=== PATIENT | male | born 1965 | race African-American/Black ===

== ENCOUNTER 2024-12-16 11:15 | Observation (INO) | payer MEDICAID, SELFPAY ==
--- NOTE | 2024-11-10 08:45 | EKG12_ITS ---
Test Reason : PRE OP Blood Pressure : */* mmHG Vent. Rate : 83 BPM Atrial Rate : 83 BPM P-R Int : 144 ms QRS Dur : 88 ms QT Int : 364 ms P-R-T Axes : 78 -70 61 degrees QTcB Int : 427 ms Normal sinus rhythm Left anterior fascicular block Abnormal ECG Confirmed by ALYSSA ORDONEZ, MARILYN ([id number]), tape editor CHRIS SHABAZZ ([id number]) on 11/11/2024 11:01:05 AM Referred By: Jose Quinones Confirmed By: MARILYN SHAH MD
[2024-11-10 09:13] LABS: Hematocrit 46.8 % (40-54); Hemoglobin 14.8 g/dL (13.0-16.5); Immature Granulocytes Count 0.050 X10^3/uL (0.0-0.0); Mean Corp Hgb Conc 31.6 g/dL (32-36); Mean Corpuscular Volume 85.6 fL (80-94); Mean Platelet Vol. 10.9 fl (6.2-12.0); NRBC Flagged by Analyzer 0 % (0-5); Platelet Count 225 K/mm3 (150-450); RBC Distribution Width CV 14.0 % (11.6-14.6); RBC Distribution Width SD 44.2 fl (35.1-43.9); Red Blood Count 5.47 M/mm3 (4.6-6.2); White Blood Count 9.9 K/mm3 (4.4-11.0)
[2024-11-10 10:03] LABS: Anion Gap 11 (5-15); BUN 14 mg/dL (4-19); BUN/Creat Ratio 13.0 RATIO (10-20); Calcium,Total 9.3 mg/dL (7.6-11.0); Carbon Dioxide 25.9 mmol/L (21.0-32.0); Chloride 100 mmol/L (98-108); Glucose 118 mg/dL (70-99); HIV Nonreactive (Nonreactive); Hepatitis C Antibody Nonreactive (Nonreactive); Potassium 3.8 mmol/L (3.3-5.1)
[2024-11-10 10:35] LABS: Magnesium 2.2 mg/dL (1.5-2.2)
--- NOTE | 2024-11-11 08:29 | PAT.ANESEVAL ---
Pre-Assessment Diagnosis/Proposed Procedure Planned Operative Procedure(s): (N/A) Anterior Cervical Fusion C4-5, C5-6 and C6-7 Anesthesia History Anesthesia History - tubular riveter: Anesthesia History - tubular riveter Hx Hospitalization No 11/05/24 09:39 Any Problems With Anesthesia No 11/05/24 09:39 Cholinesterase deficiency No 11/05/24 09:39 You/Your Family Experience No 11/05/24 09:39 fever (hyperthermia) with Relationship Recent Exposure to Contagious Disease Does patient have nerve No 11/05/24 09:39 stimulator Patient instructed to have device shut off --Does patient have Pacemaker or ICD? When Was Last Pacemaker Check QUESTION #4 FULL TEXT: You/Your Family Experience fever (hyperthermia) with Anesthesia Last Oral Intake Last Oral intake: Last Oral Intake NPO since Meds taken in AM with sips of water? Meds patient instructed to take am of surgery PONV PONV - tubular riveter: PONV - tubular riveter Female No 11/05/24 09:39 HX of Motion Sickness No 11/05/24 09:39 HX of N/V After Surgery No 11/05/24 09:39 Non-Smoker No 11/05/24 09:39 Duration of Surgery greater Yes 11/05/24 09:39 than 60 minutes Number of Risk Factors 1 11/05/24 09:39 PONV Score Low Risk 11/05/24 09:39 Height & Weight Height & Weight: Anesthesia: Height & Weight Height 6 ft 4 in 10/30/24 14:47 Respiratory Assessment Respiratory Assessment - tubular riveter: Respiratory Tract Infection Hx - tubular riveter Hx Respiratory Tract Infection No 11/05/24 09:39 STOP Sleep Apnea STOP Sleep Apnea - tubular riveter: STOP Sleep Apnea - tubular riveter Hx Hypertension No 11/05/24 09:39 Hx Sleep Apnea No 11/05/24 09:39 CPAP BIPAP Do you snore loudly (louder No 11/05/24 09:39 than talking or can be heard Do you often feel tired/ No 11/05/24 09:39 fatigued/ sleepy during daytime? Has anyone observed you stop No 11/05/24 09:39 breathing during sleep? STOP Results Negative 11/05/24 09:39 QUESTION #5 FULL TEXT : Do you snore loudly (louder than talking or can be heard through closed doors)? Tobacco Use History Tobacco Use History - tubular riveter: Tobacco Use History - tubular riveter Tobacco Use Smoking Status Current every day smoker 11/05/24 09:39 Hx Tobacco Use Yes 11/05/24 09:39 Years Smoking Packs Smoked per Day Smoking Cessation Date was within the last 15 years Hx Smoking Cessation Date Hx Smoking Cessation Counseling Hematologic Medial History Hematologic Hx - tubular riveter: Hematologic Medical Hx - ip counsel Hx of Blood Transfusion No 11/05/24 09:39 Hx of Transfusion in last 3 No 11/05/24 09:39 Months Date of Last Transfusion (if within last 3 months) Ever experience any problems No 11/05/24 09:39 with transfusion(s)? Specify any problems Hx of Preganancy in last 3 N/A 11/05/24 09:39 Months Nurse Filling Out Transfusion [facility] 11/05/24 09:39 & Questions: Date: 11/05/24 11/05/24 09:39 Time: 09:41 11/05/24 09:39 Patient unable to answer at this time (ie. confused, unrespo /Reproduction History /Reproductive History - tubular riveter: /Reproductive Hx- tubular riveter Hx Now No 11/05/24 09:39 Gestational Age (in weeks): EDC: Hx Hx Para Hx Section SAB No 11/05/24 09:39 PFSH Medical History (Updated 11/05/24 @ 09:45 by Nichole Borges) Wears glasses Leg cramps Smoker History of edema Hyperlipemia Pulmonary nodule Gastric reflux Pulmonary emphysema Home Medications ?Medication ?Instructions ?Recorded ?Last Taken ?Type NK 10/30/24 Unknown History Allergy/AdvReac Type Severity Reaction Status Date / Time pollen extracts (pollens) AdvReac Other Verified 11/05/24 09:39 Family History (Updated 10/30/24 @ 15:07 by Francine Perez) Mother Hypertension Ovarian cancer Father Diabetes Myocardial infarction Hypertension Surgical History (Updated 11/05/24 @ 09:45 by Nichole Borges) History of appendectomy (~2004) Social History (Updated 10/30/24 @ 15:07 by Francine Perez) household members: spouse Smoking Status: Current every day smoker tobacco type: cigarettes Audit: Pertinent Findings Pertinent Findings EKG Perinent findings: 11/10/24: NSR with LAFB Recommendation Anesthesia Recommendation Anesthesia recommendation: OPTIMIZED for anesthesia
--- NOTE | 2024-12-08 16:57 | PAT.ANESEVAL ---
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 When Was Last Pacemaker Check QUESTION #4 FULL TEXT: You/Your Family Experience fever (hyperthermia) with Anesthesia Last Oral Intake Last Oral intake: Last Oral Intake NPO since Meds taken in AM with sips of water? Meds patient instructed to take am of surgery PONV PONV - beaming machine operator: PONV - beaming machine operator Female No 12/07/24 12:59 HX of Motion Sickness No 12/07/24 12:59 HX of N/V After Surgery No 12/07/24 12:59 Non-Smoker No 12/07/24 12:59 Duration of Surgery greater Yes 12/07/24 12:59 than 60 minutes Number of Risk Factors 1 12/07/24 12:59 PONV Score Low Risk 12/07/24 12:59 Height & Weight Height & Weight: Anesthesia: Height & Weight Height 6 ft 4 in 10/30/24 14:47 Respiratory Assessment Respiratory Assessment - beaming machine operator: Respiratory Tract Infection Hx - beaming machine operator Hx Respiratory Tract Infection No 12/07/24 12:59 STOP Sleep Apnea STOP Sleep Apnea - beaming machine operator: STOP Sleep Apnea - beaming machine operator Hx Hypertension No 12/07/24 12:59 Hx Sleep Apnea No 12/07/24 12:59 CPAP BIPAP Do you snore loudly (louder No 12/07/24 12:59 than talking or can be heard Do you often feel tired/ No 12/07/24 12:59 fatigued/ sleepy during daytime? Has anyone observed you stop No 12/07/24 12:59 breathing during sleep? STOP Results Negative 12/07/24 12:59 QUESTION #5 FULL TEXT : Do you snore loudly (louder than talking or can be heard through closed doors)? 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 Specify any problems Hx of Preganancy in last 3 N/A 12/07/24 12:59 Months Nurse Filling Out Transfusion [facility] 12/07/24 12:59 & Questions: Date: 12/07/24 12/07/24 12:59 Time: 13:00 12/07/24 12:59 Patient unable to answer at this time (ie. confused, unrespo /Reproduction History /Reproductive History - beaming machine operator: /Reproductive Hx- beaming machine operator Hx Now No 12/07/24 12:59 Gestational Age (in weeks): EDC: Hx Hx Para Hx Section SAB No 12/07/24 12:59 [facility] History (Updated 11/05/24 @ 09:45 by Nichole Borges) Wears glasses Leg cramps Smoker History of edema Hyperlipemia Pulmonary nodule Gastric reflux Pulmonary emphysema Home Medications ?Medication ?Instructions ?Recorded ?Last Taken ?Type NK 10/30/24 Unknown History Allergy/AdvReac Type Severity Reaction Status Date / Time pollen extracts (pollens) AdvReac Other Verified 12/07/24 12:59 Family History (Updated 10/30/24 @ 15:07 by Francine Perez) Mother Hypertension Ovarian cancer Father Diabetes Myocardial infarction Hypertension Surgical History (Updated 11/05/24 @ 09:45 by Nichole Borges) History of appendectomy (~2004) Social History (Updated 10/30/24 @ 15:07 by Francine Perez) household members: spouse Smoking Status: Current every day smoker tobacco type: cigarettes Audit: Pertinent Findings HISTORY of Pertinent Findings History of Pertinent Findings: EKG Pertinent Findings EKG Perinent findings 11/10/24: NSR with LAFB 11/11/24 08:30 Pertinent Findings EKG Perinent findings: 12/17/2023 Normal Sinus rhythm, LAFB unchanged from 11/10/2024 Recommendation Anesthesia Recommendation Anesthesia recommendation: OPTIMIZED for anesthesia
--- NOTE | 2024-12-15 12:56 | PAT.ANE_ITS ---
Pre-Assessment Diagnosis/Proposed Procedure Planned Operative Procedure(s): (N/A) Anterior Cervical Fusion C4-5, C5-6 and C6-7 Anesthesia History Anesthesia History - home care giver: Anesthesia History - home care giver Hx Hospitalization No 12/07/24 12:59 Any Problems With Anesthesia No 12/07/24 12:59 Cholinesterase deficiency No 12/07/24 12:59 You/Your Family Experience No 12/07/24 12:59 fever (hyperthermia) with Relationship Recent Exposure to Contagious Disease Does patient have nerve No 12/07/24 12:59 stimulator Patient instructed to have device shut off --Does patient have Pacemaker or ICD? When Was Last Pacemaker Check QUESTION #4 FULL TEXT: You/Your Family Experience fever (hyperthermia) with Anesthesia Last Oral Intake Last Oral intake: Last Oral Intake NPO since Meds taken in AM with sips of water? Meds patient instructed to take am of surgery PONV PONV - home care giver: PONV - home care giver Female No 12/07/24 12:59 HX of Motion Sickness No 12/07/24 12:59 HX of N/V After Surgery No 12/07/24 12:59 Non-Smoker No 12/07/24 12:59 Duration of Surgery greater Yes 12/07/24 12:59 than 60 minutes Number of Risk Factors 1 12/07/24 12:59 PONV Score Low Risk 12/07/24 12:59 Height & Weight Height & Weight: Anesthesia: Height & Weight Height 6 ft 4 in 10/30/24 14:47 Respiratory Assessment Respiratory Assessment - home care giver: Respiratory Tract Infection Hx - home care giver Hx Respiratory Tract Infection No 12/07/24 12:59 STOP Sleep Apnea STOP Sleep Apnea - home care giver: STOP Sleep Apnea - home care giver Hx Hypertension No 12/07/24 12:59 Hx Sleep Apnea No 12/07/24 12:59 CPAP BIPAP Do you snore loudly (louder No 12/07/24 12:59 than talking or can be heard Do you often feel tired/ No 12/07/24 12:59 fatigued/ sleepy during daytime? Has anyone observed you stop No 12/07/24 12:59 breathing during sleep? STOP Results Negative 12/07/24 12:59 QUESTION #5 FULL TEXT : Do you snore loudly (louder than talking or can be heard through closed doors)? 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 Specify any problems Hx of Preganancy in last 3 N/A 12/07/24 12:59 Months Nurse Filling Out Transfusion [facility] 12/07/24 12:59 & Questions: Date: 12/07/24 12/07/24 12:59 Time: 13:00 12/07/24 12:59 Patient unable to answer at this time (ie. confused, unrespo /Reproduction History /Reproductive History - home care giver: /Reproductive Hx- home care giver Hx Now No 12/07/24 12:59 Gestational Age (in weeks): EDC: Hx Hx Para Hx Section SAB No 12/07/24 12:59 Active Medications Active Medications: Current Medications Generic Name Dose Route Start Last Admin Trade Name Freq PRN Reason Stop Dose Admin Acetaminophen 1,000 mg 12/16/24 07:30 Acetaminophen 500 Mg Tablet PO 12/16/24 07:31 PREOP ONE Dexamethasone Sodium Phosphate 8 mg 12/16/24 07:30 Dexamethasone 10 Mg/Ml Vial IV 12/16/24 07:31 INTRAOP ONE Dexamethasone Sodium Phosphate 4 mg 12/16/24 07:30 Dexamethasone 4 Mg/Ml Vial IV 12/16/24 07:31 POSTOP ONE Cefazolin Sodium 2 gm/ Sodium 110 mls @ 150 mls/hr 12/16/24 07:30 Chloride IV 12/16/24 08:13 INTRAOP ONE Tranexamic Acid 1,000 mg/ 110 mls @ 440 mls/hr 12/16/24 07:30 Sodium Chloride IV 12/16/24 07:44 INTRAOP ONE Tranexamic Acid 1,000 mg/ 110 mls @ 440 mls/hr 12/16/24 07:30 Sodium Chloride IV 12/16/24 07:44 INTRAOP ONE Insulin Human Lispro 1 - 6 unit 12/16/24 07:30 Insulin Lispro 100 Unit/Ml Insuln.Pen SC 12/17/24 07:29 Q4H PRN PRN BG>/= 180, SEE PROTOCOL Protocol PFSH Medical History (Updated 11/05/24 @ 09:45 by Nichole Borges) Wears glasses Leg cramps Smoker History of edema Hyperlipemia Pulmonary nodule Gastric reflux Pulmonary emphysema Home Medications ?Medication ?Instructions ?Recorded ?Last Taken ?Type NK 10/30/24 Unknown History Allergy/AdvReac Type Severity Reaction Status Date / Time pollen extracts (pollens) AdvReac Other Verified 12/07/24 12:59 Family History (Updated 10/30/24 @ 15:07 by Francine Perez) Mother Hypertension Ovarian cancer Father Diabetes Myocardial infarction Hypertension Surgical History (Updated 11/05/24 @ 09:45 by Nichole Borges) History of appendectomy (~2004) Social History (Updated 10/30/24 @ 15:07 by Francine Perez) household members: spouse Smoking Status: Current every day smoker tobacco type: cigarettes Audit: Pertinent Findings HISTORY of Pertinent Findings History of Pertinent Findings: EKG Pertinent Findings EKG Perinent findings 12/17/2023 Normal Sinus 12/08/24 17:07 rhythm, LAFB unchanged from 11/10/2024 EKG Perinent findings 11/10/24: NSR with LAFB 11/11/24 08:30 Pertinent Findings Stress test pertinent findings: December 09, 2024. Normal SPECT perfusion study. No evidence for inducible ischemia. No evidence of scarred myocardium. Left ventricular ejection fraction 74%. Additional pertinent findings: Note there was no repeat EKG on 12/16/2024. Or 12/17/2023. Recommendation Anesthesia Recommendation Anesthesia recommendation: OPTIMIZED for anesthesia
[2024-12-16] VITALS (20 sets, daily range): BP systolic 112–146; BP diastolic 70–102; PULSE 73–99; RESP 14–20; TEMP 36.1–37.2; O2SAT 91–100; BMI 19.5
--- OUTSIDE RECORDS SUMMARY | 2024-12-16 05:11 | XMS RPT_ITS | CCD ---
Author Organization [facility] Care Team Providers Care Psychiatric Security Nurse Name Role Phone Igor Michelle Primary Care Provider Gabyfeliciano mi Warren MD, Jaclyn Garvin Primary Care Provider Jaclyn Warren MD Primary Care Provider Jaclyn Warren MD Primary Care Provider Jaclyn Warren MD Primary Care Provider Joni ORDONEZ, Dr. Garcia Attending Provider Regine ORDONEZ, Dr. Holman Attending Provider [phone] KELVIN, JACLYN W Referring Unavailable KELVIN, JACLYN W Primary Care Unavailable KELVIN, JACLYN W Referring Unavailable KELVIN, JACLYN W Primary Care Unavailable KELVIN, JACLYN W Referring Unavailable KELVIN, JACLYN W Primary Care Unavailable KELVIN, JACLYN W Attending Unavailable KELVIN, JACLYN W Referring Unavailable KELVIN, JACLYN W Primary Care Unavailable ALBERT, CAROLYN Attending Unavailable TUCKERBLE, CAROLYN Referring Unavailable KELVIN, JACLYN W Primary Care Unavailable KELVIN, JACLYN W Referring Unavailable KELVIN, JACLYN W Primary Care Unavailable KELVIN, JACLYN W Referring Unavailable KELVIN, JACLYN W Primary Care Unavailable KELVIN, JACLYN W Referring Unavailable KELVIN, JACLYN W Primary Care Unavailable GOSKE, YASEMIN D Attending Unavailable GOSKE, YASEMIN D Referring Unavailable KELVIN, JACLYN W Primary Care Unavailable KELVIN, JACLYN W Referring Unavailable KELVIN, JACLYN W Primary Care Unavailable KELVIN, JACLYN W Referring Unavailable KELVIN, JACLYN W Primary Care Unavailable GOSKE, YASEMIN D Referring Unavailable KELVIN, JACLYN W Primary Care Unavailable GOSKE, YASEMIN D Attending Unavailable KELVIN, JACLYN W Referring Unavailable KELVIN, JACLYN W Primary Care Unavailable KELVIN, JACLYN W Primary Care Unavailable YASEMIN JAIME Referring Unavailable KELVIN, JACLYN W Primary Care Unavailable KELVIN, JACLYN W Primary Care Unavailable TEJAS ALBA JR Attending Unavailable TEJAS ALBA JR Referring Unavailable KELVIN, JACLYN W Attending Unavailable EKLVIN, JACLYN W Primary Care Unavailable KELVIN, JACLYN W Attending Unavailable KELVIN, JACLYN W Primary Care Unavailable KELVIN, JACLYN W Attending Unavailable KELVIN, JACLYN W Referring Unavailable KELVIN, JACLYN W Primary Care Unavailable JOEL EWING Attending Unavailabl e KELVIN, JACLYN W Primary Care Unavailable Jose Quinones Attending Unavailable River Weiner Attending Unavailable Jose Quinones Attending Unavailable Jose Quinones Referring Unavailable JASMYN BERNARD Primary Care Unavailable [employer] Unavailable Allergies Allergy Classification Reported Allergen(s) Allergy Type Date of Onset Reaction(s) Facility (2 sources) Pollen Propensity to adverse reactions 5 Other [facility] Comment on above: runny nose, watery e yes (1 source) Pollen Drug allergy (disorder) 5 [facility] Repository Medications Current Medications Medication Drug Class(es) Dates Sig (Normalized) Sig (Original) acetaminophen 500 mg / HYDROcodone bitartrate 5 mg oral tablet (8 sources) Opioid Agonist Start: 09-13-2008 End: 02-09-2022 hydrocodone bit/acetaminophen( VICODIN 5 MG-500 MG TAB) Take 1-2 tablet's) every six(6) hours as needed for pain. 0 09/13/2008 02/09/2022 Discontinued (Other) Comment on above: Take 1-2 tablet's) e very six(6) hours as needed for pain. [id number] actuat albuterol 0.09 mg/actuat metered dose inhaler (20 sources) beta2-Adrenergic Agonist Start: 10-30-2023 End: 11-10-2024 take 2 puff(s) by mouth every four hours for cough albuterol HFA (PROVENTIL HFA, VENTOLIN HFA) 90 mcg/actuation inhaler Indications: Pulmonary emphysema, unspecified emphysema type (HCC) inhale 2 puffs by mouth and INTO THE LUNGS every 4 hours if needed for cough shortness of breath or wheezing 18 g 4 11/10/2024 Active Start: 02-21-2022 End: 10-30-2023 take 2 puff(s) by inhalation every four hours as needed for wheezing albuterol HFA (PROVENTIL HFA, VENTOLIN HFA) 90 mcg/actuation inhaler Indications: Pulmonary emphysema, unspecified emphysema type (HCC) Inhale 2 Puffs as instructed every 4 hours as needed for wheezing/shortness of breath. 1 Each 2 02/21/2022 10/30/2023 Discontinued Start: 06-22-2020 End: 02-21-2022 albuterol HFA (PROVENTIL HFA , VENTOLIN HFA) 90 mcg/actuation inhaler Apply to affected area. 0 06/22/2020 02/21/2022 Discontinued Comment on above: Apply to affected ar ea. Inhale 2 Puffs as in structed every 4 hours as needed for wheezing/shortness of breath. atorvastatin 20 mg oral tablet (20 sources) HMG-CoA Reductase Inhibitor Start: 3 End: 4 take 1 tablet by mouth once daily atorvastatin (LIPITOR) 20 mg tablet take 1 tablet by mouth once daily 90 tablet 3 06/24/2023 Active Comment on above: Take 1 tablet by matt th once daily. take 1 tablet by matt th once daily furosemide 20 mg oral tablet (20 sources) Loop Diuretic Start: take 1 tablet by mouth once daily furosemide (LASIX) 20 mg tablet Take 1 tablet by mouth once daily. 3 tablet 11/12/2024 Active Start: 09-10-2024 End: 11-10-2024 take 1 tablet by mouth once daily as needed furosemide (LASIX) 20 mg tablet Take 1 tablet by mouth once daily as needed. 10 tablet 09/10/2024 11/10/2024 Discontinued meloxicam 15 mg oral tablet (20 sources) Nonsteroidal Anti-inflammatory Drug Start: 09-08-2024 End: 11-06-2024 take 1 tablet by mouth once daily meloxicam (MOBIC) 15 mg tablet TAKE ONE TABLET BY MOUTH EVERY DAY 30 tablet 11/06/2024 Active Start: 01-30-2023 End: 09-08-2024 take 1 tablet by mouth once daily meloxicam (MOBIC) 7.5 mg tablet Take 1 tablet by mouth once daily. 10 tablet 01/30/2023 09/08/2024 Discontinued (Course of therapy completed) Comment on above: Take 1 tablet by [facility] once daily. methylPREDNISolone (6 sources) Corticosteroid Start: 09-23-2024 End: 09-29-2024 methylPREDNISolone (MEDROL, GRIS,) 4 mg Dose-Pack As instructed per package 21 tablet 09/23/2024 09/29/2024 Active Start: 07-16-2024 End: 07-22-2024 methylPREDNISolone (MEDROL, GRIS,) 4 mg Dose-Pack As instructed per package 21 tablet 07/16/2024 07/22/2024 Active Start: 03-27-2023 End: 04-01-2023 methylPREDNISolone (MEDROL, GRIS,) 4 mg Dose-Pack As instructed per package 21 tablet 0 03/27/2023 04/01/2023 Start: 03-27-2023 End: 04-01-2023 methylPREDNISolone (MEDROL, GRIS,) 4 mg Dose-Pack As instructed per package 21 tablet 0 03/27/2023 04/01/2023 Active Comment on above: As instructed per jemma serrano predniSONE 5 mg oral tablet (1 source) Start: 10-15-19 End: 10-29-19 take 1 tablet by mouth twice daily, then take 1 tablet by mouth once daily, then take 0.5 tablet by mouth once daily, then take 0.5 tablet by mouth every other day predniSONE (DELTASONE) 5 mg tablet Take 1 tablet by mouth two times a day for 3 days, THEN 1 tablet once daily for 3 days, THEN 0.5 tablets once daily for 3 days, THEN 0.5 tablets every other day for 5 days. 13 tablet 0 10/15/2023 10/29/2023 Active tadalafil 5 mg oral tablet (20 sources) Phosphodiesterase 5 Inhibitor Start: 07-22-19 Tadalafil (CIALIS) 5 mg tablet Take 1 tablet by mouth once daily. On days when you plan to be sexually active, skip your daily dose and take up to 4 tabs 1-2 hours prior to sex. 50 tablet 5 07/21/2024 Active Completed/Discontinued Medications Medication Drug Class(es) Dates Sig (Normalized) Sig (Original) amoxicillin 875 mg / clavulanate 125 mg oral tablet (14 sources) Penicillin-class Antibacterial Start: 09-10-2024 End: 11-10-2024 take 1 tablet by mouth twice daily amoxicillin-clavul anate potassium (AUGMENTIN) 875-125 mg per tablet Take 1 tablet by mouth two times a day. 14 tablet 09/10/2024 11/10/2024 Discontinued Budesonide / formoterol (20 sources) Corticosteroid, beta2-Adrenergic Agonist Start: 07-16-2024 End: 11-10-2024 take 2 puff(s) by inhalation twice daily budesonide-formote rol (SYMBICORT) 160-4.5 mcg/actuation inhaler Inhale 2 Puffs as instructed two times a day. 1 Each 3 07/16/2024 11/10/2024 Discontinued Start: 07-16-2024 take 2 puff(s) by in halation twice daily budesonide-formoterol (SYMBICORT) 160-4.5 mcg/actuation inhaler Inhale 2 Puffs as instructed two times a day. 1 Each 3 07/16/2024 Active celecoxib 200 mg oral capsule (2 sources) Nonsteroidal Anti-inflammatory Drug Start: 09-08-2024 End: 09-08-2024 take 1 capsule by mouth twice daily celecoxib (CELEBREX) 200 mg capsule Indications: Cervical radiculopathy Take 1 capsule by mouth two times a day. 60 capsule 09/08/2024 09/08/2024 Discontinued (Side Effects) diclofenac sodium 0.01 mg/mg topical gel (2 sources) Nonsteroidal Anti-inflammatory Drug Start: 09-13-2021 End: 02-21-2022 diclofenac (VOLTAREN) 1 % topical gel Apply to affected area. 0 09/13/2021 02/21/2022 Discontinued (Course of therapy completed) Comment on above: Apply to affected ar ea. fluticasone propionate 0.05 mg/actuat metered dose nasal spray (20 sources) Corticosteroid Start: 04-03-2023 End: 11-10-2024 take 2 spray(s) nasal route once daily fluticasone (FLONASE) 50 mcg/actuation nasal spray instill 2 sprays into each nostril once daily 16 g 1 04/03/2023 11/10/2024 Discontinued Start: 01-30-2023 End: 04-03-2023 take 2 spray(s) nasal route once daily fluticasone (FLONASE) 50 mcg/actuation nasal spray Use 2 Sprays in each nostril once daily. 1 Each 1 01/30/2023 04/03/2023 Discontinued Comment on above: Use 2 Sprays in each nostril once daily. instill 2 sprays int o each nostril once daily 14 actuat fluticasone furoate 0.1 mg/actuat / vilanterol 0.025 mg/actuat dry powder inhaler (2 sources) Corticosteroid, beta2-Adrenergic Agonist Start: 3 End: 3 take 1 dose by inhalation once daily fluticasone-vilantero l (BREO ELLIPTA) 100-25 mcg/dose inhaler Inhale 1 Inhalation as instructed once daily. 1 Each 3 07/25/2022 08/13/2022 Discontinued (Cost of medication) Start: 06-27-2022 take 1 dose by inhal ation once daily fluticasone-vilanterol (BREO ELLIPTA) 100-25 mcg/dose inhaler Inhale 1 Inhalation as instructed once daily. 1 Each 3 06/27/2022 Active Comment on above: Inhale 1 Inhalation as instructed once daily. fluticasone-umeclid in-vilanter (TRELEGY ELLIPTA) 200-62.5-25 mcg inhalation powder (20 sources) Start: 4 End: 5 take 1 puff(s) by inhalation once daily fluticasone-umeclidi n-vilanter (TRELEGY ELLIPTA) 200-62.5-25 mcg inhalation powder Inhale 1 Puff as instructed once daily. 1 Each 5 10/31/2023 07/16/2024 Discontinued (Cost of medication) Start: 10-31-2023 take 1 puff(s) by inhalation once daily kuhfevvuypi-wxzwgvlox-grclxfka (TRELEGY ELLIPTA) 200-62.5-25 mcg inhalation powder Inhale 1 Puff as instructed once daily. 1 Each 5 10/31/2023 Active Start: 01-28-2023 End: 10-31-2023 take 1 puff(s) by inhalation once daily onuxukthtib-zkdaxvnvn-szuqbjvv (TRELEGY ELLIPTA) 200-62.5-25 mcg inhalation powder Inhale 1 Puff as instructed once daily. 1 Each 5 01/28/2023 10/31/2023 Discontinued Start: 01-28-2023 take 1 puff(s) by inhalation once daily jmyxyailaxx-cclxiotls-appjloon (TRELEGY ELLIPTA) 200-62.5-25 mcg inhalation powder Inhale 1 Puff as instructed once daily. 1 Each 5 01/28/2023 Active Comment on above: Inhale 1 Puff as ins tructed once daily. 120 actuat formoterol fumarate 0.005 mg/actuat / mometasone furoate 0.05 mg/actuat metered dose inhaler (12 sources) Corticosteroid, beta2-Adrenergic Agonist Start: End: 3 take 2 puff(s) by inhalation twice daily mometasone-formotero l (DULERA) 50-5 mcg/actuation HFA aerosol inhaler Inhale 2 Puffs as instructed twice daily. 13 g 3 12/12/2022 01/28/2023 Discontinued Start: 08-13-2022 End: 12-12-2022 take 2 puff(s) by inhalation twice daily mometasone-formoterol (DULERA) 50-5 mcg/actuation HFA aerosol inhaler Inhale 2 Puffs as instructed twice daily. 1 Each 3 08/13/2022 12/12/2022 Discontinued Comment on above: Inhale 2 Puffs as in structed twice daily. lidocaine 0.05 mg/mg medicated patch (13 sources) Antiarrhythmic, Amide Local Anesthetic Start: End: 024 apply 1 dose transdermal route once daily, then apply 1 dose transdermal route every twelve hours lidocaine (LIDODERM) 5 % Apply 1 Patch as directed once daily. to affected area. Remove patch after 12 hours. 10 Patch 04/01/2023 10/31/2023 Discontinued (Course of therapy completed) Comment on above: Apply 1 Patch as dir ected once daily. to affected area. Remove patch after 12 hours. omeprazole 40 mg delayed release oral capsule (20 sources) Proton Pump Inhibitor Start: 023 End: 025 take 1 capsule by mouth once daily omeprazole (PRILOSEC) 40 mg capsule Take 1 capsule by mouth once daily. 90 capsule 1 07/25/2022 11/10/2024 Discontinued Comment on above: Take 1 capsule by mo [facility] once daily. sildenafil 50 mg oral tablet (7 sources) Phosphodiesterase 5 Inhibitor Start: End: take 1 tablet by mouth once daily sildenafil (VIAGRA) 50 mg tablet take 1 tablet by mouth once daily if needed 30-60 MINUTES BEFORE SEXUAL ACTIVITY. TAKE ON EMPTY STOMACH. 30 tablet 3 01/17/2024 07/21/2024 Discontinued Start: 01-15-2024 take 1 tablet by matt once daily sildenafil (VIAGRA) 50 mg tablet take 1 tablet by mouth once daily if needed 30-60 MINUTES BEFORE SEXUAL ACTIVITY. TAKE ON EMPTY STOMACH. 30 tablet 3 01/15/2024 Active Start: 11-15-2023 End: 11-15-2023 take 1 tablet by mouth once daily sildenafil (VIAGRA) 50 mg tablet take 1 tablet by mouth once daily if needed 30-60 MINUTES BEFORE SEXUAL ACTIVITY. TAKE ON EMPTY STOMACH. 30 tablet 3 11/15/2023 11/15/2023 Discontinued Start: 06-04-2023 End: 07-04-2023 take 1 tablet by mouth once daily as needed sildenafil (VIAGRA) 50 mg tablet Take 1 tablet by mouth once daily as needed. Take 30-60 minutes before sexual activity. Take on an empty stomach. 30 tablet 3 06/04/2023 07/04/2023 Active Comment on above: Take 1 tablet by matt once daily as needed. Take 30-60 minutes before sexual activity. Take on an empty stomach. tiZANidine 4 mg oral tablet (20 sources) Central alpha-2 Adrenergic Agonist Start: End: take 1 tablet by mouth once daily tiZANidine (ZANAFLEX) 4 mg tablet take 1 tablet by mouth once daily 15 tablet 1 07/15/2023 11/10/2024 Discontinued (Course of therapy completed) Start: 06-17-2023 take 1 tablet by matt th once daily tiZANidine (ZANAFLEX) 4 mg tablet take 1 tablet by mouth once daily 15 tablet 1 06/17/2023 Active Start: 05-06-2023 take 1 tablet by matt th once daily tiZANidine (ZANAFLEX) 4 mg tablet take 1 tablet by mouth once daily 15 tablet 1 05/06/2023 Active Start: 01-30-2023 End: 03-26-2023 take 1 tablet by mouth once daily tiZANidine (ZANAFLEX) 4 mg tablet take 1 tablet by mouth once daily 15 tablet 1 03/26/2023 Active Comment on above: Take 1 tablet by matt th once daily. take 1 tablet by matt th once daily Problems Active Problems Problem Classification Problem Date Documented Da te Episodic/Chronic Abdominal pain (1 source) Pain in pelvis; Translations: [Pelvic and perineal pain] 01-30-2023 Episodic Chronic obstructive pulmonary disease and bronchiectasis (20 sources) Pulmonary emphysema; Translations: [Emphysema, unspecified] Onset: 2 Chronic Diseases of white blood cells (20 sources) Lymphocytosis; Translations: [Lymphocytosis (symptomatic)] Onset: 9 09-10-2022 Chronic Disorders of lipid metabolism (20 sources) Mixed hyperlipidemia; Translations: [Mixed hyperlipidemia] Onset: 7 Chronic Esophageal disorders (20 sources) Gastroesophageal reflux disease without esophagitis; Translations: [Gastro-esophageal reflux disease without esophagitis] Onset: 8 Chronic Genitourinary symptoms and ill-defined conditions (1 source) Increased frequency of urination; Translations: [Frequency of micturition] Episodic Immunizations and screening for infectious disease (2 sources) Anti-nuclear factor positive; Translations: [Other specified abnormal immunological findings in serum] Onset: 5 10-15-2024 Episodic Nonspecific chest pain (7 sources) Chest pain on exertion; Translations: [Chest pain, unspecified] Onset: 5 07-16-2024 Episodic Other bone disease and musculoskeletal deformities (1 source) Scapulalgia; Translations: [Other specified disorders of bone, shoulder] 05-07-2023 Episodic Other gastrointestinal disorders (1 source) Constipation; Translations: [Other constipation] Episodic Other lower respiratory disease (4 sources) Wheezing; Translations: [Wheezing] Episodic Other lower respiratory disease (1 source) Wheezing; Translations: [Wheezing] Onset: 5 Episodic Other male genital disorders (2 sources) Secondary erectile dysfunction; Translations: [Male erectile dysfunction, unspecified] 07-22-2023 Chronic Other male genital disorders (1 source) Male erectile dysfunction, unspecified; Translations: [ED (erectile dysfunction) of organic origin] Onset: Chronic Other nervous system disorders (2 sources) Bilateral carpal tunnel syndrome; Translations: [Carpal tunnel syndrome, bilateral upper limbs] 07-24-2023 Chronic Other nervous system disorders (1 source) Cervical myelopathy; Translations: [Disease of spinal cord, unspecified] 09-29-2024 Chronic Other non-traumatic joint disorders (2 sources) Ankle edema; Translations: [Effusion, right ankle] 08-31-2024 Episodic Other non-traumatic joint disorders (4 sources) Acute ankle pain; Translations: [Pain in right ankle and joints of right foot] 09-21-2024 Episodic Other non-traumatic joint disorders (1 source) Pain in right ankle and joints of right foot; Translations: [Acute right ankle pain] Onset: Episodic Other screening for suspected conditions (not mental disorders or infectious disease) (3 sources) Patient encounter status; Translations: [Encounter for screening for malignant neoplasm of colon] Episodic Other upper respiratory disease (20 sources) Allergic rhinitis; Translations: [Allergic rhinitis, unspecified] Onset: 09-10-2022 Chronic Pneumonia (except that caused by tuberculosis or sexually transmitted disease) (1 source) Lung consolidation; Translations: [Lobar pneumonia, unspecified organism] 01-28-2023 Episodic Residual codes; unclassified (2 sources) Obstructive sleep apnea syndrome; Translations: [Obstructive sleep apnea (adult) (pediatric)] 09-06-2023 Chronic Residual codes; unclassified (1 source) Obstructive sleep apnea (adult) (pediatric); Translations: [CAMRYN (obstructive sleep apnea)] Onset: Chronic Residual codes; unclassified (6 sources) Tobacco user; Translations: [Tobacco use] Episodic Residual codes; unclassified (5 sources) Bilateral lower limb edema; Translations: [Localized edema] 09-10-2024 Episodic Residual codes; unclassified (1 source) Tobacco use; Translations: [Tobacco use current] Onset: 5 Episodic Residual codes; unclassified (1 source) Localized edema; Translations: [Edema of both lower extremities] Onset: 5 Episodic Spondylosis; intervertebral disc disorders; other back problems (20 sources) 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; Translations: [Other cervical disc displacement, unspecified cervical region] Onset: 9 09-13-2008 Chronic Spondylosis; intervertebral disc disorders; other back problems (20 sources) Low back pain; Translations: [Lumbar pain] Onset: 5 01-30-2023 Episodic Substance-related disorders (20 sources) Tobacco user; Translations: [Nicotine dependence, unspecified, uncomplicated] Onset: 7 Chronic Unclassified (1 source) Established Patient Onset: Past or Other Problems Problem Classification Problem Date Documented Da te Episodic/Chronic Diabetes mellitus without complication (10 sources) Hyperglycemia; Translations: [Hyperglycemia, unspecified] Onset: 07-16-2024 Episodic Nonmalignant breast conditions (20 sources) Gynecomastia; Translations: [Hypertrophy of breast] Onset: 08-20-2018 09-10-2022 Episodic Other lower respiratory disease (20 sources) Dyspnea; Translations: [Shortness of breath] Onset: 05-17-2021 09-10-2022 Episodic Other lower respiratory disease (20 sources) Nodule of lung; Translations: [Solitary pulmonary nodule] Onset: 04-09-2017 09-10-2022 Episodic Other lower respiratory disease (20 sources) Cough; Translations: [Cough] Onset: 12-26-2016 09-10-2022 Episodic Other lower respiratory disease (1 source) Shortness of breath; Translations: [Shortness of breath] Onset: 09-10-2022 Episodic Other nervous system disorders (20 sources) Paresthesia; Translations: [Paresthesia of skin] Onset: 06-11-2018 09-10-2022 Episodic Other non-traumatic joint disorders (1 source) Effusion, right ankle; Translations: [Edema of both ankles] Onset: 08-31-2024 Episodic Other non-traumatic joint disorders (1 source) Effusion, left ankle; Translations: [Edema of both ankles] Onset: 08-31-2024 Episodic Other upper respiratory disease (20 sources) Bleeding from nose; Translations: [Epistaxis] Onset: 07-11-2016 09-10-2022 Episodic Skin and subcutaneous tissue infections (2 sources) Cellulitis of right lower limb; Translations: [Cellulitis of right lower limb] Onset: 09-10-2024 09-10-2024 Episodic Unclassified (1 source) Patient encounter status 11-19-2024 Results Test Name Value Interpretation Reference Range Facility [facility] 12-09-2024 CNOV Office Visit ([facility] ) MARY ANNE RAMOS ([id number]) 1965 M Date Time Provider Department 12/09/24 9:00 AM STRESS LAB [facility] During your visit today, we recorded the following information about you: Referring Provider: JACLYN WARREN [[id number]] Allergies As of Date: 12/09/2024 (No Known Allergies) Date Reviewed: 11/12/2024 Reviewed by: Jesse Bolanos MA - Fully Assessed Visit Diagnosis:Chest pain on exertion [R07.9] Order(s):NM CARDIAC PERF STRESS/PHARM [[id number]] Order #: [id number]. #:[id number] [] regadenoson 0.4 mg injection (LEXISCAN)Disp: Rfl: Prescriptions as of 12/09/2024 - furosemide (LASIX) 20 mg tablet Take 1 tablet by mouth once daily. - albuterol HFA (PROVENTIL HFA, VENTOLIN HFA) 90 mcg/actuation inhaler inhale 2 puffs by mouth and INTO THE LUNGS every 4 hours if needed for cough shortness of breath or wheezing - meloxicam (MOBIC) 15 mg tablet TAKE ONE TABLET BY MOUTH EVERY DAY - Tadalafil (CIALIS) 5 mg tablet Take 1 tablet by mouth once daily. On days when you plan to be sexually active, skip your daily dose and take up to 4 tabs 1-2 hours prior to sex. - atorvastatin (LIPITOR) 20 mg tablet take 1 tablet by mouth once daily Problem List As Of Date 12/09/2024 Noted Resolved CERVICAL DISC DISPLACMNT [M50.20] 09/13/2008 Tobacco dependence syndrome [F17.200] 03/07/2017 Shortness of breath [R06.02] 05/17/2021 Pulmonary nodule [R91.1] 04/09/2017 Pulmonary emphysema (HCC) [J43.9] 09/13/2021 Hyperlipidemia [E78.5] 07/11/2016 Gastroesophageal reflux disease [K21.9] 10/21/2017 Gynecomastia, male [N62] 09/24/2018 Epistaxis [R04.0] 07/11/2016 Cough [R05.9] 12/26/2016 Allergic rhinitis [J30.9] 06/11/2018 Lymphocytosis [D72.820] 08/20/2018 Paresthesia [R20.2] 06/11/2018 Unspecified lump in left breast, subareolar [N6*08/20/2018 Prescriptions ordered this encounter Disp Refills Start End REGADENOSON 0.4 MG/5 ML INTRAVENOUS * 12/09/2024 12/09/2024 Route: IV Encounter Status:Closed by JOSE HARRIS on 12/09/24 [facility] MR/PATNatasha 12-08-2024 MR/PAT.[facility] Medical Records Department [address] [place] [address] PAT - Anesthesia 12/08/24 1657 MR#: [id number] Acct: [id number] Name: MARY ANNE RAMOS Rep #: [id number] : 1965 59 From: Aurelio Maurice MD PCP: Status:PRE [facility] Y Race: AA Location: PAT Pre-Assessment Diagnosis/Proposed Procedure Planned Operative Procedure(s): (N/A) Anterior Cervical Fusion C4-5, C5-6 and C6-7 Anesthesia History Anesthesia History - line tester: Anesthesia History - line tester Hx Hospitalization No 12/07/24 12:59 Any Problems With Anesthesia No 12/07/24 12:59 Cholinesterase deficiency No 12/07/24 12:59 You/Your Family Experience No 12/07/24 12:59 fever (hyperthermia) with Relationship Recent Exposure to Contagious Disease Does patient have nerve No 12/07/24 12:59 stimulator Patient instructed to have device shut off --Does patient have Pacemaker or ICD? When Was Last Pacemaker Check QUESTION #4 FULL TEXT: You/Your Family Experience fever (hyperthermia) with Anesthesia Last Oral Intake Last Oral intake: Last Oral Intake NPO since Meds taken in AM with sips of water? Meds patient instructed to take am of surgery PONV PONV - line tester: PONV - line tester Female No 12/07/24 12:59 HX of Motion Sickness No 12/07/24 12:59 HX of N/V After Surgery No 12/07/24 12:59 Non-Smoker No 12/07/24 12:59 Duration of Surgery greater Yes 12/07/24 12:59 than 60 minutes Number of Risk Factors 1 12/07/24 12:59 PONV Score Low Risk 12/07/24 12:59 Height Weight Height Weight: Anesthesia: Height Weight Height 6 ft 4 in 10/30/24 14:47 Respiratory Assessment Respiratory Assessment - line tester: Respiratory Tract Infection Hx - line tester Hx Respiratory Tract Infection No 12/07/24 12:59 STOP Sleep Apnea STOP Sleep Apnea - line tester: STOP Sleep Apnea - line tester Hx Hypertension No 12/07/24 12:59 Hx Sleep Apnea No 12/07/24 12:59 CPAP BIPAP Do you snore loudly (louder No 12/07/24 12:59 than talking or can be heard Do you often feel tired/ No 12/07/24 12:59 fatigued/ sleepy during daytime? Has anyone observed you stop No 12/07/24 12:59 breathing during sleep? STOP Results Negative 12/07/24 12:59 QUESTION #5 FULL TEXT : Do you snore loudly (louder than talking or can be heard through closed doors)? 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 Specify any problems Hx of Preganancy in last 3 N/A 12/07/24 12:59 Months Nurse Filling Out Transfusion NBUCHER 12/07/24 12:59 Questions: Date: 12/07/24 12/07/24 12:59 Time: 13:00 12/07/24 12:59 Patient unable to answer at this time (ie. confused, unrespo /Reproductio n History /Reproductiv e History - line tester: /Reproductiv e Hx- line tester Hx Now No 12/07/24 12:59 Gestational Age (in weeks): EDC: Hx Hx Para Hx Section SAB No 12/07/24 12:59 [facility] Medical History (Updated 11/05/24 @ 09:45 by Jesse Borges) Wears glasses Leg cramps Smoker History of edema Hyperlipemia Pulmonary nodule Gastric reflux Pulmonary emphysema Home Medications ???Medication ???Instructions ???Recorded ???Last Taken ???Type NK 10/30/24 Unknown History Allergy/AdvReac Type Severity Reaction Status Date / Time pollen extracts (pollens) AdvReac Other Verified 12/07/24 12:59 Family History (Updated 10/30/24 @ 15:07 by Francine Perez) Mother Hypertension Ovarian cancer Father Diabetes Myocardial infarction Hypertension Surgical History (Updated 11/05/24 @ 09:45 by Jesse Borges) History of appendectomy ( 2004) Social History (Updated 10/30/24 @ 15:07 by Francine Perez) household members: spouse Smoking Status: Current every day smoker tobacco type: cigarettes Audit: Pertinent Findings HISTORY of Pertinent Findings History of Pertinent Findings: EKG Pertine (more content not included)... [facility] 12-07-2024 [facility] Telephone ([facility]) MARY ANNE RAMOS ([id number]) 1965 M Date Time Provider Department 12/07/24 JERICHO RIVERA During your visit today, we recorded the following information about you: Leelee Iverson RN 12/07/2024 10:45 AM Signed spoke with pt's on phone regarding stress test instructions including medications and not consuming any caffeine/decaf products or Beta hunter meds 12 hrs prior to exercise stress test with date, time, location, department call back number provided. Leelee Iverson RN Allergies As of Date: 12/07/2024 (No Known Allergies) Date Reviewed: 11/12/2024 Reviewed by: Jesse Bolanos MA - Fully Assessed Prescriptions as of 12/07/2024 - furosemide (LASIX) 20 mg tablet Take 1 tablet by mouth once daily. - albuterol HFA (PROVENTIL HFA, VENTOLIN HFA) 90 mcg/actuation inhaler inhale 2 puffs by mouth and INTO THE LUNGS every 4 hours if needed for cough shortness of breath or wheezing - meloxicam (MOBIC) 15 mg tablet TAKE ONE TABLET BY MOUTH EVERY DAY - Tadalafil (CIALIS) 5 mg tablet Take 1 tablet by mouth once daily. On days when you plan to be sexually active, skip your daily dose and take up to 4 tabs 1-2 hours prior to sex. - atorvastatin (LIPITOR) 20 mg tablet take 1 tablet by mouth once daily Problem List As Of Date 12/07/2024 Noted Resolved CERVICAL DISC DISPLACMNT [M50.20] 09/13/2008 Tobacco dependence syndrome [F17.200] 03/07/2017 Shortness of breath [R06.02] 05/17/2021 Pulmonary nodule [R91.1] 04/09/2017 Pulmonary emphysema (HCC) [J43.9] 09/13/2021 Hyperlipidemia [E78.5] 07/11/2016 Gastroesophageal reflux disease [K21.9] 10/21/2017 Gynecomastia, male [N62] 09/24/2018 Epistaxis [R04.0] 07/11/2016 Cough [R05.9] 12/26/2016 Allergic rhinitis [J30.9] 06/11/2018 Lymphocytosis [D72.820] 08/20/2018 Paresthesia [R20.2] 06/11/2018 Unspecified lump in left breast, subareolar [N6*08/20/2018 Encounter Status:Closed by LEELEE IVERSON on 12/07/24 [facility] MARY ANNE RAMOS ([id number]) 1965 M Date Time Provider Department 11/18/24 CAROLYN PRICE [facility] During your visit today, we recorded the following information about you: Nubia Page I, RN 11/18/2024 3:16 PM Signed Patient's doctors office sent pulmonary clearance form needs completed. Asked if we received it. Sent message to [facility]. LYNN Loving Ashley A, MA 11/19/2024 11:20 AM Signed No sx clc form here- called [facility] to request the form to be sent to our office. Felisha Cisse MA November 19, 2024 11:20 AM Allergies As of Date: 11/18/2024 (No Known Allergies) Date Reviewed: 11/12/2024 Reviewed by: Jesse Bolanos MA - Fully Assessed Reason for Visit: Patient Update [1234] Prescriptions as of 11/19/2024 - furosemide (LASIX) 20 mg tablet Take 1 tablet by mouth once daily. - albuterol HFA (PROVENTIL HFA, VENTOLIN HFA) 90 mcg/actuation inhaler inhale 2 puffs by mouth and INTO THE LUNGS every 4 hours if needed for cough shortness of breath or wheezing - meloxicam (MOBIC) 15 mg tablet TAKE ONE TABLET BY MOUTH EVERY DAY - Tadalafil (CIALIS) 5 mg tablet Take 1 tablet by mouth once daily. On days when you plan to be sexually active, skip your daily dose and take up to 4 tabs 1-2 hours prior to sex. - atorvastatin (LIPITOR) 20 mg tablet take 1 tablet by mouth once daily Problem List As Of Date 11/18/2024 Noted Resolved CERVICAL DISC DISPLACMNT [M50.20] 09/13/2008 Tobacco dependence syndrome [F17.200] 03/07/2017 Shortness of breath [R06.02] 05/17/2021 Pulmonary nodule [R91.1] 04/09/2017 Pulmonary emphysema (HCC) [J43.9] 09/13/2021 Hyperlipidemia [E78.5] 07/11/2016 Gastroesophageal reflux disease [K21.9] 10/21/2017 Gynecomastia, male [N62] 09/24/2018 Epistaxis [R04.0] 07/11/2016 Cough [R05.9] 12/26/2016 Allergic rhinitis [J30.9] 06/11/2018 Lymphocytosis [D72.820] 08/20/2018 Paresthesia [R20.2] 06/11/2018 Unspecified lump in left breast, subareolar [N6*08/20/2018 Encounter Status:Closed by NUBIA PAGE on 11/19/24 [facility] 11-16-2024 [facility] Telephone ([facility]) MARY ANNE RAMOS ([id number]) 1965 M Date Time Provider Department 11/16/24 JACLYN WARREN [facility] During your visit today, we recorded the following information about you: Donis Randhawa LPN 11/17/2024 9:49 AM Addendum Rossy from dr. Quinones's office @ [facility] called stating dr. Quinones is concerned about this pt and asking that the stress test be moved up because pt is losing function. I did get him rescheduled for 12/09 this morning with central scheduling at a [facility], otherwise there was nothing sooner. Rossy was stating maybe the pt needs moved to a bigger facility like [facility] or [facility]. Rossy just said to let the pt know and they would call their office if something changes. THERESA Beck Meena W, MD 11/16/2024 3:20 PM Signed This is patient's EKG from 11/06/2024. It does show left anterior fascicular block. This was present in his EKG done in August as well. With patient's history of chest pain I am very reluctant to clear him for surgery. Will have to wait for stress test to make sure. Patient has an extensive smoking history. Also has extensive ischemic heart disease history in his dad. Will need to make sure his stress test does not show any ischemia prior to clearing him. Donis Randhawa LPN 11/17/2024 9:49 AM Signed No sooner appts than 12/09 for stress test. Donis Randhawa LPN Allergies As of Date: 11/16/2024 (No Known Allergies) Date Reviewed: 11/12/2024 Reviewed by: Jesse Bolanos MA - Fully Assessed Reason for Visit: preop clearance/stress test [Other] Prescriptions as of 11/17/2024 - furosemide (LASIX) 20 mg tablet Take 1 tablet by mouth once daily. - albuterol HFA (PROVENTIL HFA, VENTOLIN HFA) 90 mcg/actuation inhaler inhale 2 puffs by mouth and INTO THE LUNGS every 4 hours if needed for cough shortness of breath or wheezing - meloxicam (MOBIC) 15 mg tablet TAKE ONE TABLET BY MOUTH EVERY DAY - Tadalafil (CIALIS) 5 mg tablet Take 1 tablet by mouth once daily. On days when you plan to be sexually active, skip your daily dose and take up to 4 tabs 1-2 hours prior to sex. - atorvastatin (LIPITOR) 20 mg tablet take 1 tablet by mouth once daily Problem List As Of Date 11/16/2024 Noted Resolved CERVICAL DISC DISPLACMNT [M50.20] 09/13/2008 Tobacco dependence syndrome [F17.200] 03/07/2017 Shortness of breath [R06.02] 05/17/2021 Pulmonary nodule [R91.1] 04/09/2017 Pulmonary emphysema (HCC) [J43.9] 09/13/2021 Hyperlipidemia [E78.5] 07/11/2016 Gastroesophageal reflux disease [K21.9] 10/21/2017 Gynecomastia, male [N62] 09/24/2018 Epistaxis [R04.0] 07/11/2016 Cough [R05.9] 12/26/2016 Allergic rhinitis [J30.9] 06/11/2018 Lymphocytosis [D72.820] 08/20/2018 Paresthesia [R20.2] 06/11/2018 Unspecified lump in left breast, subareolar [N6*08/20/2018 Encounter Status:Closed by DONIS RANDHAWA on 11/17/24 [facility] CNOVon 11-12-2024 CNOV Office Visit (IN[facility] ) MARY ANNE RAMOS ([id number]) 1965 M Date Time Provider Department 11/12/24 9:30 AM [facility] During your visit today, we recorded the following information about you: Temperature Pulse Respiration Blood pressure 97.7 degrees 78/minute 16/minute 110/78 Weight Height 74.8 kg 1.854 m Jesse Bolanos MA 11/12/2024 4:33 PM Signed Pt is here for surgery clearance. Pt has no concerns for today. Pt does need refills on medication Jaclyn Warren MD 11/12/2024 4:33 PM Signed Internal Medicine [facility] ACC Visit Date: November 12, 2024 Follow Up Visit Chief Complaint: Patient here for preop exam. Continues to have swelling of his ankles. Review of History: Mary Annepurnima Ramos is a 59 year old who is here for an acute visit to be cleared for his upcoming surgery. Patient has significant cervical disc protrusion and radiculopathy for which he is undergoing surgery. Patient had mentioned exertional chest pain in the past because of which I had ordered a stress test. Stress test is supposed to be done December 15 and patient surgery scheduled for November 18. Advised the patient that I will not be clearing him at this time. Continues to have swelling of his ankles. It has gone down a little after he cut down eating salty snacks. It is still present however. Patient has had an extensive workup for this and the only thing that came back positive was a positive centromere and an BERTHA. Past Medical History: PAST MEDICAL HISTORY Diagnosis Date DDD (degenerative disc disease), cervical Health Maintenance: Colonoscopy: Vaccination: Allergies: ALLERGIES No Known Allergies Medications: Current Outpatient Medications Medication Sig Dispense Refill albuterol HFA (PROVENTIL HFA, VENTOLIN HFA) 90 mcg/actuation inhaler inhale 2 puffs by mouth and INTO THE LUNGS every 4 hours if needed for cough shortness of breath or wheezing 18 g 4 meloxicam (MOBIC) 15 mg tablet TAKE ONE TABLET BY MOUTH EVERY DAY (Patient not taking: Reported on 11/10/2024) 30 tablet 0 Tadalafil (CIALIS) 5 mg tablet Take 1 tablet by mouth once daily. On days when you plan to be sexually active, skip your daily dose and take up to 4 tabs 1-2 hours prior to sex. (Patient not taking: Reported on 11/10/2024) 50 tablet 5 atorvastatin (LIPITOR) 20 mg tablet take 1 tablet by mouth once daily (Patient not taking: Reported on 11/10/2024) 90 tablet 3 No current facility-administered medications for this visit. Social History: Social History Tobacco Use Smoking status: Every Day Current packs/day: 0.50 Average packs/day: 0.5 packs/day for 45.0 years (22.5 ttl pk-yrs) Types: Cigarettes Smokeless tobacco: Never Vaping Use Vaping status: Never Used Substance Use Topics Alcohol use: No Drug use: No Family History: Family History Problem Relation Age of Onset Cancer Mother ovarian Diabetes Father Ischemic Heart Disease Father Coronary Artery Disease Father Heart Attack Father Breast Cancer Sister Breast Cancer Paternal Aunt Past Surgical History: PAST SURGICAL HISTORY Procedure Laterality Date APPENDECTOMY Review of Systems: Review of Systems Physical Exam: BP 110/78 (BP Site: Left Arm, BP Position: Sitting, BP Cuff Size: Regular Adult) Pulse 78 Temp 36.5 ?C (97.7 ?F) (Temporal) Resp 16 Ht 185.4 cm (6' 1) Wt 74.8 kg (165 lb) SpO2 98% BMI 21.77 kg/m? Physical Exam Constitutional: Appearance: Normal appearance. Cardiovascular: Rate and Rhythm: Normal rate and regular rhythm. Pulmonary: Breath sounds: Normal breath sounds. Musculoskeletal: Right lower leg: Edema present. Left lower leg: Edema present. Neurological: General: No focal deficit present. Mental Status: He is alert and oriented to person, place, and time. Assessment and Plan:: ASSESSMENT/PLAN: 1. Pre-op exam - ICD9: V72.84, ICD10: Z01.818 (primary diagnosis) Patient will not be cleared for his upcoming surgery because of pending stress test. Explained to patient why I could not clear him at this time and he voices understanding. 2. Cervical radiculopathy - ICD9: 723.4, ICD10: M54.12 Will have to wait for patient's stress test to be done and for her to be negative prior to clearing patient for surgery. He is agreeable with the plan. 3. Chest pain on exertion - ICD9: 786.50, ICD10: R07.9 Patient complained about chest pain in June and the stress test was ordered. It is scheduled for December 15 and I will await those results prior to clearing him for surgery. Patient was given a few tablets of Lasix for the edema. He will try taking it again. Edema is pitting at this time. No other new signs or symptoms. Workup has been pretty much negative. Discussed with patient and his about the positive BERTHA and anticentromere a (more content not included)... [facility] 11-12-2024 [facility] Telephone ([facility]) RICHARDMARY ANNE ([id number]) 1965 M Date Time Provider Department 11/12/24 JACLYN WARRENR During your visit today, we recorded the following information about you: Donis Randhawa LPN 11/12/2024 10:49 AM Signed Faxed the pt's surgical clearance form to [facility] - clearance is pending the pt's stress test which is scheduled for 12/15. I called [facility] and was told the order is closed, and rescheduling the stress test can't be done because the order is closed. Told it would be best to keep the pt's stress test scheduled where it is. THERESA Beck Tammy, LPN 11/16/2024 10:53 AM Signed called in asking to be rescheduled sooner.I called [facility] and got the pt in at [facility] on 12/09 @7:45A and notified and accepted. Donis Randhawa LPN Allergies As of Date: 11/12/2024 (No Known Allergies) Date Reviewed: 11/12/2024 Reviewed by: Jesse Bolanos MA - Fully Assessed Reason for Visit: surg clearance/stress test [Other] Prescriptions as of 11/16/2024 - furosemide (LASIX) 20 mg tablet Take 1 tablet by mouth once daily. - albuterol HFA (PROVENTIL HFA, VENTOLIN HFA) 90 mcg/actuation inhaler inhale 2 puffs by mouth and INTO THE LUNGS every 4 hours if needed for cough shortness of breath or wheezing - meloxicam (MOBIC) 15 mg tablet TAKE ONE TABLET BY MOUTH EVERY DAY - Tadalafil (CIALIS) 5 mg tablet Take 1 tablet by mouth once daily. On days when you plan to be sexually active, skip your daily dose and take up to 4 tabs 1-2 hours prior to sex. - atorvastatin (LIPITOR) 20 mg tablet take 1 tablet by mouth once daily Problem List As Of Date 11/12/2024 Noted Resolved CERVICAL DISC DISPLACMNT [M50.20] 09/13/2008 Tobacco dependence syndrome [F17.200] 03/07/2017 Shortness of breath [R06.02] 05/17/2021 Pulmonary nodule [R91.1] 04/09/2017 Pulmonary emphysema (HCC) [J43.9] 09/13/2021 Hyperlipidemia [E78.5] 07/11/2016 Gastroesophageal reflux disease [K21.9] 10/21/2017 Gynecomastia, male [N62] 09/24/2018 Epistaxis [R04.0] 07/11/2016 Cough [R05.9] 12/26/2016 Allergic rhinitis [J30.9] 06/11/2018 Lymphocytosis [D72.820] 08/20/2018 Paresthesia [R20.2] 06/11/2018 Unspecified lump in left breast, subareolar [N6*08/20/2018 Encounter Status:Closed by DONIS RANDHAWA on 11/12/24 [facility] Hepatitis A AB, Totalon 10-19 HEPATITIS A,TOT Positive Abnormal Negative [facility] Comment on above: Result Comment: Comm ent: The HAV total antibody assay detects both IgG and IgM but does not differentiate between them. A negative result suggests susceptibility to infection. A positive result could be due to vaccination, previously resolved infection or active infection. Testing for HAV IgM should be performed if active HAV infection is suspected. [facility] offers profiles that will automatically reflex positive HAV total antibody results to IgM (e.g., panel #[id number] HAV Antibody w/ Rfx). Performed at: [address] [id number] Technical Support Technician: Timmy Charles PhD, Phone: [phone] Performed By: #### M 100.651, L3100.0300, L501.9985, L100.0100, L3890.6202, L500.2500, L3890.6301, BTSPAT, L3890.9141 ####[facility] [id number] [facility], [address] MR/PATNatasha 11-11-2024 MR/PAT.CHANEL [facility] Medical Records Department [address] [place] [address] PAT - Anesthesia 11/11/24 0829 MR#: [id number] Acct: [id number] Name: MARY ANNE RAMOS Jr. Rep #: [id number] : 1965 59 From: Enrico Miner MD PCP: JACLYN WARREN Status:PRE [facility] Y Race: AA Location: [facility] Pre-Assessment Diagnosis/Proposed Procedure Planned Operative Procedure(s): (N/A) Anterior Cervical Fusion C4-5, C5-6 and C6-7 Anesthesia History Anesthesia History - line tester: Anesthesia History - line tester Hx Hospitalization No 11/05/24 09:39 Any Problems With Anesthesia No 11/05/24 09:39 Cholinesterase deficiency No 11/05/24 09:39 You/Your Family Experience No 11/05/24 09:39 fever (hyperthermia) with Relationship Recent Exposure to Contagious Disease Does patient have nerve No 11/05/24 09:39 stimulator Patient instructed to have device shut off --Does patient have Pacemaker or ICD? When Was Last Pacemaker Check QUESTION #4 FULL TEXT: You/Your Family Experience fever (hyperthermia) with Anesthesia Last Oral Intake Last Oral intake: Last Oral Intake NPO since Meds taken in AM with sips of water? Meds patient instructed to take am of surgery PONV PONV - line tester: PONV - line tester Female No 11/05/24 09:39 HX of Motion Sickness No 11/05/24 09:39 HX of N/V After Surgery No 11/05/24 09:39 Non-Smoker No 11/05/24 09:39 Duration of Surgery greater Yes 11/05/24 09:39 than 60 minutes Number of Risk Factors 1 11/05/24 09:39 PONV Score Low Risk 11/05/24 09:39 Height Weight Height Weight: Anesthesia: Height Weight Height 6 ft 4 in 10/30/24 14:47 Respiratory Assessment Respiratory Assessment - line tester: Respiratory Tract Infection Hx - line tester Hx Respiratory Tract Infection No 11/05/24 09:39 STOP Sleep Apnea STOP Sleep Apnea - line tester: STOP Sleep Apnea - line tester Hx Hypertension No 11/05/24 09:39 Hx Sleep Apnea No 11/05/24 09:39 CPAP BIPAP Do you snore loudly (louder No 11/05/24 09:39 than talking or can be heard Do you often feel tired/ No 11/05/24 09:39 fatigued/ sleepy during daytime? Has anyone observed you stop No 11/05/24 09:39 breathing during sleep? STOP Results Negative 11/05/24 09:39 QUESTION #5 FULL TEXT : Do you snore loudly (louder than talking or can be heard through closed doors)? 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 Specify any problems Hx of Preganancy in last 3 N/A 11/05/24 09:39 Months Nurse Filling Out Transfusion NBUCHER 11/05/24 09:39 Questions: Date: 11/05/24 11/05/24 09:39 Time: 09:41 11/05/24 09:39 Patient unable to answer at this time (ie. confused, unrespo /Reproductio n History /Reproductiv e History - line tester: /Reproductiv e Hx- line tester Hx Now No 11/05/24 09:39 Gestational Age (in weeks): EDC: Hx Hx Para Hx Section SAB No 11/05/24 09:39 PFSH Medical History (Updated 11/05/24 @ 09:45 by Jesse Borges) Wears glasses Leg cramps Smoker History of edema Hyperlipemia Pulmonary nodule Gastric reflux Pulmonary emphysema Home Medications ???Medication ???Instructions ???Recorded ???Last Taken ???Type NK 10/30/24 Unknown History Allergy/AdvReac Type Severity Reaction Status Date / Time pollen extracts (pollens) AdvReac Other Verified 11/05/24 09:39 Family History (Updated 10/30/24 @ 15:07 by Francine Perez) Mother Hypertension Ovarian cancer Father Diabetes Myocardial infarction Hypertension Surgical History (Updated 11/05/24 @ 09:45 by Jesse Borges) History of appendectomy ( 2004) Social History (Updated 10/30/24 @ 15:07 by Francine Perez) household members: spouse Smoking Status: Current every day smoker tobacco type: cigarettes Audit: Pertinent Findings Pertinent Findings EKG Perinent findings: 11/10/24: NSR with LA (more content not included)... Normal [facility] 12 Lead EKGon 11-10-2024 12 Lead EKG [facility] Cardiovascular Services [address] [place] [address] 12 Lead EKG 11/10/24 0832 MR#: [id number] Acct: [id number] Name: MARY ANNE RAMOS Jr. Rep #: [id number] : 1965 59 From: River Weiner MD Attending Dr: Dr. Jose Quinones MD Status: PRE SDC Ordering Dr: Jose Quinones MD Date: 11/10/24 Location: [facility] Sex: M AA Admitted: Test Reason : PRE OP Blood Pressure : */* mmHG Vent. Rate : 83 BPM Atrial Rate : 83 BPM P-R Int : 144 ms QRS Dur : 88 ms QT Int : 364 ms P-R-T Axes : 78 -70 61 degrees QTcB Int : 427 ms Normal sinus rhythm Left anterior fascicular block Abnormal ECG Confirmed by RIVER WEINER MD ([id number]), order editor NUBIA SHABAZZ ([id number]) on 11/11/2024 11:01:05 AM Referred By: Jose Quinones Confirmed By: RIVER WEINER MD 11/11/24 1101 Date River Weiner MD CC: Dr. Jose Quinones MD; JACLYN WARREN Signed [facility] Basic Metabolic Profile (BMP )on 11-10-2024 BUN/CRE 13.0 RATIO Normal 10- [facility] Comment on above: Performed By: #### M 100.651, L3100.0300, L501.9985, L100.0100, L3890.6202, L500.2500, L3890.6301, BTSPAT, L3890.6006 #### [facility] Laboratory [address] [place], [address] Calcium [Mass/Vol] 9.3 mg/dL Normal 7.6-11.0 [facility] Comment on above: Performed By: #### M 100.651, L3100.0300, L501.9985, L100.0100, L3890.6202, L500.2500, L3890.6301, BTSPAT, L3890.6006 #### [facility] [address] [place], [address] Chloride [Moles/Vol] 100 mmol/L Normal 98-108 [facility] Comment on above: Performed By: #### M 100.651, L3100.0300, L501.9985, L100.0100, L3890.6202, L500.2500, L3890.6301, BTSPAT, L3890.6006 #### [facility] [address] [place], [address] CO2 [Moles/Vol] 25.9 mmol/L Normal 21.0-32.0 [facility] Comment on above: Performed By: #### M 100.651, L3100.0300, L501.9985, L100.0100, L3890.6202, L500.2500, L3890.6301, BTSPAT, L3890.6006 #### [facility] [address] [place], [address] Creatinine [Mass/Vol] 1.06 mg/dL Normal 0.70-1.20 [facility] Comment on above: Performed By: #### M 100.651, L3100.0300, L501.9985, L100.0100, L3890.6202, L500.2500, L3890.6301, BTSPAT, L3890.6006 #### [facility] [address] [place], [address] GAP 11 Normal 5-15 [facility] Comment on above: Performed By: #### M 100.651, L3100.0300, L501.9985, L100.0100, L3890.6202, L500.2500, L3890.6301, BTSPAT, L3890.6006 #### [facility] [address] [place], [address] GFR/1.73 sq M.predicted among non-blacks MDRD (S/P/Bld) [Vol rate/Area] 80 mL/min/{1.73_m2} Normal >60 [facility] Comment on above: Result Comment: mL/m in/1.73m2 CKD-EPI Creatinine Equation (2020) Performed By: #### M 100.651, L3100.0300, L501.9985, L100.0100, L3890.6202, L500.2500, L3890.6301, BTSPAT, L3890.6006 #### [facility] [address] [place], [address] Glucose [Mass/Vol] 118 mg/dL High 70-99 [facility] Comment on above: Performed By: #### M 100.651, L3100.0300, L501.9985, L100.0100, L3890.6202, L500.2500, L3890.6301, BTSPAT, L3890.6006 #### [facility] [address] [place], [address] Potassium [Moles/Vol] 3.8 mmol/L Normal 3.3-5.1 [facility] Comment on above: Performed By: #### M 100.651, L3100.0300, L501.9985, L100.0100, L3890.6202, L500.2500, L3890.6301, BTSPAT, L3890.6006 #### [facility] [address] [place], [address] Sodium [Moles/Vol] 137 mmol/L Normal 133-145 [facility] Comment on above: Performed By: #### M 100.651, L3100.0300, L501.9985, L100.0100, L3890.6202, L500.2500, L3890.6301, BTSPAT, L3890.6006 #### [facility] [address] [place], [address] Urea nitrogen [Mass/Vol] 14 mg/dL Normal 4-19 [facility] Comment on above: Performed By: #### M 100.651, L3100.0300, L501.9985, L100.0100, L3890.6202, L500.2500, L3890.6301, BTSPAT, L3890.6006 #### [facility] [address] [place], [address] CBC W/Diff, Automatedon 06-2 -2024 Absolute Lymph 2.52 X10 3/uL Normal 0.83-4.51 [facility] Comment on above: Performed By: #### M 100.651, L3100.0300, L501.9985, L100.0100, L3890.6202, L500.2500, L3890.6301, BTSPAT, L3890.6006 #### [facility] [address] [place], [address] Absolute Neut 6.5 X10 3/uL Normal 2.0-7.7 [facility] Comment on above: Performed By: #### M 100.651, L3100.0300, L501.9985, L100.0100, L3890.6202, L500.2500, L3890.6301, BTSPAT, L3890.6006 #### [facility] [address] [place], [address] Basophils/100 WBC (Bld) 0.4 % Normal 0-1 [facility] Comment on above: Performed By: #### M 100.651, L3100.0300, L501.9985, L100.0100, L3890.6202, L500.2500, L3890.6301, BTSPAT, L3890.6006 #### [facility] [address] [place], [address] Eosinophils/100 WBC (Bld) 0.4 % Normal 0-5 [facility] Comment on above: Performed By: #### M 100.651, L3100.0300, L501.9985, L100.0100, L3890.6202, L500.2500, L3890.6301, BTSPAT, L3890.6006 #### [facility] [address] [place], [address] Erythrocyte distribution width (RBC) [Ratio] 14.0 % Normal 11.6-14.6 [facility] Comment on above: Performed By: #### M 100.651, L3100.0300, L501.9985, L100.0100, L3890.6202, L500.2500, L3890.6301, BTSPAT, L3890.6006 #### [facility] [address] [place], [address] Hematocrit (Bld) [Volume fraction] 46.8 % Normal 40-54 [facility] Comment on above: Performed By: #### M 100.651, L3100.0300, L501.9985, L100.0100, L3890.6202, L500.2500, L3890.6301, BTSPAT, L3890.6006 #### [facility] [address] [place], [address] Hemoglobin (Bld) [Mass/Vol] 14.8 g/dL Normal 13.0-16.5 [facility] Comment on above: Performed By: #### M 100.651, L3100.0300, L501.9985, L100.0100, L3890.6202, L500.2500, L3890.6301, BTSPAT, L3890.6006 #### [facility] [address] [place], [address] IG% 0.500 Normal 0.0-0.9 [facility] Comment on above: Result Comment: IG% - Immature Granulocytes (promyelocytes, myelocytes and metamyelocytes) > 1% indicates that a LEFT SHIFT is Present. Performed By: #### M 100.651, L3100.0300, L501.9985, L100.0100, L3890.6202, L500.2500, L3890.6301, BTSPAT, L3890.6006 #### [facility] [address] [place], [address] Lymphocytes/100 WBC (Bld) 25.4 % Normal 19-41 [facility] Comment on above: Performed By: #### M 100.651, L3100.0300, L501.9985, L100.0100, L3890.6202, L500.2500, L3890.6301, BTSPAT, L3890.6006 #### [facility] [address] [place], [address] MCH (RBC) [Entitic mass] 27.1 pg Normal 27.0-32.0 [facility] Comment on above: Performed By: #### M 100.651, L3100.0300, L501.9985, L100.0100, L3890.6202, L500.2500, L3890.6301, BTSPAT, L3890.6006 #### [facility] [address] [place], [address] MCHC (RBC) [Mass/Vol] 31.6 g/dL Low 32-36 [facility] Comment on above: Performed By: #### M 100.651, L3100.0300, L501.9985, L100.0100, L3890.6202, L500.2500, L3890.6301, BTSPAT, L3890.6006 #### [facility] [address] [place], [address] MCV (RBC) [Entitic vol] 85.6 fL Normal 80-94 [facility] Comment on above: Performed By: #### M 100.651, L3100.0300, L501.9985, L100.0100, L3890.6202, L500.2500, L3890.6301, BTSPAT, L3890.6006 #### [facility] [address] [facility] [place], [address] Monocytes/100 WBC (Bld) 8.2 % Normal 0-10 [facility] Comment on above: Performed By: #### M 100.651, L3100.0300, L501.9985, L100.0100, L3890.6202, L500.2500, L3890.6301, BTSPAT, L3890.6006 #### [facility] [address] [place], [address] Neutrophils/100 WBC (Bld) 65.1 % Normal 47-70 [facility] Comment on above: Performed By: #### M 100.651, L3100.0300, L501.9985, L100.0100, L3890.6202, L500.2500, L3890.6301, BTSPAT, L3890.6006 #### [facility] [address] [place], [address] Nucleated RBC (Bld) [#/Vol] 0 10*3/uL Normal 0-5 [facility] Comment on above: Performed By: #### M 100.651, L3100.0300, L501.9985, L100.0100, L3890.6202, L500.2500, L3890.6301, BTSPAT, L3890.6006 #### [facility] [address] [place], [address] Platelet mean volume (Bld) [Entitic vol] 10.9 fL Normal 6.2-12.0 [facility] Comment on above: Performed By: #### M 100.651, L3100.0300, L501.9985, L100.0100, L3890.6202, L500.2500, L3890.6301, BTSPAT, L3890.6006 #### [facility] [address] [place], [address] Platelets (Bld) [#/Vol] 225 10*3/uL Normal 150-450 [facility] Comment on above: Performed By: #### M 100.651, L3100.0300, L501.9985, L100.0100, L3890.6202, L500.2500, L3890.6301, BTSPAT, L3890.6006 #### [facility] [address] [place], [place], [phone] ([address]) RBC (Bld) [#/Vol] 5.47 10*6/uL Normal 4.6-6.2 [facility] Comment on above: Performed By: #### M 100.651, L3100.0300, L501.9985, L100.0100, L3890.6202, L500.2500, L3890.6301, BTSPAT, L3890.6006 #### [facility] [address] [place], [address] RDW SD 44.2 fl High 35.1-43.9 [facility] Comment on above: Performed By: #### M 100.651, L3100.0300, L501.9985, L100.0100, L3890.6202, L500.2500, L3890.6301, BTSPAT, L3890.6006 #### [facility] [address] [place], [address] WBC (Bld) [#/Vol] 9.9 10*3/uL Normal 4.4-11.0 [facility] Comment on above: Performed By: #### M 100.651, L3100.0300, L501.9985, L100.0100, L3890.6202, L500.2500, L3890.6301, BTSPAT, L3890.6006 #### [facility] [address] [place], [address] CNOVon 11-10-2024 CNOV Office Visit ([facility] ) MARY ANNE RAMOS ([id number]) 1965 M Date Time Provider Department 11/10/24 10:30 AM CAROLYN PRICE [facility] During your visit today, we recorded the following information about you: Pulse Blood pressure Weight Height 99/minute 121/84 76.1 kg 1.905 m Carolyn Price APRN.[facility] 11/18/2024 11:54 AM Signed Patient: Mary Anne Ramos PCP: Jaclyn Warren MD CC: COPD HPI: Mary Anne Ramos is a pleasant 59 year old male who has a past medical history of DDD (degenerative disc disease), cervical. The patient is accompanied by his Jamee. Tobacco Use: High Risk (11/10/2024) Patient History Smoking Tobacco Use: Every Day Smokeless Tobacco Use: Never Passive Exposure: Not on file he is being followed by Dr. Corona for COPD and was last seen on 09/06/2023. At that visit: - Smoking cessation recommended - Sleep study ordered (not done) Today he presents for preoperative clearance for an upcoming anterior cervical fusion at C4-C7. Mary Anne reports no current dyspnea, cough, or wheezing, and denies any recent upper respiratory infections. He is not using his Trelegy or Symbicort inhalers, and has an albuterol inhaler prescribed by Dr. Warren, but has not been using it regularly. He reports a reduction in smoking to 4-5 cigarettes per day, down from a full pack. He denies any chest pain, palpitations, or fluttering sensations in the chest. He has not completed a sleep study due to work commitments and has not rescheduled it. He reports good sleep quality, being able to sleep easily. Mary Anne has been experiencing significant neck pain, described as stabbing, burning, and throbbing, which worsens at night after the effects of meloxicam, prescribed by his orthopedic doctor, wear off. He also reports numbness and a pulling sensation in the neck. He has been experiencing balance issues, leading to falls, and has been dropping objects frequently. He is under the care of an orthopedic doctor at [facility] and is scheduled for an anterior cervical fusion at C4-C7 on November 23. Mary Anne also reports swelling in his legs and feet, for which he has been using compression stockings. He was previously prescribed furosemide 20 mg once daily by Dr. Warren, but reports it was ineffective. Pulmonary Regimen: Trelegy - not using, was too strong Albuterol - hasn't needed mMRC: Walking should be assessed on level ground Symptom severity: [0] Dyspnea only with strenuous exercise [+1] Dyspnea when hurrying or walking up a slight hill [+2] Walks slower than people of the same age because of dyspnea or has to stop for breath when walking at own pace [+3] Stops for breath after walking 100 yards (91 m) or after a few minutes [+4] Too dyspneic to leave house or breathless when dressing Last 5 Encounter Wt Readings: Date: Wt: 11/10/2024 76.1 kg (167 lb 12.8 oz) 09/29/2024 74.8 kg (165 lb) 09/23/2024 75.3 kg (166 lb) 09/10/2024 73.9 kg (163 lb) 09/08/2024 74.8 kg (165 lb) Allergies: No Known Allergies meloxicam (MOBIC) 15 mg tablet TAKE ONE TABLET BY MOUTH EVERY DAY amoxicillin-clavulana te potassium (AUGMENTIN) 875-125 mg per tablet Take 1 tablet by mouth two times a day. furosemide (LASIX) 20 mg tablet Take 1 tablet by mouth once daily as needed. Tadalafil (CIALIS) 5 mg tablet Take 1 tablet by mouth once daily. On days when you plan to be sexually active, skip your daily dose and take up to 4 tabs 1-2 hours prior to sex. budesonide-formoterol (SYMBICORT) 160-4.5 mcg/actuation inhaler Inhale 2 Puffs as instructed two times a day. albuterol HFA (PROVENTIL HFA, VENTOLIN HFA) 90 mcg/actuation inhaler inhale 2 puffs by mouth and INTO THE LUNGS every 4 hours if needed for cough shortness of breath or wheezing tiZANidine (ZANAFLEX) 4 mg tablet take 1 tablet by mouth once daily atorvastatin (LIPITOR) 20 mg tablet take 1 tablet by mouth once daily fluticasone (FLONASE) 50 mcg/actuation nasal spray instill 2 sprays into each nostril once daily omeprazole (PRILOSEC) 40 mg capsule Take 1 capsule by mouth once daily. BP 121/84 (BP Site: Left Arm, BP Position: Sitting, BP Cuff Size: Regular Adult) Pulse 99 Ht 190.5 cm (6' 3) Wt 76.1 kg (167 lb 12.8 oz) SpO2 96% BMI 20.97 kg/m? I reviewed the past medical history, family history, social history, immunization history and surgical history with changes noted and updated in EMR. Review of Systems Constitutional: Negative. HENT: Negative. Eyes: Negative. Respiratory: Negative. Cardiovascular: Positive for leg swelling. Gastrointestinal: Negative. Genitourinary: Negative. Musculoskeletal: Positive for back pain and neck pain. Skin: Negative. Neurological: Positive for tingling, sensory change, focal weakness and weakness. 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 [facility] Arina 11-10-2024 [facility] Telephone ([facility]) RICHARDMARY ANNE BENITEZ ([id number]) 1965 M Date Time Provider Department 11/10/24 MAICOL GREER [facility] During your visit today, we recorded the following information about you: Kendy Rhodes MA 11/10/2024 11:08 AM Signed This patient is an established patient and will need to get scheduled for a lung screen and a follow up appointment. Can you please put in a order for CT? He was last seen in 2022, he like morning appointments.Kendy Rhodes MA November 10, 2024 11:08 AM Maicol Greer APRN.[facility] 11/10/2024 9:54 PM Signed New order placed - ok to schedule. Thank you, Maicol Greer APRN.FLOOR TECH Malgorzata Duckworth MA 11/25/2024 4:55 PM Signed Referral status is closed stating OON, but auth was submitted for [facility], not [facility]. Email sent to [facility] to correct so pt can be scheduled Malgorzata Duckworth MA 12/03/2024 11:25 AM Signed Referral status was changed to Authorized. I removed the OON and Financial Clearance from Referral Reasons, however, hard block remains. Msg back to [facility] 12/03/2024 Allergies As of Date: 11/10/2024 (No Known Allergies) Date Reviewed: 11/10/2024 Reviewed by: Carolyn Price APRN.FLOOR TECH - Fully Assessed Primary Visit Diagnosis:Lung nodule [R91.1] Other Visit Diagnoses:Encounter for screening for lung cancer [Z12.2] Cigarette smoker [F17.210] Order(s):CT LUNG SCREEN WO IVCON [[id number]] Order #: [id number] FUTURE Prescriptions as of 12/03/2024 - furosemide (LASIX) 20 mg tablet Take 1 tablet by mouth once daily. - albuterol HFA (PROVENTIL HFA, VENTOLIN HFA) 90 mcg/actuation inhaler inhale 2 puffs by mouth and INTO THE LUNGS every 4 hours if needed for cough shortness of breath or wheezing - meloxicam (MOBIC) 15 mg tablet TAKE ONE TABLET BY MOUTH EVERY DAY - Tadalafil (CIALIS) 5 mg tablet Take 1 tablet by mouth once daily. On days when you plan to be sexually active, skip your daily dose and take up to 4 tabs 1-2 hours prior to sex. - atorvastatin (LIPITOR) 20 mg tablet take 1 tablet by mouth once daily Problem List As Of Date 11/10/2024 Noted Resolved CERVICAL DISC DISPLACMNT [M50.20] 09/13/2008 Tobacco dependence syndrome [F17.200] 03/07/2017 Shortness of breath [R06.02] 05/17/2021 Pulmonary nodule [R91.1] 04/09/2017 Pulmonary emphysema (HCC) [J43.9] 09/13/2021 Hyperlipidemia [E78.5] 07/11/2016 Gastroesophageal reflux disease [K21.9] 10/21/2017 Gynecomastia, male [N62] 09/24/2018 Epistaxis [R04.0] 07/11/2016 Cough [R05.9] 12/26/2016 Allergic rhinitis [J30.9] 06/11/2018 Lymphocytosis [D72.820] 08/20/2018 Paresthesia [R20.2] 06/11/2018 Unspecified lump in left breast, subareolar [N6*08/20/2018 Encounter Status:Closed by MALGORZATA DUCKWORTH on 11/25/24 [facility] HIVon 11-10-2024 HIV Non-Reactive Normal Nonreactive [facility] Comment on above: Result Comment: Non- Reactive Reactive Repeatedly reactive samples must be confirmed according to CDC recommended confirmatory algorithms. The subresults for either HIVAG or AHIV can be used as an aid in the selection of the confirmation algorithm for reactive samples. Send out specimens with Reactive results to [facility] for confirmation. Order the HIV antibody detection and differentiation: [id number] Performed By: #### M 100.651, L3100.0300, L501.9985, L100.0100, L3890.6202, L500.2500, L3890.6301, BTSPAT, L3890.6006 #### [facility] [address] [place], [place], [id number] Hemoglobin A1con 11-10-2024 HbA1c (Bld) [Mass fraction] 6.1 % High <=5.6 [facility] Comment on above: Result Comment: Norm al < 5.7 % Prediabetic 5.7 - 6.4 % Diabetic >or= 6.5 % Please note range changes. Performed By: #### M 100.651, L3100.0300, L501.9985, L100.0100, L3890.6202, L500.2500, L3890.6301, BTSPAT, L3890.6006 #### [facility] [address] [place], [place], [id number] Hepatitis B Surface Antibody on 11-10-2024 HEP B Surf Ab Non-Reactive Normal [facility] Comment on above: Result Comment: <8.5 mIU/mL: Non-Reactive 8.5<= x <11.5 mIU/mL: Indeterminate >=11.5 mIU/mL: Reactive Non Reactive: Inconsistent with immunity less than <10 mIU/mL Reactive: Consistent with immunity greater than or equal to 10 mIU/mL Performed By: #### M 100.651, L3100.0300, L501.9985, L100.0100, L3890.6202, L500.2500, L3890.6301, BTSPAT, L3890.6006 ####[facility] [id number] [place], [place], [id number] Hepatitis C Antibodyon 11-10 Hepatitis C Ab Non-Reactive Normal Nonreactive [facility] Comment on above: Result Comment: Reac tive: Presumptive evidence of antibodies to HCV. Follow CDC recommendations for supplemental testing. Non-Reactive: Antibodies to HCV were not detected; does not exclude the possibility of exposure to HCV Reactive Results are presumptive evidence of antibodies to HCV. Follow CDC recommendations for supplemental testing. Order confirmation testing: HCV Quant by PCR testing - HCVPCR #[id number] Non Reactive: < 0.8 Equivocal: >/= 0.8 to < 1.0 Reactive: >/= 1.0 The CDC requires that a reactive/equivocal HCV antibody result be sent out for confirmation. HCV Quant by PCR testing. Performed By: #### M 100.651, L3100.0300, L501.9985, L100.0100, L3890.6202, L500.2500, L3890.6301, BTSPAT, L3890.6006 #### [facility] [address] [place], [place], [id number] MRSA/SAID NASAL SCREENon MRSA+SAID SCRN Reason for Exam: Surgery MRSA MRSA Negative S. AUREUS S. aureus Negative Normal [facility] Comment on above: Performed By: #### M 100.651, L3100.0300, L501.9985, L100.0100, L3890.6202, L500.2500, L3890.6301, BTSPAT, L3890.6006 ####[facility] [id number] [place], [place], [address] Magnesiumon 11-10-2024 Magnesium [Mass/Vol] 2.2 mg/dL Normal 1.5-2.2 [facility] Comment on above: Performed By: #### L 501.5200 ####[facility] [id number] [place], [place], [id number] Type AND Screen - PAT ONLYon 11-10-2024 Ab SCREEN GEL Negative Normal [facility] Comment on above: Order Comment: Reaso n for Laboratory Test PREOP [id number] N/A N N S CERVICAL DISC FUSION Performed By: #### M 100.651, L3100.0300, L501.9985, L100.0100, L3890.6202, L500.2500, L3890.6301, BTSPAT, L3890.6006 #### [facility] [address] [place], [place], [id number] CNPNon 11-05-2024 CNPN Telephone ([facility]) MARY ANNE RAMOS ([id number]) 1965 M Date Time Provider Department 11/05/24 YASEMIN JAIME During your visit today, we recorded the following information about you: Allergies As of Date: 11/05/2024 (No Known Allergies) Date Reviewed: 09/29/2024 Reviewed by: Coty Kearns MA - Fully Assessed Reason for Visit: Patient Question [1637] Prescriptions as of 11/11/2024 - albuterol HFA (PROVENTIL HFA, VENTOLIN HFA) 90 mcg/actuation inhaler inhale 2 puffs by mouth and INTO THE LUNGS every 4 hours if needed for cough shortness of breath or wheezing - meloxicam (MOBIC) 15 mg tablet TAKE ONE TABLET BY MOUTH EVERY DAY - Tadalafil (CIALIS) 5 mg tablet Take 1 tablet by mouth once daily. On days when you plan to be sexually active, skip your daily dose and take up to 4 tabs 1-2 hours prior to sex. - atorvastatin (LIPITOR) 20 mg tablet take 1 tablet by mouth once daily Problem List As Of Date 11/05/2024 Noted Resolved CERVICAL DISC DISPLACMNT [M50.20] 09/13/2008 Tobacco dependence syndrome [F17.200] 03/07/2017 Shortness of breath [R06.02] 05/17/2021 Pulmonary nodule [R91.1] 04/09/2017 Pulmonary emphysema (HCC) [J43.9] 09/13/2021 Hyperlipidemia [E78.5] 07/11/2016 Gastroesophageal reflux disease [K21.9] 10/21/2017 Gynecomastia, male [N62] 09/24/2018 Epistaxis [R04.0] 07/11/2016 Cough [R05.9] 12/26/2016 Allergic rhinitis [J30.9] 06/11/2018 Lymphocytosis [D72.820] 08/20/2018 Paresthesia [R20.2] 06/11/2018 Unspecified lump in left breast, subareolar [N6*08/20/2018 Encounter Status:Closed by COTY KEARNS on 11/11/24 [facility] Arina 11-04-2024 CNPN Telephone ([facility]) MARY ANNE RAMOS ([id number]) 1965 M Date Time Provider Department 11/04/24 JACLYN WARREN [facility] During your visit today, we recorded the following information about you: Donis Randhawa LPN 11/04/2024 10:18 AM Signed , jamee, called stating pt needs to have spinal surgery done, but doesn't have a date yet. Pt will need surgical clearance. Told we will need a surgical clearance form faxed to us when they know the date. She was given our fax # go give the orthopaedic office. Pt currently scheduled for f/u appt on 11/25. also asking for a refill on the mobic which was filled by orthopaedics and she was notified to call them for a refill. Donis Randhawa LPN Allergies As of Date: 11/04/2024 (No Known Allergies) Date Reviewed: 09/29/2024 Reviewed by: Coty Kearns MA - Fully Assessed Reason for Visit: Patient Question [1587] Prescriptions as of 11/04/2024 - amoxicillin-clavulana te potassium (AUGMENTIN) 875-125 mg per tablet Take 1 tablet by mouth two times a day. - furosemide (LASIX) 20 mg tablet Take 1 tablet by mouth once daily as needed. - meloxicam (MOBIC) 15 mg tablet Take 1 tablet by mouth once daily. - Tadalafil (CIALIS) 5 mg tablet Take 1 tablet by mouth once daily. On days when you plan to be sexually active, skip your daily dose and take up to 4 tabs 1-2 hours prior to sex. - budesonide-formoterol (SYMBICORT) 160-4.5 mcg/actuation inhaler Inhale 2 Puffs as instructed two times a day. - albuterol HFA (PROVENTIL HFA, VENTOLIN HFA) 90 mcg/actuation inhaler inhale 2 puffs by mouth and INTO THE LUNGS every 4 hours if needed for cough shortness of breath or wheezing - tiZANidine (ZANAFLEX) 4 mg tablet take 1 tablet by mouth once daily - atorvastatin (LIPITOR) 20 mg tablet take 1 tablet by mouth once daily - fluticasone (FLONASE) 50 mcg/actuation nasal spray instill 2 sprays into each nostril once daily - omeprazole (PRILOSEC) 40 mg capsule Take 1 capsule by mouth once daily. Problem List As Of Date 11/04/2024 Noted Resolved CERVICAL DISC DISPLACMNT [M50.20] 09/13/2008 Tobacco dependence syndrome [F17.200] 03/07/2017 Shortness of breath [R06.02] 05/17/2021 Pulmonary nodule [R91.1] 04/09/2017 Pulmonary emphysema (HCC) [J43.9] 09/13/2021 Hyperlipidemia [E78.5] 07/11/2016 Gastroesophageal reflux disease [K21.9] 10/21/2017 Gynecomastia, male [N62] 09/24/2018 Epistaxis [R04.0] 07/11/2016 Cough [R05.9] 12/26/2016 Allergic rhinitis [J30.9] 06/11/2018 Lymphocytosis [D72.820] 08/20/2018 Paresthesia [R20.2] 06/11/2018 Unspecified lump in left breast, subareolar [N6*08/20/2018 Encounter Status:Closed by DONIS RANDHAWA [facility]04[facility] MARY ANNE RAMOS ([id number]) 1965 M Date Time Provider Department 11/04/24 YASEMIN JAIME KSJOSE C During your visit today, we recorded the following information about you: Coty Kearns MA 11/04/2024 2:00 PM Signed FYI: Received VM from the Patient's , Jamee, informing the Patient is having his Neck Sx on 11/18/24. (Dr. Quionnes). Coty Kearns MA November 04, 2024 1:59 PM Allergies As of Date: 11/04/2024 (No Known Allergies) Date Reviewed: 09/29/2024 Reviewed by: Coty Kearns MA - Fully Assessed Reason for Visit: Patient Update [1234] Prescriptions as of 11/05/2024 - amoxicillin-clavulana te potassium (AUGMENTIN) 875-125 mg per tablet Take 1 tablet by mouth two times a day. - furosemide (LASIX) 20 mg tablet Take 1 tablet by mouth once daily as needed. - meloxicam (MOBIC) 15 mg tablet Take 1 tablet by mouth once daily. - Tadalafil (CIALIS) 5 mg tablet Take 1 tablet by mouth once daily. On days when you plan to be sexually active, skip your daily dose and take up to 4 tabs 1-2 hours prior to sex. - budesonide-formoterol (SYMBICORT) 160-4.5 mcg/actuation inhaler Inhale 2 Puffs as instructed two times a day. - albuterol HFA (PROVENTIL HFA, VENTOLIN HFA) 90 mcg/actuation inhaler inhale 2 puffs by mouth and INTO THE LUNGS every 4 hours if needed for cough shortness of breath or wheezing - tiZANidine (ZANAFLEX) 4 mg tablet take 1 tablet by mouth once daily - atorvastatin (LIPITOR) 20 mg tablet take 1 tablet by mouth once daily - fluticasone (FLONASE) 50 mcg/actuation nasal spray instill 2 sprays into each nostril once daily - omeprazole (PRILOSEC) 40 mg capsule Take 1 capsule by mouth once daily. Problem List As Of Date 11/04/2024 Noted Resolved CERVICAL DISC DISPLACMNT [M50.20] 09/13/2008 Tobacco dependence syndrome [F17.200] 03/07/2017 Shortness of breath [R06.02] 05/17/2021 Pulmonary nodule [R91.1] 04/09/2017 Pulmonary emphysema (HCC) [J43.9] 09/13/2021 Hyperlipidemia [E78.5] 07/11/2016 Gastroesophageal reflux disease [K21.9] 10/21/2017 Gynecomastia, male [N62] 09/24/2018 Epistaxis [R04.0] 07/11/2016 Cough [R05.9] 12/26/2016 Allergic rhinitis [J30.9] 06/11/2018 Lymphocytosis [D72.820] 08/20/2018 Paresthesia [R20.2] 06/11/2018 Unspecified lump in left breast, subareolar [N6*08/20/2018 Encounter Status:Closed by COTY KEARNS on 11/05/24 [facility] Cerv Spine 2 or 3 Viewson Cerv Spine 2 or 3 Views [facility] Imaging Services [address] [place] [id number] Cerv Spine 2 or 3 Views MR#: [id number] Acct: [id number] Name: MARY ANNE RAMOS Rep #: [id number] : 1965 M 59 From: Yvon Gregg MD PCP: Status: DEP AMB Study: Cerv Spine 2 or 3 Views Date of Exam: 10/30/24 Exam# [id number] Ordering Dr: Tara Arrieta EXAM: XR Cervical Spine Flexion/Extension Only, 2 or 3 Views CLINICAL INDICATION: PAIN TECHNIQUE: Lateral flexion/extension views of the cervical spine. COMPARISON: No relevant prior studies available. FINDINGS: VERTEBRAE: Mild reversal cervical spine lordosis. Moderate endplate degenerative changes, disc disease, anterior spurring C3-C7. Normal alignment. No acute fracture or significant dynamic instability. DISC SPACES: No acute findings. No significant narrowing. SOFT TISSUES: Unremarkable. RAD/Cerv Spine 2 or 3 Views IMPRESSION: 1. No acute fracture or significant dynamic instability. 2. Degenerative changes as above. Reading [facility] CC: JEMMA [employer] Agent: Signed [facility] Orthopedic Visit Reporton Orthopedic Visit Report [facility] [address] [place] [address] OFFICE VISIT Date of Service: 10/30/24 MR#: [id number] Acct: [id number] Name: MARY ANNE RAMOS Rep #: [id number] : 1965 Provider: Dr. Jose Quinones MD Age/Sex: 59/M Location[facility] Status: Signed Intake Vital Signs 10/30/24 14:47 Height 6 ft 4 in Weight: 165 lb 2 oz BMI 20.0 Intake Visit Reasons: CERVICAL SPINE Accompanied by: Is patient in pain?: Yes Pain scale (1-10): 10 Allergies pollen extracts (pollens) Adverse Reaction (Verified 10/30/24 15:08) Other Medications ???Medication ???Instructions ???Recorded ???Confirmed ???Type NK 10/30/24 10/30/24 History PFSH Surgical History (Updated 10/30/24 @ 14:48 by Francine Perez) History of appendectomy Family History (Updated 10/30/24 @ 15:07 by Francine Perez) Mother Hypertension Ovarian cancer Father Diabetes Myocardial infarction Hypertension Social History (Updated 10/30/24 @ 15:07 by Francine Preez) household members: spouse Smoking Status: Current every day smoker tobacco type: cigarettes HPI CERVICAL SPINE Details: This documentation accurately reflects the service provided and the decisions made by me, Dr. Jose Quinones MD 10/30/24 7209. Part of today???s visit was documented by Radha TAMAYO, acting as scribe. MARY ANNE RAMOS is a 59 year old M here today for neck pain that he has been having for 3-4 years. He states that his pain in the neck is equal on both sides and radiates into his bilateral shoulders and down the arms into his finger tip. He feels that within the last 2 months his pain has gotten worse. He does have numbness/tingling in his arms and hands bilaterally. He denies having dexterity issues but has been dropping things which has become more frequent. He does have balance issues that he is unsure is getting worse that he has had for the past month now. He did have an MRI of his cervical spine at [facility] on 09/21/24. He denies PT for the neck but has done some exercises at home that his showed him how to do from her previous neck surgery. He has tried ice and heat as well. He did recently finish a prednisone dose gris which did take the edge off of his pain. He does also have prescription for Meloxicam to take for pain as need that is prescribed to him by his PCP. He denies seeing pain management for any injections. Patient is LHD. He does have dexterity issues for the last couple of weeks. He has tried applying ice and heat to the neck. He feels like he stumbles a lot and has been bothering him the last couple of weeks. He has not had any falls from stumbling. Non-diabetic, no history of strokes, heart or lung problems. Never been diagnosed with scoliosis. He does have breathing issues and he does see a lung doctor at [facility]. They did find a spot on the lungs about a couple years ago but they didn't seem too worried about it. He does smoke about 1/2 or less pack of cigarettes a day. History of appendectomy about 10-15 years ago. Ortho Exam General General: Yes no acute distress and Yes well groomed Neurologic: Yes alert and Yes oriented x3 Psychologic: Yes reasonable and appropriate Exam Narrative Examination neck shows bilateral paraspinal tenderness. Neurologic evaluation of upper extremity shows 4 x 5 strength in all muscles in both upper extremities. Adam's is positive bilaterally. Romberg's is positive. Tandem gait shows imbalance. There is no hyperreflexia lower extremities. Coding Level of Care Code Off vis,new,level 5 Diagnoses Cervical myelopathy with cervical radiculopathy G95.9; M54.12 Other kyphosis, cervical region M40.292 Time Spent (min) 55 Assessment and Plan Assessment and Plan (1) Cervical myelopathy with cervical radiculopathy: Status: Acute (2) Other kyphosis, cervical region: Status: Acute Orders: Orders Cerv Spine 2 or 3 Views 10/30/24 M54.2 - Cervicalgia Plan Obtained and reviewed cervical spine x-rays today in the clinic. Reviewed imaging findings in detail with the patient as well as prior x-rays and MRI that was done at an outside facility. These show reversal of cervical lordosis causing kyphosis without dynamic instability. Disc height loss at C5- 6 and C6-7 noticed. MRI shows severe cord compression with cord signal changes especially C4-5 and multilevel cervical stenosis most severe between C4-7. Mild central stenosis C3-4 and C7-T1 also noticed. Explained that he does have severe spinal cord compression with cord edema or cord signal changes. He has developed weakness and progressive difficulty with dexterity and balance and mentions of multiple falls. His dexterity and balance have worsened rapidly over the last 2 weeks. Explained to him natural history of cer (more content not included)... Normal [facility] BERTHA BY IFA WITH REFLEXon Nuclear Ab pattern (S) [Interp] Nuclear homogeneous Normal [facility] Comment on above: Order Comment: Gal dudley Type: BLOOD SPECIMEN Ordering Facility: [facility] Address: [address] [place] [address] Performed By: #### 5 5454-3 #### [facility] CLIA [id number] [address] [place] [address] [place] Nuclear Ab Ql (S) Positive Abnormal Negative [facility] Comment on above: Order Comment: Gal dudley Type: BLOOD SPECIMEN Ordering Facility: [facility] Address: [address] [place] [address] Result Comment: Anti -nuclear antibody test is used as an aid in diagnosis of systemic autoimmune diseases. Where positive and clinically warranted, follow-up using disease-specific testing is recommended. Low positive titers are not uncommon with advanced age, certain chronic infections, and malignancies among others. Test methodology: Indirect fluorescence immunoassay (IFA) using HEp-2 cells. 1:160 Performed By: #### 5 5454-3 #### [facility] CLIA [id number] [address] [place] [address] [place] Centromere Ab IF Ql (S)on Centromere Ab Qn (S) 1.8 AI High <1.0 [facility] Comment on above: Order Comment: Gal dudley Type: BLOOD SPECIMENOrdering Facility: [facility] Address: [address] [place] [address] Result Comment: Anti -centromere antibody is used as in aid in diagnosis of systemic sclerosis. Clinical correlation is required. Test Methodology: Multiplex flow immunoassay. Performed By: #### A NAIFR, 92310-4, 78596-3, 70315-8, 57462-7, 71346-0, 38835-7, 84155-3, 56842-5, 51455-1 ####[facility] [id number] [place] [address] [place] CENTROMERE AB QUAL Positive Abnormal Negative [facility] Comment on above: Order Comment: Speci men Type: BLOOD SPECIMENOrdering Facility: [facility] Address: [address] [place] [address] Performed By: #### A NAIFR, 67744-2, 07876-3, 55308-6, 58372-7, 66108-0, 34528-4, 03626-0, 59276-7, 58415-2 ####[facility] [id number] [place] [address] [place] Chromatin Ab Qnon 10-19-2024 CHROMATIN AB QUAL Negative Normal Negative [facility] Comment on above: Order Comment: Speci men Type: BLOOD SPECIMEN Ordering Facility: [facility] Address: [address] [place] [address] Performed By: #### 5 5454-3 #### [facility] CLIA [id number] [address] [place] [address] [place] Chromatin Ab SerPl-aCncon Chromatin Ab Qn <0.2 Normal <1.0 [facility] Comment on above: Order Comment: Speci men Type: BLOOD SPECIMEN Ordering Facility: [facility] Address: [address] [place] [address] Result Comment: Test Methodology: Multiplex flow immunoassay. Performed By: #### 5 5454-3 #### [facility] CLIA [id number] [address] [place] [address] [place] DNA double strand Ab IA Qn ( S)on 10-19-2024 DNA ANTIBODY 10 IU/mL Normal <=200 [facility] Comment on above: Order Comment: Speci men Type: BLOOD SPECIMENOrdering Facility: [facility] Address: [address] [place] [address] Result Comment: Nega tive: <200 IU/mL Equivocal: 201-300 IU/mL Moderate Positive: 301-800 IU/mL Strong Positive: >801 IU/mL Performed By: #### A NAIFR, 12947-1, 78948-4, 90296-6, 98580-9, 13787-3, 71391-6, 66727-2, 04649-1, 86865-0 ####[facility] [id number] [address] [place] DNA ANTIBODY QUALITATIVE INTERPRETATION Negative Normal Negative [facility] Comment on above: Order Comment: Speci men Type: BLOOD SPECIMENOrdering Facility: [facility] Address: [address] [place] [address] Performed By: #### A NAIFR, 68177-4, 22308-8, 75421-0, 31123-0, 78540-2, 86538-1, 95071-0, 23097-5, 40149-3 ####[facility] [id number] [address] [place] RAFFAELE Jo1 Ab Ser-aCncon 2024 Latonya-1 extractable nuclear Ab Qn (S) <0.2 Normal <1.0 [facility] Comment on above: Order Comment: Speci men Type: BLOOD SPECIMENOrdering Facility: [facility] Address: [address] [place] [address] Performed By: #### A NAIFR, 10496-8, 25573-0, 83972-5, 76899-1, 45843-9, 27916-1, 53846-9, 19968-8, 43642-0 ####[facility] [id number] [address] [place] PLUG CUTTER Ab Ser-aCncon 2024 Ribonucleoprotein extractable nuclear Ab Qn (S) <0.2 Normal <1.0 [facility] Comment on above: Order Comment: Speci men Type: BLOOD SPECIMEN Ordering Facility: [facility] Address: [address] [place] [address] Performed By: #### 5 5454-3 #### [facility] CLIA [id number] [address] [place] [address] [place] Order Comment: Speci men Type: BLOOD SPECIMENOrdering Facility: [facility] Address: [address] [place] [address] Performed By: #### A PAYAL, 41191-4, 97486-2, 75664-0, 88998-6, 48971-5, 98275-0, 20860-1, 46611-6, 79940-4 ####[facility]IA [id number] [place] [address] [place] SM IgG Ser-aCncon 2024 Mehta extractable nuclear IgG Qn (S) <0.2 Normal <1.0 [facility] Comment on above: Order Comment: Speci men Type: BLOOD SPECIMENOrdering Facility: [facility] Address: [address] [place] [address] Performed By: #### A NAIFR, 00674-8, 90096-5, 84814-7, 09319-2, 10122-1, 51232-5, 77682-1, 07221-8, 59857-7 ####[facility] [id number] [place] [address] [place] SS-A Ab Ser-aCncon 10-19 Sjogrens syndrome-A extractable nuclear Ab Qn (S) <0.2 Normal <1.0 [facility] Comment on above: Order Comment: Speci men Type: BLOOD SPECIMENOrdering Facility: [facility] Address: [address] [place] [address] Result Comment: Test Methodology: Multiplex flow immunoassay. Performed By: #### A NAIFR, 78632-6, 74195-0, 94299-1, 45890-2, 71687-8, 00246-6, 42992-2, 04714-2, 78496-2 ####[facility] [id number] [place] [address] [place] SS-B Ab Ser-aCncon 10-19 Sjogrens syndrome-B extractable nuclear Ab Qn (S) <0.2 Normal <1.0 [facility] Comment on above: Order Comment: [facility] Type: BLOOD SPECIMENOrdering Facility: [facility] Address: [address] [place] [address] Result Comment: Anti -SSB (anti-La) antibody is used as an aid in diagnosis of a variety of systemic autoimmune diseases, especially for Sjogren's syndrome and systemic lupus erythematosus. Clinical correlation is required. Test Methodology: Multiplex flow immunoassay. Performed By: #### A NAIFR, 63529-9, 42765-8, 66312-9, 96685-8, 40640-3, 60027-6, 46624-8, 78113-4, 64597-6 ####[facility]IA [id number] [place] [address] [place] HCV Ab Ser Qlon 10-19-2024 HCV Ab Ql (S) Non-Reactive Normal Nonreactive [facility] Comment on above: Order Comment: [facility] Type: BLOOD SPECIMEN Ordering Facility: [facility] Address: [address] [place] [address] Result Comment: Scre ening test negative Nonreactive HCV Antibody Screen is consistent with no HCV infection, unless recent infection is suspected or other evidence exists to indicate HCV infection. Results were obtained with the [employer] IM IgG assay. Values obtained with different manufactures' assay methods may not be used interchangeably. Performed By: #### 5 5454-3 #### [facility] CLIA [id number] [address] [place] [address] [place] HIV 1+2 Ab IA Qlon HIV 1+2 Ab+HIV1 p24 Ag IA Ql Non-Reactive Normal Nonreactive [facility] Comment on above: Order Comment: Speci men Type: BLOOD SPECIMEN Ordering Facility: [facility] Address: [address] [place] [address] Result Comment: Nonr eactive: Less than 1.0 index value Specimens with an index value <1.0 are considered nonreactive for antibodies to HIV-1, HIV-2, and p24 antigen by the [employer] IM CHIV assay. Performed By: #### 5 5454-3 #### [facility] CLIA [id number] [address] [place] [address] [place] Latonya-1 extractable nuclear Ab Qn (S)on 10-19-2024 LATONYA 1 ANTIBODY QUAL Negative Normal Negative [facility] Comment on above: Order Comment: Speci men Type: BLOOD SPECIMENOrdering Facility: [facility] Address: [address] [place] [address] Result Comment: Anti -LATONYA-1 antibody is used as an aid in diagnosis of polymyositis and dermatomyositis especially with pulmonary involvement. A negative result cannot rule out polymyositis or dermatomyositis. Clinical correlation is required. Test Methodology: Multiplex flow immunoassay. Performed By: #### A NAIFR, 02740-4, 08212-6, 44604-2, 41566-1, 97896-0, 14164-6, 31056-7, 58848-8, 35391-0 ####[facility] [id number] [place] [address] [place] Ribonucleoprotein extractabl e nuclear Ab Qn (S)on 10-19-2024 ANTI-PLUG CUTTER QUAL Negative Normal Negative [facility] Comment on above: Order Comment: Speci men Type: BLOOD SPECIMENOrdering Facility: [facility] Address: [address] [place] [address] Performed By: #### A NAIFR, 08095-3, 37368-7, 11319-6, 87191-4, 13237-3, 26287-4, 23233-4, 12703-0, 72292-3 ####[facility] [id number] [place] [address] [place] RIBOSOMAL PLUG CUTTER QUAL Negative Normal Negative [facility] Comment on above: Order Comment: Gal dudley Type: BLOOD SPECIMEN Order[facility] Facility: [facility] Address: [address] [place] [address] Result Comment: Anti -Ribosomal RNA (Ribosomal P) antibody is used as an aid in diagnosis of systemic autoimmune diseases especially systemic lupus erythematosus and mixed connective tissue disease. Cross-reactivity with Anti-mehta antibody is not uncommon. Clinical correlation is required. Test Methodology: Multiplex flow immunoassay. Performed By: #### 5 5454-3 #### [facility] CLIA [id number] [address] [place] [address] [place] SCL-70 extractable nuclear I gG IA Qn (S)on 10-19-2024 SCLERODERMA AB QUAL Negative Normal Negative [facility] Comment on above: Order Comment: Gal dudley Type: BLOOD SPECIMENOrdering Facility: [facility] Address: [address] [place] [address] Performed By: #### A NAIFR, 52770-9, 54003-7, 18897-5, 85155-7, 60111-4, 56066-5, 55204-1, 88763-0, 17706-0 ####[facility] [id number] [address] [place] SCLERODERMA IGG AB <0.2 Normal <1.0 [facility] Comment on above: Order Comment: Gal dudley Type: BLOOD SPECIMENOrdering Facility: [facility] Address: [address] [place] [address] Result Comment: Scl- 70/Scleroderma antibody test is used as an aid in diagnosis of systemic sclerosis especially the diffuse cutaneous form. A negative result cannot rule out systemic sclerosis. The final interpretation should consider clinical picture and other test results such as anti-centromere antibody. Test Methodology: Multiplex flow immunoassay. Performed By: #### A NAIFR, 28501-5, 25194-6, 68877-2, 98930-6, 34349-0, 07762-5, 71220-4, 90108-4, 01846-0 ####[facility]IA [id number] [address] [address] [place] Sjogrens syndrome-A extracta ble nuclear Ab Qn (S)on 10-19-2024 SSA ANTIBODY QUAL Negative Normal Negative [facility] Comment on above: Order Comment: Speci men Type: BLOOD SPECIMENOrdering Facility: [facility] Address: [address] [place] [address] Performed By: #### A NAIFR, 42145-6, 51640-7, 37596-1, 04224-3, 61065-3, 37081-1, 15339-3, 59477-7, 10760-5 ####[facility] [id number] [address] [address] [place] Sjogrens syndrome-B extracta ble nuclear Ab Qn (S)on 10-19-2024 SSB ANTIBODY QUAL Negative Normal Negative [facility] Comment on above: Order Comment: Speci men Type: BLOOD SPECIMENOrdering Facility: [facility] Address: [address] [place] [address] Performed By: #### A NAIFR, 39217-0, 31030-8, 87145-7, 08226-9, 81657-0, 06239-8, 55646-1, 43768-4, 49411-0 ####[facility] [id number] [address] [place] [address] [place] Mehta extractable nuclear Ig G Qn (S)on 10-19-2024 SM ANTIBODY QUAL Negative Normal Negative [facility] Comment on above: Order Comment: Speci men Type: BLOOD SPECIMENOrdering Facility: [facility] Address: [address] [place] [address] Result Comment: Anti -Sm (Mehta) antibody is used as an aid in diagnosis of systemic lupus erythematosus and its presence is associated with renal disease. A negative result cannot rule out systemic lupus erythematosus. Clinical correlation is required. Test Methodology: Multiplex flow immunoassay. Performed By: #### A NAIFR, 18249-7, 18773-5, 42874-9, 04465-6, 34864-4, 26017-3, 48154-5, 81178-8, 73390-9 ####[facility] [id number] [address] [facility] CNPHeide 10-15-2024 CNPN Telephone (INRSMR) MARY ANNE RAMOS ([id number]) 1965 M Date Time Provider Department 10/15/24 JACLYN WARREN INRR During your visit today, we recorded the following information about you: Jaclyn Warren MD 10/15/2024 3:06 PM Signed Talked with patients today and informed her that all the testing we did for patient came back negative except for a positive BERTHA which will need some further testing. Patient's will inform him to get the blood work done and I will put the orders in. While discussing with her she did mention that patient does not add any salt to his food but does snack on high sodium foods and I told her to advise him to stop doing that that should help improve his edema. Patient did get compression stockings according to his and is starting to use them. Ordered labs which includes BERTHA confirmation along with hep C HIV etc. call patient and explained to him about test being ordered so that he is not surprised by why hepatitis C and HIV is being ordered. Patient voices understanding and was also counseled about sodium intake and he will make an effort. Allergies As of Date: 10/15/2024 (No Known Allergies) Date Reviewed: 09/29/2024 Reviewed by: Coty Kearns MA - Fully Assessed Primary Visit Diagnosis:Positive BERTHA (antinuclear antibody) [R76.8] Order(s):BERTHA BY IFA WITH REFLEX [SQANAIFR] Order #: [id number] FUTURE HIV 1/2 COMBO WITH REFLEX TO DIFFERENTIATION [SQHIV12] Order #: [id number] FUTURE HEPATITIS C ANTIBODY IA WITH CONFIRMATION [VLTOYN6J] Order #: [id number] FUTURE DNA AB DS + CONF BLD [SQDNA] Order #: [id number] FUTURE Prescriptions as of 10/15/2024 - amoxicillin-clavulana te potassium (AUGMENTIN) 875-125 mg per tablet Take 1 tablet by mouth two times a day. - furosemide (LASIX) 20 mg tablet Take 1 tablet by mouth once daily as needed. - meloxicam (MOBIC) 15 mg tablet Take 1 tablet by mouth once daily. - Tadalafil (CIALIS) 5 mg tablet Take 1 tablet by mouth once daily. On days when you plan to be sexually active, skip your daily dose and take up to 4 tabs 1-2 hours prior to sex. - budesonide-formoterol (SYMBICORT) 160-4.5 mcg/actuation inhaler Inhale 2 Puffs as instructed two times a day. - albuterol HFA (PROVENTIL HFA, VENTOLIN HFA) 90 mcg/actuation inhaler inhale 2 puffs by mouth and INTO THE LUNGS every 4 hours if needed for cough shortness of breath or wheezing - tiZANidine (ZANAFLEX) 4 mg tablet take 1 tablet by mouth once daily - atorvastatin (LIPITOR) 20 mg tablet take 1 tablet by mouth once daily - fluticasone (FLONASE) 50 mcg/actuation nasal spray instill 2 sprays into each nostril once daily - omeprazole (PRILOSEC) 40 mg capsule Take 1 capsule by mouth once daily. Problem List As Of Date 10/15/2024 Noted Resolved CERVICAL DISC DISPLACMNT [M50.20] 09/13/2008 Tobacco dependence syndrome [F17.200] 03/07/2017 Shortness of breath [R06.02] 05/17/2021 Pulmonary nodule [R91.1] 04/09/2017 Pulmonary emphysema (HCC) [J43.9] 09/13/2021 Hyperlipidemia [E78.5] 07/11/2016 Gastroesophageal reflux disease [K21.9] 10/21/2017 Gynecomastia, male [N62] 09/24/2018 Epistaxis [R04.0] 07/11/2016 Cough [R05.9] 12/26/2016 Allergic rhinitis [J30.9] 06/11/2018 Lymphocytosis [D72.820] 08/20/2018 Paresthesia [R20.2] 06/11/2018 Unspecified lump in left breast, subareolar [N6*08/20/2018 Encounter Status:Closed by JACLYN WARREN on 10/15/24 Normal [facility] ALBUMIN/CREATININE RATIO, UR Rashaun 10-02-2024 Albumin DL <= 20 mg/L (U) [Mass/Vol] 13.0 mg/L Normal 0.0-19.0 [facility] Comment on above: Order Comment: Speci men Type: BLOOD SPECIMEN Ordering Facility: [facility] Address: [address] [place] [address] Performed By: #### 5 5454-3 #### [facility] CLIA [id number] [address] [place] [address] [place] Albumin/Creatinine (U) [Mass ratio] 7 mg/g Normal <30 [facility] Comment on above: Order Comment: Speci men Type: BLOOD SPECIMEN Ordering Facility: [facility] Address: [address] [place] [address] Result Comment: Adul t Male and Female Nephrotic Criteria: <30 mg/g is considered normal to mildly increased 30-300 mg/g is considered moderately increased >300 mg/g is considered severely increased KDIGO. (2013). KDIGO 2012 Clinical Practice Guideline for the Evaluation and Management of Chronic Kidney Disease. Official Journal of the International Society of Nephrology, 3(1), 1-150. Performed By: #### 5 5454-3 #### [facility] CLIA [id number] [address] [place] [address] [place] Creatinine (U) [Mass/Vol] 195.0 mg/dL Normal 40.0-278.0 [facility] Comment on above: Order Comment: Speci men Type: BLOOD SPECIMEN Ordering Facility: [facility] Address: [address] [place] [address] Performed By: #### 5 5454-3 #### [facility] CLIA [id number] [address] [place] [address] [place] [address] [place] US VENOUS INCOMPETENCY GRABIEL V LABon 10-02-2024 VENOUS INCOMPETENCY GRABIEL VAS LAB Non-Invasive Vascular Laboratory [facility] Venous Valvular Incompetency Bilateral/Complete Date of service/time: 10/02/2024 11:00:53 AM Name: MARY ANNE RAMOS Date of : 1965 Age: 58 years Gender: M Medical History Tobacco: Current Clinical Indication Edema. TECHNIQUE -------- A venous duplex ultrasound examination was performed, including grayscale imaging with compression maneuvers and color Doppler and spectral Doppler examination with augmentation maneuvers and response to respiration of the below mentioned veins. FINDINGS -------- RIGHT SIDE Distal external iliac vein Doppler: pulsatile flow. Compression: normal. Common femoral vein Doppler: pulsatile flow. Compression: normal. Profunda vein Doppler: pulsatile flow. Compression: normal. Femoral vein Doppler: pulsatile flow. Compression: normal. Popliteal vein Doppler: pulsatile flow. Compression: normal. Posterior tibial veins Compression: normal. Peroneal veins Compression: normal. Great saphenous vein Compression: normal. Small saphenous vein Compression: normal. Soleal vein Compression: normal. Gastrocnemius vein Compression: normal. RIGHT GREAT SAPHENOUS VEIN Saphenofemoral junction Size 0.28 cm. Proximal thigh Size 0.34 cm. At Knee Size 0.46 cm. Proximal calf Size 0.23 cm. RIGHT SMALL SAPHENOUS VEIN Saphenopopliteal junction Size 0.37 cm. Proximal calf Size 0.38 cm. Mid calf Size 0.36 cm. Distal calf Size 0.32 cm. LEFT SIDE Distal external iliac vein Doppler: pulsatile flow. Compression: normal. Common femoral vein Doppler: pulsatile flow. Compression: normal. Profunda vein Doppler: pulsatile flow. Compression: normal. Femoral vein Doppler: pulsatile flow. Compression: normal. Popliteal vein Doppler: pulsatile flow. Compression: normal. Posterior tibial veins Compression: normal. Peroneal veins Compression: normal. Great saphenous vein Compression: normal. Small saphenous vein Compression: normal. Soleal vein Compression: normal. Gastrocnemius vein Compression: normal. LEFT GREAT SAPHENOUS VEIN Saphenofemoral junction Depth 0.48 cm. Proximal thigh Depth 0.37 cm. At Knee Depth 0.36 cm. Proximal calf Depth 0.29 cm. LEFT SMALL SAPHENOUS VEIN Saphenopopliteal junction Depth 0.37 cm. Proximal calf Depth 0.43 cm. Mid calf Depth 0.37 cm. Distal calf Depth 0.27 cm. IMPRESSION RIGHT SIDE - DEEP VEINS Negative for acute deep vein thrombosis. RIGHT SIDE - SUPERFICIAL VEINS Negative for valvular incompetency in the great saphenous vein. Negative for valvular incompetency in the small saphenous vein. Negative for superficial thrombophlebitis in the great saphenous vein and small saphenous vein. LEFT SIDE - DEEP VEINS Negative for acute deep vein thrombosis. LEFT SIDE - SUPERFICIAL VEINS Negative for valvular incompetency in the great saphenous vein. Negative for valvular incompetency in the small saphenous vein. Negative for superficial thrombophlebitis in the great saphenous vein and small saphenous vein. Technologist: Chelle Odom Harasty Ordering physician: JACLYN WARREN Interpreting physician: Teodoro De La Fuente MD Final CC FMS [facility] Medical Image : [id number] [id number] See Link below for Image Normal [facility] US Vein - bilateralon 2024 Non-Invasive Vascular Laboratory [facility] Venous Valvular Incompetency Bilateral/Complete Date of service/time: 10/02/2024 11:00:53 AM Name: MARY ANNE RAMOS Date of : 1965 Age: 58 years Gender: M Medical History Tobacco: Current Clinical Indication Edema. TECHNIQUE -------- A venous duplex ultrasound examination was performed, including grayscale imaging with compression maneuvers and color Doppler and spectral Doppler examination with augmentation maneuvers and response to respiration of the below mentioned veins. FINDINGS -------- RIGHT SIDE Distal external iliac vein Doppler: pulsatile flow. Compression: normal. Common femoral vein Doppler: pulsatile flow. Compression: normal. Profunda vein Doppler: pulsatile flow. Compression: normal. Femoral vein Doppler: pulsatile flow. Compression: normal. Popliteal vein Doppler: pulsatile flow. Compression: normal. Posterior tibial veins Compression: normal. Peroneal veins Compression: normal. Great saphenous vein Compression: normal. Small saphenous vein Compression: normal. Soleal vein Compression: normal. Gastrocnemius vein Compression: normal. RIGHT GREAT SAPHENOUS VEIN Saphenofemoral junction Size 0.28 cm. Proximal thigh Size 0.34 cm. At Knee Size 0.46 cm. Proximal calf Size 0.23 cm. RIGHT SMALL SAPHENOUS VEIN Saphenopopliteal junction Size 0.37 cm. Proximal calf Size 0.38 cm. Mid calf Size 0.36 cm. Distal calf Size 0.32 cm. LEFT SIDE Distal external iliac vein Doppler: pulsatile flow. Compression: normal. Common femoral vein Doppler: pulsatile flow. Compression: normal. Profunda vein Doppler: pulsatile flow. Compression: normal. Femoral vein Doppler: pulsatile flow. Compression: normal. Popliteal vein Doppler: pulsatile flow. Compression: normal. Posterior tibial veins Compression: normal. Peroneal veins Compression: normal. Great saphenous vein Compression: normal. Small saphenous vein Compression: normal. Soleal vein Compression: normal. Gastrocnemius vein Compression: normal. LEFT GREAT SAPHENOUS VEIN Saphenofemoral junction Depth 0.48 cm. Proximal thigh Depth 0.37 cm. At Knee Depth 0.36 cm. Proximal calf Depth 0.29 cm. LEFT SMALL SAPHENOUS VEIN Saphenopopliteal junction Depth 0.37 cm. Proximal calf Depth 0.43 cm. Mid calf Depth 0.37 cm. Distal calf Depth 0.27 cm. IMPRESSION RIGHT SIDE - DEEP VEINS Negative for acute deep vein thrombosis. RIGHT SIDE - SUPERFICIAL VEINS Negative for valvular incompetency in the great saphenous vein. Negative for valvular incompetency in the small saphenous vein. Negative for superficial thrombophlebitis in the great saphenous vein and small saphenous vein. LEFT SIDE - DEEP VEINS Negative for acute deep vein thrombosis. LEFT SIDE - SUPERFICIAL VEINS Negative for valvular incompetency in the great saphenous vein. Negative for valvular incompetency in the small saphenous vein. Negative for superficial thrombophlebitis in the great saphenous vein and small saphenous vein. Technologist: Chelle Mckeon Ordering physician: JACLYN WARREN Interpreting physician: Teodoro De La Fuente MD Final See Link below for Image [facility] CARDIOLOGY [facility] 10-01-2024 CNPN Telephone (INRSMR) MARY ANNE RAMOS ([id number]) 1965 M Date Time Provider Department 10/01/24 JACLYN WARREN INRR During your visit today, we recorded the following information about you: Donis Randhawa LPN 10/01/2024 1:22 PM Signed Received a message from olu with [facility] stating they needed an urgent return call regarding a prior authorization for a duplex scan regarding specific info on supervising physician. I called olu back, but had to leave a voicemail. THERESA Beck Meena W, MD 10/01/2024 3:04 PM Signed Spoke with Olu who said that the issue was resolved and patient can have his test tomorrow as scheduled Allergies As of Date: 10/01/2024 (No Known Allergies) Date Reviewed: 09/29/2024 Reviewed by: Coty Kearns MA - Fully Assessed Reason for Visit: prior auth duplex scan [Other] Prescriptions as of 10/02/2024 - amoxicillin-clavulana te potassium (AUGMENTIN) 875-125 mg per tablet Take 1 tablet by mouth two times a day. - furosemide (LASIX) 20 mg tablet Take 1 tablet by mouth once daily as needed. - meloxicam (MOBIC) 15 mg tablet Take 1 tablet by mouth once daily. - Tadalafil (CIALIS) 5 mg tablet Take 1 tablet by mouth once daily. On days when you plan to be sexually active, skip your daily dose and take up to 4 tabs 1-2 hours prior to sex. - budesonide-formoterol (SYMBICORT) 160-4.5 mcg/actuation inhaler Inhale 2 Puffs as instructed two times a day. - albuterol HFA (PROVENTIL HFA, VENTOLIN HFA) 90 mcg/actuation inhaler inhale 2 puffs by mouth and INTO THE LUNGS every 4 hours if needed for cough shortness of breath or wheezing - tiZANidine (ZANAFLEX) 4 mg tablet take 1 tablet by mouth once daily - atorvastatin (LIPITOR) 20 mg tablet take 1 tablet by mouth once daily - fluticasone (FLONASE) 50 mcg/actuation nasal spray instill 2 sprays into each nostril once daily - omeprazole (PRILOSEC) 40 mg capsule Take 1 capsule by mouth once daily. Problem List As Of Date 10/01/2024 Noted Resolved CERVICAL DISC DISPLACMNT [M50.20] 09/13/2008 Tobacco dependence syndrome [F17.200] 03/07/2017 Shortness of breath [R06.02] 05/17/2021 Pulmonary nodule [R91.1] 04/09/2017 Pulmonary emphysema (HCC) [J43.9] 09/13/2021 Hyperlipidemia [E78.5] 07/11/2016 Gastroesophageal reflux disease [K21.9] 10/21/2017 Gynecomastia, male [N62] 09/24/2018 Epistaxis [R04.0] 07/11/2016 Cough [R05.9] 12/26/2016 Allergic rhinitis [J30.9] 06/11/2018 Lymphocytosis [D72.820] 08/20/2018 Paresthesia [R20.2] 06/11/2018 Unspecified lump in left breast, subareolar [N6*08/20/2018 Encounter Status:Closed by DONIS RANDHAWA on 10/02/24 [facility] CNOVon 09-29-2024 [facility] MARY ANNE RAMOS ([id number]) 1965 M Date Time Provider Department 09/29/24 10:15 AM YASEMIN JAIME [facility] During your visit today, we recorded the following information about you: Pulse Weight Height 91/minute 74.8 kg 1.905 m Yasemin Jaime APRN.FLOOR TECH 09/29/2024 11:39 AM Signed Yasemin Jaime [employer] [facility], [address], [place] [address] Orthopedics Service Date: 09/08/2024 Referring Provider: Jaclyn Warren [address] [place] [address] Dr [place] [place] [address] Chief Complaint: neck and left arm pain History of Present Illness Mary Anne Ramos is a 58 year old male with medical history significant for tobacco use and emphysema presenting with spouse for f/u today and MRI results. Today reports that he continues to experience radicular pain, now bilateral. Summary of Symptoms Pain Location: left and right side of neck/upper back Radiation of Pain: b/l arms Weakness: denies Dexterity Issues: left hand. Powerhouse Mechanic issues Imbalance: denies Falls: denies Bowel/Bladder Dysfunction: denies Prior Conservative Treatment Physical Therapy: denies Medications: medrol dose pack Pain Management: Injections: Surgery: Other: The following portions of the patient's history were reviewed and updated as appropriate: allergies, current medications, past family history, past medical history, past social history, past surgical history and problem list. ACTIVE PROBLEM LIST Displacement of Cervical Intervertebral Disc Without Myelopathy Tobacco Dependence Syndrome Shortness of Breath Pulmonary Nodule Pulmonary Emphysema (Hcc) Hyperlipidemia Gastroesophageal Reflux Disease Gynecomastia, Male Epistaxis Cough Allergic Rhinitis Lymphocytosis Paresthesia Unspecified Lump in Left Breast, Subareolar PAST MEDICAL HISTORY Diagnosis Date DDD (degenerative disc disease), cervical PAST SURGICAL HISTORY Procedure Laterality Date APPENDECTOMY FAMILY HISTORY Problem Relation Age of Onset Cancer Mother ovarian Diabetes Father Ischemic Heart Disease Father Coronary Artery Disease Father Heart Attack Father Breast Cancer Sister Breast Cancer Paternal Aunt Social History Tobacco Use Smoking status: Every Day Current packs/day: 0.50 Average packs/day: 0.5 packs/day for 45.0 years (22.5 ttl pk-yrs) Types: Cigarettes Smokeless tobacco: Never Vaping Use Vaping status: Never Used Substance Use Topics Alcohol use: No Drug use: No ALLERGIES No Known Allergies Medications: methylPREDNISolone (MEDROL, GRIS,) 4 mg Dose-Pack As instructed per package amoxicillin-clavulana te potassium (AUGMENTIN) 875-125 mg per tablet Take 1 tablet by mouth two times a day. furosemide (LASIX) 20 mg tablet Take 1 tablet by mouth once daily as needed. meloxicam (MOBIC) 15 mg tablet Take 1 tablet by mouth once daily. Tadalafil (CIALIS) 5 mg tablet Take 1 tablet by mouth once daily. On days when you plan to be sexually active, skip your daily dose and take up to 4 tabs 1-2 hours prior to sex. budesonide-formoterol (SYMBICORT) 160-4.5 mcg/actuation inhaler Inhale 2 Puffs as instructed two times a day. albuterol HFA (PROVENTIL HFA, VENTOLIN HFA) 90 mcg/actuation inhaler inhale 2 puffs by mouth and INTO THE LUNGS every 4 hours if needed for cough shortness of breath or wheezing tiZANidine (ZANAFLEX) 4 mg tablet take 1 tablet by mouth once daily atorvastatin (LIPITOR) 20 mg tablet take 1 tablet by mouth once daily fluticasone (FLONASE) 50 mcg/actuation nasal spray instill 2 sprays into each nostril once daily omeprazole (PRILOSEC) 40 mg capsule Take 1 capsule by mouth once daily. Physical Examination: Vital Signs: There were no vitals taken for this visit. General Appearance: Well nourished, well developed, and no apparent distress. Neuro/Psych: Patient oriented to person, place, and time. Mood pleasant. Benign affect. Cardiovascular: Palpable pulses. No edema noted. No varicosities. Skin: Head, neck, trunk, and extremities dry, intact and without lesions. Lymphatics: No palpable nodes in cervical or axillae areas. Groin exam deferred. Musculoskeletal: No tenderness to palpation in the midline over the spinous processes or in the paraspinal musculature. Muscle Tone and Bulk: Symmetrical in the upper AND lower extremities. Sensory: Sensation intact to light touch in C5-T1 and L1-S1 dermatomes. Mild ly diminished along C5-6 left arm. Motor: Upper Extremities Right Left Deltoid (C5) 4 4 Biceps (C6) 5 5 Triceps (C7) 5 5 Powerhouse Mechanic (C8) 5 5 Interossei (T1) 5 5 Lower Extremities Right Left Psoas (L2) 5 5 Quadriceps (L3) 5 5 Dorsiflexion (L4) 5 5 EHL (L5) 5 5 Plantarflexion (S1) 5 5 Gait: Able to perform tandem gait. Long Tract Signs: No clonus. No Hoffmanns. Reflexes: Symmetric, non-brisk. Hips: No pain with internal or external rotation. No pain with flexio (more content not included)... [facility] CNOVon 09-23-2024 CNOV Office Visit (INRSMR ) MARY ANNE RAMOS ([id number]) 1965 M Date Time Provider Department 09/23/24 10:15 AM JACLYN WARREN INRSMR During your visit today, we recorded the following information about you: Temperature Pulse Respiration Blood pressure 97.2 degrees 85/minute 18/minute 118/82 Weight Height 75.3 kg 1.93 m Aditya Natarajan LPN 09/28/2024 3:12 PM Signed Pt here today for acute follow up care. Issues or concerns to address today: Pt and state the swelling in his legs is not going down any with the lasix. Jaclyn Warren MD 09/28/2024 3:12 PM Signed [facility] Visit Date: September 23, 2024 Follow Up Visit Chief Complaint: Continued swelling of both lower extremities Review of History: Mary Anne Ramos is a 58 year old who is here for a follow-up visit. Patient was given this appointment to follow-up on his lower extremity edema. This occurred gradually and has not improved in spite of giving him some Lasix. Patient also had some pain in the right ankle for which x-ray was done. It did not show any abnormalities. He was treated with Augmentin because of right ankle warmth and erythema and that seems to have resolved but the swelling remains. Patient also reports that his left arm pain and paresthesias have gotten worse. He does have a history of cervical radiculopathy and had a recent MRI which we went over in this visit. Patient does follow-up with orthopedics. 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 Patient has follow-up with Dr. Jaime on September 29. past Medical History: PAST MEDICAL HISTORY Diagnosis Date DDD (degenerative disc disease), cervical Health Maintenance: Colonoscopy: Vaccination: Allergies: ALLERGIES No Known Allergies Medications: Current Outpatient Medications Medication Sig Dispense Refill amoxicillin-clavulana te potassium (AUGMENTIN) 875-125 mg per tablet Take 1 tablet by mouth two times a day. 14 tablet 0 furosemide (LASIX) 20 mg tablet Take 1 tablet by mouth once daily as needed. 10 tablet 0 meloxicam (MOBIC) 15 mg tablet Take 1 tablet by mouth once daily. 30 tablet 0 Tadalafil (CIALIS) 5 mg tablet Take 1 tablet by mouth once daily. On days when you plan to be sexually active, skip your daily dose and take up to 4 tabs 1-2 hours prior to sex. 50 tablet 5 budesonide-formoterol (SYMBICORT) 160-4.5 mcg/actuation inhaler Inhale 2 Puffs as instructed two times a day. 1 Each 3 albuterol HFA (PROVENTIL HFA, VENTOLIN HFA) 90 mcg/actuation inhaler inhale 2 puffs by mouth and INTO THE LUNGS every 4 hours if needed for cough shortness of breath or wheezing 18 g 4 tiZANidine (ZANAFLEX) 4 mg tablet take 1 tablet by mouth once daily 15 tablet 1 atorvastatin (LIPITOR) 20 mg tablet take 1 tablet by mouth once daily 90 tablet 3 fluticasone (FLONASE) 50 mcg/actuation nasal spray instill 2 sprays into each nostril once daily 16 g 1 omeprazole (PRILOSEC) 40 mg capsule Take 1 capsule by mouth once daily. 90 capsule 1 No current facility-administered medications for this visit. Social History: Social History Tobacco Use Smoking status: Every Day Current packs/day: 0.50 Average packs/day: 0.5 packs/day for 45.0 years (22.5 ttl pk-yrs) Types: Cigarettes Smokeless tobacco: Never Vaping Use Vaping status: Never Used Substance Use Topics Alcohol use: No Drug use: No Family History: Family History Problem Relation Age of Onset Cancer Mother ovarian Diabetes Father Ischemic Heart Disease Father Coronary Artery Disease Father Heart Attack Father Breast Cancer Sister Breast Cancer Paternal Aunt Past Surgical History: PAST SURGICAL HISTORY Procedure Laterality Date APPENDECTOMY Review of Systems: Review of Systems Physical Exam: BP 118/82 Pulse 85 Temp 36.2 ?C (97.2 ?F) Resp 18 Ht 193 cm (6' 4) Wt 75.3 kg (166 lb) SpO2 95% BMI 20.21 kg/m? Physical Exam Constitutional: Appearance: Normal appearance. Cardiovascular: Rate and Rhythm: Normal rate and regular rhythm. Pulmonary: Breath sounds: Normal breath sounds. Abdominal: Palpations: Abdomen is soft. There is no mass. Tenderness: There is no abdominal tenderness. Musculoskeletal: Right lower leg: Edema present. Left lower leg: Edema present. Neurological: General: No focal deficit present. Mental Status: He is alert and oriented to person, place, and time. Assessment and Plan:: ASSESSMENT/PLAN: 1. Edema of both lower extremities - ICD9: 782.3, ICD10: R60.0 (primary diagnosis) Minimal pitting on exam. Unsure of what exactly is causing this. Patient not on any medication that would cause edema. No signs o (more content not included)... Normal [facility] C-REACTIVE PROTEINon 025 CRP [Mass/Vol] 0.7 mg/dL [facility] - 1.0 mg/dL [facility] CBC W Auto Differential pane l (Bld)Ordered By: Terri Aviles on 09-21-2024 Basophils (Bld) [#/Vol] 0.03 10*3/uL [facility] Basophils/100 WBC (Bld) 0.4 % [facility] Differential cell count method Nom (Bld) Auto [facility] Eosinophils (Bld) [#/Vol] 0.03 10*3/uL [facility] Eosinophils/100 WBC (Bld) 0.4 % [facility] Erythrocyte distribution width (RBC) [Ratio] 13.8 % 11.5 - 15.0 % [facility] Hematocrit (Bld) [Volume fraction] 47.7 % 39.0 - 51.0 % [facility] Hemoglobin (Bld) [Mass/Vol] 14.7 g/dL 13.0 - 17.0 g/dL [facility] Immature granulocytes (Bld) [#/Vol] 0.04 10*3/uL [facility] Immature granulocytes/100 WBC (Bld) 0.5 % [facility] Lymphocytes (Bld) [#/Vol] 2.47 10*3/uL [facility] Lymphocytes/100 WBC (Bld) 29.6 % [facility] MCH (RBC) [Entitic mass] 26.8 pg 26.0 - 34.0 pg [facility] MCHC (RBC) [Mass/Vol] 30.8 g/dL 30.5 - 36.0 g/dL [facility] MCV (RBC) [Entitic vol] 87 fL 80.0 - 100.0 fL [facility] Monocytes (Bld) [#/Vol] 0.6 10*3/uL [facility] Monocytes/100 WBC (Bld) 7.2 % [facility] Neutrophils (Bld) [#/Vol] 5.17 10*3/uL [facility] Neutrophils/100 WBC (Bld) 61.9 % [facility] Platelet mean volume (Bld) [Entitic vol] 10.4 fL 9.0 - 12.7 fL [facility] Platelets (Bld) [#/Vol] 228 10*3/uL [facility] RBC (Bld) [#/Vol] 5.48 10*6/uL 4.20 - 6.0 0 m/uL [facility] WBC (Bld) [#/Vol] 8.34 10*3/uL [facility] CBC W Auto Differential pane l (Bld)on 09-21-2024 Basophils (Bld) [#/Vol] 0.03 10*3/uL Normal <0.11 [facility] Comment on above: Order Comment: Speci men Type: BLOOD SPECIMENOrdering Facility: [facility] Address: [address] [place] [address] Performed By: #### 5 7021-8 ####MARQUEZ MASSILLON LABCLIA [id number] [address] [place] Basophils/100 WBC (Bld) 0.4 % Normal [facility] Comment on above: Order Comment: Speci men Type: BLOOD SPECIMENOrdering Facility: [facility] Address: [address] [place] [address] Performed By: #### 5 7021-8 ####MARQUEZ MASSILLON LABCLIA [id number] [place] [address] [place] Differential cell count method Nom (Bld) Auto Normal [facility] Comment on above: Order Comment: Speci men Type: BLOOD SPECIMENOrdering Facility: [facility] Address: [address] [place] [address] Performed By: #### 5 7021-8 ####MERCRosalba MASSILLON LABCLIA [id number] [place] [address] [place] Eosinophils (Bld) [#/Vol] 0.03 10*3/uL Normal <0.46 [facility] Comment on above: Order Comment: Speci men Type: BLOOD SPECIMENOrdering Facility: [facility] Address: [address] [place] [address] Performed By: #### 5 7021-8 ####MERCY MASSILLON LABCLIA [id number] [place] [address] [place] Eosinophils/100 WBC (Bld) 0.4 % Normal [facility] Comment on above: Order Comment: Speci men Type: BLOOD SPECIMENOrdering Facility: [facility] Address: [address] [place] [address] Performed By: #### 5 7021-8 ####MARQUEZ MUELLERVishal LABCLIA [id number] [place] [id number] [facility] Erythrocyte distribution width (RBC) [Ratio] 13.8 % Normal 11.5-15.0 [facility] Comment on above: Order Comment: Speci men Type: BLOOD SPECIMENOrdering Facility: [facility] Address: [address] [place] [address] Performed By: #### 5 7021-8 ####OLIVIARosalba AMIVishal LABCLIA [id number] [place] [address] [facility] Hematocrit (Bld) [Volume fraction] 47.7 % Normal 39.0-51.0 [facility] Comment on above: Order Comment: Speci men Type: BLOOD SPECIMENOrdering Facility: [facility] Address: [address] [place] [address] Performed By: #### 5 7021-8 ####MARQUEZ MUELLERVishal LABCLIA [id number] [place] [address] [facility] [place] Hemoglobin (Bld) [Mass/Vol] 14.7 g/dL Normal 13.0-17.0 [facility] Comment on above: Order Comment: Speci men Type: BLOOD SPECIMENOrdering Facility: [facility] Address: [address] [place] [address] Performed By: #### 5 7021-8 ####MARQUEZ MUELLERN LABCLIA [id number] [place] [address] [facility] [place] Immature granulocytes (Bld) [#/Vol] 0.04 10*3/uL Normal <0.10 [facility] Comment on above: Order Comment: Speci men Type: BLOOD SPECIMENOrdering Facility: [facility] Address: [address] [place] [address] Performed By: #### 5 7021-8 ####MARQUEZ MASSILLON LABCLIA [id number] [place] [address] [facility] Immature granulocytes/100 WBC (Bld) 0.5 % Normal [facility] Comment on above: Order Comment: Speci men Type: BLOOD SPECIMENOrdering Facility: [facility] Address: [address] [place] [address] Performed By: #### 5 7021-8 ####OLIVIARosalba MASSILLON LABCLIA [id number] [place] [address] [facility] Lymphocytes (Bld) [#/Vol] 2.47 10*3/uL Normal 1.00-4.00 [facility] Comment on above: Order Comment: Speci men Type: BLOOD SPECIMENOrdering Facility: [facility] Address: [address] [place] [address] Performed By: #### 5 7021-8 ####OLIVIARosalba MASSILLON LABCLIA [id number] [place] [address] [facility] Lymphocytes/100 WBC (Bld) 29.6 % Normal [facility] Comment on above: Order Comment: Speci men Type: BLOOD SPECIMENOrdering Facility: [facility] Address: [address] [place] [address] Performed By: #### 5 7021-8 ####MARQUEZ MASSILLON LABCLIA [id number] [place] [address] [place] [facility] MCH (RBC) [Entitic mass] 26.8 pg Normal 26.0-34.0 [facility] Comment on above: Order Comment: Speci men Type: BLOOD SPECIMENOrdering Facility: [facility] Address: [address] [place] [address] Performed By: #### 5 7021-8 ####MARQUEZ MASSILLON LABCLIA [id number] [place] [address] [place] [facility] MCHC (RBC) [Mass/Vol] 30.8 g/dL Normal 30.5-36.0 [facility] Comment on above: Order Comment: Speci men Type: BLOOD SPECIMENOrdering Facility: [facility] Address: [address] [place] [address] Performed By: #### 5 7021-8 ####MARQUEZ MUELLERVishal LABCLIA [id number] [place] [address] [facility] MCV (RBC) [Entitic vol] 87.0 fL Normal 80.0-100.0 [facility] Comment on above: Order Comment: Speci men Type: BLOOD SPECIMENOrdering Facility: [facility] Address: [address] [place] [address] Performed By: #### 5 7021-8 ####MARQUEZ MUELLERVishal LABCLIA [id number] [place] [address] [facility] Monocytes (Bld) [#/Vol] 0.60 10*3/uL Normal <0.87 [facility] Comment on above: Order Comment: Speci men Type: BLOOD SPECIMENOrdering Facility: [facility] Address: [address] [place] [address] Performed By: #### 5 7021-8 ####MARQUEZ MUELLERVishal LABCLIA [id number] [place] [address] [facility] Monocytes/100 WBC (Bld) 7.2 % Normal [facility] Comment on above: Order Comment: Speci men Type: BLOOD SPECIMENOrdering Facility: [facility] Address: [address] [place] [address] Performed By: #### 5 7021-8 ####MARQUEZ MUELLERN LABCLIA [id number] [place] [address] [facility] [place] Neutrophils (Bld) [#/Vol] 5.17 10*3/uL Normal 1.45-7.50 [facility] Comment on above: Order Comment: Speci men Type: BLOOD SPECIMENOrdering Facility: [facility] Address: [facility] [place] [address] Performed By: #### 5 7021-8 ####MARQUEZ CORRAL LABCLIA [id number] [place] [address] [facility] Neutrophils/100 WBC (Bld) 61.9 % Normal [facility] Comment on above: Order Comment: Speci men Type: BLOOD SPECIMENOrdering Facility: [facility] Address: [address] [place] [address] Performed By: #### 5 7021-8 ####MARQUEZ MUELLERVishal LABCLIA [id number] [place] [address] [place] Platelet mean volume (Bld) [Entitic vol] 10.4 fL Normal 9.0-12.7 [facility] Comment on above: Order Comment: Speci men Type: BLOOD SPECIMENOrdering Facility: [facility] Address: [address] [place] [address] Performed By: #### 5 7021-8 ####MARQUEZ MUELLERVishal LABCLIA [id number] [place] [address] [place] Platelets (Bld) [#/Vol] 228 10*3/uL Normal 150-400 [facility] Comment on above: Order Comment: Speci men Type: BLOOD SPECIMENOrdering Facility: [facility] Address: [address] [place] [address] Performed By: #### 5 7021-8 ####MARQUEZ MUELLERN LABCLIA [id number] [place] [address] [place] RBC (Bld) [#/Vol] 5.48 10*6/uL Normal 4.20-6.00 [facility] Comment on above: Order Comment: Speci men Type: BLOOD SPECIMENOrdering Facility: [facility] Address: [address] [place] [address] Performed By: #### 5 7021-8 ####MARQUEZ ALTOONA LABCLIA [id number] [place] [address] [place] WBC (Bld) [#/Vol] 8.34 10*3/uL Normal 3.70-11.00 [facility] Comment on above: Order Comment: Speci men Type: BLOOD SPECIMENOrdering Facility: [facility] Address: [address] [place] [address] Performed By: #### 5 7021-8 ####[facility] LABCLIA [id number] [place] [address] [facility] CRP SerPl-mCncon 09-21-2024 CRP [Mass/Vol] 0.7 mg/dL Normal <1.0 [facility] Comment on above: Order Comment: Speci men Type: BLOOD SPECIMENOrdering Facility: [facility] Address: [address] [place] [address] Performed By: #### 2 4323-8, 1987-5, 3024-7, 3016-3 ####[facility] LABORATORYCLIA [id number] [address] [place] Comprehensive metabolic 2000 panelon 09-21-2024 Albumin [Mass/Vol] 3.7 g/dL 3.2 - 5.0 g/dL [facility] ALP [Catalytic activity/Vol] 117 U/L 45 - 117 U/L [facility] ALT [Catalytic activity/Vol] 21 U/L 13 - 61 U/L [facility] Comment on above: Results may be false ly depressed after the administration of Sulfasalazine and/or Sulfapyridine. Anion gap [Moles/Vol] 6 mmol/L 5 - 16 mmol/L [facility] AST [Catalytic activity/Vol] 25 U/L 8 - 34 U/L [facility] Comment on above: Results may be false ly depressed after the administration of Sulfasalazine and/or Sulfapyridine. Bilirubin [Mass/Vol] 0.3 mg/dL 0.2 - 1 .0 mg/dL [facility] Calcium [Mass/Vol] 9.6 mg/dL 8.5 - 10. 5 mg/dL [facility] Chloride [Moles/Vol] 100 mmol/L 98 - 10 7 mmol/L [facility] CO2 [Moles/Vol] 29 mmol/L 21 - 32 mmol/L [facility] Creatinine [Mass/Vol] 1.2 mg/dL 0.50 - 1.40 mg/dL [facility] Comment on above: Patients receiving e ither N-Acetylcysteine (NAC) or Metamizole prior to venipuncture, may have falsely depressed results. GFR/1.73 sq M.predicted among non-blacks MDRD (S/P/Bld) [Vol rate/Area] 70 mL/min/{1.73_m2} - PINF [facility] Comment on above: Estimated Glomerular Filtration Rate (eGFR) is calculated using the 2020 CKD-EPI creatinine equation. This equation utilizes serum creatinine, sex, and age as parameters. The creatinine assay has traceable calibration to isotope dilution-mass spectrometry. Refer to KDIGO guidelines for clinical interpretation. In patients with unstable renal function, e.g. those with acute kidney injury, the eGFR may not accurately reflect actual GFR. Glucose [Mass/Vol] 65 mg/dL Low 70 - 100 mg/dL [facility] Comment on above: The [employer] Di[employer] s Association (ADA) provides guidance for cutoff values for fasting glucose and random glucose. The ADA defines fasting as no caloric intake for at least 8 hours. Fasting plasma glucose results between 100 to 125 mg/dL indicate increased risk for diabetes (prediabetes). Fasting plasma glucose results greater than or equal to 126 mg/dL meet the criteria for diagnosis of diabetes. In the absence of unequivocal hyperglycemia, results should be confirmed by repeat testing. In a patient with classic symptoms of hyperglycemia or hyperglycemic crisis, random plasma glucose results greater than or equal to 200 mg/dL meet the criteria for diagnosis of diabetes. Reference: Standards of Medical Care in Diabetes 2016, [employer] Diabetes Association. Diabetes Care. 2016.39(Suppl 1). Results may be falsely elevated after the administration of Sulfapyridine. Results may be falsely depressed after the administration of Sulfasalazine. Interpretation and review of laboratory results Abnormal [facility] Potassium [Moles/Vol] 4.4 mmol/L 3.5 - 5.1 mmol/L [facility] Protein [Mass/Vol] 8.3 g/dL 6.0 - 8.5 g/dL [facility] Sodium [Moles/Vol] 135 mmol/L Low 136 - 145 mmol/L [facility] Urea nitrogen [Mass/Vol] 20 mg/dL 7 - 26 mg/dL [facility] Albumin [Mass/Vol] 3.7 g/dL Normal 3.2-5.0 [facility] Comment on above: Order Comment: Speci men Type: BLOOD SPECIMENOrdering Facility: [facility] Address: [address] [place] [address] Performed By: #### 2 4323-8, 1987-09, 3023-11, 3015-07 ####[facility] LABORATORYCLIA [id number] [place] [id number] [place] ALP [Catalytic activity/Vol] 117 U/L Normal 45-117 [facility] Comment on above: Order Comment: Speci men Type: BLOOD SPECIMENOrdering Facility: [facility] Address: [address] [place] [address] Performed By: #### 2 43238, 1987-09, 3023-11, 3015-07 ####[facility] LABORATORYCLIA [id number] [place] [id number] [place] ALT [Catalytic activity/Vol] 21 U/L Normal 13-61 [facility] Comment on above: Order Comment: Speci men Type: BLOOD SPECIMENOrdering Facility: [facility] Address: [address] [place] [address] Result Comment: Resu lts may be falsely depressed after the administration of Sulfasalazine and/or Sulfapyridine. Performed By: #### 2 4323-8, 1987-09, 3023-11, 3015-07 ####[facility] LABORATORYCLIA [id number] [place] [id number] [place] Anion gap [Moles/Vol] 6 mmol/L Normal 5-16 [facility] Comment on above: Order Comment: Speci men Type: BLOOD SPECIMENOrdering Facility: [facility] Address: [address] [place] [address] Performed By: #### 2 4323-8, 1987-09, 3023-11, 3015-07 ####[facility] LABORATORYCLIA [id number] [place] [address] [place] AST [Catalytic activity/Vol] 25 U/L Normal 8-34 [facility] Comment on above: Order Comment: Speci men Type: BLOOD SPECIMENOrdering Facility: [facility] Address: [address] [place] [address] Result Comment: Resu lts may be falsely depressed after the administration of Sulfasalazine and/or Sulfapyridine. Performed By: #### 2 4328, 1987-09, 3023-11, 3015-07 ####[facility] LABORATORYCLIA [id number] [place] [id number] [place] Bilirubin [Mass/Vol] 0.3 mg/dL Normal 0.2-1.0 [facility] Comment on above: Order Comment: Speci men Type: BLOOD SPECIMENOrdering Facility: [facility] Address: [address] [place] [address] Performed By: #### 2 4328, 1987-09, 3023-11, 3015-07 ####[facility] LABORATORYCLIA [id number] [place] [id number] [place] Calcium [Mass/Vol] 9.6 mg/dL Normal 8.5-10.5 [facility] Comment on above: Order Comment: Speci men Type: BLOOD SPECIMENOrdering Facility: [facility] Address: [address] [place], [place] [address] Performed By: #### 2 4328, 1987-09, 3023-11, 3015-07 ####[facility] LABORATORYCLIA [id number] [place] [id number] [place] Chloride [Moles/Vol] 100 mmol/L Normal 98-107 [facility] Comment on above: Order Comment: Speci men Type: BLOOD SPECIMENOrdering Facility: [facility] Address: [address] [place], [place] [address] Performed By: #### 2 4328, 1987-09, 3023-11, 3015-07 ####[facility] LABORATORYCLIA [id number] [place] [id number] [place] CO2 [Moles/Vol] 29 mmol/L Normal 21-32 [facility] Comment on above: Order Comment: Speci men Type: BLOOD SPECIMENOrdering Facility: [facility] Address: [address] [place] [address] Performed By: #### 2 43238, 1987-09, 3023-11, 3015-07 ####[facility] LABORATORYCLIA [id number] [place] [id number] [place] Creatinine [Mass/Vol] 1.20 mg/dL Normal 0.50-1.40 [facility] Comment on above: Order Comment: Speci men Type: BLOOD SPECIMENOrdering Facility: [facility] Address: [address] [place] [address] Result Comment: Amairani ents receiving either N-Acetylcysteine (NAC) or Metamizole prior to venipuncture, may have falsely depressed results. Performed By: #### 2 4328, 1987-09, 3023-11, 3015-07 ####[facility] LABORATORYCLIA [id number] [address] Creatinine and Glomerular filtration rate.predicted panel (S/P/Bld) 70 mL/min/1.73m??? Normal >=60 [facility] Comment on above: Order Comment: Kimberlyi men Type: BLOOD SPECIMENOrdering Facility: [facility] Address: [address] [place] [address] Result Comment: Elizabeth mated Glomerular Filtration Rate (eGFR) is calculated using the 2020 CKD-EPI creatinine equation. This equation utilizes serum creatinine, sex, and age as parameters. The creatinine assay has traceable calibration to isotope dilution-mass spectrometry. Refer to KDIGO guidelines for clinical interpretation. In patients with unstable renal function, e.g. those with acute kidney injury, the eGFR may not accurately reflect actual GFR. Performed By: #### 2 4323-8, 1987-09, 3023-11, 3015-07 ####[facility] LABORATORYCLIA [id number] [place] [address] [place] Glucose [Mass/Vol] 65 mg/dL Low 70-100 [facility] Comment on above: Order Comment: Gal dudley Type: BLOOD SPECIMENOrdering Facility: [facility] Address: [address] [place] [id number] Result Comment: The [employer] Diabetes Association (ADA) provides guidance for cutoff values for fasting glucose and random glucose. The ADA defines fasting as no caloric intake for at least 8 hours. Fasting plasma glucose results between 100 to 125 mg/dL indicate increased risk for diabetes (prediabetes). Fasting plasma glucose results greater than or equal to 126 mg/dL meet the criteria for diagnosis of diabetes. In the absence of unequivocal hyperglycemia, results should be confirmed by repeat testing. In a patient with classic symptoms of hyperglycemia or hyperglycemic crisis, random plasma glucose results greater than or equal to 200 mg/dL meet the criteria for diagnosis of diabetes. Reference: Standards of Medical Care in Diabetes 2016, [employer] Diabetes Association. Diabetes Care. 2016.39(Suppl 1). Results may be falsely elevated after the administration of Sulfapyridine. Results may be falsely depressed after the administration of Sulfasalazine. Performed By: #### 2 4323-8, 1987-09, 3023-11, 3015-07 ####[facility] LABORATORYCLIA [id number] [place] [id number] [place] Potassium [Moles/Vol] 4.4 mmol/L Normal 3.5-5.1 [facility] Comment on above: Order Comment: Gal dudley Type: BLOOD SPECIMENOrdering Facility: [facility] Address: [address] [place] [address] Performed By: #### 2 4323-8, 1987-09, 3023-11, 3015-07 ####[facility] LABORATORYCLIA [id number] [place] [id number] [place] Protein [Mass/Vol] 8.3 g/dL Normal 6.0-8.5 [facility] Comment on above: Order Comment: Gal dudley Type: BLOOD SPECIMENOrdering Facility: [facility] Address: [address] [place] [id number] Performed By: #### 2 4323-8, 1987-09, 3023-11, 3015-07 ####[facility] LABORATORYCLIA [id number] [place] [id number] [place] Sodium [Moles/Vol] 135 mmol/L Low 136-145 [facility] Comment on above: Order Comment: Speci men Type: BLOOD SPECIMENOrdering Facility: [facility] Address: [address] [place], [place] [address] Performed By: #### 2 4323-8, 1987-09, 3023-11, 3015-07 ####[facility] LABORATORYCLIA [id number] [place] [id number] [place] Urea nitrogen [Mass/Vol] 20 mg/dL Normal 12-12 [facility] Comment on above: Order Comment: Speci men Type: BLOOD SPECIMENOrdering Facility: [facility] Address: [address] [place], [place] [address] Performed By: #### 2 43238, 1987-09, 3023-11, 3015-07 ####[facility] LABORATORYCLIA [id number] [address] [place] MR Cervical spine WO anuel quintana 09-21-2024 * * *Final Report* * * DATE OF EXAM: Sep 21 2024 11:39AM [facility] 0297 - MRI CERVICAL SPINE WO IVCON / PROCEDURE REASON: Cervical radiculopathy * * * * Physician Interpretation * * * * EXAMINATION: MRI CERVICAL SPINE WO [place] CLINICAL HISTORY: Cervical radiculopathy TECHNIQUE: Routine cervical spine MR protocol without gadolinium. MQ: [id number] COMPARISON: MRI cervical spine 12/20/2011 RESULT: Counting reference: Craniocervical junction. Anatomic Variants: None. Localizer images: No additional findings Alignment: Straightening and mild reversal of the normal cervical lordosis with minimal stepwise retrolisthesis of C5 upon C6 and C6 upon C7. Minimal anterolisthesis of C4 upon C5. There is also slight dextro sclerotic curvature of the cervical spine, apex at C5. Craniocervical junction: The cerebellar tonsils terminate 3 to 4 mm below the foramen magnum, unchanged Cord: There is new T2/STIR hyperintense cord signal abnormality at C4-5 eccentric to the left (series 4, image 10), with associated cord compression/deformity . Additional areas of cord abutment and flattening, as discussed below Bone marrow signal/fracture: No evidence of pathologic marrow infiltration. No evidence of prior fracture. Multilevel disc height loss and degenerative endplate changes with multilevel disc osteophyte complexes. There is marrow edema along the left C4 and C5 articular pillars/facet joints, likely degenerative/reactive . Mild endplate edema at C4-5 eccentric to the left. Minimal endplate edema at C5-6 eccentric to the right. Cervical soft tissues: No significant prevertebral edema. C2-C3: Slightly increased mild canal stenosis with contributions from congenital canal narrowing, dorsal ligamentum flavum infolding, and a paracentral disc bulge, causing partial effacement of the ventral and dorsal CSF spaces. The right neural foramen is patent. Mild left neural foraminal stenosis due to uncovertebral and facet hypertrophy C3-C4: Similar or slightly improved mild to moderate canal stenosis with contributions from a disc bulge with overlying osteophytes eccentric to the right, congenital canal narrowing, and dorsal ligamentum flavum infolding, causing near complete effacement of the ventral and dorsal CSF spaces. Mild right and moderate left neural foraminal stenosis due to uncovertebral and facet hypertrophy. C4-C5: Worsening severe canal stenosis with contributions from a central/paracentral disc extrusion (slightly eccentric to the left), superimposed upon a disc bulge, endplate osteophytes, congenital canal narrowing, and dorsal ligamentum flavum infolding. There is complete effacement of CSF ventrally and dorsally, with significant ventral cord deformity. Moderate right and severe left neural foraminal stenosis due to uncovertebral and facet hypertrophy superimposed upon a disc bulge. C5-C6: Similar moderate canal stenosis with contributions from a disc osteophyte complex, congenital canal narrowing, and dorsal ligamentum flavum infolding, causing complete effacement of ventral and dorsal CSF spaces. There is ventral cord flattening. Severe bilateral neural foraminal stenosis due to uncovertebral and facet hypertrophy C6-C7: Slight interval increase in moderate canal stenosis with contributions from a disc osteophyte complex, congenital canal narrowing, and dorsal ligamentum flavum infolding, causing complete effacement of ventral and dorsal CSF spaces. There is ventral cord abutment/flattening. Severe bilateral neural foraminal stenosis due to uncovertebral and facet hypertrophy. C7-T1: Increased moderate canal stenosis with contributions from a disc bulge and dorsal ligamentum flavum infolding with congenital canal narrowing, causing near complete effacement of ventral and dorsal CSF spaces. Mild bilateral neural foraminal stenosis due to uncovertebral and facet hypertrophy. [facility] RADIOLOGY Provider, Sascha Balderas - 09/21/2024 * * *Final Report* * * DATE OF EXAM: Sep 21 2024 11:39AM [facility] 0297 - MRI CERVICAL SPINE WO IVCON / PROCEDURE REASON: Cervical radiculopathy * * * * Physician Interpretation * * * * EXAMINATION: MRI CERVICAL SPINE WO IVCON CLINICAL HISTORY: Cervical radiculopathy TECHNIQUE: Routine cervical spine MR protocol without gadolinium. MQ: [id number] COMPARISON: MRI cervical spine 12/20/2011 RESULT: Counting reference: Craniocervical junction. Anatomic Variants: None. Localizer images: No additional findings Alignment: Straightening and mild reversal of the normal cervical lordosis with minimal stepwise retrolisthesis of C5 upon C6 and C6 upon C7. Minimal anterolisthesis of C4 upon C5. There is also slight dextro sclerotic curvature of the cervical spine, apex at C5. Craniocervical junction: The cerebellar tonsils terminate 3 to 4 mm below the foramen magnum, unchanged Cord: There is new T2/STIR hyperintense cord signal abnormality at C4-5 eccentric to the left (series 4, image 10), with associated cord compression/deformity . Additional areas of cord abutment and flattening, as discussed below Bone marrow signal/fracture: No evidence of pathologic marrow infiltration. No evidence of prior fracture. Multilevel disc height loss and degenerative endplate changes with multilevel disc osteophyte complexes. There is marrow edema along the left C4 and C5 articular pillars/facet joints, likely degenerative/reactive . Mild endplate edema at C4-5 eccentric to the left. Minimal endplate edema at C5-6 eccentric to the right. Cervical soft tissues: No significant prevertebral edema. C2-C3: Slightly increased mild canal stenosis with contributions from congenital canal narrowing, dorsal ligamentum flavum infolding, and a paracentral disc bulge, causing partial effacement of the ventral and dorsal CSF spaces. The right neural foramen is patent. Mild left neural foraminal stenosis due to uncovertebral and facet hypertrophy C3-C4: Similar or slightly improved mild to moderate canal stenosis with contributions from a disc bulge with overlying osteophytes eccentric to the right, congenital canal narrowing, and dorsal ligamentum flavum infolding, causing near complete effacement of the ventral and dorsal CSF spaces. Mild right and moderate left neural foraminal stenosis due to uncovertebral and facet hypertrophy. C4-C5: Worsening severe canal stenosis with contributions from a central/paracentral disc extrusion (slightly eccentric to the left), superimposed upon a disc bulge, endplate osteophytes, congenital canal narrowing, and dorsal ligamentum flavum infolding. There is complete effacement of CSF ventrally and dorsally, with significant ventral cord deformity. Moderate right and severe left neural foraminal stenosis due to uncovertebral and facet hypertrophy superimposed upon a disc bulge. C5-C6: Similar moderate canal stenosis with contributions from a disc osteophyte complex, congenital canal narrowing, and dorsal ligamentum flavum infolding, causing complete effacement of ventral and dorsal CSF spaces. There is ventral cord flattening. Severe bilateral neural foraminal stenosis due to uncovertebral and facet hypertrophy C6-C7: Slight interval increase in moderate canal stenosis with contributions from a disc osteophyte complex, congenital canal narrowing, and dorsal ligamentum flavum infolding, causing complete effacement of ventral and dorsal CSF spaces. There is ventral cord abutment/flattening. Severe bilateral neural foraminal stenosis due to uncovertebral and facet hypertrophy. C7-T1: Increased moderate canal stenosis with contributions from a disc bulge and dorsal ligamentum flavum infolding with congenital canal narrowing, causing near complete effacement of ventral and dorsal CSF spaces. Mild bilateral neural foraminal stenosis due to uncovertebral and facet hypertrophy. IMPRESSION IMPRESSION: Progression of cervical spondylosis, most pronounced at C4-5 where there is severe canal stenosis with cord compression/deformity and cord signal abnormality, likely representing myelopathic edema. Additional areas of moderate canal narrowing with cord abutment/flattening, as described. Scattered high-grade neural foraminal stenoses, most pronounced at C4-5 on the left, C5-6 bilaterally, and C6-7 bilaterally. Mild cerebellar tonsillar ectopia. Anatomic Variant: None. Assume 7 cervical vertebrae with counting from the craniocervical junction. Freight Broker Agent: SONNY Transcribe Date/Time: Sep 21 2024 12:32P Dictated by : CHERISE LOPEZ MD This examination was interpreted and the report reviewed and electronically signed by: CHERISE LOPEZ MD on Sep 21 2024 12:54PM EST [facility] Radiology Study observation (narrative) [facility] MR Cervical spine WO contras tOrdered By: [facility] Provider on 09-21-2024 [facility] MRI CERVICAL SPINE WO IVCONo n 09-21-2024 MRI CERVICAL SPINE WO IVCON * * *Final Report* * * DATE OF EXAM: Sep 21 2024 11:39AM [facility] 0297 - MRI CERVICAL SPINE WO IVCON / PROCEDURE REASON: Cervical radiculopathy * * * * Physician Interpretation * * * * EXAMINATION: MRI CERVICAL SPINE WO IVCON CLINICAL HISTORY: Cervical radiculopathy TECHNIQUE: Routine cervical spine MR protocol without gadolinium. MQ: [id number] COMPARISON: MRI cervical spine 12/20/2011 RESULT: Counting reference: Craniocervical junction. Anatomic Variants: None. Localizer images: No additional findings Alignment: Straightening and mild reversal of the normal cervical lordosis with minimal stepwise retrolisthesis of C5 upon C6 and C6 upon C7. Minimal anterolisthesis of C4 upon C5. There is also slight dextro sclerotic curvature of the cervical spine, apex at C5. Craniocervical junction: The cerebellar tonsils terminate 3 to 4 mm below the foramen magnum, unchanged Cord: There is new T2/STIR hyperintense cord signal abnormality at C4-5 eccentric to the left (series 4, image 10), with associated cord compression/deformity . Additional areas of cord abutment and flattening, as discussed below Bone marrow signal/fracture: No evidence of pathologic marrow infiltration. No evidence of prior fracture. Multilevel disc height loss and degenerative endplate changes with multilevel disc osteophyte complexes. There is marrow edema along the left C4 and C5 articular pillars/facet joints, likely degenerative/reactive . Mild endplate edema at C4-5 eccentric to the left. Minimal endplate edema at C5-6 eccentric to the right. Cervical soft tissues: No significant prevertebral edema. C2-C3: Slightly increased mild canal stenosis with contributions from congenital canal narrowing, dorsal ligamentum flavum infolding, and a paracentral disc bulge, causing partial effacement of the ventral and dorsal CSF spaces. The right neural foramen is patent. Mild left neural foraminal stenosis due to uncovertebral and facet hypertrophy C3-C4: Similar or slightly improved mild to moderate canal stenosis with contributions from a disc bulge with overlying osteophytes eccentric to the right, congenital canal narrowing, and dorsal ligamentum flavum infolding, causing near complete effacement of the ventral and dorsal CSF spaces. Mild right and moderate left neural foraminal stenosis due to uncovertebral and facet hypertrophy. C4-C5: Worsening severe canal stenosis with contributions from a central/paracentral disc extrusion (slightly eccentric to the left), superimposed upon a disc bulge, endplate osteophytes, congenital canal narrowing, and dorsal ligamentum flavum infolding. There is complete effacement of CSF ventrally and dorsally, with significant ventral cord deformity. Moderate right and severe left neural foraminal stenosis due to uncovertebral and facet hypertrophy superimposed upon a disc bulge. C5-C6: Similar moderate canal stenosis with contributions from a disc osteophyte complex, congenital canal narrowing, and dorsal ligamentum flavum infolding, causing complete effacement of ventral and dorsal CSF spaces. There is ventral cord flattening. Severe bilateral neural foraminal stenosis due to uncovertebral and facet hypertrophy C6-C7: Slight interval increase in moderate canal stenosis with contributions from a disc osteophyte complex, congenital canal narrowing, and dorsal ligamentum flavum infolding, causing complete effacement of ventral and dorsal CSF spaces. There is ventral cord abutment/flattening. Severe bilateral neural foraminal stenosis due to uncovertebral and facet hypertrophy. C7-T1: Increased moderate canal stenosis with contributions from a disc bulge and dorsal ligamentum flavum infolding with congenital canal narrowing, causing near complete effacement of ventral and dorsal CSF spaces. Mild bilateral neural foraminal stenosis due to uncovertebral and facet hypertrophy. IMPRESSION: Progression of cervical spondylosis, most pronounced at C4-5 where there is severe canal stenosis with cord compression/deformity and cord signal abnormality, likely representing myelopathic edema. Additional areas of moderate canal narrowing with cord abutment/flattening, as described. Scattered high-grade neural foraminal stenoses, most pronounced at C4-5 on the left, C5-6 bilaterally, and C6-7 bilaterally. Mild cerebellar tonsillar ectopia. Anatomic Variant: None. Assume 7 cervical vertebrae with counting from the craniocervical junction. Freight Broker Agent: SONNY Transcribe Date/Time: Sep 21 2024 12:32P Dictated by : CHERISE LOPEZ MD This examination was interpreted and the report reviewed and electronically signed by: CHERISE LOPEZ MD on Sep 21 2024 12:54PM EST [id number] Normal [facility] No Panel Informationon 09-21 Interpretation and review of laboratory results Normal [facility] Nuclear Ab IA Ql (S)on 09-21 BERTHA SCR QUAL Positive Abnormal Negative [facility] Comment on above: Order Comment: Speci men Type: BLOOD SPECIMENOrdering Facility: [facility] Address: [address] [place] [address] Result Comment: The qualitative antinuclear antibody screen test performed using the following antigens: dsDNA, Chromatin, Ribosomal P, SS-A 60, SS-A 52, SS-B, Sm, SmRNP, PLUG CUTTER A, PLUG CUTTER 68, Scl-70, Latonya-1, and Centromere B. Methodology: Multiplex flow immunoassay. Performed By: #### 4 7383-5 ####[facility] LABCLIA [id number] [place] [address] [place] T4 FREE/FREE THYROXINEon Free T4 [Mass/Vol] 1.3 ng/dL 0.8 - 1.5 ng/dL [facility] T4 Free SerP-ncon 025 Free T4 [Mass/Vol] 1.3 ng/dL Normal 0.8-1.5 [facility] Comment on above: Order Comment: Speci men Type: BLOOD SPECIMENOrdering Facility: [facility] Address: [address] [place] [address] Performed By: #### 2 4323-8, 1988-5, 3024-7, 3016-3 ####[facility] LABORATORYCLIA [id number] [place] [address] [place] THYROID STIMULATING HORMONEo n 09-21-2024 TSH Qn 1.22 m[IU]/L [facility] Comment on above: 3rd generation ultra sensitive TSH. [facility] 09-21-2024 TSH Qn 1.220 m[IU]/L Normal 0.358-3.740 [facility] Comment on above: Order Comment: Speci men Type: BLOOD SPECIMENOrdering Facility: [facility] Address: [address] [place] [address] Result Comment: 3rd generation ultra sensitive TSH. Performed By: #### 2 4323-8, 1988-5, 3024-7, 3016-3 ####[facility] LABORATORYCLIA [id number] [employer] [place] [address] [place] XR ANKLE 3V AP/LAT/OBL RTon 09-21-2024 XR ANKLE 3V AP/LAT/OBL RT * * *Final Report* * * DATE OF EXAM: Sep 21 2024 11:48AM [facility] 5297 - XR ANKLE 3V AP/LAT/OBL RT / PROCEDURE REASON: Acute right ankle pain * * * * Physician Interpretation * * * * XR ANKLE 3V AP/LAT/OBL RT Ordering Physician: JACLYN WARREN 09/21/2024 11:48 AM RIGHT ANKLE Clinical Statement: Pain and swelling FINDINGS: 3 images of the right ankle were obtained. There were no prior studies available for comparison. The ankle mortise is maintained. There are no acute fractures. The talar dome is unremarkable. There is diffuse soft tissue swelling. IMPRESSION: Diffuse soft tissue swelling. No acute osseous abnormalities. Freight Broker Agent: [facility] Transcribe Date/Time: Sep 21 2024 11:49A Dictated by : KHURRAM EAST MD This examination was interpreted and the report reviewed and electronically signed by: KHURRAM EAST MD on Sep 21 2024 11:50AM EST [id number] Normal [facility] XR Ankle - right AP and Late ral and obliqueon 09-21-2024 IMPRESSION: Diffuse soft tissue swelling. No acute osseous abnormalities. Freight Broker Agent: [facility] Transcribe Date/Time: Sep 21 2024 11:49A Dictated by : KHURRAM EAST MD This examination was interpreted and the report reviewed and electronically signed by: KHURRAM EAST MD on Sep 21 2024 11:50AM EST [facility] * * *Final Report* * * DATE OF EXAM: Sep 21 2024 11:48AM [facility] 5297 - XR ANKLE 3V AP/LAT/OBL RT / PROCEDURE REASON: Acute right ankle pain * * * * Physician Interpretation * * * * XR ANKLE 3V AP/LAT/OBL RT Ordering Physician: JACLYN WARREN 09/21/2024 11:48 AM RIGHT ANKLE Clinical Statement: Pain and swelling FINDINGS: 3 images of the right ankle were obtained. There were no prior studies available for comparison. The ankle mortise is maintained. There are no acute fractures. The talar dome is unremarkable. There is diffuse soft tissue swelling. [facility] Provider, Sascha Balderas - 09/21/2024 * * *Final Report* * * DATE OF EXAM: Sep 21 2024 11:48AM [facility] 5297 - XR ANKLE 3V AP/LAT/OBL RT / PROCEDURE REASON: Acute right ankle pain * * * * Physician Interpretation * * * * XR ANKLE 3V AP/LAT/OBL RT Ordering Physician: JACLYN WARREN 09/21/2024 11:48 AM RIGHT ANKLE Clinical Statement: Pain and swelling FINDINGS: 3 images of the right ankle were obtained. There were no prior studies available for comparison. The ankle mortise is maintained. There are no acute fractures. The talar dome is unremarkable. There is diffuse soft tissue swelling. IMPRESSION IMPRESSION: Diffuse soft tissue swelling. No acute osseous abnormalities. 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 Transcribe Date/Time: Sep 21 2024 11:49A Dictated by : KHURRAM EAST MD This examination was interpreted and the report reviewed and electronically signed by: KHURRAM EAST MD on Sep 21 2024 11:50AM [facility] Radiology Study observation (narrative) [facility] XR Ankle - right AP and Late ral and obliqueOrdered By: [facility] Provider on 09-21-2024 [facility] CNOVon 09-10-2024 CNOV Office Visit (INRSMR ) MARY ANNE RAMOS ([id number]) 1965 M Date Time Provider Department 09/10/24 10:15 AM JACLYN WARREN INRR During your visit today, we recorded the following information about you: Temperature Pulse Respiration Blood pressure 97.5 degrees 101/minute 14/minute 102/72 Weight Height 73.9 kg 1.93 m Fausto Paul MA 09/22/2024 1:56 PM Signed Pt here routine follow up. Pt complains of swelling in both feet for about two weeks. Pt needs refill on inhaler. Jaclyn Warren MD 09/22/2024 1:56 PM Signed [facility] Visit Date: September 10, 2024 Follow Up Visit Chief Complaint: Swelling of both legs Review of History: Mary Anne Ramos is a 58 year old who is here for an acute visit. Patient was given this appointment because of concerns of bilateral leg swelling. Patient is accompanied by his . Patient says that gradually his legs have started swelling. He went to the emergency room and did not wait because it was taking a very long time so he left. Blood work did not show any signs of heart failure. BNP was within normal limits. CMP was also normal. Does not have any recent episodes of immobilization. He has some pain in the right ankle but denies pain in the calf. He has been on his feet quite a bit at work. Past Medical History: PAST MEDICAL HISTORY Diagnosis Date DDD (degenerative disc disease), cervical Health Maintenance: Colonoscopy: Vaccination: Allergies: ALLERGIES No Known Allergies Medications: Current Outpatient Medications Medication Sig Dispense Refill meloxicam (MOBIC) 15 mg tablet Take 1 tablet by mouth once daily. 30 tablet 0 Tadalafil (CIALIS) 5 mg tablet Take 1 tablet by mouth once daily. On days when you plan to be sexually active, skip your daily dose and take up to 4 tabs 1-2 hours prior to sex. 50 tablet 5 budesonide-formoterol (SYMBICORT) 160-4.5 mcg/actuation inhaler Inhale 2 Puffs as instructed two times a day. 1 Each 3 albuterol HFA (PROVENTIL HFA, VENTOLIN HFA) 90 mcg/actuation inhaler inhale 2 puffs by mouth and INTO THE LUNGS every 4 hours if needed for cough shortness of breath or wheezing 18 g 4 tiZANidine (ZANAFLEX) 4 mg tablet take 1 tablet by mouth once daily 15 tablet 1 atorvastatin (LIPITOR) 20 mg tablet take 1 tablet by mouth once daily 90 tablet 3 fluticasone (FLONASE) 50 mcg/actuation nasal spray instill 2 sprays into each nostril once daily 16 g 1 omeprazole (PRILOSEC) 40 mg capsule Take 1 capsule by mouth once daily. 90 capsule 1 No current facility-administered medications for this visit. Social History: Social History Tobacco Use Smoking status: Every Day Current packs/day: 0.50 Average packs/day: 0.5 packs/day for 45.0 years (22.5 ttl pk-yrs) Types: Cigarettes Smokeless tobacco: Never Vaping Use Vaping status: Never Used Substance Use Topics Alcohol use: No Drug use: No Family History: Family History Problem Relation Age of Onset Cancer Mother ovarian Diabetes Father Ischemic Heart Disease Father Coronary Artery Disease Father Heart Attack Father Breast Cancer Sister Breast Cancer Paternal Aunt Past Surgical History: PAST SURGICAL HISTORY Procedure Laterality Date APPENDECTOMY Review of Systems: Review of Systems Physical Exam: BP 102/72 (BP Site: Left Arm, BP Position: Sitting, BP Cuff Size: Large Adult) Pulse 101 Temp 36.4 ?C (97.5 ?F) Resp 14 Ht 193 cm (6' 4) Wt 73.9 kg (163 lb) SpO2 96% BMI 19.84 kg/m? Physical Exam Constitutional: Appearance: Normal appearance. Cardiovascular: Rate and Rhythm: Normal rate and regular rhythm. Pulmonary: Breath sounds: Normal breath sounds. Musculoskeletal: General: Swelling and tenderness present. Right lower leg: Edema present. Left lower leg: Edema present. Comments: Swelling of both ankles with tenderness of right ankles and decreased range of motion. There is warmth and mild erythema. Neurological: General: No focal deficit present. Mental Status: He is alert and oriented to person, place, and time. Assessment and Plan:: ASSESSMENT/PLAN: 1. Edema of both lower extremities - ICD9: 782.3, ICD10: R60.0 (primary diagnosis) Patient has been gradually developing edema of both lower extremities. There is no precipitating factor. Patient admits to standing a lot at work. He denies any recent immobilization to suggest DVT. Will order some blood work. Will repeat some labs that were done in the ER to see if there is any change and will also add some inflammatory markers etc. to that. - COMPLETE BLOOD COUNT AND DIFFERENTIAL - COMPREHENSIVE METABOLIC PANEL - THYROID STIMULATING HORMONE - T4 FREE/FREE THYROXINE - URINALYSIS, REFLEX MICROSCOPIC - C-REACTIVE PROTEIN - BERTHA BLOOD 2. Cellulitis of right (more content not included)... Normal [facility] CNOVon 09-08-2024 CNOV Office Visit (ORMMMB ) MARY ANNE RAMOS ([id number]) 1965 M Date Time Provider Department 09/08/24 9:45 AM [facility]ASEMIN JAIME [facility] During your visit today, we recorded the following information about you: Pulse Weight Height 87/minute 74.8 kg 1.93 m Shruthi Cantu LPN 09/08/2024 10:18 AM Signed 58 yr old male here for Cervical Radiculopathy, xrays 08/31/24 Yasemin Jaime, [employer].FLOOR TECH 09/08/2024 10:18 AM Signed Yasemin Jaime [employer] [address], [address], [place] [address] Orthopedics Service Date: 09/08/2024 Referring Provider: Jaclyn Warren [address] [place] [address] Dr Tatum Harjinder [address] [place] [address] Chief Complaint: neck and left arm pain History of Present Illness Mary Anne Ramos is a 58 year old male with medical history significant for tobacco use and emphysema presenting with spouse as a new patient today. Mary Anne Ramos presents with primary complaint of left sided neck and arm pain with associated numbness. No known injury. Symptoms are chronic and have been present for >1 year. Progressively worsening. Summary of Symptoms Pain Location: left side of neck/upper back Radiation of Pain: down back and left arm Weakness: denies Dexterity Issues: left hand. Powerhouse Mechanic issues Imbalance: denies Falls: denies Bowel/Bladder Dysfunction: denies Prior Conservative Treatment Physical Therapy: denies Medications: medrol dose pack Pain Management: Injections: Surgery: Other: The following portions of the patient's history were reviewed and updated as appropriate: allergies, current medications, past family history, past medical history, past social history, past surgical history and problem list. ACTIVE PROBLEM LIST Displacement of Cervical Intervertebral Disc Without Myelopathy Tobacco Dependence Syndrome Shortness of Breath Pulmonary Nodule Pulmonary Emphysema (Hcc) Hyperlipidemia Gastroesophageal Reflux Disease Gynecomastia, Male Epistaxis Cough Allergic Rhinitis Lymphocytosis Paresthesia Unspecified Lump in Left Breast, Subareolar PAST MEDICAL HISTORY Diagnosis Date DDD (degenerative disc disease), cervical PAST SURGICAL HISTORY Procedure Laterality Date APPENDECTOMY FAMILY HISTORY Problem Relation Age of Onset Cancer Mother ovarian Diabetes Father Ischemic Heart Disease Father Coronary Artery Disease Father Heart Attack Father Breast Cancer Sister Breast Cancer Paternal Aunt Social History Tobacco Use Smoking status: Every Day Current packs/day: 0.50 Average packs/day: 0.5 packs/day for 45.0 years (22.5 ttl pk-yrs) Types: Cigarettes Smokeless tobacco: Never Vaping Use Vaping status: Never Used Substance Use Topics Alcohol use: No Drug use: No ALLERGIES No Known Allergies Medications: Tadalafil (CIALIS) 5 mg tablet Take 1 tablet by mouth once daily. On days when you plan to be sexually active, skip your daily dose and take up to 4 tabs 1-2 hours prior to sex. budesonide-formoterol (SYMBICORT) 160-4.5 mcg/actuation inhaler Inhale 2 Puffs as instructed two times a day. albuterol HFA (PROVENTIL HFA, VENTOLIN HFA) 90 mcg/actuation inhaler inhale 2 puffs by mouth and INTO THE LUNGS every 4 hours if needed for cough shortness of breath or wheezing tiZANidine (ZANAFLEX) 4 mg tablet take 1 tablet by mouth once daily atorvastatin (LIPITOR) 20 mg tablet take 1 tablet by mouth once daily fluticasone (FLONASE) 50 mcg/actuation nasal spray instill 2 sprays into each nostril once daily meloxicam (MOBIC) 7.5 mg tablet Take 1 tablet by mouth once daily. omeprazole (PRILOSEC) 40 mg capsule Take 1 capsule by mouth once daily. Physical Examination: Vital Signs: Pulse 87 Ht 193 cm (6' 3.98) Wt 74.8 kg (165 lb) SpO2 92% BMI 20.09 kg/m? General Appearance: Well nourished, well developed, and no apparent distress. Neuro/Psych: Patient oriented to person, place, and time. Mood pleasant. Benign affect. Cardiovascular: Palpable pulses. No edema noted. No varicosities. Skin: Head, neck, trunk, and extremities dry, intact and without lesions. Lymphatics: No palpable nodes in cervical or axillae areas. Groin exam deferred. Musculoskeletal: No tenderness to palpation in the midline over the spinous processes or in the paraspinal musculature. Muscle Tone and Bulk: Symmetrical in the upper AND lower extremities. Sensory: Sensation intact to light touch in C5-T1 and L1-S1 dermatomes. Mild ly diminished along C5-6 left arm. Motor: Upper Extremities Right Left Deltoid (C5) 4 4 Biceps (C6) 5 5 Triceps (C7) 5 5 Powerhouse Mechanic (C8) 5 5 Interossei (T1) 5 5 Lower Extremities Right Left Psoas (L2) 5 5 Quadriceps (L3) 5 5 Dorsiflexion (L4) 5 5 EHL (L5) 5 5 Plantarflexion (S1) 5 5 Gait: Able to perform tandem gait. Long Tract Signs: No clonus. No Hoffmanns. Reflexes: Symmetric, non-brisk. Hips: No pain with internal or external rotation. No laurent (more content not included)... [facility] 09[facility]08[facility] MARY ANNE RAMOS ([id number]) 1965 M Date Time Provider Department 09/08/24 YASEMIN JAIME [facility] During your visit today, we recorded the following information about you: Itz Bedolla MA 09/08/2024 1:10 PM Signed Patient called stating he's having trouble taking the medication due to the size, he can not swallow it and would like to know if he could be prescribed a smaller dosage or something else that will be easier to swallow Please advise. Yasemin Jaime, BODY AND FRAME MAN.FLOOR TECH 09/08/2024 2:50 PM Signed Changed to mobic. Thanks Itz Bedolla MA 09/08/2024 2:53 PM Signed Patient has been notified Allergies As of Date: 09/08/2024 (No Known Allergies) Date Reviewed: 09/08/2024 Reviewed by: Shruthi Cantu LPN - Fully Assessed Reason for Visit: Patient Question [1477] Medication Problem [65] Order(s):meloxicam (MOBIC) 15 mg tabletTake 1 tablet by mouth once daily.Disp: 30 tabletRfl: 0 Prescriptions as of 09/09/2024 - meloxicam (MOBIC) 15 mg tablet Take 1 tablet by mouth once daily. - Tadalafil (CIALIS) 5 mg tablet Take 1 tablet by mouth once daily. On days when you plan to be sexually active, skip your daily dose and take up to 4 tabs 1-2 hours prior to sex. - budesonide-formoterol (SYMBICORT) 160-4.5 mcg/actuation inhaler Inhale 2 Puffs as instructed two times a day. - albuterol HFA (PROVENTIL HFA, VENTOLIN HFA) 90 mcg/actuation inhaler inhale 2 puffs by mouth and INTO THE LUNGS every 4 hours if needed for cough shortness of breath or wheezing - tiZANidine (ZANAFLEX) 4 mg tablet take 1 tablet by mouth once daily - atorvastatin (LIPITOR) 20 mg tablet take 1 tablet by mouth once daily - fluticasone (FLONASE) 50 mcg/actuation nasal spray instill 2 sprays into each nostril once daily - omeprazole (PRILOSEC) 40 mg capsule Take 1 capsule by mouth once daily. Problem List As Of Date 09/08/2024 Noted Resolved CERVICAL DISC DISPLACMNT [M50.20] 09/13/2008 Tobacco dependence syndrome [F17.200] 03/07/2017 Shortness of breath [R06.02] 05/17/2021 Pulmonary nodule [R91.1] 04/09/2017 Pulmonary emphysema (HCC) [J43.9] 09/13/2021 Hyperlipidemia [E78.5] 07/11/2016 Gastroesophageal reflux disease [K21.9] 10/21/2017 Gynecomastia, male [N62] 09/24/2018 Epistaxis [R04.0] 07/11/2016 Cough [R05.9] 12/26/2016 Allergic rhinitis [J30.9] 06/11/2018 Lymphocytosis [D72.820] 08/20/2018 Paresthesia [R20.2] 06/11/2018 Unspecified lump in left breast, subareolar [N6*08/20/2018 Prescriptions ordered this encounter Disp Refills Start End MELOXICAM 15 MG TABLET 30 t* 0 09/08/2024 Route: ORAL Sig: Take 1 tablet by mouth once daily. Medications Discontinued During This Encounter Prescriptions - celecoxib (CELEBREX) 200 mg capsule (Discontinued) Take 1 capsule by mouth two times a day. Encounter Status:Closed by ITZ BEDOLLA on 09/09/24 [facility] Arina 09-01-2024 [facility] MARY ANNE RAMOS ([id number]) 1965 M Date Time Provider Department 09/01/24 JACLYN WARREN [facility] During your visit today, we recorded the following information about you: Donis Randhawa LPN 09/01/2024 8:40 AM Signed Pt went to [facility] and sent to ED yesterday, but left due to long wait times. Pt c/o edema from feet up to knees bilaterally x4 days. No pain. Hasn't weighed himself. Does get chest pain which comes and goes. Pt said he also has neck and back pain and attributes the chest pain to that. Not short of breath. On no diuretics. Does follow with pulmonary. THERESA Beck Meena W, MD 09/01/2024 3:15 PM Signed Called patient . With patient and his extensively. He had blood work EKG and x-ray in the emergency room. There is no signs of heart failure. BNP was normal. Chest x-ray did not show congestion. Other blood work was within normal limits. EKG did not show any acute findings troponin was negative. Advised the patient that this may be due to prolonged sitting at work with dependent edema. He has not increased salt intake as far as he can remember. Denies any pain or redness in the legs. No new chest pain. Patient has a stress test scheduled for October that was ordered because of intermittent chest pain. Please reschedule patient's appointment from the to September 10 at 10:15 AM. Justa Carranza 09/02/2024 8:11 AM Signed Spoke with patient's , Jamee, rescheduled and confirmed appt on 09/10/2024 at 10:15 am. Allergies As of Date: 09/01/2024 (No Known Allergies) Date Reviewed: 08/31/2024 Reviewed by: Ysabel Aguilar RN - Fully Assessed Reason for Visit: Edema [39] Prescriptions as of 09/02/2024 - Tadalafil (CIALIS) 5 mg tablet Take 1 tablet by mouth once daily. On days when you plan to be sexually active, skip your daily dose and take up to 4 tabs 1-2 hours prior to sex. - budesonide-formoterol (SYMBICORT) 160-4.5 mcg/actuation inhaler Inhale 2 Puffs as instructed two times a day. - albuterol HFA (PROVENTIL HFA, VENTOLIN HFA) 90 mcg/actuation inhaler inhale 2 puffs by mouth and INTO THE LUNGS every 4 hours if needed for cough shortness of breath or wheezing - tiZANidine (ZANAFLEX) 4 mg tablet take 1 tablet by mouth once daily - atorvastatin (LIPITOR) 20 mg tablet take 1 tablet by mouth once daily - fluticasone (FLONASE) 50 mcg/actuation nasal spray instill 2 sprays into each nostril once daily - meloxicam (MOBIC) 7.5 mg tablet Take 1 tablet by mouth once daily. - omeprazole (PRILOSEC) 40 mg capsule Take 1 capsule by mouth once daily. Problem List As Of Date 09/01/2024 Noted Resolved CERVICAL DISC DISPLACMNT [M50.20] 09/13/2008 Tobacco dependence syndrome [F17.200] 03/07/2017 Shortness of breath [R06.02] 05/17/2021 Pulmonary nodule [R91.1] 04/09/2017 Pulmonary emphysema (HCC) [J43.9] 09/13/2021 Hyperlipidemia [E78.5] 07/11/2016 Gastroesophageal reflux disease [K21.9] 10/21/2017 Gynecomastia, male [N62] 09/24/2018 Epistaxis [R04.0] 07/11/2016 Cough [R05.9] 12/26/2016 Allergic rhinitis [J30.9] 06/11/2018 Lymphocytosis [D72.820] 08/20/2018 Paresthesia [R20.2] 06/11/2018 Unspecified lump in left breast, subareolar [N6*08/20/2018 Encounter Status:Closed by JUSTA CARRANZA on 09/02/24 [facility] 08-31-2024 [facility] HNO ID: [id number] Author: JAYDA DAWKINS RT(R) Service: Radiology Author Type: Technologist Type: Allied Health Filed: 08/31/2024 13:43 Note Text: Summary: chest Radiology Service Progress Note PATIENT NAME: Mary Anne Ramos DATE OF SERVICE: August 31, 2024 TIME: 1:43 PM PATIENT IDENTITY VERIFICATION COMPLETED USING TWO (2) IDENTIFIERS: Name and Date of confirmed by patient verbally and Name and Date of confirmed by identification band. FALL SCREENING: Has the patient had 2 falls in the last year or 1 fall with injury or currently using an Ambulatory Assistive Device (Walker, Cane, Wheelchair, Crutches, etc.)? Emergency Room Patient: Screened in ED PATIENT GENDER DATA: Assigned male at PATIENT RELEVANT IMPLANT DATA REVIEWED: Not Applicable PATIENT PRESENTS WITH AN IMPLANTABLE OR ATTACHED SHOER: No RADIOLOGY DEPARTMENT: General X-ray: Exam(s) Completed: Chest X-Ray PERIPHERAL IV DATA: Not applicable SIGNED BY: Jayda Dawkins, RT(R) August 31, 2024 1:43 PM Normal [facility] CBC W Auto Differential pane l (Bld)on 08-31-2024 Basophils (Bld) [#/Vol] 0.03 10*3/uL Normal <0.11 [facility] Comment on above: Order Comment: Gal dudley Type: BLOOD SPECIMEN Ordering Facility: [facility] Address: [address] [place] [address] Performed By: #### L IPNF #### [facility] CLIA [id number] [address] [place] [address] [place] Basophils/100 WBC (Bld) 0.4 % Normal [facility] Comment on above: Order Comment: Gal dudley Type: BLOOD SPECIMEN Ordering Facility: [facility] Address: [address] [place] [address] Performed By: #### L IPNF #### [facility] CLIA [id number] [address] [place] [address] [place] Differential cell count method Nom (Bld) Auto Normal [facility] Comment on above: Order Comment: Gal dudley Type: BLOOD SPECIMEN Ordering Facility: [facility] Address: [address] [place] [address] Performed By: #### L IPNF #### [facility] CLIA [id number] [address] [place] [address] [place] Eosinophils (Bld) [#/Vol] 0.04 10*3/uL Normal <0.46 [facility] Comment on above: Order Comment: Speci men Type: BLOOD SPECIMEN Ordering Facility: [facility] Address: [address] [place] [address] Performed By: #### L IPNF #### [facility] CLIA [id number] [address] [place] [address] [place] Eosinophils/100 WBC (Bld) 0.5 % Normal [facility] Comment on above: Order Comment: Speci men Type: BLOOD SPECIMEN Ordering Facility: [facility] Address: [address] [place] [address] Performed By: #### L IPNF #### [facility] CLIA [id number] [address] [place] [address] [place] Erythrocyte distribution width (RBC) [Ratio] 13.8 % Normal 11.5-15.0 [facility] Comment on above: Order Comment: Speci men Type: BLOOD SPECIMEN Ordering Facility: [facility] Address: [address] [place] [address] Performed By: #### L IPNF #### [facility] CLIA [id number] [address] [place] [address] [place] Hematocrit (Bld) [Volume fraction] 46.7 % Normal 39.0-51.0 [facility] Comment on above: Order Comment: Speci men Type: BLOOD SPECIMEN Ordering Facility: [facility] Address: [address] [place] [address] Performed By: #### L IPNF #### [facility] CLIA [id number] [address] [place] [address] [place] Hemoglobin (Bld) [Mass/Vol] 14.4 g/dL Normal 13.0-17.0 [facility] Comment on above: Order Comment: Speci men Type: BLOOD SPECIMEN Ordering Facility: [facility] Address: [address] [place] [address] Performed By: #### L IPNF #### [facility] CLIA [id number] [address] [place] [address] [place] Immature granulocytes (Bld) [#/Vol] 0.04 10*3/uL Normal <0.10 [facility] Comment on above: Order Comment: Speci men Type: BLOOD SPECIMEN Ordering Facility: [facility] Address: [address] [place] [address] Performed By: #### L IPNF #### [facility] CLIA [id number] [address] [place] [address] [place] Immature granulocytes/100 WBC (Bld) 0.5 % Normal [facility] Comment on above: Order Comment: Speci men Type: BLOOD SPECIMEN Ordering Facility: [facility] Address: [address] [place] [address] Performed By: #### L IPNF #### [facility] CLIA [id number] [address] [place] [address] [place] Lymphocytes (Bld) [#/Vol] 2.85 10*3/uL Normal 1.00-4.00 [facility] Comment on above: Order Comment: Speci men Type: BLOOD SPECIMEN Ordering Facility: [facility] Address: [address] [place] [address] Performed By: #### L IPNF #### [facility] CLIA [id number] [address] [place] [address] [place] Lymphocytes/100 WBC (Bld) 37.7 % Normal [facility] Comment on above: Order Comment: Speci men Type: BLOOD SPECIMEN Ordering Facility: [facility] Address: [address] [place] [address] Performed By: #### L IPNF #### [facility] CLIA [id number] [address] [place] [address] [place] MCH (RBC) [Entitic mass] 26.9 pg Normal 26.0-34.0 [facility] Comment on above: Order Comment: Speci men Type: BLOOD SPECIMEN Ordering Facility: [facility] Address: [address] [place] [address] Performed By: #### L IPNF #### [facility] CLIA [id number] [address] [place] [address] [place] MCHC (RBC) [Mass/Vol] 30.8 g/dL Normal 30.5-36.0 [facility] Comment on above: Order Comment: Speci men Type: BLOOD SPECIMEN Ordering Facility: [facility] Address: [address] [place] [address] Performed By: #### L IPNF #### [facility] CLIA [id number] [address] [place] [address] [place] MCV (RBC) [Entitic vol] 87.1 fL Normal 80.0-100.0 [facility] Comment on above: Order Comment: Speci men Type: BLOOD SPECIMEN Ordering Facility: [facility] Address: [address] [place] [address] Performed By: #### L IPNF #### [facility] [place] [id number] [address] [place] [address] [place] Monocytes (Bld) [#/Vol] 0.77 10*3/uL Normal <0.87 [facility] Comment on above: Order Comment: Speci men Type: BLOOD SPECIMEN Ordering Facility: [facility] Address: [address] [place] [address] Performed By: #### L IPNF #### [facility] CLIA [id number] [address] [place] [address] [place] Monocytes/100 WBC (Bld) 10.2 % Normal [facility] Comment on above: Order Comment: Speci men Type: BLOOD SPECIMEN Ordering Facility: [facility] Address: [address] [place] [address] Performed By: #### L IPNF #### [facility] CLIA [id number] [address] [place] [address] [place] Neutrophils (Bld) [#/Vol] 3.83 10*3/uL Normal 1.45-7.50 [facility] Comment on above: Order Comment: Speci men Type: BLOOD SPECIMEN Ordering Facility: [facility] Address: [address] [place] [address] Performed By: #### L IPNF #### [facility] CLIA [id number] [address] [place] [address] [place] Neutrophils/100 WBC (Bld) 50.7 % Normal [facility] Comment on above: Order Comment: Speci men Type: BLOOD SPECIMEN Ordering Facility: [facility] Address: [address] [place] [address] Performed By: #### L IPNF #### [facility] CLIA [id number] [address] [place] [address] [place] Nucleated RBC (Bld) [#/Vol] 10*3/uL Normal <0.01 [facility] Comment on above: Order Comment: Speci men Type: BLOOD SPECIMEN Ordering Facility: [facility] Address: [address] [place] [address] Performed By: #### L IPNF #### [facility] CLIA [id number] [address] [place] [address] [place] Nucleated RBC/100 WBC (Bld) [Ratio] 0.0 /100 WBC Normal [facility] Comment on above: Order Comment: Speci men Type: BLOOD SPECIMEN Ordering Facility: [facility] Address: [address] [place] [address] Performed By: #### L IPNF #### [facility] CLIA [id number] [address] [place] [address] [place] Platelet mean volume (Bld) [Entitic vol] 10.3 fL Normal 9.0-12.7 [facility] Comment on above: Order Comment: Speci men Type: BLOOD SPECIMEN Ordering Facility: [facility] Address: [address] [place] [address] Performed By: #### L IPNF #### [facility] CLIA [id number] [address] [place], [place] [id number] [facility] OF [place] Platelets (Bld) [#/Vol] 235 10*3/uL Normal 150-400 [facility] Comment on above: Order Comment: Speci men Type: BLOOD SPECIMEN Ordering Facility: [facility] Address: [address] [place] [address] Performed By: #### L IPNF #### [facility] CLIA [id number] [address] [place] [address] [place] RBC (Bld) [#/Vol] 5.36 10*6/uL Normal 4.20-6.00 [facility] Comment on above: Order Comment: Speci men Type: BLOOD SPECIMEN Ordering Facility: [facility] Address: [address] [place] [address] Performed By: #### L IPNF #### [facility] CLIA [id number] [address] [place] [address] OF [place] WBC (Bld) [#/Vol] 7.56 10*3/uL Normal 3.70-11.00 [facility] Comment on above: Order Comment: Speci men Type: BLOOD SPECIMEN Ordering Facility: [facility] Address: [address] [place] [address] Performed By: #### L IPNF #### [facility] CLIA [id number] [address] [place] [address] OF [facility] CNOVon 08-31-2024 CNOV Office Visit (MMAS ) MARY ANNE RAMOS ([id number]) 1965 M Date Time Provider Department 08/31/24 9:05 AM TEJAS ALBA JR [facility] During your visit today, we recorded the following information about you: Temperature Pulse Respiration Blood pressure 97.6 degrees 90/minute 20/minute 142/83 Tejas Alba Jr., BODY AND FRAME MAN.FLOOR TECH 08/31/2024 10:18 AM Signed [facility] NATALIE Ramos is a 58 year old male. Patient presents with: Edema: Both ankles swelling/pain x 2 days 58-year-old male accompanied by presents today with a complaint of bilateral ankle edema and left upper chest discomfort with occasional sharp pain. Patient denies shortness of breath, coughing. He states symptoms began approximately 3 days ago of unknown etiology. The history is provided by the patient and the spouse. Edema Pertinent negatives include no abdominal pain, coughing, fatigue, headaches, rash or sore throat. Review of Systems Constitutional: Negative for fatigue. HENT: Negative for sore throat. Respiratory: Negative for cough and shortness of breath. Cardiovascular: Positive for leg swelling. Gastrointestinal: Negative for abdominal pain. Skin: Negative for rash. Neurological: Negative for headaches. Objective BP 142/83 Pulse 90 Temp 36.4 ?C (97.6 ?F) Resp 20 SpO2 97% Physical Exam Vitals and nursing note reviewed. Constitutional: Appearance: Normal appearance. HENT: Head: Normocephalic and atraumatic. Eyes: Conjunctiva/sclera: Conjunctivae normal. Cardiovascular: Rate and Rhythm: Normal rate and regular rhythm. Heart sounds: Normal heart sounds. Pulmonary: Effort: Pulmonary effort is normal. Breath sounds: Normal breath sounds. No stridor. No wheezing or rales. Abdominal: General: Bowel sounds are normal. Palpations: Abdomen is soft. Tenderness: There is no abdominal tenderness. Musculoskeletal: General: Swelling and tenderness present. Right lower leg: Edema present. Left lower leg: Edema present. Comments: Nonpitting edema of the bilateral ankles and feet. Pedal pulse present and strong bilaterally. No tenderness to palpation of the bilateral calves, Homans test is negative. Ankles are tender to palpation in the lateral and medial aspects. There is clubbing of the nails of the bilateral feet. Skin: General: Skin is warm and dry. Neurological: Mental Status: He is alert and oriented to person, place, and time. Psychiatric: Behavior: Behavior normal. EKG performed: EKG notes normal sinus rhythm, left anterior fascicular block and septal infarct age undetermined. Ventricular rate was 80 bpm, VT interval 146 ms, QRS is 84 ms, QT/QTc was 340/392 ms, PRT axis 83 -53 35 Assessment AND Plan Chest discomfort Based on today's examination I feel further evaluation is needed in this case. I am considering congestive heart failure at this time. Patient informed to go immediately to [facility] emergency room. Report was called. Patient considered stable at this time and can be transported by private vehicle. Orders: ECG COMPLETE; Future Edema of both ankles Orders: ECG COMPLETE; Future Differential Diagnoses - Congestive heart failure is more likely for the following reason(s): Consistent with examination - DVT is less likely for the following reason(s): Not consistent with examination Contributing Factors Social Determinants of Health significantly affecting care: smoking Disposition The patient was discharged. Procedures Tejas Alba Jr., LISA.PERRI 08/31/2024 10:10 AM Signed You are to go to [facility] emergency room for further evaluation. Referring Provider: TEJAS ALBA JR [[id number]] Allergies As of Date: 08/31/2024 (No Known Allergies) Date Reviewed: 08/31/2024 Reviewed by: Tejas Alba Jr., LISA.FLOOR TECH - Fully Assessed Reason for Visit: Edema [39] Cmt: Both ankles swelling/pain x 2 days Primary Visit Diagnosis:Chest discomfort [R07.89] Other Visit Diagnosis:Edema of both ankles [M25.471, M25.472] Order(s):ECG COMPLETE [ECG01] Order #: [id number] FUTURE ECG COMPLETE [ECG01] Order #: [id number] Prescriptions as of 08/31/2024 - Tadalafil (CIALIS) 5 mg tablet Take 1 tablet by mouth once daily. On days when you plan to be sexually active, skip your daily dose and take up to 4 tabs 1-2 hours prior to sex. - budesonide-formoterol (SYMBICORT) 160-4.5 mcg/actuation inhaler Inhale 2 Puffs as instructed two times a day. - albuterol HFA (PROVENTIL HFA, VENTOLIN HFA) 90 mcg/actuation inhaler inhale 2 puffs by mouth and INTO THE LUNGS every 4 hours if needed for cough shortness of breath or wheezing - tiZANidine (ZANAFLEX) 4 mg tablet take 1 tablet by mouth once daily - atorvastatin (LIPITOR) 20 mg tablet take 1 tablet by mouth once daily - fluticasone (FLONASE) 50 mcg/actuation (more content not included)... Normal [facility] Comprehensive metabolic 2000 panelon 08-31-2024 Albumin [Mass/Vol] 3.5 g/dL Normal 3.2-5.0 [facility] Comment on above: Order Comment: Speci men Type: BLOOD SPECIMEN Ordering Facility: [facility] Address: [address] [place] [address] Performed By: #### L IPNF #### [facility] CLIA [id number] [address] [place] [address] [place] ALP [Catalytic activity/Vol] 118 U/L High 45-117 [facility] Comment on above: Order Comment: Speci luis enrique Type: BLOOD SPECIMEN Ordering Facility: [facility] Address: [address] [place] [address] Performed By: #### L IPNF #### [facility] CLIA [id number] [address] [place] [address] [place] ALT [Catalytic activity/Vol] 17 U/L Normal 13-61 [facility] Comment on above: Order Comment: Kimberlyi luis enrique Type: BLOOD SPECIMEN Ordering Facility: [facility] Address: [address] [place] [address] Result Comment: Resu lts may be falsely depressed after the administration of Sulfasalazine and/or Sulfapyridine. Performed By: #### L IPNF #### [facility] CLIA [id number] [address] [place] [address] [place] Anion gap [Moles/Vol] 3 mmol/L Low 5-16 [facility] Comment on above: Order Comment: Speci luis enrique Type: BLOOD SPECIMEN Ordering Facility: [facility] Address: [address] [place] [address] Performed By: #### L IPNF #### [facility] CLIA [id number] [address] [place] [address] [place] AST [Catalytic activity/Vol] 23 U/L Normal 8-34 [facility] Comment on above: Order Comment: Speci men Type: BLOOD SPECIMEN Ordering Facility: [facility] Address: [address] [place] [address] Result Comment: Resu lts may be falsely depressed after the administration of Sulfasalazine and/or Sulfapyridine. Performed By: #### L IPNF #### [facility] CLIA [id number] [address] [place] [address] [place] Bilirubin [Mass/Vol] 0.3 mg/dL Normal 0.2-1.0 [facility] Comment on above: Order Comment: Speci men Type: BLOOD SPECIMEN Ordering Facility: [facility] Address: [address] [place] [address] Performed By: #### L IPNF #### [facility] CLIA [id number] [address] [place] [address] [place] Calcium [Mass/Vol] 9.5 mg/dL Normal 8.5-10.5 [facility] Comment on above: Order Comment: Speci men Type: BLOOD SPECIMEN Ordering Facility: [facility] Address: [address] [place] [address] Performed By: #### L IPNF #### [facility] CLIA [id number] [address] [place] [address] [place] Chloride [Moles/Vol] 101 mmol/L Normal 98-107 [facility] Comment on above: Order Comment: Speci men Type: BLOOD SPECIMEN Ordering Facility: [facility] Address: [address] [place] [address] Performed By: #### L IPNF #### [facility] CLIA [id number] [address] [place] [address] [place] CO2 [Moles/Vol] 32 mmol/L Normal 21-32 [facility] Comment on above: Order Comment: Speci men Type: BLOOD SPECIMEN Ordering Facility: [facility] Address: [address] [place] [address] Performed By: #### L IPNF #### [facility] CLIA [id number] [address] [place] [address] [place] Creatinine [Mass/Vol] 1.01 mg/dL Normal 0.50-1.40 [facility] Comment on above: Order Comment: Gal dudley Type: BLOOD SPECIMEN Ordering Facility: [facility] Address: [address] [place] [address] Result Comment: Amairani ents receiving either N-Acetylcysteine (NAC) or Metamizole prior to venipuncture, may have falsely depressed results. Performed By: #### L IPNF #### [facility] CLIA [id number] [address] [place] [address] OF [facility] Creatinine and Glomerular filtration rate.predicted panel (S/P/Bld) 86 mL/min/1.73m??? Normal >=60 [facility] Comment on above: Order Comment: Gal dudley Type: BLOOD SPECIMEN Ordering Facility: [facility] Address: [address] [place] [address] Result Comment: Elizabeth mated Glomerular Filtration Rate (eGFR) is calculated using the 2020 CKD-EPI creatinine equation. This equation utilizes serum creatinine, sex, and age as parameters. The creatinine assay has traceable calibration to isotope dilution-mass spectrometry. Refer to KDIGO guidelines for clinical interpretation. In patients with unstable renal function, e.g. those with acute kidney injury, the eGFR may not accurately reflect actual GFR. Performed By: #### L IPNF #### [facility] CLIA [id number] [address] [place] [address] [place] Glucose [Mass/Vol] 75 mg/dL Normal 70-100 [facility] Comment on above: Order Comment: Gal dudley Type: BLOOD SPECIMEN Ordering Facility: [facility] Address: [address] [place] [address] Result Comment: The [place] Diabetes Association (ADA) provides guidance for cutoff values for fasting glucose and random glucose. The ADA defines fasting as no caloric intake for at least 8 hours. Fasting plasma glucose results between 100 to 125 mg/dL indicate increased risk for diabetes (prediabetes). Fasting plasma glucose results greater than or equal to 126 mg/dL meet the criteria for diagnosis of diabetes. In the absence of unequivocal hyperglycemia, results should be confirmed by repeat testing. In a patient with classic symptoms of hyperglycemia or hyperglycemic crisis, random plasma glucose results greater than or equal to 200 mg/dL meet the criteria for diagnosis of diabetes. Reference: Standards of Medical Care in Diabetes 2016, [employer] Diabetes Association. Diabetes Care. 2016.39(Suppl 1). Results may be falsely elevated after the administration of Sulfapyridine. Results may be falsely depressed after the administration of Sulfasalazine. Performed By: #### L IPNF #### [facility] CLIA [id number] [address] [place] [address] [place] Potassium [Moles/Vol] 4.1 mmol/L Normal 3.5-5.1 [facility] Comment on above: Order Comment: Speci luis enrique Type: BLOOD SPECIMEN Ordering Facility: [facility] Address: [address] [place] [address] Performed By: #### L IPNF #### [facility] CLIA [id number] [address] [place] [address] [place] Protein [Mass/Vol] 8.0 g/dL Normal 6.0-8.5 [facility] Comment on above: Order Comment: Kimberlyi men Type: BLOOD SPECIMEN Ordering Facility: [facility] Address: [address] [place] [address] Performed By: #### L IPNF #### [facility] CLIA [id number] [address] [place] [address] [place] Sodium [Moles/Vol] 136 mmol/L Normal 136-145 [facility] Comment on above: Order Comment: Kimberlyi men Type: BLOOD SPECIMEN Ordering Facility: [facility] Address: [address] [place] [address] Performed By: #### L IPNF #### [facility] CLIA [id number] [address] [place] [address] [place] Urea nitrogen [Mass/Vol] 16 mg/dL Normal 7-26 [facility] Comment on above: Order Comment: Speci men Type: BLOOD SPECIMEN Ordering Facility: [facility] Address: [address] [place] [id number] Performed By: #### L IPNF #### [facility] CLIA [id number] [facility] [place] [address] [place] ECG COMPLETEon 08-31-2024 ECG COMPLETE Ventricular Rate : 7 8 BPM Atrial Rate : 78 BPM P-R Interval : 146 ms QRS Duration : 88 ms Q-T Interval : 344 ms QTC Calculation(Bazett) : 392 ms Calculated P [place] : 75 degrees Calculated R [place] : -34 degrees Calculated T [place] : -18 degrees Normal sinus rhythm Left axis deviation Minimal voltage criteria for LVH, may be normal variant ( R in aVL ) Nonspecific T wave abnormality Abnormal ECG When compared with ECG of 31-Aug-2024 10:02, Nonspecific T wave abnormality is now present Confirmed by FLORY VALLE MD ([id number]) on 08/31/2024 3:55:00 PM NAME : MARY ANNE RAMOS PID : [id number] : 1965 Gender : Male Race : ORD : [id number] Procedure Date : Aug 31 2024 11:35:39 Edit Date : Aug 31 2024 15:55:01 Diagnosis: Normal sinus rhythm Left axis deviation Minimal voltage criteria for LVH, may be normal variant ( R in aVL ) Nonspecific T wave abnormality Abnormal ECG When compared with ECG of 31-Aug-2024 10:02, Nonspecific T wave abnormality is now present Confirmed by FLORY VALLE MD ([id number]) on 08/31/2024 3:55:00 PM Test Reason : STAT Location : 0 : ED Overread By : FLORY VALLE MD Edited By : FLORY VALLE MD Referred By : , Acquired by : [id number], Normal [facility] ED Triage Noteon 08-31-2024 ED Triage Note HNO ID: [id number] Author: ISSA TREVINO APRN.CNP Service: Emergency Medicine Author Type: Nurse Practitioner Type: ED Triage Notes Filed: 08/31/2024 11:35 Note Text: ED TRIAGE PROVIDER NOTE Patient Name: Mary Anne Ramos Service Date: 08/31/24 BRIEF HPI: This is a 58 year old male who presents to the ED with: Chest pain and bilateral leg swelling for the last 3 days. Patient has no medical history. He denies any lightheadedness or dizziness. No shortness of breath or diaphoresis. Patient's never had any heart issues but his dad has had significant heart issues. He went over to [facility] and they sent him here for further evaluation. Patient sees Dr. Warren up at the resident clinic. BRIEF EXAM: NAD Awake and Alert Non labored breathing No focal neurological deficits +2 pitting edema bilateral lower extremities. INITIAL WORKUP AND DECISION MAKING: Orders Placed This Encounter XR CHEST 1V FRONTAL PORT COMPREHENSIVE METABOLIC PANEL (BMP+LFT) MAGNESIUM BLOOD SINGLE HIGH SENSITIVITY TROPONIN I PROBNP N-TERMINAL CBC + AUTO DIFF PT/INR ECG COMPLETE SIGNATURE: Issa Trevino, BODY AND FRAME MAN.FLOOR TECH Normal [facility] EKGon 08-31-2024 Atrial Rate 80 BPM [facility] Calculated P [place] 83 degrees [facility] Calculated R [place] -53 degrees [facility] Calculated T [place] 35 degrees [facility] P-R Interval 146 ms [facility] QRS Duration 84 ms [facility] QT Interval 340 ms [facility] QTC Calculation (Bazett) 392 ms [facility] Ventricular Rate 80 BPM [facility] Normal sinus rhythm Left anterior fascicular block Abnormal ECG When compared with ECG of 03-Mar-2019 10:29, Left anterior fascicular block is now Present Confirmed by FLORY VALLE MD ([id number]) on 08/31/2024 3:49:26 PM [facility] NAME : MARY ANNE RAOMS PID : [id number] : 1965 Gender : Male Race : ORD : Procedure Date : Aug 31 2024 10:02:56 Edit Date : Aug 31 2024 15:49:31 Diagnosis: Normal sinus rhythm Left anterior fascicular block Abnormal ECG When compared with ECG of 03-Mar-2019 10:29, Left anterior fascicular block is now Present Confirmed by FLORY VALLE MD ([id number]) on 08/31/2024 3:49:26 PM Test Reason : chest discomfort Location : 152 : [facility] Overread By : FLORY VALLE MD Edited By : FLORY VALLE MD Referred By : Tejas Alba Acquired by : ps, [facility] Pablo [facility] Electrocardiogram Ventricular Rate : 8 0 BPM Atrial Rate : 80 BPM P-R Interval : 146 ms QRS Duration : 84 ms Q-T Interval : 340 ms QTC Calculation(Bazett) : 392 ms Calculated P [place] : 83 degrees Calculated R [place] : -53 degrees Calculated T [place] : 35 degrees Normal sinus rhythm Left anterior fascicular block Abnormal ECG When compared with ECG of 03-Mar-2019 10:29, Left anterior fascicular block is now Present Confirmed by FLORY VALLE MD ([id number]) on 08/31/2024 3:49:26 PM NAME : MARY ANNE RAMOS PID : [id number] : 1965 Gender : Male Race : ORD : Procedure Date : Aug 31 2024 10:02:56 Edit Date : Aug 31 2024 15:49:31 Diagnosis: Normal sinus rhythm Left anterior fascicular block Abnormal ECG When compared with ECG of 03-Mar-2019 10:29, Left anterior fascicular block is now Present Confirmed by FLORY VALLE MD ([id number]) on 08/31/2024 3:49:26 PM Test Reason : chest discomfort Location : 152 : [facility] Overread By : FLORY VALLE MD Edited By : FLORY VALLE MD Referred By : Tejas Alba Acquired by : Alexander costa [facility] HIGH SENSITIVITY TROPONIN Io n 08-31-2024 Tropinin I.cardiac panel High sensitivity method <2.5 Normal 0.0-54.0 [facility] Comment on above: Order Comment: Gal dudley Type: BLOOD SPECIMEN Ordering Facility: [facility] Address: [address] [place], [place] [address] Performed By: #### L IPNF #### [facility] CLIA [id number] [address] [place] [address] [place] Magnesium SerPl-mCncon 08-31 Magnesium [Mass/Vol] 2.1 mg/dL Normal 1.6-2.6 [facility] Comment on above: Order Comment: Gal dudley Type: BLOOD SPECIMEN Ordering Facility: [facility] Address: [address] [place] [address] Performed By: #### L IPNF #### [facility] CLIA [id number] [address] [place] [address] [place] NT[facility] Natriuretic peptide.B prohormone N-Terminal [Mass/Vol] <35 Normal <125 [facility] Comment on above: Order Comment: Gal dudley Type: BLOOD SPECIMEN Ordering Facility: [facility] Address: [address] [place] [address] Result Comment: NT-p roBNP results of less than 300 pg/mL likely rules out acute congestive heart failure with 99% predictive value. NOTE: These cutoff points are suggested for ACUTE CHF DIAGNOSIS only Less than 50 years\X09\ Greater than 450 pg/mL 50 - 75 years\X09\\X09\ Greater than 900 pg/mL Greater than 75 years\X09\ Greater than 1800 pg/mL Performed By: #### L IPNF #### [facility] CLIA [id number] [facility] [address] PT panel Coag (PPP)on 2024 INR Coag (PPP) [Relative time] 1.0 {INR} Normal 0.9-1.3 [facility] Comment on above: Order Comment: Gal dudley Type: BLOOD SPECIMEN Ordering Facility: [facility] Address: [address] [place] [address] Result Comment: Delilah min K Antagonist (VKA) Therapeutic Range: INR 2 to 3 (Target INR of 2.5) Note: For patients treated with VKA drugs, such as warfarin, the [employer] 2012 Guideline recommends a therapeutic INR range of 2 to 3 (target INR of 2.5). This recommendation includes high-risk patients with antiphospholipid syndrome with previous arterial or venous thromboembolism, current-generation mechanical or bioprosthetic aortic heart valve replacement. Note: Patients with mechanical aortic valve replacement and additional risk factors for thromboembolic events (atrial fibrillation, previous thromboembolism, LV dysfunction, hypercoagulable conditions) or an older generation mechanical AVR (i.e., ball in-Cage) or any mechanical MVR should have a INR therapeutic range of 2.5 to 3.5 (target INR of 3). Charis GH, et al. Chest 2012, 141:7S-47S Meaghan RA, et al. JACC 2017, 70: 252-289 Performed By: #### L IPNF #### [facility] CLIA [id number] [address] [place] [address] [facility] PT Coag (PPP) [Time] 11.3 s Normal 9.7-13.0 [facility] Comment on above: Order Comment: Speci men Type: BLOOD SPECIMEN Ordering Facility: [facility] Address: [address] [place] [address] [place] [address] Performed By: #### L IPNF #### [facility] CLIA [id number] [address] [place] [address] [facility] XR CERVICAL 4V AP/LAT/OBLon 08-31-2024 XR CERVICAL 4V AP/LAT/OBL * * *Final Report* * * DATE OF EXAM: Aug 31 2024 10:00AM [id number] - XR CERVICAL 4V AP/LAT/OBL / PROCEDURE REASON: Radiculopathy of cervicothoracic region * * * * Physician Interpretation * * * * XR CERVICAL 4V AP/LAT/OBL Ordering Physician: YASEMIN JAIME 08/31/2024 10:00 AM FIVE-VIEW CERVICAL SPINE: Clinical Statement: Radiculopathy pain Comparison: 5 view cervical spine 09/17/2023. FINDINGS: Vertebral body C1-T1 are visualized. No compression fractures or malalignment. No prevertebral soft tissue swelling. The distance between the odontoid process and C1 is normal. The posterior elements are intact. There is degenerative disc disease at C3-C4, C4-C5, C5-C6 and C6-C7. There is neural foraminal narrowing secondary to uncovertebral arthropathy on the right at C5-C6 and C6-C7 and on the left at C4-C5 C5-C6 and C6-7. Multilevel facet arthropathy is noted IMPRESSION: Multilevel degenerative disc disease, neural foraminal narrowing and facet arthropathy as described Freight Broker Agent: SONNY Transcribe Date/Time: Sep 01 2024 2:45P Dictated by : JERICHO HART MD This examination was interpreted and the report reviewed and electronically signed by: JERICHO HART MD on Sep 01 2024 2:47PM EST [id number] N [facility] XR CHEST 1V FRONTALon 2024 XR CHEST 1V FRONTAL * * *Final Report* * * DATE OF EXAM: Aug 31 2024 1:43PM [id number] - XR CHEST 1V FRONTAL / PROCEDURE REASON: Chest pain * * * * Physician Interpretation * * * * EXAMINATION: CHEST RADIOGRAPH (SINGLE VIEW AP OR PA) CLINICAL HISTORY: Chest pain MQ: XC1_5 Comparison: PA lateral chest 05/07/2023 RESULT: Lines, tubes, and devices: None. Lungs and pleura: No consolidation. No lung mass. No pleural effusion. Cardiomediastinal silhouette: Normal cardiomediastinal silhouette. Other: . IMPRESSION: No acute radiographic abnormality. 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 Transcribe Date/Time: Aug 31 2024 2:14P Dictated by : JERICHO HART MD This examination was interpreted and the report reviewed and electronically signed by: JERICHO HART MD on Aug 31 2024 2:15PM EST [id number] N [facility] CNPHeide 08-25-2024 [facility] Telephone ([facility]) MARY ANNE RAMOS ([id number]) 1965 M Date Time Provider Department 08/25/24 YASEMIN JAIME [facility] During your visit today, we recorded the following information about you: Kelvin Aggarwal 08/25/2024 8:18 AM Signed Called patient to reschedule appointment from 08/25/24 to 09/08/24 @ 9:45am patient was given time and date of new appointment Allergies As of Date: 08/25/2024 (No Known Allergies) Date Reviewed: 07/21/2024 Reviewed by: Nabila Orellana OCCA - Fully Assessed Reason for Visit: Appointment [186] Prescriptions as of 08/25/2024 - Tadalafil (CIALIS) 5 mg tablet Take 1 tablet by mouth once daily. On days when you plan to be sexually active, skip your daily dose and take up to 4 tabs 1-2 hours prior to sex. - budesonide-formoterol (SYMBICORT) 160-4.5 mcg/actuation inhaler Inhale 2 Puffs as instructed two times a day. - albuterol HFA (PROVENTIL HFA, VENTOLIN HFA) 90 mcg/actuation inhaler inhale 2 puffs by mouth and INTO THE LUNGS every 4 hours if needed for cough shortness of breath or wheezing - tiZANidine (ZANAFLEX) 4 mg tablet take 1 tablet by mouth once daily - atorvastatin (LIPITOR) 20 mg tablet take 1 tablet by mouth once daily - fluticasone (FLONASE) 50 mcg/actuation nasal spray instill 2 sprays into each nostril once daily - meloxicam (MOBIC) 7.5 mg tablet Take 1 tablet by mouth once daily. - omeprazole (PRILOSEC) 40 mg capsule Take 1 capsule by mouth once daily. Problem List As Of Date 08/25/2024 Noted Resolved CERVICAL DISC DISPLACMNT [M50.20] 09/13/2008 Tobacco dependence syndrome [F17.200] 03/07/2017 Shortness of breath [R06.02] 05/17/2021 Pulmonary nodule [R91.1] 04/09/2017 Pulmonary emphysema (HCC) [J43.9] 09/13/2021 Hyperlipidemia [E78.5] 07/11/2016 Gastroesophageal reflux disease [K21.9] 10/21/2017 Gynecomastia, male [N62] 09/24/2018 Epistaxis [R04.0] 07/11/2016 Cough [R05.9] 12/26/2016 Allergic rhinitis [J30.9] 06/11/2018 Lymphocytosis [D72.820] 08/20/2018 Paresthesia [R20.2] 06/11/2018 Unspecified lump in left breast, subareolar [N6*08/20/2018 Encounter Status:Closed by KELVIN AGGARWAL on 08/25/24 [facility] Arina 08-24-2024 [facility] Telephone ([facility]) RICHARDMARY ANNE ([id number]) 1965 M Date Time Provider Department 08/24/24 YASEMIN JAIME During your visit today, we recorded the following information about you: Allergies As of Date: 08/24/2024 (No Known Allergies) Date Reviewed: 07/21/2024 Reviewed by: Nabila Orellana OCCA - Fully Assessed Reason for Visit: Appointment [186] Prescriptions as of 09/23/2024 - amoxicillin-clavulana te potassium (AUGMENTIN) 875-125 mg per tablet Take 1 tablet by mouth two times a day. - furosemide (LASIX) 20 mg tablet Take 1 tablet by mouth once daily as needed. - meloxicam (MOBIC) 15 mg tablet Take 1 tablet by mouth once daily. - Tadalafil (CIALIS) 5 mg tablet Take 1 tablet by mouth once daily. On days when you plan to be sexually active, skip your daily dose and take up to 4 tabs 1-2 hours prior to sex. - budesonide-formoterol (SYMBICORT) 160-4.5 mcg/actuation inhaler Inhale 2 Puffs as instructed two times a day. - albuterol HFA (PROVENTIL HFA, VENTOLIN HFA) 90 mcg/actuation inhaler inhale 2 puffs by mouth and INTO THE LUNGS every 4 hours if needed for cough shortness of breath or wheezing - tiZANidine (ZANAFLEX) 4 mg tablet take 1 tablet by mouth once daily - atorvastatin (LIPITOR) 20 mg tablet take 1 tablet by mouth once daily - fluticasone (FLONASE) 50 mcg/actuation nasal spray instill 2 sprays into each nostril once daily - omeprazole (PRILOSEC) 40 mg capsule Take 1 capsule by mouth once daily. Problem List As Of Date 08/24/2024 Noted Resolved CERVICAL DISC DISPLACMNT [M50.20] 09/13/2008 Tobacco dependence syndrome [F17.200] 03/07/2017 Shortness of breath [R06.02] 05/17/2021 Pulmonary nodule [R91.1] 04/09/2017 Pulmonary emphysema (HCC) [J43.9] 09/13/2021 Hyperlipidemia [E78.5] 07/11/2016 Gastroesophageal reflux disease [K21.9] 10/21/2017 Gynecomastia, male [N62] 09/24/2018 Epistaxis [R04.0] 07/11/2016 Cough [R05.9] 12/26/2016 Allergic rhinitis [J30.9] 06/11/2018 Lymphocytosis [D72.820] 08/20/2018 Paresthesia [R20.2] 06/11/2018 Unspecified lump in left breast, subareolar [N6*08/20/2018 Encounter Status:Closed by COTY KEARNS on 09/23/24 [facility] MARY ANNE RAMOS ([id number]) 1965 M Date Time Provider Department 08/18/24 YASEMIN JAIME [facility] During your visit today, we recorded the following information about you: Jayda Lehman MA 08/18/2024 1:45 PM Signed Pt reminded of appointment on 08/19/24 and to have xrays completed prior to the day of his appointment. Pt was given hours and locations to have this completed. Pt verbalized understanding of instructions. Jayda Lehman MA August 18, 2024 1:44 PM Allergies As of Date: 08/18/2024 (No Known Allergies) Date Reviewed: 07/21/2024 Reviewed by: Nabila Orellana OCCA - Fully Assessed Reason for Visit: Appointment [186] Cmt: Xray remind Prescriptions as of 08/18/2024 - Tadalafil (CIALIS) 5 mg tablet Take 1 tablet by mouth once daily. On days when you plan to be sexually active, skip your daily dose and take up to 4 tabs 1-2 hours prior to sex. - budesonide-formoterol (SYMBICORT) 160-4.5 mcg/actuation inhaler Inhale 2 Puffs as instructed two times a day. - albuterol HFA (PROVENTIL HFA, VENTOLIN HFA) 90 mcg/actuation inhaler inhale 2 puffs by mouth and INTO THE LUNGS every 4 hours if needed for cough shortness of breath or wheezing - tiZANidine (ZANAFLEX) 4 mg tablet take 1 tablet by mouth once daily - atorvastatin (LIPITOR) 20 mg tablet take 1 tablet by mouth once daily - fluticasone (FLONASE) 50 mcg/actuation nasal spray instill 2 sprays into each nostril once daily - meloxicam (MOBIC) 7.5 mg tablet Take 1 tablet by mouth once daily. - omeprazole (PRILOSEC) 40 mg capsule Take 1 capsule by mouth once daily. Problem List As Of Date 08/18/2024 Noted Resolved CERVICAL DISC DISPLACMNT [M50.20] 09/13/2008 Tobacco dependence syndrome [F17.200] 03/07/2017 Shortness of breath [R06.02] 05/17/2021 Pulmonary nodule [R91.1] 04/09/2017 Pulmonary emphysema (HCC) [J43.9] 09/13/2021 Hyperlipidemia [E78.5] 07/11/2016 Gastroesophageal reflux disease [K21.9] 10/21/2017 Gynecomastia, male [N62] 09/24/2018 Epistaxis [R04.0] 07/11/2016 Cough [R05.9] 12/26/2016 Allergic rhinitis [J30.9] 06/11/2018 Lymphocytosis [D72.820] 08/20/2018 Paresthesia [R20.2] 06/11/2018 Unspecified lump in left breast, subareolar [N6*08/20/2018 Encounter Status:Closed by JAYDA LEHMAN on 08/18/24 [facility] Arina 07-27-2024 [facility] MARY ANNE RAMOS ([id number]) 1965 M Date Time Provider Department 07/27[facility] During your visit today, we recorded the following information about you: Donis Randhawa LPN 07/27/2024 1:11 PM Signed Received a call from THERESA olivas, with [employer] doing prior auth for nuclear stress test. They were needing more information faxed to them. Ov note from 07/16 faxed to [phone]. No previous echo or cardiac workup to fax. Auth #[id number] , ext. [phone]. Donis Randhawa LPN Allergies As of Date: 07/27/2024 (No Known Allergies) Date Reviewed: 07/21/2024 Reviewed by: Nabila Orellana OCCA - Fully Assessed Reason for Visit: auth info for stress test [Other] Prescriptions as of 07/27/2024 - Tadalafil (CIALIS) 5 mg tablet Take 1 tablet by mouth once daily. On days when you plan to be sexually active, skip your daily dose and take up to 4 tabs 1-2 hours prior to sex. - budesonide-formoterol (SYMBICORT) 160-4.5 mcg/actuation inhaler Inhale 2 Puffs as instructed two times a day. - albuterol HFA (PROVENTIL HFA, VENTOLIN HFA) 90 mcg/actuation inhaler inhale 2 puffs by mouth and INTO THE LUNGS every 4 hours if needed for cough shortness of breath or wheezing - tiZANidine (ZANAFLEX) 4 mg tablet take 1 tablet by mouth once daily - atorvastatin (LIPITOR) 20 mg tablet take 1 tablet by mouth once daily - fluticasone (FLONASE) 50 mcg/actuation nasal spray instill 2 sprays into each nostril once daily - meloxicam (MOBIC) 7.5 mg tablet Take 1 tablet by mouth once daily. - omeprazole (PRILOSEC) 40 mg capsule Take 1 capsule by mouth once daily. Problem List As Of Date 07/27/2024 Noted Resolved CERVICAL DISC DISPLACMNT [M50.20] 09/13/2008 Tobacco dependence syndrome [F17.200] 03/07/2017 Shortness of breath [R06.02] 05/17/2021 Pulmonary nodule [R91.1] 04/09/2017 Pulmonary emphysema (HCC) [J43.9] 09/13/2021 Hyperlipidemia [E78.5] 07/11/2016 Gastroesophageal reflux disease [K21.9] 10/21/2017 Gynecomastia, male [N62] 09/24/2018 Epistaxis [R04.0] 07/11/2016 Cough [R05.9] 12/26/2016 Allergic rhinitis [J30.9] 06/11/2018 Lymphocytosis [D72.820] 08/20/2018 Paresthesia [R20.2] 06/11/2018 Unspecified lump in left breast, subareolar [N6*08/20/2018 Encounter Status:Closed by DONIS RANDHAWA on 07/27/24 [facility] CNOVon 07-21-2024 CNOV Office Visit (URCANT ) MARY ANNE RAMOS ([id number]) 1965 M Date Time Provider Department 07/21/24 9:15 AM JOEL EWING URCANT During your visit today, we recorded the following information about you: Joel Ewing MD 07/21/2024 9:58 AM Signed [facility] UROLOGY ESTABLISHED PATIENT CLINIC NOTE UROArelis CHAPIN PATIENT INFO: Mary Anne Ramos AGE: [age] year old PCP: Jaclyn Warren MD REASON FOR VISIT: ED management HPI: Mary Anne Ramos returns for continuing evaluation and management. Since being placed on sildenafil 100 mg he now feels it to be ineffective. The IIEF-5 Questionnaire (HOWARD) Over the past 6 months: How do you rate your confidence that you can get and keep an erection? Very low - 1 When you had erections with sexual stimulation, how often where your erections hard enough for penetration? Almost never or never - 1 During sexual intercourse, how often were you able to maintain your erection after you penetrated your partner? Almost never or never - 1 During sexual intercourse, how difficult was it to maintain your erection to completion of intercourse? Extremely difficult - 1 When you attempted sexual intercourse, how often was it satisfactory for you? Extremely difficult - 1 Total Score: 1-7: Severe ED UROLOGICAL DATA: Urinalysis: No results found for this basename: uglucpoc,ubilipoc,uke tonpoc,usgpoc,uhbpoc, uphpoc,upropoc,uuropo c,unitpoc,uwbcpo- c,ucolpoc,uclarpoc Post Void Residual, Ultrasound: N/A cc OTHER DATA: PSA Screening (ng/mL) Date Value 06/30/2022 2.26 No results found for: ISOPSA Creatinine Date Value Ref Range Status 10/31/2023 1.06 0.50 - 1.40 mg/dL Final Comment: Patients receiving either N-Acetylcysteine (NAC) or Metamizole prior to venipuncture, may have falsely depressed results. 06/30/2022 1.11 0.50 - 1.40 mg/dL Final Comment: Patients receiving either N-Acetylcysteine (NAC) or Metamizole prior to venipuncture, may have falsely depressed results. 12/16/2019 1.26 0.5 - 1.4 MG/DL Final Comment: NOTE NEW NORMAL RANGE DUE TO REAGENT CHANGE Patients receiving either N-Acetylcysteine (NAC) or Metamizole prior to venipuncture, may have falsely depressed results. 07/01/2019 1.380 (H) 0.670 - 1.170 MG/DL Final Comment: Patients receiving either N-Acetylcysteine (NAC) or Metamizole prior to venipuncture, may have falsely depressed results. Testosterone (ng/dL) Date Value 06/24/2023 417 PMHx/PSHx: see above, otherwise unchanged Rx: reviewed and unchanged ROS: see above, otherwise unchanged Labs: None Imaging: None MEDICATIONS: Current Outpatient Medications Medication Sig budesonide-formoterol (SYMBICORT) 160-4.5 mcg/actuation inhaler Inhale 2 Puffs as instructed two times a day. methylPREDNISolone (MEDROL, GRIS,) 4 mg Dose-Pack As instructed per package sildenafil (VIAGRA) 50 mg tablet take 1 tablet by mouth once daily if needed 30-60 MINUTES BEFORE SEXUAL ACTIVITY. TAKE ON EMPTY STOMACH. albuterol HFA (PROVENTIL HFA, VENTOLIN HFA) 90 mcg/actuation inhaler inhale 2 puffs by mouth and INTO THE LUNGS every 4 hours if needed for cough shortness of breath or wheezing tiZANidine (ZANAFLEX) 4 mg tablet take 1 tablet by mouth once daily atorvastatin (LIPITOR) 20 mg tablet take 1 tablet by mouth once daily omeprazole (PRILOSEC) 40 mg capsule Take 1 capsule by mouth once daily. fluticasone (FLONASE) 50 mcg/actuation nasal spray instill 2 sprays into each nostril once daily (Patient not taking: Reported on 05/07/2023) meloxicam (MOBIC) 7.5 mg tablet Take 1 tablet by mouth once daily. (Patient not taking: Reported on 05/07/2023) No current facility-administered medications for this visit. PHYSICAL EXAM: There were no vitals taken for this visit. There is no height or weight on file to calculate BMI. General: Well masculinized, well nourished male Psych: euthymic, NAD Neuro: AANDOx3 Inguinal: No lesions, adenopathy, or hernias exam deferred IMPRESSION/PLAN: 1. ED (erectile dysfunction) of organic origin - ICD9: 607.84, ICD10: N52.9 The following ED Treatment options were discussed in detail: ED has many causes which may include Diabetes, Heart Disease, Prostate Cancer treatment, and emotional conditions such as Depression/Anxiety. Oral Medications: Most men with ED start with pills, such as Sildenafil (Viagra), tadalafil (Cialis), Levitra, Stendra. These are in the drug class called PDE-5 inhibitors These may improve blood flow to the penis, and with sexual stimulation, can help you achieve an erection. 2.. Vacuum Erection Devices: Mechanical pumps that help to bring blood flow into the penis, used with a ring placed at the base of the penis, can help to maintain an erection. 3. Intraurethral Suppositories: These medications (alprostadil, etc.) are placed in (more content not included)... [facility] CNOVon 07-16-2024 CNOV Office Visit (INRSMR ) MARY ANNE RAMOS ([id number]) 1965 M Date Time Provider Department 07/16/24 10:30 AM JACLYN WARREN INRR During your visit today, we recorded the following information about you: Temperature Pulse Respiration Blood pressure 97.5 degrees 89/minute 14/minute 112/79 Weight Height 75.2 kg 1.93 m Fausto Paul MA 07/16/2024 10:59 PM Signed Pt here for follow up. Pt complains of on and off sharp pain in left side of neck that radiates down left arm. Pt needs refill on albuterol inhaler. Jaclyn Warren MD 07/16/2024 10:59 PM Signed Internal [facility] ACC Visit Date: July 16, 2024 Follow Up Visit Chief Complaint: Sharp pain in left side of the back of neck, wheezing, chest tightness Review of History: Mary Anne Ramos is a 58 year old who is here for follow-up visit. Patient is accompanied by his Jamee Ramos. Patient has a few complaints today. He is mainly complaining of pain in his left neck. It is towards the back. The pain is sharp and radiates down his arm. He does get numbness and tingling in the left arm. Patient has a known history of cervical radiculopathy which has been going on for many years. Patient is also complaining of chest tightness which is different from this left neck and arm pain. He feels it in the left side of the chest and sometimes it goes up his jaw. He says it can occur mostly at rest. Occasionally with exertion he has noticed it and has noticed some shortness of breath with exertion as well. Patient does continue to smoke. Past Medical History: PAST MEDICAL HISTORY Diagnosis Date DDD (degenerative disc disease), cervical Health Maintenance: Colonoscopy: Vaccination: Allergies: ALLERGIES No Known Allergies Medications: Current Outpatient Medications Medication Sig Dispense Refill sildenafil (VIAGRA) 50 mg tablet take 1 tablet by mouth once daily if needed 30-60 MINUTES BEFORE SEXUAL ACTIVITY. TAKE ON EMPTY STOMACH. 30 tablet 3 albuterol HFA (PROVENTIL HFA, VENTOLIN HFA) 90 mcg/actuation inhaler inhale 2 puffs by mouth and INTO THE LUNGS every 4 hours if needed for cough shortness of breath or wheezing 18 g 4 tiZANidine (ZANAFLEX) 4 mg tablet take 1 tablet by mouth once daily 15 tablet 1 atorvastatin (LIPITOR) 20 mg tablet take 1 tablet by mouth once daily 90 tablet 3 fluticasone (FLONASE) 50 mcg/actuation nasal spray instill 2 sprays into each nostril once daily (Patient not taking: Reported on 05/07/2023) 16 g 1 meloxicam (MOBIC) 7.5 mg tablet Take 1 tablet by mouth once daily. (Patient not taking: Reported on 05/07/2023) 10 tablet 0 omeprazole (PRILOSEC) 40 mg capsule Take 1 capsule by mouth once daily. 90 capsule 1 No current facility-administered medications for this visit. Social History: Social History Tobacco Use Smoking status: Every Day Current packs/day: 0.50 Average packs/day: 0.5 packs/day for 45.0 years (22.5 ttl pk-yrs) Types: Cigarettes Smokeless tobacco: Never Vaping Use Vaping status: Never Used Substance Use Topics Alcohol use: No Drug use: No Family History: Family History Problem Relation Age of Onset Cancer Mother ovarian Diabetes Father Ischemic Heart Disease Father Coronary Artery Disease Father Heart Attack Father Breast Cancer Sister Breast Cancer Paternal Aunt Past Surgical History: PAST SURGICAL HISTORY Procedure Laterality Date APPENDECTOMY Review of Systems: Review of Systems Physical Exam: BP 112/79 (BP Site: Right Arm, BP Position: Sitting, BP Cuff Size: Large Adult) Pulse 89 Temp 36.4 ?C (97.5 ?F) Resp 14 Ht 193 cm (6' 4) Wt 75.2 kg (165 lb 12.8 oz) SpO2 96% BMI 20.18 kg/m? Physical Exam Constitutional: General: He is not in acute distress. Appearance: Normal appearance. Cardiovascular: Heart sounds: Normal heart sounds. No murmur heard. No gallop. Pulmonary: Effort: No respiratory distress. Breath sounds: Normal breath sounds. Neurological: General: No focal deficit present. Mental Status: He is alert and oriented to person, place, and time. Sensory: No sensory deficit. Motor: No weakness. Assessment and Plan:: ASSESSMENT/PLAN: 1. Cervical radiculopathy - ICD9: 723.4, ICD10: M54.12 (primary diagnosis) Patient has pain in his neck which radiates down his left arm. He has some numbness and tingling from time to time. No weakness of the arm. Patient has a known history of cervical radiculopathy that is quite significant. He will most likely need an MRI. I will refer him to orthopedic surgery for investigation and treatment as deemed necessary. - CONSULT TO ORTHOPAEDIC SURGERY 2. Chest pain on exertion - ICD9: 786.50, ICD10: R07.9 Chest pain likely coronary ischemia related symptom due to risk factors such as smoking. (more content not included)... Normal [facility] HbA1c (Bld)on 07-16-2024 Average glucose Estimated from glycated hemoglobin (Bld) [Mass/Vol] 128 mg/dL Normal [facility] Comment on above: Order Comment: Speci men Type: BLOOD SPECIMEN Ordering Facility: [facility] Address: [address] [place] [address] Result Comment: eAG: (Estimated average glucose) is a calculated value from HgbA1c and is patient service representative of the average blood glucose level in the last 2-3 month period. Performed By: #### 5 [id number] #### [facility] CLIA [id number] [address] [place] [address] [place] [address] [place] HbA1c (Bld) [Mass fraction] 6.1 % High 4.3-5.6 [facility] Comment on above: Order Comment: Speci men Type: BLOOD SPECIMEN Ordering Facility: [facility] Address: [address] [place] [address] Result Comment: [place] ican Diabetes Association guidelines indicate that patients with HgbA1c in the range 5.7-6.4% are at increased risk for development of diabetes, and intervention by lifestyle modification may be beneficial. HgbA1c greater or equal to 6.5% is considered diagnostic of diabetes. Performed By: #### 5 5454-3 #### [facility] CLIA [id number] [address] [place] [address] [place] [address] [place] LIPID PANEL, NONFASTINGon Cholesterol [Mass/Vol] 206 mg/dL High 0 - 199 mg/dL [facility] Comment on above: <200 mg/dL, Desirabl e 200-239 mg/dL, Borderline high >239 mg/dL, High HDL Cholesterol, Nonfasting 61 mg/dL 40 - PINF mg/dL [facility] Comment on above: 40-59 mg/dL, Accepta ble >59 mg/dL, High: Negative risk factor for coronary heart disease <40 mg/dL, Low: Positive risk factor for coronary heart disease Interpretation and review of laboratory results Abnormal [facility] LDL Cholesterol, Nonfasting 121 mg/dL High NINF - 100 mg/dL [facility] Comment on above: <100 mg/dL, Optimal 100-129 mg/dL, Near optimal/above optimal 130-159 mg/dL, Borderline high 160-189 mg/dL, High >189 mg/dL, Very high Secondary prevention optimal LDL Cholesterol levels are recommended to be < 70 mg/dL LDL/HDL Ratio, Nonfasting 1.98 mg/dL NINF - 2.54 mg/dL [facility] Comment on above: Reference: 1. National Cholesterol Education Program ATP III Guideline At-A-Glance Quick Desk Reference: National Heart, Lung, and Blood [place]. National Institutes of Health. 2001: NIH Publication No. 01-3305. 2. An International Atherosclerosis Society position paper: global recommendations for the management of dyslipidemia: executive summary, Atherosclerosis. 2014: 232(2):410-413. Non HDL Cholesterol, Nonfasting 145 mg/dL High NINF - 130 mg/dL [facility] Comment on above: <130 mg/dL, Optimal 130-159 mg/dL, Near optimal/above optimal 160-189 mg/dL, Borderline high 190-219 mg/dL, High >219 mg/dL, Very high Secondary prevention optimal non HDL Cholesterol levels are recommended to be <100 mg/dL Total Chol/HDL Ratio, Nonfasting 3.38 mg/dL NINF - 5.10 mg/dL [facility] Triglycerides, Nonfasting 121 mg/dL 30 - 149 mg/dL [facility] Comment on above: <150 mg/dL, Normal 150-199 mg/dL, Borderline high 200-499 mg/dL, High >499 mg/dL, Very high VLDL Cholesterol, Nonfasting 24 mg/dL NINF - 30 mg/dL [facility] Cholesterol [Mass/Vol] 206 mg/dL High 0-199 [facility] Comment on above: Order Comment: Speci men Type: BLOOD SPECIMEN Ordering Facility: [facility] Address: [address] [place] [address] Result Comment: <200 mg/dL, Desirable 200-239 mg/dL, Borderline high >239 mg/dL, High Performed By: #### L IPNF #### [facility] CLIA [id number] [address] [place] [address] [place] HDL CHOLESTEROL, NF 61 mg/dL Normal >40 [facility] Comment on above: Order Comment: Speci men Type: BLOOD SPECIMEN Ordering Facility: [facility] Address: [address] [place] [address] Result Comment: 40-5 9 mg/dL, Acceptable >59 mg/dL, High: Negative risk factor for coronary heart disease <40 mg/dL, Low: Positive risk factor for coronary heart disease Performed By: #### L IPNF #### [facility] CLIA [id number] [address] [place] [address] [place] LDL CHOLESTEROL, NF 121 mg/dL High <100 [facility] Comment on above: Order Comment: Speci men Type: BLOOD SPECIMEN Ordering Facility: [facility] Address: [address] [place] [address] Result Comment: <100 mg/dL, Optimal 100-129 mg/dL, Near optimal/above optimal 130-159 mg/dL, Borderline high 160-189 mg/dL, High >189 mg/dL, Very high Secondary prevention optimal LDL Cholesterol levels are recommended to be < 70 mg/dL Performed By: #### L IPNF #### [facility] CLIA [id number] [address] [place] [address] LDL/HDL RATIO, NF 1.98 mg/dL Normal <2.54 [facility] Comment on above: Order Comment: Gal dudley Type: BLOOD SPECIMEN Ordering Facility: [facility] Address: [address] [place] [address] Result Comment: Refe rence: 1. National Cholesterol Education Program ATP III Guideline At-A-Glance Quick Desk Reference: National Heart, Lung, and Blood [place]. National Institutes of Health. 2001: NIH Publication No. 01-3305. 2. An International Atherosclerosis Society position paper: global recommendations for the management of dyslipidemia: executive summary, Atherosclerosis. 2014: 232(2):410-413. Performed By: #### L IPNF #### [facility] CLIA [id number] [address] [place] [address] NON HDL CHOL, NF 145 mg/dL High <130 [facility] Comment on above: Order Comment: Gal dudley Type: BLOOD SPECIMEN Ordering Facility: [facility] Address: [address] [place] [address] Result Comment: <130 mg/dL, Optimal 130-159 mg/dL, Near optimal/above optimal 160-189 mg/dL, Borderline high 190-219 mg/dL, High >219 mg/dL, Very high Secondary prevention optimal non HDL Cholesterol levels are recommended to be <100 mg/dL Performed By: #### L IPNF #### [facility] CLIA [id number] [address] [place] [address] T CHOL/HDL RATIO NF 3.38 mg/dL Normal <5.10 [facility] Comment on above: Order Comment: Gal [facility] Type: BLOOD SPECIMEN Ordering Facility: [facility] Address: [address] [place], [place] [id number] Performed By: #### L IPNF #### [facility] CLIA [id number] [address] [place] [address] TRIGLYCERIDES, NF 121 mg/dL Normal 30-149 [facility] Comment on above: Order Comment: Speci men Type: BLOOD SPECIMEN Ordering Facility: [facility] Address: [address] [place] [address] Result Comment: <150 mg/dL, Normal 150-199 mg/dL, Borderline high 200-499 mg/dL, High >499 mg/dL, Very high Performed By: #### L IPNF #### [facility] CLIA [id number] [address] [place] [address] [place] VLDL CHOLESTEROL, NF 24 mg/dL Normal <30 [facility] Comment on above: Order Comment: Speci men Type: BLOOD SPECIMEN Ordering Facility: [facility] Address: [address] [place] [address] Performed By: #### L IPNF #### [facility] CLIA [id number] [address] [place] [address] Arina 06-23-2024 JORDAN Telephone (URCANT) MARY ANNE RAMOS ([id number]) 1965 M Date Time Provider Department 06/23/24 JOEL EWING During your visit today, we recorded the following information about you: Danyell Leon 06/23/2024 9:02 AM Signed Patient is scheduled 07/21/24 for his annual follow up. I spoke with the patient's this morning and they are asking if they can have a refill on the sildenafil now, or if it has to be prescribed once he is seen. Please advise, thank you. Allergies As of Date: 06/23/2024 (No Known Allergies) Date Reviewed: 10/31/2023 Reviewed by: Fausto Paul MA - Fully Assessed Reason for Visit: Rx Refills [128] Prescriptions as of 06/23/2024 - sildenafil (VIAGRA) 50 mg tablet take 1 tablet by mouth once daily if needed 30-60 MINUTES BEFORE SEXUAL ACTIVITY. TAKE ON EMPTY STOMACH. - fluticasone-umeclidin -vilanter (TRELEGY ELLIPTA) 200-62.5-25 mcg inhalation powder Inhale 1 Puff as instructed once daily. - albuterol HFA (PROVENTIL HFA, VENTOLIN HFA) 90 mcg/actuation inhaler inhale 2 puffs by mouth and INTO THE LUNGS every 4 hours if needed for cough shortness of breath or wheezing - tiZANidine (ZANAFLEX) 4 mg tablet take 1 tablet by mouth once daily - atorvastatin (LIPITOR) 20 mg tablet take 1 tablet by mouth once daily - fluticasone (FLONASE) 50 mcg/actuation nasal spray instill 2 sprays into each nostril once daily - meloxicam (MOBIC) 7.5 mg tablet Take 1 tablet by mouth once daily. - omeprazole (PRILOSEC) 40 mg capsule Take 1 capsule by mouth once daily. Problem List As Of Date 06/23/2024 Noted Resolved CERVICAL DISC DISPLACMNT [M50.20] 09/13/2008 Tobacco dependence syndrome [F17.200] 03/07/2017 Shortness of breath [R06.02] 05/17/2021 Pulmonary nodule [R91.1] 04/09/2017 Pulmonary emphysema (HCC) [J43.9] 09/13/2021 Hyperlipidemia [E78.5] 07/11/2016 Gastroesophageal reflux disease [K21.9] 10/21/2017 Gynecomastia, male [N62] 09/24/2018 Epistaxis [R04.0] 07/11/2016 Cough [R05.9] 12/26/2016 Allergic rhinitis [J30.9] 06/11/2018 Lymphocytosis [D72.820] 08/20/2018 Paresthesia [R20.2] 06/11/2018 Unspecified lump in left breast, subareolar [N6*08/20/2018 Encounter Status:Closed by DANYELL LEON on 06/23/24 [facility] CBC W Auto Differential pane l (Bld)on 10-31-2023 Basophils (Bld) [#/Vol] 0.04 10*3/uL [facility] Basophils/100 WBC (Bld) 0.5 % [facility] Differential cell count method Nom (Bld) Auto [facility] Eosinophils (Bld) [#/Vol] 0.04 10*3/uL [facility] Eosinophils/100 WBC (Bld) 0.5 % [facility] Erythrocyte distribution width (RBC) [Ratio] 14.9 % 11.5 - 15.0 % [facility] Hematocrit (Bld) [Volume fraction] 49.9 % 39.0 - 51.0 % [facility] Hemoglobin (Bld) [Mass/Vol] 15.7 g/dL 13.0 - 17.0 g/dL [facility] Immature granulocytes (Bld) [#/Vol] 0.04 10*3/uL [facility] Immature granulocytes/100 WBC (Bld) 0.5 % [facility] Lymphocytes (Bld) [#/Vol] 2.64 10*3/uL [facility] Lymphocytes/100 WBC (Bld) 31.1 % [facility] MCH (RBC) [Entitic mass] 27.2 pg 26.0 - 34.0 pg [facility] MCHC (RBC) [Mass/Vol] 31.5 g/dL 30.5 - 36.0 g/dL [facility] MCV (RBC) [Entitic vol] 86.3 fL 80.0 - 100.0 fL [facility] Monocytes (Bld) [#/Vol] 0.64 10*3/uL [facility] Monocytes/100 WBC (Bld) 7.5 % [facility] Neutrophils (Bld) [#/Vol] 5.09 10*3/uL [facility] Neutrophils/100 WBC (Bld) 59.9 % [facility] Nucleated RBC (Bld) [#/Vol] [facility] Nucleated RBC/100 WBC (Bld) [Ratio] 0.0 % /100 WBC [facility] Platelet mean volume (Bld) [Entitic vol] 10.4 fL 9.0 - 12.7 fL [facility] Platelets (Bld) [#/Vol] 224 10*3/uL [facility] RBC (Bld) [#/Vol] 5.78 10*6/uL 4.20 - 6.0 0 m/uL [facility] WBC (Bld) [#/Vol] 8.49 10*3/uL [facility] Comprehensive metabolic 2000 panelon 10-31-2023 Albumin [Mass/Vol] 4.1 g/dL 3.2 - 5.0 g/dL [facility] ALP [Catalytic activity/Vol] 103 U/L 45 - 117 U/L [facility] ALT [Catalytic activity/Vol] 14 U/L 13 - 61 U/L [facility] Comment on above: Results may be false ly depressed after the administration of Sulfasalazine and/or Sulfapyridine. Anion gap [Moles/Vol] 5 mmol/L 5 - 16 mmol/L [facility] AST [Catalytic activity/Vol] 21 U/L 8 - 34 U/L [facility] Comment on above: Results may be false ly depressed after the administration of Sulfasalazine and/or Sulfapyridine. Bilirubin [Mass/Vol] 0.8 mg/dL 0.2 - 1 .0 mg/dL [facility] Calcium [Mass/Vol] 9.5 mg/dL 8.5 - 10. 5 mg/dL [facility] Chloride [Moles/Vol] 101 mmol/L 98 - 10 7 mmol/L [facility] CO2 [Moles/Vol] 31 mmol/L 21 - 32 mmol/L [facility] Creatinine [Mass/Vol] 1.06 mg/dL 0.50 - 1.40 mg/dL [facility] Comment on above: Patients receiving e ither N-Acetylcysteine (NAC) or Metamizole prior to venipuncture, may have falsely depressed results. GFR/1.73 sq M.predicted among non-blacks MDRD (S/P/Bld) [Vol rate/Area] 81 mL/min/{1.73_m2} - PINF [facility] Comment on above: Estimated Glomerular Filtration Rate (eGFR) is calculated using the 2020 CKD-EPI creatinine equation. This equation utilizes serum creatinine, sex, and age as parameters. The creatinine assay has traceable calibration to isotope dilution-mass spectrometry. Refer to KDIGO guidelines for clinical interpretation. In patients with unstable renal function, e.g. those with acute kidney injury, the eGFR may not accurately reflect actual GFR. Glucose [Mass/Vol] 116 mg/dL High 70 - 100 mg/dL [facility] Comment on above: The [place] Diabete s Association (ADA) provides guidance for cutoff values for fasting glucose and random glucose. The ADA defines fasting as no caloric intake for at least 8 hours. Fasting plasma glucose results between 100 to 125 mg/dL indicate increased risk for diabetes (prediabetes). Fasting plasma glucose results greater than or equal to 126 mg/dL meet the criteria for diagnosis of diabetes. In the absence of unequivocal hyperglycemia, results should be confirmed by repeat testing. In a patient with classic symptoms of hyperglycemia or hyperglycemic crisis, random plasma glucose results greater than or equal to 200 mg/dL meet the criteria for diagnosis of diabetes. Reference: Standards of Medical Care in Diabetes 2016, [employer] Diabetes Association. Diabetes Care. 2016.39(Suppl 1). Results may be falsely elevated after the administration of Sulfapyridine. Results may be falsely depressed after the administration of Sulfasalazine. Potassium [Moles/Vol] 4.4 mmol/L 3.5 - 5.1 mmol/L [facility] Protein [Mass/Vol] 8.4 g/dL 6.0 - 8.5 g/dL [facility] Sodium [Moles/Vol] 137 mmol/L 136 - 145 mmol/L [facility] Urea nitrogen [Mass/Vol] 14 mg/dL 7 - 26 mg/dL [facility] HbA1c (Bld)on 10-31-2023 Average glucose Estimated from glycated hemoglobin (Bld) [Mass/Vol] 131 mg/dL [facility] Comment on above: eAG: (Estimated aver age glucose) is a calculated value from HgbA1c and is patient service representative of the average blood glucose level in the last 2-3 month period. HbA1c (Bld) [Mass fraction] 6.2 % High 4.3 - 5.6 % [facility] Comment on above: [employer] Diabetes As sociation guidelines indicate that patients with HgbA1c in the range 5.7-6.4% are at increased risk for development of diabetes, and intervention by lifestyle modification may be beneficial. HgbA1c greater or equal to 6.5% is considered diagnostic of diabetes. Interpretation and review of laboratory results Abnormal [facility] LIPID PANEL, NONFASTINGon Cholesterol [Mass/Vol] 215 mg/dL High NINF - 200 mg/dL [facility] Comment on above: <200 mg/dL, Desirabl e 200-239 mg/dL, Borderline high >239 mg/dL, High HDL Cholesterol, Nonfasting 68 mg/dL 39 - PINF mg/dL [facility] Comment on above: 40-59 mg/dL, Accepta ble >59 mg/dL, High: Negative risk factor for coronary heart disease <40 mg/dL, Low: Positive risk factor for coronary heart disease LDL Cholesterol, Nonfasting 130 mg/dL High NINF - 100 mg/dL [facility] Comment on above: <100 mg/dL, Optimal 100-129 mg/dL, Near optimal/above optimal 130-159 mg/dL, Borderline high 160-189 mg/dL, High >189 mg/dL, Very high Secondary prevention optimal LDL Cholesterol levels are recommended to be < 70 mg/dL LDL/HDL Ratio, Nonfasting 1.91 mg/dL NINF - 2.54 mg/dL [facility] Comment on above: Reference: 1. National Cholesterol Education Program ATP III Guideline At-A-Glance Quick Desk Reference: National Heart, Lung, and Blood [place]. National Institutes of Health. 2001: NIH Publication No. 01-3305. 2. An International Atherosclerosis Society position paper: global recommendations for the management of dyslipidemia: executive summary, Atherosclerosis. 2014: 232(2):410-413. Non HDL Cholesterol, Nonfasting 147 mg/dL High NINF - 130 mg/dL [facility] Comment on above: <130 mg/dL, Optimal 130-159 mg/dL, Near optimal/above optimal 160-189 mg/dL, Borderline high 190-219 mg/dL, High >219 mg/dL, Very high Secondary prevention optimal non HDL Cholesterol levels are recommended to be <100 mg/dL Total Chol/HDL Ratio, Nonfasting 3.16 mg/dL NINF - 5.10 mg/dL [facility] Triglycerides, Nonfasting 87 mg/dL NINF - 150 mg/dL [facility] Comment on above: <150 mg/dL, Normal 150-199 mg/dL, Borderline high 200-499 mg/dL, High >499 mg/dL, Very high VLDL Cholesterol, Nonfasting 17 mg/dL NINF - 30 mg/dL [facility] No Panel Informationon 10-30 Interpretation and review of laboratory results Abnormal [facility] THYROID STIMULATING HORMONEo n 10-31-2023 TSH Qn 0.858 m[IU]/L [facility] Comment on above: 3rd generation ultra sensitive TSH. TSH Qnon 10-31-2023 Interpretation and review of laboratory results Normal [facility] No Panel Informationon 09-22 IMPRESSION: Levoscoliosis in the upper thoracic region. No acute osseous abnormality or significant degenerative change. CERVICAL SPINE SERIES 6 VIEWS: INDICATION: Radiculopathy of cervicothoracic region. FINDINGS: There is mild scoliosis and straightening of the cervical lordosis.. Severe degenerative disc disease most marked at the C5-6 and C6-7 levels. Uncovertebral spurring and facet arthropathy with mild osseous foraminal encroachment most marked on the left at the C4-5 and C5-6 levels. The atlantoaxial relationship is normal. The lung apices are clear. IMPRESSION: Scoliosis with severe degenerative disc disease most marked at C5-6 and C6-7 level. Left worse than right facet arthropathy and uncovertebral spurring with osseous foraminal encroachment most marked on the left at the C4-5 and C5-6 levels. Freight Broker Agent: SONNY Transcribe Date/Time: Sep 23 2023 8:40A Dictated by : EDITH PAT MD This examination was interpreted and the report reviewed and electronically signed by: EDITH PAT MD on Sep 23 2023 8:43AM [facility] No Panel InformationOrdered By: Ccf Provider on 09-23-2023 [facility] XR Cervical spine AP and Lat eral and obliqueon 09-23-2023 * * *Final Report* * * DATE OF EXAM: Sep 17 2023 11:44AM [id number] - XR CERVICAL 4V AP/LAT/OBL / PROCEDURE REASON: Radiculopathy of cervicothoracic region * * * * Physician Interpretation * * * * XR THORACIC 2V AP/LAT, XR CERVICAL 4V AP/LAT/OBL Ordering Physician: JACLYN WARREN THORACIC SPINE SERIES 3 VIEWS Clinical Statement: Radiculopathy of cervicothoracic region. FINDINGS: There is levoscoliosis in the upper thoracic spine. The sagittal alignment is within normal limits. No fractures. Degenerative changes are minimal with early osteophyte formation at multiple levels. No paraspinal soft tissue swelling. [facility] Provider, Sascha Ki leslie [place] - 09/23/2023 * * *Final Report* * * DATE OF EXAM: Sep 17 2023 11:44AM [id number] - XR CERVICAL 4V AP/LAT/OBL / PROCEDURE REASON: Radiculopathy of cervicothoracic region * * * * Physician Interpretation * * * * XR THORACIC 2V AP/LAT, XR CERVICAL 4V AP/LAT/OBL Ordering Physician: JACLYN WARREN THORACIC SPINE SERIES 3 VIEWS Clinical Statement: Radiculopathy of cervicothoracic region. FINDINGS: There is levoscoliosis in the upper thoracic spine. The sagittal alignment is within normal limits. No fractures. Degenerative changes are minimal with early osteophyte formation at multiple levels. No paraspinal soft tissue swelling. IMPRESSION IMPRESSION: Levoscoliosis in the upper thoracic region. No acute osseous abnormality or significant degenerative change. CERVICAL SPINE SERIES 6 VIEWS: INDICATION: Radiculopathy of cervicothoracic region. FINDINGS: There is mild scoliosis and straightening of the cervical lordosis.. Severe degenerative disc disease most marked at the C5-6 and C6-7 levels. Uncovertebral spurring and facet arthropathy with mild osseous foraminal encroachment most marked on the left at the C4-5 and C5-6 levels. The atlantoaxial relationship is normal. The lung apices are clear. IMPRESSION: Scoliosis with severe degenerative disc disease most marked at C5-6 and C6-7 level. Left worse than right facet arthropathy and uncovertebral spurring with osseous foraminal encroachment most marked on the left at the C4-5 and C5-6 levels. Freight Broker Agent: SONNY Transcribe Date/Time: Sep 23 2023 8:40A Dictated by : EDITH PAT MD This examination was interpreted and the report reviewed and electronically signed by: EDITH PAT MD on Sep 23 2023 8:43AM [facility] XR Thoracic spine AP and Lat rileylon 09-23-2023 * * *Final Report* * * DATE OF EXAM: Sep 17 2023 11:44AM [id number] - XR THORACIC 2V AP/LAT / PROCEDURE REASON: Radiculopathy of cervicothoracic region * * * * Physician Interpretation * * * * XR THORACIC 2V AP/LAT, XR CERVICAL 4V AP/LAT/OBL Ordering Physician: JACLYN WARREN THORACIC SPINE SERIES 3 VIEWS Clinical Statement: Radiculopathy of cervicothoracic region. FINDINGS: There is levoscoliosis in the upper thoracic spine. The sagittal alignment is within normal limits. No fractures. Degenerative changes are minimal with early osteophyte formation at multiple levels. No paraspinal soft tissue swelling. [facility] Provider, Sascha Balderas - 09/23/2023 * * *Final Report* * * DATE OF EXAM: Sep 17 2023 11:44AM [id number] - XR THORACIC 2V AP/LAT / PROCEDURE REASON: Radiculopathy of cervicothoracic region * * * * Physician Interpretation * * * * XR THORACIC 2V AP/LAT, XR CERVICAL 4V AP/LAT/OBL Ordering Physician: JACLYN WARREN THORACIC SPINE SERIES 3 VIEWS Clinical Statement: Radiculopathy of cervicothoracic region. FINDINGS: There is levoscoliosis in the upper thoracic spine. The sagittal alignment is within normal limits. No fractures. Degenerative changes are minimal with early osteophyte formation at multiple levels. No paraspinal soft tissue swelling. IMPRESSION IMPRESSION: Levoscoliosis in the upper thoracic region. No acute osseous abnormality or significant degenerative change. CERVICAL SPINE SERIES 6 VIEWS: INDICATION: Radiculopathy of cervicothoracic region. FINDINGS: There is mild scoliosis and straightening of the cervical lordosis.. Severe degenerative disc disease most marked at the C5-6 and C6-7 levels. Uncovertebral spurring and facet arthropathy with mild osseous foraminal encroachment most marked on the left at the C4-5 and C5-6 levels. The atlantoaxial relationship is normal. The lung apices are clear. IMPRESSION: Scoliosis with severe degenerative disc disease most marked at C5-6 and C6-7 level. Left worse than right facet arthropathy and uncovertebral spurring with osseous foraminal encroachment most marked on the left at the C4-5 and C5-6 levels. Freight Broker Agent: SONNY Transcribe Date/Time: Sep 23 2023 8:40A Dictated by : EDITH PAT MD This examination was interpreted and the report reviewed and electronically signed by: EDITH PAT MD on Sep 23 2023 8:43AM EST [facility] No Panel Informationon 09-16 Radiology Study observation (narrative) [facility] No Panel Informationon 11-22 [facility] SPIROMETRY - BASELINE AND PO ST DILATORon 11-22-2022 DLCO (ml/min/mmHg) 16.85 ml/min/mmHg [facility] DLCO/VA (ml/min/mmHg/L) 3.23 ml/min/mmHg/L [facility] BEM42-66% POST (L/S) 1.00 L/S [facility] EFS00-04% PRE (L/S) 0.55 L/S [facility] land [facility] FEV1 PRE (L) 1.85 L [facility] FEV1/FVC POST (%) 59 % [facility] FEV1/FVC PRE (%) 53 % [facility] d [facility] FEV1_POST (L) 2.16 L [facility] FRC Box (L) 3.41 L [facility] FVC POST (L) 3.64 L [facility] FVC PRE (L) 3.48 L [facility] PEF POST (L/S) 4.00 L/S [facility] PEF PRE (L/S) 3.28 L/S [facility] RV Box (L) 2.37 L [facility] RV/TLC Box (%) 41 % [facility] TLC Box (L) 5.80 L [facility] VA (L) 5.22 L [facility] CT LUNG SCREEN WO IVCONon [facility] HbA1c (Bld)on 06-30-2022 Average glucose Estimated from glycated hemoglobin (Bld) [Mass/Vol] 126 mg/dL [facility] HbA1c (Bld) [Mass fraction] 6.0 % 4.3 - 6.0 % [facility] TSH BLDon 02-11-2023 TSH Qn 1.147 m[IU]/L 0.358 - 3.740 mIU/L [facility] KNEE 3 VIEWS LTon 10-25-2021 KNEE 3 VIEWS LT KNEE 3 VIEWS LT Ordering Physician: Jaclyn [place] MD LEFT KNEE 3 VIEWS Clinical Statement: Pain. No comparison FINDINGS: No fracture or dislocation. No chondrocalcinosis or erosive arthropathy. Moderate suprapatellar joint effusion. No significant degenerative change. IMPRESSION: No acute osseous abnormality or significant degenerative change. Joint effusion. This report was electronically signed by Edith Pat MD 10/25/2021 10:09 AM Reported By: EDITH PAT M.D. Signed By: EDITH PAT M.D. [facility] CT LUNG SCREENINGon 07-17-[address] LUNG SCREENING Ordering Physician: Jaclyn [place] MD 07/17/2021 COMPUTED TOMOGRAPHY THORAX/SCREENING EXAMINATION Clinical Statement: Long-term smoking history TECHNIQUE: 2.5 mm thick axial images of the thorax were obtained utilizing the screening protocol. The study was compared to a previous examination dated 06/13/2020. FINDINGS: The images of the upper abdomen show no acute abnormalities. There are no pleural or pericardial effusions. The heart is normal in size. The aorta is unremarkable. The airways are patent. There are no acute infiltrates. There are moderate upper lobe predominant centrilobular emphysematous changes. There are areas of paraseptal emphysematous change. There is an irregular density at the left apex which is unchanged measuring approximately 6 mm in average diameter having the appearance of scarring. There is a punctate calcified granuloma in the left lower lobe on image #72. No new nodules are identified. There are scattered peripheral areas of fibrosis. There is a small area of chronic consolidation in the right middle lobe medially. There is chronic consolidation and pleural thickening in the right lower lobe posterior medially with underlying calcification similar to the previous study compatible with chronic round atelectasis. There is adjacent scarring. The thyroid gland is unremarkable. There are no acute osseous abnormalities. IMPRESSION: 1. Moderate upper lobe predominant emphysematous change. 2. Unchanged chronic consolidation and pleural thickening with underlying calcification in the right lower lobe posterior medially. 3. Unchanged irregular nodular density near the left apex be due to scarring. No new nodules are seen. Lung-RADS Category 2: Continue annual screening with LDCT in 12 months as per ACR Lung-RADS clinical guidelines. Refer to [facility] for management and followup. This report was electronically signed by Khurram East MD 07/17/2021 10:35 AM Reported By: KHURRAM EAST M.D. Signed By: KHURRAM EAST M.D. [facility]2021 Glucose [Mass/Vol] 100 mg/dL Normal [facility] Comment on above: Order Comment: LACTO SE ERIC GLU30 GLUCOSE 0.5 HR from [id number]. Performed By: #### L [id number] #### [facility] [address] [place] [address] GLUCOSE 1.5 HRon 07-06-2021 GLUCOSE 1.5 HR 104 Normal [facility] Comment on above: Order Comment: LACTO SE ERIC GLU90 GLUCOSE 1.5 HR from [id number]. Performed By: #### L [id number] #### [facility] [address] [place] [address] GLUCOSE 1HRon 07-06-2021 Glucose [Mass/Vol] 107 mg/dL Normal [facility] Comment on above: Order Comment: LACTO SE ERIC GLU1 GLUCOSE 1HR from [id number]. Performed By: #### L 500.97473 #### [facility] [address] [place] [address] GLUCOSE 2HRon 07-06-2021 Glucose [Mass/Vol] 104 mg/dL Normal Less Than 140 [facility] Comment on above: Order Comment: LACTO SE ERIC GLU2 GLUCOSE 2HR from [id number]. Performed By: #### L 500.77821 #### [facility] [address] [place] [address] GLUFon 07-06-2021 GLUF 92 MG/DL Normal 70-100 [facility] Comment on above: Order Comment: LACTO SE ERIC GLUF GLUF from [id number]. Performed By: #### L 500.71749 #### [facility] [address] [place] [address] NDX.[facility] 06-26-2021 NDX.[facility] Patient Name: MARY ANNE RAMOS JR [address] Date of : [address] [address] Unit Number: [id number] Neurodiagnostic Note Patient Status: REG CLI Attending Doctor: Jaclyn [place] ACC Service Date: 06/26/21 1240 Neurodiagnostic Note Allergies Coded Allergies: NO KNOWN ALLERGENS (05/30/20) Diagnosis R20.2-Paresthesia of Skin, 656.03-Carpal shayne-b/l upp EMG/NCT 15597-MPV (1 extremity EMG), 07506-TLU 7-8 Studies Disclaimer This dictation was created using voice recognition software. Phonetic and/or minor grammatical errors may exist. eSign Date and Time Christina Justin DO Verified/Reviewed by 06/26/[address] [facility] Neurodiagnostic Note Normal [facility] CBC (POC)on 11-11-2020 Basophil, Absolute (POC) 0.03 10 3/mcL Normal 0.00-0.27 [facility] ([place] Comment on above: Performed By: #### C BCPOC #### [address] [place], [place] [address] Basophils/100 WBC (Bld) 0.3 % Normal 0.0-2.5 [facility] ([place] Comment on above: Performed By: #### C BCPOC #### [address] [place], [place] [address] Eosinophil, Absolute (POC) 0.05 10 3/mcL Normal 0.00-0.65 [facility] ([place]) Comment on above: Performed By: #### C BCPOC #### [address] [place], [place] [address] Eosinophils/100 WBC (Bld) 0.5 % Normal 0.0-6.0 [facility] ([place]) Comment on above: Performed By: #### C BCPOC #### [address] [place], [place] [address] Erythrocyte distribution width (RBC) [Ratio] 14.3 % Normal 11.5-15.5 [facility] ([place]) Comment on above: Performed By: #### C BCPOC #### [address] [place], [place] [address] Hematocrit (Bld) [Volume fraction] 49.5 % Normal 40.0-52.0 [facility] ([place] Comment on above: Performed By: #### C BCPOC #### [address] [place], [place] [address] Hemoglobin (POC) 15.4 G/dL Normal 13.0-17.5 [facility] ([place] Comment on above: Performed By: #### C BCPOC #### [address] [place], [place] [address] Imm Granulocyte, Absolute (POC) 0.04 10 3/mcL Normal [facility] ([place]) Comment on above: Performed By: #### C BCPOC #### [address] [place], [place] [address] Immature granulocytes/100 WBC (Bld) 0.4 % Normal [facility] ([place] Comment on above: Performed By: #### C BCPOC #### [address] [place], [place] [address] Lymphocyte, Absolute (POC) 3.43 10 3/mcL Normal 0.90-4.32 [facility] ([place] Comment on above: Performed By: #### C BCPOC #### [address] [place], [place] [address] Lymphocytes/100 WBC (Bld) 36.7 % Normal 20.0-40.0 [facility] ([place] Comment on above: Performed By: #### C BCPOC #### [address] [place], [place] [address] MCH (RBC) [Entitic mass] 27.0 pg Normal 27.0-33.0 [facility] ([place] Comment on above: Performed By: #### C BCPOC #### [address] [place], [place] [address] MCHC (POC) 31.1 G/dL Low 32.0-36.0 [facility] ([place] Comment on above: Performed By: #### C BCPOC #### [address] [place], [place] [address] MCV (RBC) [Entitic vol] 86.7 fL Normal 81.0-100.0 [facility] ([place] Comment on above: Performed By: #### C BCPOC #### [address] [place], [place] [address] Monocyte, Absolute (POC) 0.67 10 3/mcL Normal 0.09-1.40 [facility] ([place] Comment on above: Performed By: #### C BCPOC #### [address] [place], [place] [address] Monocytes/100 WBC (Bld) 7.2 % Normal 2.0-13.0 [facility] ([place] Comment on above: Performed By: #### C BCPOC #### [address] [place], [place] [address] Neutrophil, Absolute (POC) 5.12 10 3/mcL Normal 2.25-8.10 [facility] ([place] Comment on above: Performed By: #### C BCPOC #### [address] [place], [place] [address] Neutrophils/100 WBC (Bld) 54.9 % Normal 50.0-75.0 [facility] ([place] Comment on above: Performed By: #### C BCPOC #### [address] [place], [place] [address] Performing Instrument - POCT SYSMEX Normal [facility] ([place]) Comment on above: Performed By: #### C BCPOC #### [address] [place], [place] [address] Platelet (POC) 192 10 3/mcL Normal 150-450 [facility] ([place] Comment on above: Performed By: #### C BCPOC #### [address] [place], [place] [address] Platelet mean volume (Bld) [Entitic vol] 9.9 fL Normal 6.4-10.5 [facility] ([place] Comment on above: Performed By: #### C BCPOC #### [address] [place], [place] [address] RBC (POC) 5.71 10 6/mcL Normal 4.50-6.00 [facility] ([place] Comment on above: Performed By: #### C BCPOC #### [address] [place], [place] [address] WBC (POC) 9.34 10 3/mcL Normal 4.50-10.80 [facility] ([place] Comment on above: Performed By: #### C BCPOC #### [address] [place], [place] [address] CT HEAD OR BRAIN W/O CONTRAS Ton 11-11-2020 CT HEAD OR BRAIN W/O CONTRAST ORIGINAL CT HEAD OR BRAIN W/O CONTRAST CLINICAL STATEMENT: Syncope then face injury. TECHNIQUE: Axial CT images from skull base to vertex without IV contrast. This exam was performed according to our departmental dose optimization program, and includes the following measures where applicable: automated exposure control, adjustment of the mAs and/or kVp according to patient size and/or exam, and an iterative reconstruction algorithm. COMPARISON: None. FINDINGS: There is no acute intracranial hemorrhage, mass, mass effect or abnormal extra-axial fluid collection. There is no CT evidence of acute infarct. The ventricles are normal. The skull base and calvarium demonstrate no abnormality. The visualized paranasal sinuses are clear. Included mastoid air cells are clear. IMPRESSION: No acute intracranial abnormality. Interpreted By: Nino Soto MD Preliminary Report By: Nino Soto MD Electronically Signed By: Nino Soto MD Dictated Date: 11/11/2020 2:38:42 AM Prelim Date: 11/11/2020 2:38:42 AM Sign Date: 11/11/2020 2:39:03 AM Ordering Provider:Tenisha Munoz [facility] ([place]) RENAL12 (POC)on 11-11-2020 Albumin Level (POC) 3.1 G/dL Low 3.2-4.8 [facility] ([place]) Comment on above: Performed By: #### R [id number] #### [facility] [address] [place], [place] [address] Calcium [Mass/Vol] 8.9 mg/dL Normal 8.4-10.1 [facility] ([place] Comment on above: Performed By: #### R [id number] #### [facility] [address] [place], [place] [address] Chloride [Moles/Vol] 107 mmol/L Normal 98-110 [facility] ([place] Comment on above: Performed By: #### R [id number] #### [facility] [address] [place], [place] [address] CO2 [Moles/Vol] 27 mmol/L Normal 22-32 [facility] ([place] Comment on above: Performed By: #### R [id number] #### [facility] [address] [place], [place] [address] Creatinine [Mass/Vol] 1.40 mg/dL Normal 0.60-1.40 [facility] ([place]) Comment on above: Performed By: #### R [id number] #### [facility] [address] [place], [place] [address] Est GFR (POC) >60 Normal [facility] ([place]) Comment on above: Result Comment: Chronic Kidney Disease: Less than 60 mL/min/1.73 square meters End Stage Renal Disease: Less than 15 mL/min/1.73 square meters Performed By: #### R [id number] #### [facility] [address] [place], [place] [address] Est GFR Non- (POC) 52 ml/min/1.73sqm Normal [facility] ([place]) Comment on above: Result Comment: Chronic Kidney Disease: Less than 60 mL/min/1.73 square meters End Stage Renal Disease: Less than 15 mL/min/1.73 square meters Performed By: #### R [id number] #### [facility] [address] [place], [place] [address] Glucose [Mass/Vol] 124 mg/dL High 70-110 [facility] ([place] Comment on above: Performed By: #### R [id number] #### [facility] [address] [place], [place] [address] Lactate [Moles/Vol] 2.0 mmol/L Normal 0.2-2.0 [facility] ([place]) Comment on above: Performed By: #### R [id number] #### [facility] [address] [place], [place] [address] Magnesium [Mass/Vol] 2.1 mg/dL Normal 1.6-2.4 [facility] ([place] Comment on above: Performed By: #### R [id number] #### [facility] [address] [place], [place] [address] Performing Instrument - POCT MARCOS Normal [facility] ([place]) Comment on above: Performed By: #### R [id number] #### [facility] [address] [place], [place] [address] Phosphorus Level (POC) 4.3 mg/dL Normal 2.5-4.5 [facility] ([place] Comment on above: Performed By: #### R [id number] #### [facility] [address] [place], [place] [address] Potassium [Moles/Vol] 3.8 mmol/L Normal 3.5-5.0 [facility] ([place] Comment on above: Performed By: #### R [id number] #### [facility] [address] [place], [place] [address] Sodium [Moles/Vol] 136 mmol/L Normal 136-145 [facility] ([place] Comment on above: Performed By: #### R [id number] #### [facility] [address] [place], [place] [address] Urea nitrogen [Mass/Vol] 16.0 mg/dL Normal 8.0-22.0 [facility] ([place] Comment on above: Performed By: #### R [id number] #### [facility] [address] [place], [place] [address] TROP (POC)on 11-11-2020 Performing Instrument - POCT TRIAGE2 [facility] ([place] Comment on above: Performed By: #### T ROPPOC #### [facility] [address] [place], [place] [address] Troponin I.cardiac [Mass/Vol] ng/mL Normal <=0.05 [facility] ([place]) Comment on above: Result Comment: Trop onin I reference ranges: <0.05 ng/mL Negative and non-diagnostic. >=0.05 ng/mL Consistent with cardiac damage, increased clinical risk and possibility of myocardial infarction. Serial measurements, a rise & fall in test results, clinical history, appropriate symptoms and/or ECG changes may help assess possibility of NM. *Other non-acute coronary syndrome conditions such as CHF, myocarditis, pulmonary emboli, sepsis and cardiac surgery could result in myocardial damage and increased troponin levels. Performed By: #### T ROPPOC #### [facility] [address] [place], [place] [address] Performing Instrument - POCT TRIAGE2 [facility] ([place] Comment on above: Performed By: #### T ROPPOC #### [facility] [address] [place], [place] [address] Troponin I.cardiac [Mass/Vol] ng/mL Normal <=0.05 [facility] ([place] Comment on above: Result Comment: Trop onin I reference ranges: <0.05 ng/mL Negative and non-diagnostic. >=0.05 ng/mL Consistent with cardiac damage, increased clinical risk and possibility of myocardial infarction. Serial measurements, a rise & fall in test results, clinical history, appropriate symptoms and/or ECG changes may help assess possibility of NM. *Other non-acute coronary syndrome conditions such as CHF, myocarditis, pulmonary emboli, sepsis and cardiac surgery could result in myocardial damage and increased troponin levels. Performed By: #### T [facility] #### [facility] [address] [place], [place] [address] XR CHEST 1 VIEWon 11-11-2020 XR CHEST 1 VIEW ORIGINAL XR CHEST 1 VIEW CLINICAL STATEMENT: Syncope. COMPARISON: Chest x-ray on 511 FINDINGS: The heart size and mediastinal contours are normal. Lungs are emphysematous. There are coarse interstitial markings. No acute infiltrate is present. There is no pleural fluid or pneumothorax. This fills structures show no sign of acute abnormality. IMPRESSION: Emphysema. No acute findings. Interpreted By: Nino Soto MD Preliminary Report By: Nino Soto MD Electronically Signed By: Nino Soto MD Dictated Date: 11/11/2020 2:39:23 AM Prelim Date: 11/11/2020 2:39:23 AM Sign Date: 11/11/2020 2:40:38 AM Ordering Provider:Tenisha Munoz [facility] ([place]) Vital Signs Date Time Vital Sign Value Performing Clinician Chelsey sutton 11-12-2024 09:34-0400 Body height 185.4 cm Jaclyn [place] MD Work Phone: [facility] 11-12-2024 09:34-0400 Body mass index (BMI) [Ratio] 21.77 kg/m2 Jaclyn [place] MD Work Phone: [facility] 11-12-2024 09:34-0400 Body temperature 97.7 [degF] Jaclyn [place] MD Work Phone: [facility] 11-12-2024 09:34-0400 Body weight 74.84 kg Jaclyn [place] MD Work Phone: [facility] 11-12-2024 09:34-0400 Diastolic blood pressure 78 mm[Hg] Jaclyn [place] MD Work Phone: [facility] 11-12-2024 09:34-0400 Heart rate 78 /min Jaclyn [place] MD Work Phone: [facility] 11-12-2024 09:34-0400 Respiratory rate 16 /min Jaclyn [place] MD Work Phone: [facility] 11-12-2024 09:34-0400 SaO2% (BldA) [Mass fraction] 98 % Jaclyn [place] MD Work Phone: [facility] 11-12-2024 09:34-0400 Systolic blood pressure 110 mm[Hg] Jaclyn [place] MD Work Phone: [facility] 11-10-2024 10:23-0400 Body height 190.5 cm Carolyn Wayble [employer]FLOOR [employer]CH Work Phone: [facility] 11-10-2024 10:23-0400 Body mass index (BMI) [Ratio] 20.97 kg/m2 Carolyn Wayble [employer]CH Work Phone: [facility] 11-10-2024 10:23-0400 Body weight 76.11 kg Carolyn Wayble [employer]CH Work Phone: [facility] 11-10-2024 10:23-0400 Diastolic blood pressure 84 mm[Hg] Carolyn Wayble [employer]FLOOR [employer]CH Work Phone: [facility] 11-10-2024 10:23-0400 Heart rate 99 /min Carolyn Wayble [employer].FLO[employer]CH Work Phone: [facility] 11-10-2024 10:23-0400 SaO2% (BldA) [Mass fraction] 96 % Carolyn Wayble [employer].FLOOR TECH Work Phone: [facility] 11-10-2024 10:23-0400 Systolic blood pressure 121 mm[Hg] Carolyn Wayble [employer]CH Work Phone: [facility] 10-30-2024 14:47-0400 Body height 193.[address] Jose Quinones MD Work Phone: [facility] 10-30-2024 14:47-0400 Body mass index (BMI) [Ratio] 20 kg/m2 Dr. Jose Quinones MD Work Phone: [facility] 10-30-2024 14:47-0400 Body weight 74.[address] Jose Quinones MD Work Phone: [facility] 09-29-2024 10:07-0400 Body height 190.5 cm Yasemin Goske [employer].FLO[employer]CH Work Phone: [facility] 09-29-2024 10:07-0400 Body mass index (BMI) [Ratio] 20.62 kg/m2 Yasemin Goske [employer]CH Work Phone: [facility] 09-29-2024 10:07-0400 Body weight 74.84 kg Yasemin Goske [employer].FLO[employer]CH Work Phone: [facility] 09-29-2024 10:07-0400 Heart rate 91 /min Yasemin Goske [employer]CH Work Phone: [facility] 09-29-2024 10:07-0400 SaO2% (BldA) [Mass fraction] 95 % Yasemin Goske [employer].FLO[employer]CH Work Phone: [facility] 09-23-2024 10:18-0400 Body height 193 cm Jaclyn [place] MD Work Phone: [facility] 09-23-2024 10:18-0400 Body mass index (BMI) [Ratio] 20.21 kg/m2 Jaclyn [place] MD Work Phone: [facility] 09-23-2024 10:18-0400 Body temperature 97.2 [degF] Jaclyn [place] MD Work Phone: [facility] 09-23-2024 10:18-0400 Body weight 75.3 kg Jaclyn [place] MD Work Phone: [facility] 09-23-2024 10:18-0400 Diastolic blood pressure 82 mm[Hg] Jaclyn [place] MD Work Phone: [facility] 09-23-2024 10:18-0400 Heart rate 85 /min Jaclyn [place] MD Work Phone: [facility] 09-23-2024 10:18-0400 Respiratory rate 18 /min Jaclyn [place] MD Work Phone: [facility] 09-23-2024 10:18-0400 SaO2% (BldA) [Mass fraction] 95 % Jaclyn [place] MD Work Phone: [facility] 09-23-2024 10:18-0400 Systolic blood pressure 118 mm[Hg] Jaclyn [place] MD Work Phone: [facility] 09-10-2024 10:27-0400 Body height 193 cm Jaclyn [place] MD Work Phone: [facility] 09-10-2024 10:27-0400 Body mass index (BMI) [Ratio] 19.84 kg/m2 Jaclyn [place] MD Work Phone: [facility] 09-10-2024 10:27-0400 Body temperature 97.5 [degF] Jaclyn [place] MD Work Phone: [facility] 09-10-2024 10:27-0400 Body weight 73.94 kg Jaclyn [place] MD Work Phone: [facility] 09-10-2024 10:27-0400 Diastolic blood pressure 72 mm[Hg] Jaclyn [place] MD Work Phone: [facility] 09-10-2024 10:27-0400 Heart rate 101 /min Jaclyn [place] MD Work Phone: [facility] 09-10-2024 10:27-0400 Respiratory rate 14 /min Jaclyn [place] MD Work Phone: [facility] 09-10-2024 10:27-0400 SaO2% (BldA) [Mass fraction] 96 % Jaclyn [place] MD Work Phone: [facility] 09-10-2024 10:27-0400 Systolic blood pressure 102 mm[Hg] Jaclyn [place] MD Work Phone: [facility] 09-08-2024 09:36-0400 Body height 193 cm Yasemin Jaime APRN.CNP Work Phone: [facility] 09-08-2024 09:36-0400 Body mass index (BMI) [Ratio] 20.09 kg/m2 Yasemin Jaime APRN.FLOOR TECH Work Phone: [facility] 09-08-2024 09:36-0400 Body weight 74.84 kg Yasemin Jaime [employer]CH Work Phone: [facility] 09-08-2024 09:36-0400 Heart rate 87 /min Yasemin Jaime [employer].FLO[employer]CH Work Phone: [facility] 09-08-2024 09:36-0400 SaO2% (BldA) [Mass fraction] 92 % Yasemin Jaime [employer].FLOOR [employer]CH Work Phone: [facility] 08-31-2024 09:39-0400 Body temperature 97.59 [degF] Tejas Alba Jr., [employer].FLO[employer]CH Work Phone: [facility] 08-31-2024 09:39-0400 Diastolic blood pressure 83 mm[Hg] Tejas Alba Jr., [employer].FLOOR [employer]CH Work Phone: [facility] 08-31-2024 09:39-0400 Heart rate 90 /min Tejas Alba Jr., [employer].FLOOR TECH Work Phone: [facility] 08-31-2024 09:39-0400 Respiratory rate 20 /min Tejas Alba Jr., [employer].FLOOR [employer]CH Work Phone: [facility] 08-31-2024 09:39-0400 SaO2% (BldA) [Mass fraction] 97 % Tejas Alba Jr., [employer].FLOOR TECH Work Phone: [facility] 08-31-2024 09:39-0400 Systolic blood pressure 142 mm[Hg] Tejas Alba Jr., [employer].FLOOR TECH Work Phone: [facility] 07-16-2024 10:34-0500 Body height 193 cm Jaclyn [place] MD Work Phone: [facility] 07-16-2024 10:34-0500 Body mass index (BMI) [Ratio] 20.18 kg/m2 Jaclyn [place] MD Work Phone: [facility] 07-16-2024 10:34-0500 Body temperature 97.5 [degF] Jaclyn [place] MD Work Phone: [facility] 07-16-2024 10:34-0500 Body weight 75.21 kg Jaclyn [place] MD Work Phone: [facility] 07-16-2024 10:34-0500 Diastolic blood pressure 79 mm[Hg] Jaclyn [place] MD Work Phone: [facility] 07-16-2024 10:34-0500 Heart rate 89 /min Jaclyn [place] MD Work Phone: [facility] 07-16-2024 10:34-0500 Respiratory rate 14 /min Jaclyn [place] MD Work Phone: [facility] 07-16-2024 10:34-0500 SaO2% (BldA) [Mass fraction] 96 % Jaclyn [place] MD Work Phone: [facility] 07-16-2024 10:34-0500 Systolic blood pressure 112 mm[Hg] Jaclyn [place] MD Work Phone: [facility] 10-31-2023 09:46-0400 Body height 193 cm Jaclyn [place] MD Work Phone: [facility] 10-31-2023 09:46-0400 Body mass index (BMI) [Ratio] 19.82 kg/m2 Jaclyn [place] MD Work Phone: [facility] 10-31-2023 09:46-0400 Body temperature 97.3 [degF] Jaclyn [place] MD Work Phone: [facility] 10-31-2023 09:46-0400 Body weight 73.85 kg Jaclyn [place] MD Work Phone: [facility] 10-31-2023 09:46-0400 Diastolic blood pressure 79 mm[Hg] Jaclyn [place] MD Work Phone: [facility] 10-31-2023 09:46-0400 Heart rate 78 /min Jaclyn [place] MD Work Phone: [facility] 10-31-2023 09:46-0400 Respiratory rate 14 /min Jaclyn [place] MD Work Phone: [facility] 10-31-2023 09:46-0400 SaO2% (BldA) [Mass fraction] 96 % Jaclyn [place] MD Work Phone: [facility] 10-31-2023 09:46-0400 Systolic blood pressure 115 mm[Hg] Jaclyn [place] MD Work Phone: [facility] 10-15-2023 10:29-0400 Heart rate 91 /min Wolfgang Ray MD Work Phone: [facility] 10-15-2023 10:29-0400 SaO2% (BldA) [Mass fraction] 94 % Wolfgang Ray MD Work Phone: [facility] 09-06-2023 10:35-0400 Body height 193 cm Stefanie Corona MD Work Phone: [facility] 09-06-2023 10:35-0400 Body weight 76.2 kg Stefanie Corona MD Work Phone: [facility] 09-06-2023 10:35-0400 Diastolic blood pressure 58 mm[Hg] Stefanie Corona MD Work Phone: [facility] 09-06-2023 10:35-0400 Heart rate 98 /min Stefanie Corona MD Work Phone: [facility] 09-06-2023 10:35-0400 SaO2% (BldA) [Mass fraction] 95 % Stefanie Corona MD Work Phone: [facility] 09-06-2023 10:35-0400 Systolic blood pressure 110 mm[Hg] Stefanie Corona MD Work Phone: [facility] 07-24-2023 10:32-0500 Body height 185.4 cm Jaclyn [place] MD Work Phone: [facility] 07-24-2023 10:32-0500 Body temperature 97 [degF] Jaclyn [place] MD Work Phone: [facility] 07-24-2023 10:32-0500 Body weight 76.66 kg Jaclyn [place] MD Work Phone: [facility] 07-24-2023 10:32-0500 Diastolic blood pressure 72 mm[Hg] Jaclyn [place] MD Work Phone: [facility] 07-24-2023 10:32-0500 Heart rate 89 /min Jaclyn [place] MD Work Phone: [facility] 07-24-2023 10:32-0500 Respiratory rate 16 /min Jaclyn [place] MD Work Phone: [facility] 07-24-2023 10:32-0500 SaO2% (BldA) [Mass fraction] 94 % Jaclyn [place] MD Work Phone: [facility] 07-24-2023 10:32-0500 Systolic blood pressure 111 mm[Hg] Jaclyn [place] MD Work Phone: [facility] 07-22-2023 08:59-0500 Body height 185.4 cm Joel Ewing MD Work Phone: [facility] 07-22-2023 08:59-0500 Body weight 74.39 kg Joel Ewing MD Work Phone: [facility] 07-22-2023 08:59-0500 Diastolic blood pressure 77 mm[Hg] Joel Ewing MD Work Phone: [facility] 07-22-2023 08:59-0500 Systolic blood pressure 113 mm[Hg] Joel Ewing MD Work Phone: [facility] 05-07-2023 10:30-0500 Body height 185.4 cm tSefanie Corona MD Work Phone: [facility] 05-07-2023 10:30-0500 Body weight 74.39 kg Stefanie Corona MD Work Phone: [facility] 05-07-2023 10:30-0500 Diastolic blood pressure 71 mm[Hg] Stefanie Corona MD Work Phone: [facility] 05-07-2023 10:30-0500 Heart rate 100 /min Stefanie Corona MD Work Phone: [facility] 05-07-2023 10:30-0500 Respiratory rate 16 /min Stefanie Corona MD Work Phone: [facility] 05-07-2023 10:30-0500 SaO2% (BldA) [Mass fraction] 93 % Stefanie Corona MD Work Phone: [facility] 05-07-2023 10:30-0500 Systolic blood pressure 108 mm[Hg] Stefanie Corona MD Work Phone: [facility] 03-27-2023 10:24-0500 Body height 193 cm Jaclyn [place] MD Work Phone: [facility] 03-27-2023 10:24-0500 Body temperature 97.59 [degF] Jaclyn [place] MD Work Phone: [facility] 03-27-2023 10:24-0500 Body weight 74.03 kg Jaclyn [place] MD Work Phone: [facility] 03-27-2023 10:24-0500 Diastolic blood pressure 79 mm[Hg] Jaclyn [place] MD Work Phone: [facility] 03-27-2023 10:24-0500 Heart rate 93 /min Jaclyn [place] MD Work Phone: [facility] 03-27-2023 10:24-0500 Respiratory rate 16 /min Jaclyn [place] MD Work Phone: [facility] 03-27-2023 10:24-0500 SaO2% (BldA) [Mass fraction] 94 % Jaclyn [place] MD Work Phone: [facility] 03-27-2023 10:24-0500 Systolic blood pressure 119 mm[Hg] Jaclyn [place] MD Work Phone: [facility] 01-30-2023 09:25-0400 Body height 193 cm Jaclyn [place] MD Work Phone: [facility] 01-30-2023 09:25-0400 Body temperature 97.2 [degF] Jaclyn [place] MD Work Phone: [facility] 01-30-2023 09:25-0400 Body weight 73.21 kg Jaclyn [place] MD Work Phone: [facility] 01-30-2023 09:25-0400 Diastolic blood pressure 63 mm[Hg] Jaclyn [place] MD Work Phone: [facility] 01-30-2023 09:25-0400 Heart rate 78 /min Jaclyn [place] MD Work Phone: [facility] 01-30-2023 09:25-0400 Respiratory rate 16 /min Jaclyn [place] MD Work Phone: [facility] 01-30-2023 09:25-0400 SaO2% (BldA) [Mass fraction] 97 % Jaclyn [place] MD Work Phone: [facility] 01-30-2023 09:25-0400 Systolic blood pressure 98 mm[Hg] Jaclyn [place] MD Work Phone: [facility] 01-28-2023 10:38-0400 Body height 185.4 cm Stefanie Corona MD Work Phone: [facility] 01-28-2023 10:38-0400 Body weight 71.67 kg Stefanie Corona MD Work Phone: [facility] 01-28-2023 10:38-0400 Diastolic blood pressure 78 mm[Hg] Stefanie Corona MD Work Phone: [facility] 01-28-2023 10:38-0400 Heart rate 87 /min Stefanie Corona MD Work Phone: [facility] 01-28-2023 10:38-0400 Respiratory rate 16 /min Stefanie Corona MD Work Phone: [facility] 01-28-2023 10:38-0400 SaO2% (BldA) [Mass fraction] 93 % Stefanie Corona MD Work Phone: [facility] 01-28-2023 10:38-0400 Systolic blood pressure 100 mm[Hg] Stefanie Corona MD Work Phone: [facility] 09-26-2022 09:20-0400 Body height 193 cm Jaclyn [place] MD Work Phone: [facility] 09-26-2022 09:20-0400 Body temperature 96.8 [degF] Jaclyn [place] MD Work Phone: [facility] 09-26-2022 09:20-0400 Body weight 75.3 kg Jaclyn [place] MD Work Phone: [facility] 09-26-2022 09:20-0400 Diastolic blood pressure 80 mm[Hg] Jaclyn [place] MD Work Phone: [facility] 09-26-2022 09:20-0400 Heart rate 77 /min Jaclyn [place] MD Work Phone: [facility] 09-26-2022 09:20-0400 Respiratory rate 16 /min Jaclyn [place] MD Work Phone: [facility] 09-26-2022 09:20-0400 SaO2% (BldA) [Mass fraction] 96 % Jaclyn [place] MD Work Phone: [facility] 09-26-2022 09:20-0400 Systolic blood pressure 130 mm[Hg] Jaclyn [place] MD Work Phone: [facility] 06-27-2022 09:10-0500 Body height 193 cm Jaclyn [place] MD Work Phone: [facility] 06-27-2022 09:10-0500 Body temperature 97 [degF] Jaclyn [place] MD Work Phone: [facility] 06-27-2022 09:10-0500 Body weight 76.48 kg Jaclyn [place] MD Work Phone: [facility] 06-27-2022 09:10-0500 Diastolic blood pressure 74 mm[Hg] Jaclyn [place] MD Work Phone: [facility] 06-27-2022 09:10-0500 Heart rate 91 /min Jaclyn [place] MD Work Phone: [facility] 06-27-2022 09:10-0500 Respiratory rate 16 /min Jaclyn [place] MD Work Phone: [facility] 06-27-2022 09:10-0500 SaO2% (BldA) [Mass fraction] 95 % Jaclyn [place] MD Work Phone: [facility] 06-27-2022 09:10-0500 Systolic blood pressure 120 mm[Hg] Jaclyn [place] MD Work Phone: [facility] 02-21-2022 09:37-0400 Body temperature 96.49 [degF] Jaclyn [place] MD Work Phone: [facility] 02-21-2022 09:37-0400 Body weight 75.3 kg Jaclyn [place] MD Work Phone: [facility] 02-21-2022 09:37-0400 Diastolic blood pressure 70 mm[Hg] Jaclyn [place] MD Work Phone: [facility] 02-21-2022 09:37-0400 Heart rate 77 /min Jaclyn [place] MD Work Phone: [facility] 02-21-2022 09:37-0400 Respiratory rate 20 /min Jaclyn [place] MD Work Phone: [facility] 02-21-2022 09:37-0400 SaO2% (BldA) [Mass fraction] 94 % Jaclyn [place] MD Work Phone: [facility] 02-21-2022 09:37-0400 Systolic blood pressure 112 mm[Hg] Jaclyn [place] MD Work Phone: [facility] Encounters Encounter Date Encounter Type Care Provider Facility Start: 12-16-2024 ambulatory [facility] Facility:[facility] Start: 12-15-2024 End: 12-15-2024 Telephone encounter Jaclyn [place] MD Work Phone: [facility] Comment on above: surgery clearance/ s tress test results Start: 12-14-2024 End: 12-14-2024 Patient encounter procedure [facility] Provider [facility] Department Start: 12-14-2024 Encounter for other preprocedural examination [facility] Start: 12-09-2024 End: 12-09-2024 Patient encounter procedure Marsha Wade RT(R) Nuclear Medicine Start: 12-09-2024 End: 12-09-2024 ambulatory Marsha Wade RT(R) Nuclear Medicine Comment on above: Radiology [place] Start: 12-07-2024 End: 12-07-2024 Telephone encounter Jericho Rivera MD Work Phone: [facility] Start: 11-18-2024 End: 11-19-2024 Telephone encounter Carolyn Price APRN.CNP Work Phone: Pulmonary Medicine Comment on above: Patient Update Start: 11-16-2024 End: 11-17-2024 Telephone encounter Jaclyn Warren MD Work Phone: [facility] Comment on above: preop clearance/stre ss test Start: 11-12-2024 End: 11-12-2024 Telephone encounter Jaclyn Warren MD Work Phone: [facility] Comment on above: surg clearance/stres s test Start: 11-12-2024 End: 11-12-2024 Office outpatient visit 15 minutes Jaclyn Warren MD Work Phone: [facility] Comment on above: Pre-op exam (Primary Dx); Cervical radiculopathy; Chest pain on exertion Start: 11-12-2024 End: 11-12-2024 Preprocedural examination done Jaclyn Warren MD Work Phone: [facility] Work Phone: Start: 11-12-2024 End: 11-12-2024 ambulatory JACLYN WARREN Facility:[id number] Start: 11-12-2024 Encounter for other preprocedural examination JACLYN Garvin [facility] Start: 11-10-2024 End: 11-25-2024 Telephone encounter Maicol Greer APRN.CNP Work Phone: [facility] Start: 11-10-2024 End: 11-10-2024 Office outpatient visit 25 minutes Carolyn Price APRN.CNP Work Phone: [facility] Comment on above: Pulmonary emphysema, unspecified emphysema type (HCC) (Primary Dx); CAMRYN (obstructive sleep apnea); Tobacco use current; Centrilobular emphysema (HCC); Wheezing; Shortness of breath; Gastroesophageal reflux disease without esophagitis Start: 11-10-2024 End: 11-10-2024 ambulatory CAROLYN PRICE Facility:[id number] Start: 11-05-2024 End: 11-11-2024 Refill Yasemin Lenard Jaime [employer] 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 River Weiner MD [facility] Start: 10-30-2024 End: 10-30-2024 ambulatory Jose Quinones [facility] Work Phone: Start: 10-19-2024 End: 10-19-2024 ambulatory JACLYN WARREN Facility:[id number] Start: 10-15-2024 End: 10-15-2024 Telephone encounter Jaclyn Warren MD Work Phone: [facility] Start: 10-02-2024 End: 10-02-2024 ambulatory JACLYN WARREN Facility:[id number] Start: 10-02-2024 End: 10-02-2024 Subsequent hospital visit by physician Huma Reyes [facility] Comment on above: Edema of both lower extremities [R60.0] Start: 10-01-2024 End: 10-02-2024 Telephone encounter Jaclyn Warren MD Work Phone: [facility] Comment on above: prior auth duplex sc an Start: 09-29-2024 End: 10-01-2024 Patient encounter procedure Yasemin Jaime [employer] AND [employer] MAN.FLOOR TECH Work Phone: [facility] Comment on above: Cervical radiculopat hy (Primary Dx); Cervical myelopathy with cervical radiculopathy (HCC); Cervical spinal stenosis Feet Start: 09-29-2024 End: 10-01-2024 ambulatory Jaclyn Warren MD Work Phone: [facility] Start: 09-23-2024 End: 09-23-2024 Office outpatient visit 15 minutes Jaclyn Warren MD Work Phone: [facility] Comment on above: Edema of both lower extremities (Primary Dx); Cervical radiculopathy Start: 09-23-2024 End: 09-23-2024 ambulatory JACLYN WARREN Facility:[id number] Start: 09-21-2024 End: 09-21-2024 ambulatory JACLYN WARREN Facility:[id number] Start: 09-21-2024 End: 09-21-2024 Subsequent hospital visit by physician Shiloh Corral Work Phone: [facility] Comment on above: Acute right ankle pa in [M25.571] Cervical radiculopat hy [M54.12] Start: 09-10-2024 End: 09-10-2024 Office outpatient visit 15 minutes Jaclyn Warren MD Work Phone: [facility] Comment on above: Edema of both lower extremities (Primary Dx); Cellulitis of right lower extremity; Acute right ankle pain; Hyperglycemia Start: 09-10-2024 End: 09-10-2024 ambulatory JACLYN WARREN Facility:[id number] Start: 09-08-2024 End: 09-09-2024 Telephone encounter Yasemin Jaime APRN.FLOOR TECH Work Phone: [facility] Comment on above: Patient Question; Me dication Problem Start: 09-08-2024 End: 09-08-2024 Patient encounter procedure Yasemin Jaime APRN.FLOOR TECH Work Phone: [facility] Comment on above: Cervical radiculopat hy (Primary Dx) Start: 09-08-2024 End: 09-08-2024 ambulatory YASEMIN JAIME Facility:[id number] Start: 09-01-2024 End: 09-02-2024 Telephone encounter Jaclyn Warren MD Work Phone: [facility] Comment on above: Edema Start: 08-31-2024 End: 10-31-2024 Follow-up encounter Tejas Alba APRN.FLOOR TECH Work Phone: [facility] Start: 08-31-2024 End: 08-31-2024 Emergency department patient visit JACLYN WARREN Facility:[id number] Start: 08-31-2024 End: 08-31-2024 Patient encounter procedure Tejas Alba APRN.FLOOR TECH Work Phone: [facility] Comment on above: Chest discomfort (Pr imary Dx); Edema of both ankles Start: 08-31-2024 End: 08-31-2024 Subsequent hospital visit by physician Shiloh Corral Work Phone: [facility] Comment on above: Radiculopathy of cer vicothoracic region [M54.13] Start: 08-31-2024 End: 08-31-2024 ambulatory JACLYN WARREN Facility:[id number] Start: 08-25-2024 End: 08-25-2024 Telephone encounter Yasemin Jaime APRN.FLOOR TECH Work Phone: [facility] Comment on above: Appointment Start: 08-24-2024 End: 09-23-2024 Telephone encounter Yasemin Jaime APRN.FLOOR TECH Work Phone: [facility] Comment on above: Appointment Start: 08-18-2024 End: 08-18-2024 Telephone encounter Yasemin Jaime APRN.FLOOR TECH Work Phone: [facility] Comment on above: Appointment (Xray re mind) Start: 07-27-2024 End: 07-27-2024 Telephone encounter Jaclyn Warren MD Work Phone: [facility] Comment on above: auth info for stress test Start: 07-21-2024 End: 07-21-2024 Patient encounter procedure Joel Ewing MD Work Phone: Urology Comment on above: ED (erectile dysfunc tion) of organic origin (Primary Dx) Start: 07-21-2024 End: 07-21-2024 ambulatory JOEL EWING Facility:[id number] Start: 07-16-2024 End: 07-16-2024 ambulatory JACLYN WARREN Facility:[id number] Start: 07-16-2024 End: 07-16-2024 Office outpatient visit 15 minutes Jaclyn Warren MD Work Phone: [facility] Comment on above: Cervical radiculopat hy (Primary Dx); Chest pain on exertion; Prediabetes Start: 07-16-2024 End: 07-16-2024 ambulatory JACLYN WARREN Facility:[id number] Start: 06-23-2024 End: 06-23-2024 Telephone encounter Joel Ewing MD Work Phone: Urology Comment on above: Rx Refills Start: 11-15-2023 Telephone encounter Joel chamorro MD Work Phone: Urology Comment on above: refill request Start: 11-11-2023 Telephone encounter Jaclyn siegel MD Work Phone: [facility] Start: 11-09-2023 End: 01-15-2024 Refill Joel Ewing MD Work Phone: Urology Comment on above: Refill Request Start: 11-03-2023 ambulatory Patricia Marciot er [employer] AND [employer]AME MAN.FLOOR TECH Work Phone: [facility] Start: 11-03-2023 Patient encounter procedure Patricia Buckleyter B[employer] AND [employer]AME MAN.FLOOR TECH Work Phone: [facility] Comment on above: My appointment. Liv er Lawrence Start: 10-31-2023 End: 10-31-2023 Office outpatient visit 15 minutes Jaclyn Warren MD Work Phone: [facility] Comment on above: Mixed hyperlipidemia (Primary Dx); Hyperglycemia; Pulmonary emphysema, unspecified emphysema type (HCC) Start: 10-30-2023 Refill Jaclyn Warren MD Work Phone: [facility] Comment on above: Refill Request Start: 10-15-2023 End: 10-15-2023 Patient encounter procedure Wolfgang Ray MD Work Phone: [facility] Comment on above: Bilateral carpal shayne austin syndrome; Radiculopathy of cervicothoracic region Start: 09-24-2023 Telephone encounter Jaclyn siegel MD Work Phone: [facility] Start: 09-17-2023 End: 09-17-2023 Subsequent hospital visit by physician Shiloh Corral Work Phone: [facility] Comment on above: Radiculopathy of cer vicothoracic region [M54.13] Start: 09-06-2023 End: 09-06-2023 Patient encounter procedure Stefanie Corona MD Work Phone: [facility] Comment on above: Pulmonary emphysema, unspecified emphysema type (HCC) (Primary Dx); CAMRYN (obstructive sleep apnea); Tobacco use current; Marijuana abuse; Gastroesophageal reflux disease without esophagitis Start: 07-25-2023 Patient encounter procedure [facility] Provider [facility] Department Start: 07-24-2023 End: 07-24-2023 Office outpatient visit 15 minutes Jaclyn Warren MD Work Phone: [facility] Comment on above: Bilateral carpal shayne austin syndrome (Primary Dx); Radiculopathy of cervicothoracic region; Hyperglycemia; Mixed hyperlipidemia Start: 07-22-2023 End: 07-22-2023 Patient encounter procedure Joel Ewing MD Work Phone: Urology Comment on above: ED (erectile dysfunc tion) of organic origin (Primary Dx) Start: 06-22-2023 Refill Jaclyn Warren MD Work Phone: [facility] Comment on above: Refill Request Start: 05-07-2023 End: 05-07-2023 Patient encounter procedure Stefanie Corona MD Work Phone: [facility] Comment on above: Pulmonary emphysema, unspecified emphysema type (HCC) (Primary Dx); Tobacco use current; Shoulder blade pain Start: 04-03-2023 Refill Jaclyn Warren MD Work Phone: [facility] Comment on above: Refill Request Start: 04-01-2023 Telephone encounter Jaclyn siegel MD Work Phone: [facility] Comment on above: Medication Problem Start: 03-27-2023 End: 03-27-2023 Office outpatient visit 15 minutes Jaclyn Warren MD Work Phone: [facility] Comment on above: Neck pain on left si de (Primary Dx); Hyperglycemia; Pulmonary emphysema, unspecified emphysema type (HCC) Start: 03-26-2023 Refill Jaclyn Warren MD Work Phone: [facility] Comment on above: Refill Request Start: 02-26-2023 Refill Jaclyn Warren MD Work Phone: [facility] Comment on above: Refill Request Start: 01-30-2023 End: 01-30-2023 Office outpatient visit 15 minutes Jaclyn Warren MD Work Phone: [facility] Comment on above: Lumbar pain (Primary Dx); Hyperglycemia; Pulmonary emphysema, unspecified emphysema type (HCC); Pelvic pain Start: 01-28-2023 End: 01-28-2023 Patient encounter procedure Stefanie Corona MD Work Phone: [facility] Comment on above: Pulmonary emphysema, unspecified emphysema type (HCC) (Primary Dx); Tobacco use current; Consolidation of right lower lobe of lung (HCC) Start: 01-14-2023 Telephone encounter Patricia evans B[employer] AND [employer]AME MAN.FLOOR TECH Work Phone: Pulmonary Medicine Comment on above: Results Start: 12-12-2022 Refill Jaclyn Warren MD Work Phone: [facility] Comment on above: Refill Request Start: 11-23-2022 Telephone encounter Patricia evans B[employer] AND FRAME MAN.FLOOR TECH Work Phone: [facility] Comment on above: Results Start: 11-22-2022 End: 11-22-2022 ambulatory Pulm Mob Work Phone: [facility] Comment on above: Spirometry Start: 11-22-2022 End: 11-22-2022 Patient encounter procedure Pulm Lab [facility] Chapin Work Phone: [facility] Start: 10-31-2022 End: 10-31-2022 Subsequent hospital visit by physician [facility] Work Phone: [facility] Comment on above: Encounter for screen ing for lung cancer [Z12.2] Start: 09-26-2022 End: 09-26-2022 Office outpatient visit 15 minutes Jaclyn Warren MD Work Phone: [facility] Comment on above: Hyperglycemia (Prima ry Dx); Mixed hyperlipidemia; Gastroesophageal reflux disease without esophagitis; Pulmonary emphysema, unspecified emphysema type (HCC) Start: 08-28-2022 Transcribe Orders Patricia valdez APRN.CNP Work Phone: [facility] Comment on above: Tobacco use disorder (Primary Dx) Start: 08-13-2022 Telephone encounter Jaclyn siegel MD Work Phone: [facility] Comment on above: Medication Problem Start: 06-27-2022 End: 06-27-2022 Office outpatient visit 15 minutes Jaclyn Warren MD Work Phone: [facility] Comment on above: Other constipation ( Primary Dx); Tobacco abuse; Hyperglycemia Start: 02-21-2022 End: 02-21-2022 Office outpatient visit 15 minutes Jaclyn Warren MD Work Phone: [facility] Comment on above: Tobacco abuse (Prima ry Dx); Pulmonary emphysema, unspecified emphysema type (HCC); Urinary frequency; Colon cancer screening Start: 02-09-2022 Chart abstracting Jaclyn lal MD Work Phone: [facility] Start: 11-23-2021 Telephone encounter Jaclyn siegel MD Work Phone: [facility] Comment on above: Medical issue Start: 10-25-2021 End: 10-25-2021 Subsequent hospital visit by physician Jaclyn Warren MD Work Phone: [facility] Comment on above: M25.562 Start: 09-13-2021 End: 09-13-2021 Subsequent hospital visit by physician [facility] Comment on above: ROUTINE FU Start: 07-17-2021 End: 07-17-2021 Subsequent hospital visit by physician [facility] Provider [facility] Comment on above: F17.200 Start: 07-06-2021 End: 07-06-2021 Subsequent hospital visit by physician [facility] Provider [facility] Comment on above: K57.00,R10.9 Start: 06-26-2021 End: 06-26-2021 Subsequent hospital visit by physician [facility] Provider [facility] Comment on above: R20.2 Start: 06-14-2021 End: 06-14-2021 Subsequent hospital visit by physician [facility] Provider [facility] Comment on above: ROUTINE Procedures Date Procedure Procedure Detail Performing Clinician Start: 10-30-2024 X-ray of cervical spine Dr. Jose Quinones MD Work Phone: Start: 10-02-2024 Dup-scan xtr veins complete bilateral study Jaclyn Warren MD Work Phone: Start: 09-21-2024 Radex ankle complete minimum 3 views Jaclyn Warren MD Work Phone: Start: 09-21-2024 Mri spinal canal cer vical w/o contrast emmanuell Yasemin Jaime B[employer] AND FRAME MAN.FLOOR TECH Work Phone: Start: 08-31-2024 Ecg routine ecg w/le ast 12 lds trcg only w/o i&r [facility] Provider Start: 07-16-2024 Lipid 1996 panel - S tana or Plasma Jaclyn Warren MD Work Phone: Start: 10-31-2023 Lipid 1996 panel - S tana or Plasma Jaclyn Warren MD Work Phone: Start: 09-17-2023 Radex spine cervical 4 or 5 views Jaclyn Warren MD Work Phone: Start: 11-22-2022 Brncdilat rspse spmt ry pre&post-brncdilat admn Patricia Wooten [employer] AND [employer]AME MAN.FLOOR TECH Work Phone: Start: 10-31-2022 CT LUNG SCREEN WO IVCON Patricia Wooten B[employer] AND FRAME MAN.FLOOR TECH Work Phone: Start: 06-30-2022 Lipid 1996 panel - S tana or Plasma Jaclyn Warren MD Work Phone: Plan of Treatment Date Care Activity Detail Author Start: 07-16-2029 Lipid panel Lipid Screening [facility] Start: 10-30-2028 Lipid panel Lipid Screening [facility] Start: 09-22-2027 [facility] Start: 09-01-2027 [facility] Start: 07-16-2027 [facility] Start: 06-30-2027 Lipid 1996 panel - Serum or Plasma Lipid Screening [facility] Start: 06-30-2027 Lipid panel Lipid Screening [facility] Start: 06-30-2027 LIPID SCREEN LIPID SCREEN [facility] Start: 06-30-2027 PROSTATE CANCER SCREENING DISCUSSION PROSTATE CANCER SCREENING DISCUSSION [facility] Start: 06-30-2027 Prostate specific antigen measurement Prostate Cancer Screening Discussion [facility] Start: 10-30-2026 [facility] Start: 11-12-2025 Annual PCP Team [employer]os[employer] Engineer sugey Disease Visit Annual PCP Team Chronic Disease Visit [facility] Start: 09-23-2025 Annual PCP Team Explosives Engineer sugey Disease Visit Annual PCP Team Chronic Disease Visit [facility] Start: 09-10-2025 Annual PCP Team Explosives Engineer sugey Disease Visit Annual PCP Team Chronic Disease Visit [facility] Start: 07-16-2025 Annual PCP Team Explosives Engineer sugey Disease Visit Annual PCP Team Chronic Disease Visit [facility] Start: 06-30-2025 DIABETES SCREEN DIABETES SCREEN [facility] Start: 06-30-2025 Diabetes Screening Diabetes Screenin g [facility] Start: 05-04-2025 End: 05-04-2025 Patient encounter procedure 05/04/2025 10:00 AM EST Office Visit [facility] [address] [place] [phone] Stefanie Corona MD [address] [place] [address] 3 month follow up [facility] Comment on above: 3 month follow up Start: 01-19-2025 End: 01-19-2025 Patient encounter procedure Urology Comment on above: 6 month follow up Start: 01-18-2025 Influenza vaccination [facility] Start: 12-24-2024 End: 12-24-2024 Patient encounter procedure 12/24/2024 9:30 AM EDT Office Visit [facility] [address] [place] [address] Jaclyn Warren MD [address] [place], [place] [address] [place] [address] 6 week follow up [facility] Comment on above: 6 week follow up Start: 12-15-2024 LIPID SCREEN LIPID SCREEN [facility] Start: 12-15-2024 End: 12-15-2024 Patient encounter procedure Nuclear Medicine Comment on above: Procedure: NM CARDIA C PERF STRESS/EXERCISE Chest pain on exertion [R07.9] Start: 12-09-2024 End: 12-09-2024 Patient encounter procedure Nuclear Medicine Comment on above: NM CARDIAC PERF STRE SS/EXERCISE Start: 11-25-2024 End: 11-25-2024 Patient encounter procedure 11/25/2024 10:15 AM EDT Office Visit [facility] [address] [place] [address] Jaclyn Warren MD [facility] [address] [place] [address] 2 month follow up [facility] Comment on above: 2 month follow up Start: 11-12-2024 End: 11-12-2024 Patient encounter procedure 11/12/2024 9:30 AM EDT Office Visit [facility] [address] [place] [address] [address] [place] [phone] Jaclyn Warren MD [facility] [facility] [address] [place] [address] SURGERY CLEARANCE-see form [facility] Comment on above: SURGERY CLEARANCE-se e form Start: 11-10-2024 End: 11-10-2024 Patient encounter procedure 11/10/2024 10:30 AM EDT Office Visit [facility] [address] [place] [phone] Carolyn Price APRN.FLOOR TECH [address] [place] [address] pulm surgery clearance [facility] Comment on above: pulm surgery clearan ce Start: 10-30-2024 X-ray of cervical spine Cerv Spine 2 or 3 Views [facility] Start: 10-30-2024 XR Cervical spine 2 or 3 Views [facility] Start: 10-30-2024 Annual PCP Team [employer]osives Engineer sugey Disease Visit Annual PCP Team Chronic Disease Visit [facility] Start: 10-23-2024 End: 10-23-2024 Patient encounter procedure Nuclear Medicine Comment on above: Chest pain on exerti on [R07.9] Start: 10-15-2024 End: 01-14-2025 BERTHA BY IFA WITH REFLEX BERTHA BY IFA WITH REFLEX Lab Routine Positive BERTHA (antinuclear antibody) Expected: 10/15/2024, Expires: 01/14/2025 [facility] Work Phone: Comment on above: Expected: 10/15/2024 , Expires: 01/14/2025 Start: 10-15-2024 End: 01-14-2025 DNA double strand Ab [Units/volume] in Serum by Immunoassay DNA AB DS + CONF BLD Lab Routine Positive BERTHA (antinuclear antibody) Expected: 10/15/2024, Expires: 01/14/2025 [facility] Comment on above: Expected: 10/15/2024 , Expires: 01/14/2025 Start: 10-15-2024 End: 01-14-2025 Hepatitis C virus Ab [Presence] in Serum HEPATITIS C ANTIBODY IA WITH CONFIRMATION Lab Routine Positive BERTHA (antinuclear antibody) Expected: 10/15/2024, Expires: 01/14/2025 [facility] Comment on above: Expected: 10/15/2024 , Expires: 01/14/2025 Start: 10-15-2024 End: 01-14-2025 HIV 1+2 Ab [Presence] in Serum or Plasma by Immunoassay HIV 1/2 COMBO WITH REFLEX TO DIFFERENTIATION Lab Routine Positive BERTHA (antinuclear antibody) Expected: 10/15/2024, Expires: 01/14/2025 [facility] Comment on above: Expected: 10/15/2024 , Expires: 01/14/2025 Start: 2024 RSV Vaccine (1 - Ris k 60-74 years 1-dose series) RSV Vaccine (1 - Risk 60-74 years 1-dose series) [facility] Start: 10-02-2024 End: 10-02-2024 Patient encounter procedure 10/02/2024 9:45 AM EDT Appointment [facility] [address] [place] [address] *US Venous Incompetency [facility] Comment on above: *US Venous Incompete ncy [facility] Start: 09-29-2024 End: 09-29-2024 Patient encounter procedure 09/29/2024 10:15 AM EDT Office Visit [facility] [address] [place] [address] Yasemin Jaime, BODY AND FRAME MAN.FLOOR TECH [address] [place] [address] mri results [facility] Comment on above: mri results Start: 09-28-2024 End: 09-28-2024 ambulatory 09/28/2024 8:45 AM EDT OT/PT/Speech Visit [facility] [address] [place] [address] Marjorie Garvey, PT Cervical radiculopathy [M54.12] [facility] Comment on above: Cervical radiculopat hy [M54.12] Start: 09-23-2024 End: 12-23-2024 Microalbumin/Creatinine [Mass Ratio] in Urine ALBUMIN/CREATININE RATIO, URINE Lab Routine Edema of both lower extremities Expected: 09/23/2024, Expires: 12/23/2024 [facility] Work Phone: Comment on above: Expected: 09/23/2024 , Expires: 12/23/2024 Start: 09-23-2024 End: 09-23-2024 Patient encounter procedure [facility] Comment on above: Acute F/U Acute F/U; LDCT due October 2023 Start: 09-21-2024 End: 09-21-2024 Patient encounter procedure 09/21/2024 11:15 AM EDT Appointment [facility] [address] [place] [address] Cervical radiculopathy [M54.12] [facility] Comment on above: Cervical radiculopat hy [M54.12] Start: 09-16-2024 End: 09-16-2024 Patient encounter procedure 09/16/2024 10:15 AM EDT Office Visit [facility] [address] [place] [phone] Jaclyn Warren MD [address] [place] [address] 2 month follow up [facility] Comment on above: 2 month follow up Start: 09-10-2024 End: 12-10-2024 Nuclear Ab [Presence] in Serum by Immunoassay BERTHA BLOOD Lab Routine Edema of both lower extremities Expected: 09/10/2024, Expires: 12/10/2024 [facility] Work Phone: Comment on above: Expected: 09/10/2024 , Expires: 12/10/2024 Start: 09-10-2024 End: 09-10-2024 Patient encounter procedure 09/10/2024 10:15 AM EDT Office Visit [facility] [address] [place] [address] DR REEMA [address] [facility] [place] [id number] Jaclyn Warren MD [address] [place] [address] DR TATUM HARJINDER [address] [place] [address] 2 month follow up [facility] Comment on above: 2 month follow up Start: 09-08-2024 End: 09-08-2024 Patient encounter procedure 09/08/2024 9:45 AM EDT Office Visit [facility] [address] [place] [address] DR REEMA [address] [place] [address] Yasemin Jaime, BODY AND FRAME MAN.FLOOR TECH [address] [place] [address] [place] [address] Cervical radiculopathy [facility] Comment on above: Cervical radiculopat hy Start: 08-19-2024 End: 08-19-2024 Patient encounter procedure 08/19/2024 2:00 PM EDT Office Visit [facility] [address] [place], [place] [address]Rosalba [address] [place] [address] Yasemin Jaime, BODY AND FRAME MAN.FLOOR TECH [address] [place], [place] [address] [address] Cervical radiculopathy [facility] Comment on above: Cervical radiculopat hy Start: 07-23-2024 Annual PCP Team Explosives Engineer sugey Disease Visit Annual PCP Team Chronic Disease Visit [facility] Start: 07-21-2024 End: 07-21-2024 Patient encounter procedure Urology Comment on above: 1 year f/u *HOWARD* 1 year f/u Start: 07-16-2024 End: 10-15-2024 Hemoglobin A1c in Blood [facility] Work Phone: Comment on above: Expected: 07/16/2024 , Expires: 10/15/2024 Start: 07-16-2024 End: 07-16-2024 Patient encounter procedure 07/16/2024 10:30 AM EST Office Visit [facility] [address] [facility] [place] [address] Jaclyn Warren MD [address] [place], [place] [address]Rosalba [address]AN[address] [facility] [place] [address] follow up [facility] Comment on above: follow up Start: 07-06-2024 DIABETES SCREEN DIABETES SCREEN [facility] Start: 03-27-2024 Annual PCP Team Explosives Engineer sugey Disease Visit Annual PCP Team Chronic Disease Visit [facility] Start: 03-12-2024 End: 03-12-2024 Patient encounter procedure 03/12/2024 9:45 AM EDT Office Visit [place] [address] [address] [place] [address] Jaclyn Warren MD [facility] [address] [place] [address] routine [facility] Comment on above: routine Start: 03-05-2024 End: 03-05-2024 Patient encounter procedure 03/05/2024 10:00 AM EDT Office Visit [place] [address] [place] [address] [facility] [address] [address] [place], [place] [id number] follow up [facility] Comment on above: follow up Start: 01-31-2024 Annual PCP Team Explosives Engineer sugey Disease Visit Annual PCP Team Chronic Disease Visit [facility] Start: 01-19-2024 Covid-19 Vaccine ( season) Covid-19 Vaccine ( season) [facility] Start: 01-19-2024 Covid-19 Vaccine ( season) Covid-19 Vaccine () [facility] Start: 01-19-2024 Influenza vaccination [facility] Start: 01-15-2024 End: 01-15-2024 Patient encounter procedure 01/15/2024 11:00 AM EDT Office Visit [facility] [address] [place] [phone] Stefanie Corona MD [address] [facility] [address] [place], [place] [id number] 4 month follow up Pulmonary emphysema [facility] Comment on above: 4 month follow up Pu lmonary emphysema Start: 12-10-2023 End: 12-10-2023 Patient encounter procedure [facility] Comment on above: 4 week follow up 4 week follow up pt canceled PT due to insurance coverage. Start: 11-11-2023 End: 11-11-2023 ambulatory 11/11/2023 5:15 PM EDT OT/PT/Speech Visit [facility] [place] [address] [place] [address] Aditya Singh, PT, DPT [address] [place] [address] [facility] [place] Comment on above: Ortho Start: 11-06-2023 End: 11-06-2023 Patient encounter procedure 11/06/2023 8:30 PM EDT Office Visit [facility] [address] [place] [address] dr. corona [facility] Comment on above: dr. corona Start: 11-04-2023 End: 11-04-2023 Patient encounter procedure RADIO CT SCAN [facility] Comment on above: annual ldct annual ldct joaquina pemberton 11/03 @ 10a Start: 11-01-2023 Influenza vaccination LUNG CANCER SC REENING [facility] Start: 11-01-2023 Screening for malign ant neoplasm of lung Lung Cancer Screening [facility] Start: 10-31-2023 End: 10-31-2023 Patient encounter procedure 10/31/2023 9:30 AM EDT Office Visit [place] [address] [address] [place] [phone] Jaclyn Warren MD [facility] [address] [place] [address] routine [facility] Comment on above: routine Start: 10-24-2023 End: 10-24-2023 Patient encounter procedure 10/24/2023 9:45 AM EDT Office Visit [place] [address] [address] [place] [address] Jaclyn Warren MD [address] [place], [place] [address]Rosalba [address] [place] [address] follow up [facility] Comment on above: follow up Start: 10-08-2023 End: 10-08-2023 Patient encounter procedure 10/08/2023 8:15 AM EDT Office Visit [facility] [address] [place] [address] Wolfgang Ray MD [address] [place] [address] [place] [id number] G56.03 (ICD-10-CM) - Bilateral carpal tunnel syndrome [facility] Comment on above: G56.03 (ICD-10-CM) - Bilateral carpal tunnel syndrome Start: 09-27-2023 ANNUAL PCP TEAM CONSTRUCTION FLAGGER SUGEY DISEASE VISIT ANNUAL PCP TEAM CHRONIC DISEASE VISIT [facility] Start: 07-26-2023 ANNUAL PCP TEAM CONSTRUCTION FLAGGER SUGEY DISEASE VISIT ANNUAL PCP TEAM CHRONIC DISEASE VISIT [facility] Start: 07-24-2023 End: 10-23-2023 CBC W Auto Differential panel - Blood CBC + DIFF Lab Routine Hyperglycemia Expected: 07/24/2023, Expires: 10/23/2023 [facility] Work Phone: Comment on above: Expected: 07/24/2023 , Expires: 10/23/2023 Start: 07-24-2023 End: 10-23-2023 Comprehensive metabolic 2000 panel - Serum or Plasma COMP METABOLIC PANEL Lab Routine Hyperglycemia Expected: 07/24/2023, Expires: 10/23/2023 [facility] Work Phone: Comment on above: Expected: 07/24/2023 , Expires: 10/23/2023 Start: 07-24-2023 End: 10-23-2023 Hemoglobin A1c in Blood HGB A1C Lab Routine Hyperglycemia Expected: 07/24/2023, Expires: 10/23/2023 [facility] Work Phone: Comment on above: Expected: 07/24/2023 , Expires: 10/23/2023 Start: 07-24-2023 End: 10-23-2023 LIPID PANEL, NONFASTING LIPID PANEL, NONFASTING Lab Routine Mixed hyperlipidemia Expected: 07/24/2023, Expires: 10/23/2023 [facility] Work Phone: Comment on above: Expected: 07/24/2023 , Expires: 10/23/2023 Start: 07-24-2023 End: 10-23-2023 Thyrotropin [Units/volume] in Serum or Plasma TSH BLD Lab Routine Bilateral carpal tunnel syndrome Expected: 07/24/2023, Expires: 10/23/2023 [facility] Work Phone: Comment on above: Expected: 07/24/2023 , Expires: 10/23/2023 Start: 05-20-2023 Behavioral Health Screening Behavioral Health Screening [facility] Start: 05-20-2023 Depression Assessment Depression Ass essment [facility] Start: 01-30-2023 End: 04-01-2023 CBC W Auto Differential panel - Blood CBC + DIFF Lab Routine Hyperglycemia Expected: 01/30/2023, Expires: 04/01/2023 [facility] Work Phone: Comment on above: Expected: 01/30/2023 , Expires: 04/01/2023 Start: 01-30-2023 End: 04-01-2023 Comprehensive metabolic 2000 panel - Serum or Plasma COMP METABOLIC PANEL Lab Routine Hyperglycemia Expected: 01/30/2023, Expires: 04/01/2023 [facility] Work Phone: Comment on above: Expected: 01/30/2023 , Expires: 04/01/2023 Start: 01-30-2023 End: 04-01-2023 Hemoglobin A1c in Blood HGB A1C Lab Routine Hyperglycemia Expected: 01/30/2023, Expires: 04/01/2023 [facility] Work Phone: Comment on above: Expected: 01/30/2023 , Expires: 04/01/2023 Start: 01-30-2023 End: 04-01-2023 Lipid 1996 panel - Serum or Plasma LIPID PANEL BASIC Lab Routine Hyperglycemia Expected: 01/30/2023, Expires: 04/01/2023 [facility] Work Phone: Comment on above: Expected: 01/30/2023 , Expires: 04/01/2023 Start: 01-30-2023 End: 04-01-2023 Urinalysis complete panel - Urine URINALYSIS, WITH MICROSCOPIC Lab Routine Pelvic pain Expected: 01/30/2023, Expires: 04/01/2023 [facility] Work Phone: Comment on above: Expected: 01/30/2023 , Expires: 04/01/2023 Start: 01-18-2023 Covid-19 Vaccine () Covid-19 Vaccine () [facility] Start: 01-18-2023 Influenza vaccination [facility] Start: 09-26-2022 End: 11-26-2022 Hemoglobin A1c in Blood HGB A1C Lab Routine Hyperglycemia Expected: 09/26/2022, Expires: 11/26/2022 [facility] Work Phone: Comment on above: Expected: 09/26/2022 , Expires: 11/26/2022 Start: 09-26-2022 End: 11-26-2022 Lipid 1996 panel - Serum or Plasma LIPID PANEL BASIC Lab Routine Mixed hyperlipidemia Expected: 09/26/2022, Expires: 11/26/2022 [facility] Work Phone: Comment on above: Expected: 09/26/2022 , Expires: 11/26/2022 Start: 07-17-2022 Influenza vaccination LUNG CANCER [facility] Start: 05-20-2022 DEPRESSION ASSESSMENT DEPRESSION [facility] Start: 02-21-2022 End: 04-23-2022 CBC W Auto Differential panel - Blood CBC + DIFF Lab Routine Tobacco abuse Expected: 02/21/2022, Expires: 04/23/2022 [facility] Work Phone: Comment on above: Expected: 02/21/2022 , Expires: 04/23/2022 Start: 02-21-2022 End: 04-23-2022 Comprehensive metabolic 2000 panel - Serum or Plasma COMP METABOLIC PANEL Lab Routine Tobacco abuse Expected: 02/21/2022, Expires: 04/23/2022 [facility] Work Phone: Comment on above: Expected: 02/21/2022 , Expires: 04/23/2022 Start: 02-21-2022 End: 04-23-2022 LIPID PANEL, NONFASTING LIPID PANEL, NONFASTING Lab Routine Tobacco abuse Expected: 02/21/2022, Expires: 04/23/2022 [facility] Work Phone: Comment on above: Expected: 02/21/2022 , Expires: 04/23/2022 Start: 02-21-2022 End: 04-23-2022 PSA/PROSTSPECAG SCRN PSA/PROSTSPECAG SCRN Lab Routine Urinary frequency Expected: 02/21/2022, Expires: 04/23/2022 [facility] Work Phone: Comment on above: Expected: 02/21/2022 , Expires: 04/23/2022 Start: 01-18-2022 Influenza vaccination [facility] Start: 05-20-2021 DEPRESSION ASSESSMENT DEPRESSION ASS ESSMENT [facility] Start: 01-18-2021 Influenza vaccination INFLUENZA (#1) [facility] Start: 10-11-2019 PROSTATE CANCER SCREENING DISCUSSION PROSTATE CANCER SCREENING DISCUSSION [facility] Start: 2014 SHINGRIX VACCINE (1 of 2) SHINGRIX VACCINE (1 of 2) [facility] Start: 2009 COLOGUARD (FIT-DNA) COLOGUARD (FIT-D NA) [facility] Start: 2009 Colonoscopy COLONOSCOPY [facility] Start: 2009 COLORECTAL CANCER SCREENING COLORECTAL CANCER SCREENING [facility] Start: [address] COLONOGRAPHY [facility] Start: 2009 DIABETES SCREEN DIABETES SCREEN [facility] Start: 2009 FECAL OCCULT BLOOD FECAL OCCULT BLOO D [facility] Start: 2009 Screening for malign ant neoplasm of colon [facility] Start: 2009 SIGMOIDOSCOPY SIGMOIDOSCOPY [facility] Start: 10-11-1999 LIPID SCREEN LIPID SCREEN [facility] Start: 1994 Zoledronic acid therapy ALPHA- 1 ANTITRYPSIN DEFICIENCY SCREENING [facility] Start: 10-11-1983 Hepatitis B Vaccine (1 of 3 - 19+ 3-dose series) Hepatitis B Vaccine (1 of 3 - 19+ 3-dose series) [facility] Start: 10-11-1983 Pneumococcal Vaccine : 50+ (1 of 2 - PCV) Pneumococcal Vaccine: 50+ (1 of 2 - PCV) [facility] Start: 10-11-1983 Urine microalbumin profile [facility] Start: 1982 Anxiety Screening Anxiety Screening [facility] Start: 1982 Depression Screening Depression Scre ening [facility] Start: 1982 HEPATITIS C SCREENING HEPATITIS C [facility] Start: 1982 Hepatitis C screening Hepatitis C [facility] Start: 1982 HIV SCREENING HIV SCREENING [facility] Start: 1982 HIV screening HIV Screening [facility] Start: 1982 SPIROMETRY SPIROMETRY [facility] Start: 1976 Adult depression screening assessment DEPRESSION SCREENING [facility] Start: 1970 PNEUMOCOCCAL (1 - PCV) PNEUMOCOCCAL (1 - PCV) [facility] Start: 1970 Pneumococcal vaccination [facility] Start: 1969 COVID-19 VACCINE (#1) COVID-19 VACCI NE (#1) [facility] Start: 1969 COVID-19 VACCINE (1) COVID-19 VACCIN E (1) [facility] Start: 04-12-1965 COVID-19 VACCINE (#1) COVID-19 VACCI NE (#1) [facility] Start: 1964 HEPATITIS B (1 of 3 - 3-dose series) HEPATITIS B (1 of 3 - 3-dose series) [facility] Start: 1964 Hepatitis B Vaccine (1 of 3 - 3-dose series) Hepatitis B Vaccine (1 of 3 - 3-dose series) [facility] End: 12-10-2025 CT Chest for screening WO contrast CT LUNG SCREEN WO IVCON Radiology Routine Lung nodule Encounter for screening for lung cancer Cigarette smoker 1 Occurrences starting 11/10/2024 until 12/10/2025 [facility] Work Phone: Comment on above: 1 Occurrences starti ng 11/10/2024 until 12/10/2025 End: 08-31-2025 ECG COMPLETE ECG COMPLETE ECG Routine Chest discomfort Edema of both ankles 1 Occurrences starting 08/31/2024 until 08/31/2025 [facility] Work Phone: Comment on above: 1 Occurrences starti ng 08/31/2024 until 08/31/2025 End: 10-08-2025 MR Cervical spine WO contrast MRI CERVICAL SPINE WO IVCON Radiology Routine Cervical radiculopathy 1 Occurrences starting 09/08/2024 until 10/08/2025 [facility] Work Phone: Comment on above: 1 Occurrences starti ng 09/08/2024 until 10/08/2025 End: 08-15-2025 NM Heart Perfusion W multiple states of exercise NM CARDIAC PERF STRESS/EXERCISE Radiology Routine Chest pain on exertion 1 Occurrences starting 07/16/2024 until 08/15/2025 [facility] Comment on above: 1 Occurrences starti ng 07/16/2024 until 08/15/2025 Nuclear Ab [Presence ] in Serum by Immunoassay BERTHA BLOOD Lab Routine Edema of both lower extremities 09/21/2024 11:49 AM EDT [facility] End: 09-05-2024 Polysomnogram POLYSOMNOGRAM (PSG) Procedures Routine CAMRYN (obstructive sleep apnea) 1 Occurrences starting 09/06/2023 until 09/05/2024 [facility] Work Phone: Comment on above: 1 Occurrences starti ng 09/06/2023 until 09/05/2024 End: 02-29-2024 Radex spine lumbosacral 2/3 views XR LUMBAR GENERAL 3V AP/LAT/L5-S1 Radiology Routine Lumbar pain 1 Occurrences starting 01/30/2023 until 02/29/2024 [facility] Work Phone: Comment on above: 1 Occurrences starti ng 01/30/2023 until 02/29/2024 End: 06-05-2024 Radiologic exam chest 2 views XR CHEST 2V FRONTAL/LAT Radiology Routine Pulmonary emphysema, unspecified emphysema type (HCC) 1 Occurrences starting 05/07/2023 until 06/05/2024 [facility] Work Phone: Comment on above: 1 Occurrences starti ng 05/07/2023 until 06/05/2024 Radiologic exam ches t 2 views XR CHEST 2V FRONTAL/LAT Radiology Routine Pulmonary emphysema, unspecified emphysema type (HCC) 05/07/2023 11:22 AM EST [facility] Work Phone: End: 09-23-2025 US Vein - bilateral US VENOUS INCOMPETENCY GRABIEL [facility] Vascular Lab Routine Edema of both lower extremities 1 Occurrences starting 09/23/2024 until 09/23/2025 [facility] Comment on above: 1 Occurrences starti ng 09/23/2024 until 09/23/2025 End: 08-22-2024 XR Cervical spine AP and Lateral and oblique XR CERV OTHER 4V AP/LAT/OBL Radiology Routine Radiculopathy of cervicothoracic region 1 Occurrences starting 07/24/2023 until 08/22/2024 [facility] Work Phone: Comment on above: 1 Occurrences starti ng 07/24/2023 until 08/22/2024 XR Cervical spine AP and Lateral and oblique XR CERV OTHER 4V AP/LAT/OBL Radiology Routine Radiculopathy of cervicothoracic region 08/31/2024 10:00 AM EDT [facility] Work Phone: End: 08-22-2024 XR Thoracic spine AP and Lateral XR THORACIC LIMITED 2V AP/LAT Radiology Routine Radiculopathy of cervicothoracic region 1 Occurrences starting 07/24/2023 until 08/22/2024 [facility] Work Phone: Comment on above: 1 Occurrences starti ng 07/24/2023 until 08/22/2024 [facility] Payers Date Payer Category Payer Self-pay 2024 Private Health Insurance [id number] 2024 Unknown [id number] 2023 Unknown [id number] 2019 Medicaid [id number] Unknown [id number] Unknown [id number] Unknown [id number] Social History Date Type Detail Facility Start: 09-13-2008 End: 09-08-2024 Tobacco smoking status MDIS Smokes tobacco daily [facility] History of tobacco use Cigarette Smoker C [facility] Start: 09-13-2008 End: 11-10-2024 Alcohol intake Current non-drinker of alcohol (finding) [facility] Start: 1965 Sex Assigned At Not on file C [facility] Start: 09-13-2008 End: 09-26-2022 Cigarettes smoked current (pack per day) - Reported 0.5 [facility] Start: 02-11-2022 End: 02-21-2022 Exposure to SARS-CoV-2 (event) Not sure [facility] Start: 06-27-2022 End: 09-08-2024 Tobacco use and exposure Smokeless tobacco non-user [facility] Start: 09-26-2022 End: 09-07-2024 Tobacco use panel [facility] National Score (1-10 0), lower number is lower risk 95 [facility] Start: 1965 Sex Assigned At Male W [facility] Clinical Notes 11-23-2021 to 12-15-2024 Telephone Encounter - Donis Randhawa LPN - 12/15/2024 1:28 PM EDTTelephone Encounter - Donis Randhawa LPN - 12/15/2024 1:28 PM EDTTelephone Encounter - Jaclyn Warren MD - 12/15/2024 1:18 PM EDT Note Date & Type Note Facility 12-15-2024 Telephone encounter Note notified. Moses blair a message @ dr. Quinones's office. Faxed over stress test, telephone encounter clearing pt, and last ov note. Donis Randhawa LPN [facility] 12-15-2024 Miscellaneous Notes notified. Moses blair a message @ dr. Quinones's office. Faxed over stress test, telephone encounter clearing pt, and last ov note. Donis Randhawa LPN Stress test was Negative. Patient can have surgery. Please inform patients and the surgeon's office . Thank you Results available. Donis Randhawa LPN Received a call from rossy from dr. Jose quinones's office regarding surgical clearance. She was wanting the stress test results faxed to their office. I called [facility] and spoke with tj. She said she would speak to the doctor and get whatever is outstanding possibly finished today. Rossy notified and pt's also notified. Rossy is asking us to check again around 1P and keep her updated as pt is scheduled for 7:30A tomorrow morning. Fax # to dr. Quinones's office: [phone] Donis Randhawa LPN documented in this encounter [facility] 12-15-2024 Telephone encounter Note Stress test was Negative. Patient can have surgery. Please inform patients and the surgeon's office . Thank you [facility] 12-15-2024 Telephone encounter Note Results available. Donis Randhawa LPN [facility] 12-15-2024 Telephone encounter Note Received a call from rossy from dr. Jose quinones's office regarding surgical clearance. She was wanting the stress test results faxed to their office. I called [facility] and spoke with tj. She said she would speak to the doctor and get whatever is outstanding possibly finished today. Rossy notified and pt's also notified. Rossy is asking us to check again around 1P and keep her updated as pt is scheduled for 7:30A tomorrow morning. Fax # to dr. Quinones's office: [phone] Donis Randhawa LPN [facility] 12-09-2024 Note HNO ID: [id number] Author: MARSHA WADE RT(R) Service: ? Author Type: Technologist Type: Progress Notes Filed: 12/09/2024 10:33 Note Text: RADIOLOGY SERVICE PROGRESS NOTE SERVICE DATE: 12/09/2024 SERVICE TIME: 10:32 AM PATIENT IDENTITY VERIFICATION COMPLETED USING TWO (2) STANDARD IDENTIFIERS: Name and Date of confirmed by patient verbally FALL SCREENING: Has the patient had 2 falls in the last year or 1 fall with injury or currently using an Ambulatory Assistive Device (Walker, Cane, Wheelchair, Crutches, etc.)? No PATIENT GENDER DATA: .male ALLERGIES: Reviewed and unchanged MEDICATIONS REVIEWED: Yes PATIENT RELEVANT IMPLANT DATA REVIEWED: Not Applicable PATIENT PRESENTS WITH AN IMPLANTABLE OR ATTACHED SHOER: No CREATININE: Creatinine Date Value Ref Range Status 09/21/2024 1.20 0.50 - 1.40 mg/dL Final Comment: Patients receiving either N-Acetylcysteine (NAC) or Metamizole prior to venipuncture, may have falsely depressed results. 08/31/2024 1.01 0.50 - 1.40 mg/dL Final Comment: Patients receiving either N-Acetylcysteine (NAC) or Metamizole prior to venipuncture, may have falsely depressed results. 10/31/2023 1.06 0.50 - 1.40 mg/dL Final Comment: Patients receiving either N-Acetylcysteine (NAC) or Metamizole prior to venipuncture, may have falsely depressed results. Estimated Glomerular Filtration Rate Date Value Ref Range Status 09/21/2024 70 >=60 mL/min/1.73m? Final Comment: Estimated Glomerular Filtration Rate (eGFR) is calculated using the 2020 CKD-EPI creatinine equation. This equation utilizes serum creatinine, sex, and age as parameters. The creatinine assay has traceable calibration to isotope dilution-mass spectrometry. Refer to KDIGO guidelines for clinical interpretation. In patients with unstable renal function, e.g. those with acute kidney injury, the eGFR may not accurately reflect actual GFR. eGFR- Date Value Ref Range Status 12/16/2019 Greater than 60 Final P.O.C.T. RESULTS: N/A December 09, [address] PERFORMED: No IV SITE: Ambulatory: A peripheral IV was started in the Left antecubital site with a Angio cath/Butterfly: 22 gauge. POST EXAM PIV STATUS: Discontinued PROCEDURE TYPE: NM Stress: 13.7mCi [id number] was administered IV for Rest Imaging at 0800 by s. 35.4 mCi [id number] was administered IV for Stress Imaging at 0915 by s. ADMINISTRATION TIME: 0915 PATIENT DISCHARGED TO: Ambulatory patient, left [place] department area. Is this a therapy: No A Diagnostic radioactive procedure has taken place, with no further precautions necessary other than routine body substance precautions. More information regarding radiation safety can be found using this link: [email or web address] 20Diagnostic%20Nuclear%20Medicin [email or web address] SIGNATURE: RT Geraldine(R) PATIENT NAME: Mary Anne Ramos DATE: December 09, 2024 TIME: 10:32 AM PAGER/CONTACT #: [facility] 12-09-2024 History of Presen t illness Narrative RADIOLOGY SERVICE PROGRESS NOTE SERVICE DATE: 12/09/2024 SERVICE TIME: 10:32 AM PATIENT IDENTITY VERIFICATION COMPLETED USING TWO (2) STANDARD IDENTIFIERS: Name and Date of confirmed by patient verbally FALL SCREENING: Has the patient had 2 falls in the last year or 1 fall with injury or currently using an Ambulatory Assistive Device (Walker, Cane, Wheelchair, Crutches, etc.)? No PATIENT GENDER DATA: .male ALLERGIES: Reviewed and unchanged MEDICATIONS REVIEWED: Yes PATIENT RELEVANT IMPLANT DATA REVIEWED: Not Applicable PATIENT PRESENTS WITH AN IMPLANTABLE OR ATTACHED SHOER: No CREATININE: Creatinine Date Value Ref Range Status 09/21/2024 1.20 0.50 - 1.40 mg/dL Final Comment: Patients receiving either N-Acetylcysteine (NAC) or Metamizole prior to venipuncture, may have falsely depressed results. 08/31/2024 1.01 0.50 - 1.40 mg/dL Final Comment: Patients receiving either N-Acetylcysteine (NAC) or Metamizole prior to venipuncture, may have falsely depressed results. 10/31/2023 1.06 0.50 - 1.40 mg/dL Final Comment: Patients receiving either N-Acetylcysteine (NAC) or Metamizole prior to venipuncture, may have falsely depressed results. Estimated Glomerular Filtration Rate Date Value Ref Range Status 09/21/2024 70 >=60 mL/min/1.73m Final Comment: Estimated Glomerular Filtration Rate (eGFR) is calculated using the 2020 CKD-EPI creatinine equation. This equation utilizes serum creatinine, sex, and age as parameters. The creatinine assay has traceable calibration to isotope dilution-mass spectrometry. Refer to KDIGO guidelines for clinical interpretation. In patients with unstable renal function, e.g. those with acute kidney injury, the eGFR may not accurately reflect actual GFR. eGFR- Date Value Ref Range Status 12/16/2019 Greater than 60 Final P.O.C.T. RESULTS: N/A December 09, [address] PERFORMED: No IV SITE: Ambulatory: A peripheral IV was started in the Left antecubital site with a Angio cath/Butterfly: 22 gauge. POST EXAM PIV STATUS: Discontinued PROCEDURE TYPE: [place] Stress: 13.7mCi [id number] was administered IV for [facility] at 0800 by [facility]. 35.4 mCi [id number] was administered IV for Stress Imaging at 0915 by [facility]. ADMINISTRATION TIME: 0915 PATIENT DISCHARGED TO: Ambulatory patient, left [place] department area. Is this a therapy: No A Diagnostic radioactive procedure has taken place, with no further precautions necessary other than routine body substance precautions. More information regarding radiation safety can be found using this link: [email or web address] uclear%[email or web address] df SIGNATURE: RT Geraldine(Annie) PATIENT NAME: Mary Anne Ramos DATE: December 09, 2024 TIME: 10:32 AM PAGER/CONTACT #: documented in this encounter [facility] 12-07-2024 Telephone encounter Note spoke with pt's on phone regarding stress test instructions including medications and not consuming any caffeine/decaf products or Beta hunter meds 12 hrs prior to exercise stress test with date, time, location, department call back number provided. Leelee Iverson RN [facility] 12-07-2024 Miscellaneous Notes spoke with pt's on phone regarding stress test instructions including medications and not consuming any caffeine/decaf products or Beta hunter meds 12 hrs prior to exercise stress test with date, time, location, department call back number provided. Leelee Iverson RN documented in this encounter [facility] 11-25-2024 Telephone encounter Note Referral status is closed stating OON, but auth was submitted for [employer], not [employer]. Email sent to [employer] to correct so pt can be scheduled [facility] 11-25-2024 Miscellaneous Notes Referral status is closed stating OON, but auth was submitted for [employer], not [employer]. Email sent to [employer] to correct so pt can be scheduled New order placed - ok to schedule. Thank you, Maicol Greer APRN.CNP Summary: LDLS order This patient is an established patient and will need to get scheduled for a lung screen and a follow up appointment. Can you please put in a order for CT? He was last seen in 2022, he like morning appointments.Kendy Rhodes MA November 10, 2024 11:08 AM documented in this encounter [facility] 11-19-2024 Telephone encounter Note No sx clc form here- called [facility] to request the form to be sent to our office. Felisha Cisse MA November 19, 2024 11:20 AM [facility] 11-19-2024 Miscellaneous Notes No sx clc form here- called [facility] to request the form to be sent to our office. Felisha Cisse MA November 19, 2024 11:20 AM Patient's doctors office sent pulmonary clearance form needs completed. Asked if we received it. Sent message to [employer]. Nubia Page RN documented in this encounter [facility] 11-18-2024 Telephone encounter Note Patient's doctors office sent pulmonary clearance form needs completed. Asked if we received it. Sent message to [employer]. Nubia Page RN [facility] 11-17-2024 Telephone encounter Note No sooner appts than 12/09 for stress test. Donis Randhawa LPN [facility] 11-17-2024 Miscellaneous Notes No sooner appts than 12/09 for stress test. Donis Randhawa LPN This is patient's EKG from 11/06/2024. It does show left anterior fascicular block. This was present in his EKG done in August as well. With patient's history of chest pain I am very reluctant to clear him for surgery. Will have to wait for stress test to make sure. Patient has an extensive smoking history. Also has extensive ischemic heart disease history in his dad. Will need to make sure his stress test does not show any ischemia prior to clearing him. Rossy from dr. Quinones's office @ [facility] called stating dr. Quinones is concerned about this pt and asking that the stress test be moved up because pt is losing function. I did get him rescheduled for 12/09 this morning with central scheduling at a [facility], otherwise there was nothing sooner. Rossy was stating maybe the pt needs moved to a bigger facility like [facility] or [facility]. Rossy just said to let the pt know and they would call their office if something changes. Donis Randhawa LPN documented in this encounter [facility] 11-16-2024 Telephone encounter Note This is patient's EKG from 11/06/2024. It does show left anterior fascicular block. This was present in his EKG done in August as well. With patient's history of chest pain I am very reluctant to clear him for surgery. Will have to wait for stress test to make sure. Patient has an extensive smoking history. Also has extensive ischemic heart disease history in his dad. Will need to make sure his stress test does not show any ischemia prior to clearing him. [facility] 11-16-2024 Telephone encounter Note Rossy from dr. Quinones's office @ [facility] called stating dr. Quinones is concerned about this pt and asking that the stress test be moved up because pt is losing function. I did get him rescheduled for 12/09 this morning with central scheduling at a [facility], otherwise there was nothing sooner. Rossy was stating maybe the pt needs moved to a bigger facility like [facility] or [facility]. Rossy just said to let the pt know and they would call their office if something changes. Donis Randhawa LPN [facility] 11-12-2024 Telephone encounter Note Faxed the pt's surgical clearance form to [facility] - clearance is pending the pt's stress test which is scheduled for 12/15. I called [facility] and was told the order is closed, and rescheduling the stress test can't be done because the order is closed. Told it would be best to keep the pt's stress test scheduled where it is. Donis Randhawa LPN [facility] 11-12-2024 Miscellaneous Notes Faxed the pt's surgical clearance form to [facility] - clearance is pending the pt's stress test which is scheduled for 12/15. I called [facility] and was told the order is closed, and rescheduling the stress test can't be done because the order is closed. Told it would be best to keep the pt's stress test scheduled where it is. Donis Randhawa LPN documented in this encounter [facility] 11-12-2024 Note HNO ID: [id number] Author: JACLYN WARREN MD Service: ? Author Type: Physician Type: Progress Notes Filed: 11/12/2024 16:33 Note Text: [facility] Visit Date: November 12, 2024 Follow Up Visit Chief Complaint: Patient here for preop exam. Continues to have swelling of his ankles. Review of History: Mary Anne Ramos is a 59 year old who is here for an acute visit to be cleared for his upcoming surgery. Patient has significant cervical disc protrusion and radiculopathy for which he is undergoing surgery. Patient had mentioned exertional chest pain in the past because of which I had ordered a stress test. Stress test is supposed to be done December 15 and patient surgery scheduled for November 18. Advised the patient that I will not be clearing him at this time. Continues to have swelling of his ankles. It has gone down a little after he cut down eating salty snacks. It is still present however. Patient has had an extensive workup for this and the only thing that came back positive was a positive centromere and an BERTHA. Past Medical History: PAST MEDICAL HISTORY Diagnosis Date DDD (degenerative disc disease), cervical Health Maintenance: Colonoscopy: Vaccination: Allergies: ALLERGIES No Known Allergies Medications: Current Outpatient Medications Medication Sig Dispense Refill albuterol HFA (PROVENTIL HFA, VENTOLIN HFA) 90 mcg/actuation inhaler inhale 2 puffs by mouth and INTO THE LUNGS every 4 hours if needed for cough shortness of breath or wheezing 18 g 4 meloxicam (MOBIC) 15 mg tablet TAKE ONE TABLET BY MOUTH EVERY DAY (Patient not taking: Reported on 11/10/2024) 30 tablet 0 Tadalafil (CIALIS) 5 mg tablet Take 1 tablet by mouth once daily. On days when you plan to be sexually active, skip your daily dose and take up to 4 tabs 1-2 hours prior to sex. (Patient not taking: Reported on 11/10/2024) 50 tablet 5 atorvastatin (LIPITOR) 20 mg tablet take 1 tablet by mouth once daily (Patient not taking: Reported on 11/10/2024) 90 tablet 3 No current facility-administered medications for this visit. Social History: Social History Tobacco Use Smoking status: Every Day Current packs/day: 0.50 Average packs/day: 0.5 packs/day for 45.0 years (22.5 ttl pk-yrs) Types: Cigarettes Smokeless tobacco: Never Vaping Use Vaping status: Never Used Substance Use Topics Alcohol use: No Drug use: No Family History: Family History Problem Relation Age of Onset Cancer Mother ovarian Diabetes Father Ischemic Heart Disease Father Coronary Artery Disease Father Heart Attack Father Breast Cancer Sister Breast Cancer Paternal Aunt Past Surgical History: PAST SURGICAL HISTORY Procedure Laterality Date APPENDECTOMY Review of Systems: Review of Systems Physical Exam: BP 110/78 (BP Site: Left Arm, BP Position: Sitting, BP Cuff Size: Regular Adult) Pulse 78 Temp 36.5 ?C (97.7 ?F) (Temporal) Resp 16 Ht 185.4 cm (6' 1) Wt 74.8 kg (165 lb) SpO2 98% BMI 21.77 kg/m? Physical Exam Constitutional: Appearance: Normal appearance. Cardiovascular: Rate and Rhythm: Normal rate and regular rhythm. Pulmonary: Breath sounds: Normal breath sounds. Musculoskeletal: Right lower leg: Edema present. Left lower leg: Edema present. Neurological: General: No focal deficit present. Mental Status: He is alert and oriented to person, place, and time. Assessment and Plan:: ASSESSMENT/PLAN: 1. Pre-op exam - ICD9: V72.84, ICD10: Z01.818 (primary diagnosis) Patient will not be cleared for his upcoming surgery because of pending stress test. Explained to patient why I could not clear him at this time and he voices understanding. 2. Cervical radiculopathy - ICD9: 723.4, ICD10: M54.12 Will have to wait for patient's stress test to be done and for her to be negative prior to clearing patient for surgery. He is agreeable with the plan. 3. Chest pain on exertion - ICD9: 786.50, ICD10: R07.9 Patient complained about chest pain in June and the stress test was ordered. It is scheduled for December 15 and I will await those results prior to clearing him for surgery. Patient was given a few tablets of Lasix for the edema. He will try taking it again. Edema is pitting at this time. No other new signs or symptoms. Workup has been pretty much negative. Discussed with patient and his about the positive BERTHA and anticentromere antibody. This is something we will have to revisit in the future. Patient does not have any symptoms or any findings suggestive of CREST syndrome or SLE. Jaclyn Warren MD [facility] 11/12/2024 [facility] 11-12-2024 History of Presen t illness Narrative Images from the original note were not included. Internal Medicine [facility] Visit Date: November 12, 2024 Follow Up Visit Chief Complaint: Patient here for preop exam. Continues to have swelling of his ankles. Review of History: Mary Anne Ramos is a 59 year old who is here for an acute visit to be cleared for his upcoming surgery. Patient has significant cervical disc protrusion and radiculopathy for which he is undergoing surgery. Patient had mentioned exertional chest pain in the past because of which I had ordered a stress test. Stress test is supposed to be done December 15 and patient surgery scheduled for November 18. Advised the patient that I will not be clearing him at this time. Continues to have swelling of his ankles. It has gone down a little after he cut down eating salty snacks. It is still present however. Patient has had an extensive workup for this and the only thing that came back positive was a positive centromere and an BETRHA. Past Medical History: PAST MEDICAL HISTORY Diagnosis Date DDD (degenerative disc disease), cervical Health Maintenance: Colonoscopy: Vaccination: Allergies: ALLERGIES No Known Allergies Medications: Current Outpatient Medications Medication Sig Dispense Refill albuterol HFA (PROVENTIL HFA, VENTOLIN HFA) 90 mcg/actuation inhaler inhale 2 puffs by mouth and INTO THE LUNGS every 4 hours if needed for cough shortness of breath or wheezing 18 g 4 meloxicam (MOBIC) 15 mg tablet TAKE ONE TABLET BY MOUTH EVERY DAY (Patient not taking: Reported on 11/10/2024) 30 tablet 0 Tadalafil (CIALIS) 5 mg tablet Take 1 tablet by mouth once daily. On days when you plan to be sexually active, skip your daily dose and take up to 4 tabs 1-2 hours prior to sex. (Patient not taking: Reported on 11/10/2024) 50 tablet 5 atorvastatin (LIPITOR) 20 mg tablet take 1 tablet by mouth once daily (Patient not taking: Reported on 11/10/2024) 90 tablet 3 No current facility-administered medications for this visit. Social History: Social History Tobacco Use Smoking status: Every Day Current packs/day: 0.50 Average packs/day: 0.5 packs/day for 45.0 years (22.5 ttl pk-yrs) Types: Cigarettes Smokeless tobacco: Never Vaping Use Vaping status: Never Used Substance Use Topics Alcohol use: No Drug use: No Family History: Family History Problem Relation Age of Onset Cancer Mother ovarian Diabetes Father Ischemic Heart Disease Father Coronary Artery Disease Father Heart Attack Father Breast Cancer Sister Breast Cancer Paternal Aunt Past Surgical History: PAST SURGICAL HISTORY Procedure Laterality Date APPENDECTOMY Review of Systems: Review of Systems Physical Exam: BP 110/78 (BP Site: Left Arm, BP Position: Sitting, BP Cuff Size: Regular Adult) Pulse 78 Temp 36.5 C (97.7 F) (Temporal) Resp 16 Ht 185.4 cm (6' 1) Wt 74.8 kg (165 lb) SpO2 98% BMI 21.77 kg/m Physical Exam Constitutional: Appearance: Normal appearance. Cardiovascular: Rate and Rhythm: Normal rate and regular rhythm. Pulmonary: Breath sounds: Normal breath sounds. Musculoskeletal: Right lower leg: Edema present. Left lower leg: Edema present. Neurological: General: No focal deficit present. Mental Status: He is alert and oriented to person, place, and time. Assessment and Plan:: ASSESSMENT/PLAN: 1. Pre-op exam - ICD9: V72.84, ICD10: Z01.818 (primary diagnosis) Patient will not be cleared for his upcoming surgery because of pending stress test. Explained to patient why I could not clear him at this time and he voices understanding. 2. Cervical radiculopathy - ICD9: 723.4, ICD10: M54.12 Will have to wait for patient's stress test to be done and for her to be negative prior to clearing patient for surgery. He is agreeable with the plan. 3. Chest pain on exertion - ICD9: 786.50, ICD10: R07.9 Patient complained about chest pain in June and the stress test was ordered. It is scheduled for December 15 and I will await those results prior to clearing him for surgery. Patient was given a few tablets of Lasix for the edema. He will try taking it again. Edema is pitting at this time. No other new signs or symptoms. Workup has been pretty much negative. Discussed with patient and his about the positive BERTHA and anticentromere antibody. This is something we will have to revisit in the future. Patient does not have any symptoms or any findings suggestive of CREST syndrome or SLE. Jaclyn Warren MD [facility] 11/12/2024 Pt is here for surgery clearance. Pt has no concerns for today. Pt does need refills on medication documented in this encounter [facility] 11-12-2024 Note HNO ID: [id number] Author: JESSE BOLANOS MA Service: ? Author Type: Anesthesiologist Attending Type: Progress Notes Filed: 11/12/2024 16:33 Note Text: Pt is here for surgery clearance. Pt has no concerns for today. Pt does need refills on medication [facility] 11-10-2024 Telephone encounter Note New order placed - ok to schedule. Thank you, Maicol Greer APRN.CNP [facility] 11-10-2024 Telephone encounter Note Summary: LDLS order This patient is an established patient and will need to get scheduled for a lung screen and a follow up appointment. Can you please put in a order for CT? He was last seen in 2022, he like morning appointments.Kendy Rhodes MA November 10, 2024 11:08 AM [facility] 11-10-2024 Instructions Carolyn Price APRN.PERRI - 11/10/2024 10:52 AM EDT We discussed your upcoming anterior cervical fusion surgery (C4 through C7): - Your surgery is scheduled for November 23. - I will send my recommendations to your surgeon, including the possibility of needing nebulizer treatments and oxygen after surgery due to potential shortness of breath or mucus buildup from anesthesia. - Continue using the surgical scrub as instructed before your procedure. We discussed your COPD and smoking history: - You are not currently using any inhalers regularly. You have an albuterol inhaler for rescue use, but you have not been using it. I have added it back to your medication list. - You are doing well with reducing your smoking to 4-5 cigarettes per day. Smoking can impact wound healing after surgery, so it is important to continue reducing or quit entirely if possible. - You should follow up with the lung cancer screening program. I will have my team schedule your next annual CT scan to monitor the stable nodules previously identified. We discussed your neck pain and balance issues: - You are currently taking meloxicam daily for pain, but it wears off at night. Continue taking this as prescribed. - You are experiencing symptoms such as dropping objects, balance issues, and jerking movements. These symptoms are being addressed by your orthopedic doctor, Dr. Hazel, at [facility]. We discussed your leg swelling: - You have been evaluated for congestive heart failure, and it was ruled out. - You previously tried Lasix (furosemide) 20 mg daily for swelling, but it was not effective. - You are seeing your PCP on to discuss ongoing swelling in your legs and feet. We discussed your medications: - You are currently taking Lipitor (cholesterol medication) and meloxicam (pain medication). - You are not using Symbicort, Trelegy, or Flonase at this time. - You have an albuterol inhaler for rescue use, which is not . We discussed follow-up care: - I recommend you follow up with Dr. Chaudhry in 3-6 months to reestablish care. - I will have my team schedule your next lung cancer screening CT scan. - Please continue to follow up with your PCP and other specialists as needed. If you have any new or worsening symptoms, such as shortness of breath, chest pain, or increased swelling, please contact our office or seek medical attention. documented in this encounter [facility] 11-10-2024 Note HNO ID: [id number] Author: CAROLYN PRICE APRN.CNP Service: ? Author Type: Nurse Practitioner Type: Progress Notes Filed: 11/18/2024 11:54 Note Text: Patient: Mary Anne Ramos PCP: Jaclyn Warren MD CC: COPD HPI: Mary Anne Ramos is a pleasant 59 year old male who has a past medical history of DDD (degenerative disc disease), cervical. The patient is accompanied by his Jamee. Tobacco Use: High Risk (11/10/2024) Patient History Smoking Tobacco Use: Every Day Smokeless Tobacco Use: Never Passive Exposure: Not on file he is being followed by Dr. Corona for COPD and was last seen on 09/06/2023. At that visit: - Smoking cessation recommended - Sleep study ordered (not done) Today he presents for preoperative clearance for an upcoming anterior cervical fusion at C4-C7. Mary Anne reports no current dyspnea, cough, or wheezing, and denies any recent upper respiratory infections. He is not using his Trelegy or Symbicort inhalers, and has an albuterol inhaler prescribed by Dr. Warren, but has not been using it regularly. He reports a reduction in smoking to 4-5 cigarettes per day, down from a full pack. He denies any chest pain, palpitations, or fluttering sensations in the chest. He has not completed a sleep study due to work commitments and has not rescheduled it. He reports good sleep quality, being able to sleep easily. Mary Anne has been experiencing significant neck pain, described as stabbing, burning, and throbbing, which worsens at night after the effects of meloxicam, prescribed by his orthopedic doctor, wear off. He also reports numbness and a pulling sensation in the neck. He has been experiencing balance issues, leading to falls, and has been dropping objects frequently. He is under the care of an orthopedic doctor at [facility] and is scheduled for an anterior cervical fusion at C4-C7 on November 23. Mary Anne also reports swelling in his legs and feet, for which he has been using compression stockings. He was previously prescribed furosemide 20 mg once daily by Dr. Warren, but reports it was ineffective. Pulmonary Regimen: Trelegy - not using, was too strong Albuterol - hasn't needed mMRC: Walking should be assessed on level ground Symptom severity: [0] Dyspnea only with strenuous exercise [+1] Dyspnea when hurrying or walking up a slight hill [+2] Walks slower than people of the same age because of dyspnea or has to stop for breath when walking at own pace [+3] Stops for breath after walking 100 yards (91 m) or after a few minutes [+4] Too dyspneic to leave house or breathless when dressing Last 5 Encounter Wt Readings: Date: Wt: 11/10/2024 76.1 kg (167 lb 12.8 oz) 09/29/2024 74.8 kg (165 lb) 09/23/2024 75.3 kg (166 lb) 09/10/2024 73.9 kg (163 lb) 09/08/2024 74.8 kg (165 lb) Allergies: No Known Allergies meloxicam (MOBIC) 15 mg tablet TAKE ONE TABLET BY MOUTH EVERY DAY amoxicillin-clavulanate potassium (AUGMENTIN) 875-125 mg per tablet Take 1 tablet by mouth two times a day. furosemide (LASIX) 20 mg tablet Take 1 tablet by mouth once daily as needed. Tadalafil (CIALIS) 5 mg tablet Take 1 tablet by mouth once daily. On days when you plan to be sexually active, skip your daily dose and take up to 4 tabs 1-2 hours prior to sex. budesonide-formoterol (SYMBICORT) 160-4.5 mcg/actuation inhaler Inhale 2 Puffs as instructed two times a day. albuterol HFA (PROVENTIL HFA, VENTOLIN HFA) 90 mcg/actuation inhaler inhale 2 puffs by mouth and INTO THE LUNGS every 4 hours if needed for cough shortness of breath or wheezing tiZANidine (ZANAFLEX) 4 mg tablet take 1 tablet by mouth once daily atorvastatin (LIPITOR) 20 mg tablet take 1 tablet by mouth once daily fluticasone (FLONASE) 50 mcg/actuation nasal spray instill 2 sprays into each nostril once daily omeprazole (PRILOSEC) 40 mg capsule Take 1 capsule by mouth once daily. BP 121/84 (BP Site: Left Arm, BP Position: Sitting, BP Cuff Size: Regular Adult) Pulse 99 Ht 190.5 cm (6' 3) Wt 76.1 kg (167 lb 12.8 oz) SpO2 96% BMI 20.97 kg/m? I reviewed the past medical history, family history, social history, immunization history and surgical history with changes noted and updated in EMR. Review of Systems Constitutional: Negative. HENT: Negative. Eyes: Negative. Respiratory: Negative. Cardiovascular: Positive for leg swelling. Gastrointestinal: Negative. Genitourinary: Negative. Musculoskeletal: Positive for back pain and neck pain. Skin: Negative. Neurological: Positive for tingling, sensory change, focal weakness and weakness. 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 Psychiatric/Behavioral: Negative. Physical Exam Constitutional: Appearance: Normal appearance. HENT: Head: Normocephalic and atraumatic. Right Ear: Tympanic membrane normal. Left Ear: Tympanic membrane normal. Nose: Nose norm (more content not included)... [facility] 11-10-2024 History of Presen t illness Narrative Patient: Mary Anne Ramos PCP: Jaclyn Warren MD CC: COPD HPI: Mary Anne Ramos is a pleasant 59 year old male who has a past medical history of DDD (degenerative disc disease), cervical. The patient is accompanied by his Jamee. Tobacco Use: High Risk (11/10/2024) Patient History Smoking Tobacco Use: Every Day Smokeless Tobacco Use: Never Passive Exposure: Not on file he is being followed by Dr. Corona for COPD and was last seen on 09/06/2023. At that visit: - Smoking cessation recommended - Sleep study ordered (not done) Today he presents for preoperative clearance for an upcoming anterior cervical fusion at [facility]. Mary Anne reports no current dyspnea, cough, or wheezing, and denies any recent upper respiratory infections. He is not using his Trelegy or Symbicort inhalers, and has an albuterol inhaler prescribed by Dr. Warren, but has not been using it regularly. He reports a reduction in smoking to 4-5 cigarettes per day, down from a full pack. He denies any chest pain, palpitations, or fluttering sensations in the chest. He has not completed a sleep study due to work commitments and has not rescheduled it. He reports good sleep quality, being able to sleep easily. Mary Anne has been experiencing significant neck pain, described as stabbing, burning, and throbbing, which worsens at night after the effects of meloxicam, prescribed by his orthopedic doctor, wear off. He also reports numbness and a pulling sensation in the neck. He has been experiencing balance issues, leading to falls, and has been dropping objects frequently. He is under the care of an orthopedic doctor at [facility] and is scheduled for an anterior cervical fusion at C4-C7 on November 23. Mary Anne also reports swelling in his legs and feet, for which he has been using compression stockings. He was previously prescribed furosemide 20 mg once daily by Dr. Warren, but reports it was ineffective. Pulmonary Regimen: Trelegy - not using, was too strong Albuterol - hasn't needed mMRC: Walking should be assessed on level ground Symptom severity: [0] Dyspnea only with strenuous exercise [+1] Dyspnea when hurrying or walking up a slight hill [+2] Walks slower than people of the same age because of dyspnea or has to stop for breath when walking at own pace [+3] Stops for breath after walking 100 yards (91 m) or after a few minutes [+4] Too dyspneic to leave house or breathless when dressing Last 5 Encounter Wt Readings: Date: Wt: 11/10/2024 76.1 kg (167 lb 12.8 oz) 09/29/2024 74.8 kg (165 lb) 09/23/2024 75.3 kg (166 lb) 09/10/2024 73.9 kg (163 lb) 09/08/2024 74.8 kg (165 lb) Allergies: No Known Allergies meloxicam (MOBIC) 15 mg tablet TAKE ONE TABLET BY MOUTH EVERY DAY amoxicillin-clavulanate potassium (AUGMENTIN) 875-125 mg per tablet Take 1 tablet by mouth two times a day. furosemide (LASIX) 20 mg tablet Take 1 tablet by mouth once daily as needed. Tadalafil (CIALIS) 5 mg tablet Take 1 tablet by mouth once daily. On days when you plan to be sexually active, skip your daily dose and take up to 4 tabs 1-2 hours prior to sex. budesonide-formoterol (SYMBICORT) 160-4.5 mcg/actuation inhaler Inhale 2 Puffs as instructed two times a day. albuterol HFA (PROVENTIL HFA, VENTOLIN HFA) 90 mcg/actuation inhaler inhale 2 puffs by mouth and INTO THE LUNGS every 4 hours if needed for cough shortness of breath or wheezing tiZANidine (ZANAFLEX) 4 mg tablet take 1 tablet by mouth once daily atorvastatin (LIPITOR) 20 mg tablet take 1 tablet by mouth once daily fluticasone (FLONASE) 50 mcg/actuation nasal spray instill 2 sprays into each nostril once daily omeprazole (PRILOSEC) 40 mg capsule Take 1 capsule by mouth once daily. BP 121/84 (BP Site: Left Arm, BP Position: Sitting, BP Cuff Size: Regular Adult) Pulse 99 Ht 190.5 cm (6' 3) Wt 76.1 kg (167 lb 12.8 oz) SpO2 96% BMI 20.97 kg/m I reviewed the past medical history, family history, social history, immunization history and surgical history with changes noted and updated in EMR. Review of Systems Constitutional: Negative. HENT: Negative. Eyes: Negative. Respiratory: Negative. Cardiovascular: Positive for leg swelling. Gastrointestinal: Negative. Genitourinary: Negative. Musculoskeletal: Positive for back pain and neck pain. Skin: Negative. Neurological: Positive for tingling, sensory change, focal weakness and weakness. 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 Psychiatric/Behavioral: Negative. Physical Exam Constitutional: Appearance: Normal appearance. HENT: Head: Normocephalic and atraumatic. Right Ear: Tympanic membrane normal. Left Ear: Tympanic membrane normal. Nose: Nose normal. Mouth/Throat: Mouth: Mucous membranes are moist. Pharynx: Oropharynx is clear. Eyes: Extraocular Movements: Extraocular movements intact. Conjunctiva/sclera: Conjunctivae normal. Pupils: Pupils are equal, round, and reactive to light. Cardiovascular: Rate and Rhythm: Normal rate and regular rhythm. Pulses: Normal pulses. Heart sounds: Normal heart sounds. Pulmonary: Effort: Pulmonary effort is normal. Breath sounds: Normal breath sounds. Abdominal: General: Bowel sounds are normal. Musculoskeletal: General: Normal range of motion. Cervical back: Normal range of motion. Right lower leg: Edema present. Left lower leg: Edema present. Skin: General: Skin is warm and dry. Capillary Refill: Capillary refill takes less than 2 seconds. Neurological: General: No focal deficit present. Mental Status: He is alert and oriented to person, place, and time. Psychiatric: Mood and Affect: Mood normal. Judgment: Judgment normal. DATA: Most recent labs reviewed 11/10/2024 Spirometry Data 11/22/2022 IMPRESSION: Spirometry indicates severe obstruction. There was a borderline significant (FEV1 + cc's, + %) response to bronchodilator. The TLC is reduced indicating restriction. The RV/TLC is elevated indicating air trapping. The diffusing capacity is moderately reduced. Last XR Chest - Impression Only XR CHEST 1V FRONTAL Exam End: 08/31/2024 1:43 PM (Final result) Impression: IMPRESSION: No acute radiographic abnormality. ... CT chest 10/31/2022 RESULT: Are nodules present? Yes, 1-5 nodules If No, go to IMPRESSION. If yes, proceed with characterization of the FIVE largest nodules. Nodule 1: This solid nodule is located in the left apex on slice number 58 with an average diameter of 5.6 mm (6.7 mm x 4.5 mm). Lung RADS 2. This is unchanged from the previous study and is most likely due to scarring. Nodule 2: This solid nodule is located in the left upper lobe medially on slice number 83 with an average diameter of 4.4 mm (5.5 mm x 3.3 mm). Lung RADS 2 Nodule 3: This nodule is located in the on slice number with an average diameter of mm ( mm x mm). Nodule 4: This nodule is located in the on slice number with an average diameter of mm ( mm x mm). Nodule 5: This nodule is located in the on slice number with an average diameter of mm ( mm x mm). If this is an ANNUAL LDCT for LCS, please ensure nodule number is the same as in the prior evaluation. Other lung nodule comments: There is a punctate granuloma in the right lower lobe laterally on image #252 Other findings: The images of the upper abdomen show no acute abnormalities. There is a large amount of retained content in the stomach. There are no pleural effusions. The heart is normal in size. There is no pericardial effusion. The aorta shows no acute findings. There is no mediastinal adenopathy. The thyroid gland is unremarkable. There is chronic consolidation with underlying calcification in the right lower lobe posterior medially which is unchanged. There are scattered peripheral areas of fibrosis. There is bilateral apical scarring. There is thickening along the minor fissure on images 173-177 similar to previous studies. This is best shown on sagittal reconstructed images. Emphysema: There are moderate upper lobe predominant centrilobular emphysematous changes. There are areas of paraseptal emphysema., , Coronary Artery Calcifications: Circumflex none; Left Anterior Descending none Right Coronary none There are no acute osseous abnormalities. Material Requisitioner (topogram) images: Noncontributory Assessment and Plan: 1. Pulmonary emphysema, unspecified emphysema type (HCC) (J43.9) Centrilobular emphysema (HCC) (J43.2) Currently not using Trelegy or Symbicort inhalers; has albuterol inhaler but not using it regularly. No recent shortness of breath, cough, or wheezing reported. Spirometry was performed approximately 5 years ago. - Cleared for surgery with recommendations for post-operative nebulizer treatments and oxygen if needed due to potential exacerbation of COPD symptoms post-anesthesia. - Reinforced the importance of having the albuterol inhaler available for use as needed. 2. CAMRYN (obstructive sleep apnea) (G47.33) Sleep study not completed; patient reports good sleep quality. 3. Tobacco use current (Z72.0) Currently smoking 4-5 cigarettes per day, reduced from a full pack. Aware of the impact on wound healing post-surgery. - Discussed the importance of smoking cessation for optimal surgical outcomes. 7 minutes spent on counseling patient regarding smoking cessation. Discussed risks of continued smoking on current health concerns. Barriers and motivations identified. Smoking cessation strategies, including pharmacological treatment reviewed. Patient is NOT ready to make cessation attempt. 4. Wheezing (R06.2) Shortness of breath (R06.02) No recent episodes reported. 5. Gastroesophageal reflux disease without esophagitis (K21.9) No current symptoms of heartburn; not taking any medications for GERD. ARISCAT (Canet) Preoperative Pulmonary Risk Index Age < 50 years old (0 points) 51 to 80 years old (3 points) >80 years old (16 points) 3 Preoperative Oxygen Saturation > 96% (0 points) 91 to 95% (8 points) < 90% (24 points) 0 Other Clinical Risk Factors Respiratory infection in the last month (17 points) Preoperative anemia with hemoglobin < 10 g/dL (11 points) Emergency surgery (8 points) 0 Surgical Incision Upper abdominal (15 points) Intrathoracic (24 points) 0 Duration of Surgery < 2 hours (0 points) 2 to 3 hours (16 points) >3 hours (23 points) 16 Total: 19 0 to 25 points: Low risk: 1.6% pulmonary complication rate Preoperative Risk Calculation: The features of this patient's history that contribute to the pulmonary risk assessment include: COPD, severe, smoking status, possible CAMRYN that is untreated. This patient has a LOW risk of post-operative pulmonary complications, and LOW risk of post-operative pneumonia by ARISTCAT Index. The absolute assessment of risk/benefit of the procedure is deferred to the primary team's evaluation. Estimated risk of postoperative respiratory failure: 1.6% based on the ARISCAT Index. Postoperative respiratory failure (PRF) is considered as failure to wean from mechanical ventilation within 48 hours of surgery or unplanned intubation/reintubation postoperatively. The validated risk calculator provides a risk estimate of PRF and is anticipated to aid in surgical decision-making and informed patient consent. However Risk can be accepted given the potential benefit of this intervention and it is not prohibitive. RECOMMENDATIONS: In order to minimize the risk of complications and optimize pulmonary status, we recommend the following: - Encourage aggressive incentive spirometry hourly both roosevelt-operatively and post-operatively as tolerated - Early ambulation and physical therapy as tolerated post-operatively - Bronchodilators as needed for wheezing or shortness of breath - Oral steroids only if the patient appears to have component of COPD exacerbation, otherwise no routine utilization needed - Intraoperatively keep OR time to the shortest as possible - Post operatively may benefit from Nocturnal Bipap RTC 6 months Portions of this note were used using [employer] software. Recording using [employer] software for draft documentation of the visit was discussed with the patient/authorized patient service representative; all questions welcomed and answered. Patient/authorized patient service representative agreed to proceed. Carolyn Price APRN-PERRI [facility] Respiratory [place] Office [phone] documented in this encounter [facility] 11-05-2024 Telephone encounter Note See Refill Request on 11/04/24 Pt's Jamee called again requesting a refill for Meloxicam. Send to [facility] on [address] [place] Coty Kearns MA November 05, 2024 3:30 PM [facility] 11-05-2024 Miscellaneous Notes See Refill Request on 11/04/24 Pt's Jamee called again requesting a refill for Meloxicam. Send to [facility] on [address] [place] Coty Kearns MA November 05, 2024 3:30 PM documented in this encounter [facility] 11-04-2024 Telephone encounter Note FYI: Received VM from the Patient's , Jamee, informing the Patient is having his Neck Sx on 11/18/24. (Dr. Quinones). Coty Kearns MA November 04, 2024 1:59 PM [facility] 11-04-2024 Miscellaneous Notes FYI: Received VM from the Patient's , Jamee, informing the Patient is having his Neck Sx on 11/18/24. (Dr. Quinones). Coty Kearns MA November 04, 2024 1:59 PM documented in this encounter [facility] 11-04-2024 Telephone encounter Note Patient requesting medication refill for meloxicam Last seen: 09/29/2024 Last Filled: 09/08/24 Surgery Date (if applicable): Pain description (if given): Confirmed pharmacy:Yes Karolina Briseno RN November 04, 2024 1:48 PM [facility] 11-04-2024 Miscellaneous Notes Patient requesting medication refill for meloxicam Last seen: 09/29/2024 Last Filled: 09/08/24 Surgery Date (if applicable): Pain description (if given): Confirmed pharmacy:Yes Karolina Briseno RN November 04, 2024 1:48 PM documented in this encounter [facility] 11-04-2024 Telephone encounter Note , jamee, called stating pt needs to have spinal surgery done, but doesn't have a date yet. Pt will need surgical clearance. Told we will need a surgical clearance form faxed to us when they know the date. She was given our fax # go give the orthopaedic office. Pt currently scheduled for f/u appt on 11/25. also asking for a refill on the mobic which was filled by orthopaedics and she was notified to call them for a refill. Donis Randhawa LPN [facility] 11-04-2024 Miscellaneous Notes , jamee, called stating pt needs to have spinal surgery done, but doesn't have a date yet. Pt will need surgical clearance. Told we will need a surgical clearance form faxed to us when they know the date. She was given our fax # go give the orthopaedic office. Pt currently scheduled for f/u appt on 11/25. also asking for a refill on the mobic which was filled by orthopaedics and she was notified to call them for a refill. Donis Randhawa LPN documented in this encounter [facility] 10-15-2024 Telephone encounter Note Talked with patients today and informed her that all the testing we did for patient came back negative except for a positive BERTHA which will need some further testing. Patient's will inform him to get the blood work done and I will put the orders in. While discussing with her she did mention that patient does not add any salt to his food but does snack on high sodium foods and I told her to advise him to stop doing that that should help improve his edema. Patient did get compression stockings according to his and is starting to use them. Ordered labs which includes BERTHA confirmation along with hep C HIV etc. call patient and explained to him about test being ordered so that he is not surprised by why hepatitis C and HIV is being ordered. Patient voices understanding and was also counseled about sodium intake and he will make an effort. [facility] 10-15-2024 Miscellaneous Notes Talked with patients today and informed her that all the testing we did for patient came back negative except for a positive BERTHA which will need some further testing. Patient's will inform him to get the blood work done and I will put the orders in. While discussing with her she did mention that patient does not add any salt to his food but does snack on high sodium foods and I told her to advise him to stop doing that that should help improve his edema. Patient did get compression stockings according to his and is starting to use them. Ordered labs which includes BERTHA confirmation along with hep C HIV etc. call patient and explained to him about test being ordered so that he is not surprised by why hepatitis C and HIV is being ordered. Patient voices understanding and was also counseled about sodium intake and he will make an effort. documented in this encounter [facility] 10-01-2024 Telephone encounter Note Spoke with Olu who said that the issue was resolved and patient can have his test tomorrow as scheduled [facility] 10-01-2024 Miscellaneous Notes Spoke with Olu who said that the issue was resolved and patient can have his test tomorrow as scheduled Received a message from olu with [facility] stating they needed an urgent return call regarding a prior authorization for a duplex scan regarding specific info on supervising physician. I called olu back, but had to leave a voicemail. Donis Randhawa LPN documented in this encounter [facility] 10-01-2024 Telephone encounter Note 10/01/24 @ 2:43 pm Telephone Order - Dr. Warren/Reta Salgado RN; Please call patient instruct him to elevate his legs and apply ice. The swelling is causing the burning sensation he's experiencing. Also, patient needs to get the urine test done that was ordered at his last office visit. Called Patient, spoke with Jamee, informed of information above, she voiced understanding. [facility] 10-01-2024 Miscellaneous Notes 10/01/24 @ 2:43 pm Telephone Order - Dr. Warren/Reta Salgado RN; Please call patient instruct him to elevate his legs and apply ice. The swelling is causing the burning sensation he's experiencing. Also, patient needs to get the urine test done that was ordered at his last office visit. Called Patient, spoke with Jamee, informed of information above, she voiced understanding. documented in this encounter [facility] 10-01-2024 Telephone encounter Note Received a message from olu with [facility] stating they needed an urgent return call regarding a prior authorization for a duplex scan regarding specific info on supervising physician. I called olu back, but had to leave a voicemail. Donis Randhawa LPN [facility] 09-29-2024 Note HNO ID: [id number] Author: COTY KEARNS MA Service: ? Author Type: Anesthesiologist Attending Type: Progress Notes Filed: 09/29/2024 11:39 Note Text: Pt presents to the Office for MRI Results. [facility] 09-29-2024 History of Presen t illness Narrative Pt presents to the Office for MRI Results. Images from the original note were not included. Yasemin Jaime APRN [address], [address], [place] [address] Orthopedics Service Date: 09/08/2024 Referring Provider: Jaclyn Warren [address] [place] [address] [place] [id number] Chief Complaint: neck and left arm pain History of Present Illness Mary Anne Ramos is a 58 year old male with medical history significant for tobacco use and emphysema presenting with spouse for f/u today and MRI results. Today reports that he continues to experience radicular pain, now bilateral. Summary of Symptoms Pain Location: left and right side of neck/upper back Radiation of Pain: b/l arms Weakness: denies Dexterity Issues: left hand. Powerhouse Mechanic issues Imbalance: denies Falls: denies Bowel/Bladder Dysfunction: denies Prior Conservative Treatment Physical Therapy: denies Medications: medrol dose pack Pain Management: Injections: Surgery: Other: The following portions of the patient's history were reviewed and updated as appropriate: allergies, current medications, past family history, past medical history, past social history, past surgical history and problem list. ACTIVE PROBLEM LIST Displacement of Cervical Intervertebral Disc Without Myelopathy Tobacco Dependence Syndrome Shortness of Breath Pulmonary Nodule Pulmonary Emphysema (Hcc) Hyperlipidemia Gastroesophageal Reflux Disease Gynecomastia, Male Epistaxis Cough Allergic Rhinitis Lymphocytosis Paresthesia Unspecified Lump in Left Breast, Subareolar PAST MEDICAL HISTORY Diagnosis Date DDD (degenerative disc disease), cervical PAST SURGICAL HISTORY Procedure Laterality Date APPENDECTOMY FAMILY HISTORY Problem Relation Age of Onset Cancer Mother ovarian Diabetes Father Ischemic Heart Disease Father Coronary Artery Disease Father Heart Attack Father Breast Cancer Sister Breast Cancer Paternal Aunt Social History Tobacco Use Smoking status: Every Day Current packs/day: 0.50 Average packs/day: 0.5 packs/day for 45.0 years (22.5 ttl pk-yrs) Types: Cigarettes Smokeless tobacco: Never Vaping Use Vaping status: Never Used Substance Use Topics Alcohol use: No Drug use: No ALLERGIES No Known Allergies Medications: methylPREDNISolone (MEDROL, GRIS,) 4 mg Dose-Pack As instructed per package amoxicillin-clavulanate potassium (AUGMENTIN) 875-125 mg per tablet Take 1 tablet by mouth two times a day. furosemide (LASIX) 20 mg tablet Take 1 tablet by mouth once daily as needed. meloxicam (MOBIC) 15 mg tablet Take 1 tablet by mouth once daily. Tadalafil (CIALIS) 5 mg tablet Take 1 tablet by mouth once daily. On days when you plan to be sexually active, skip your daily dose and take up to 4 tabs 1-2 hours prior to sex. budesonide-formoterol (SYMBICORT) 160-4.5 mcg/actuation inhaler Inhale 2 Puffs as instructed two times a day. albuterol HFA (PROVENTIL HFA, VENTOLIN HFA) 90 mcg/actuation inhaler inhale 2 puffs by mouth and INTO THE LUNGS every 4 hours if needed for cough shortness of breath or wheezing tiZANidine (ZANAFLEX) 4 mg tablet take 1 tablet by mouth once daily atorvastatin (LIPITOR) 20 mg tablet take 1 tablet by mouth once daily fluticasone (FLONASE) 50 mcg/actuation nasal spray instill 2 sprays into each nostril once daily omeprazole (PRILOSEC) 40 mg capsule Take 1 capsule by mouth once daily. Physical Examination: Vital Signs: There were no vitals taken for this visit. General Appearance: Well nourished, well developed, and no apparent distress. Neuro/Psych: Patient oriented to person, place, and time. Mood pleasant. Benign affect. Cardiovascular: Palpable pulses. No edema noted. No varicosities. Skin: Head, neck, trunk, and extremities dry, intact and without lesions. Lymphatics: No palpable nodes in cervical or axillae areas. Groin exam deferred. Musculoskeletal: No tenderness to palpation in the midline over the spinous processes or in the paraspinal musculature. Muscle Tone and Bulk: Symmetrical in the upper & lower extremities. Sensory: Sensation intact to light touch in C5-T1 and L1-S1 dermatomes. Mild ly diminished along C5-6 left arm. Motor: Upper Extremities Right Left Deltoid (C5) 4 4 Biceps (C6) 5 5 Triceps (C7) 5 5 Powerhouse Mechanic (C8) 5 5 Interossei (T1) 5 5 Lower Extremities Right Left Psoas (L2) 5 5 Quadriceps (L3) 5 5 Dorsiflexion (L4) 5 5 EHL (L5) 5 5 Plantarflexion (S1) 5 5 Gait: Able to perform tandem gait. Long Tract Signs: No clonus. No Hoffmanns. Reflexes: Symmetric, non-brisk. Hips: No pain with internal or external rotation. No pain with flexion or extension. Negative straight leg raise. No pain with MARCELLA maneuver. Imaging Assessment 58 year old male who presents with cervical myelopathy with radiculopathy No diagnosis found. Plan The clinical and radiographic findings as well as the risks, benefits, and alternatives of treatment have been reviewed in detail with the patient. We had a discussion of symptoms, examination, and imaging findings. A summary of my recommendations is as follows: PM continue with prescribed meds Recommend surgical consultation with orthopedic spine to discuss depression of spinal stenosis We reviewed the results of the MRI and provided a copy of impression At this time he will look into orthopedic spine specialists as current insurance is not accepted at our facility for surgery. They will call with any further questions or concerns Advised to call the office if symptoms worsen or new symptoms develop. Patient expressed understanding and is in agreement with plan. documented in this encounter [facility] 09-29-2024 Note HNO ID: [id number] Author: YASEMIN JAIME APRN.FLOOR TECH Service: ? Author Type: Nurse Practitioner Type: Progress Notes Filed: 09/29/2024 11:39 Note Text: Yasemin Jaime APRN [address] [address], [place] [id number] Orthopedics Service Date: 09/08/2024 Referring Provider: Jaclyn Warren [address] [facility] [address] [place] [id number] Chief Complaint: neck and left arm pain History of Present Illness Mary Anne Ramos is a 58 year old male with medical history significant for tobacco use and emphysema presenting with spouse for f/u today and MRI results. Today reports that he continues to experience radicular pain, now bilateral. Summary of Symptoms Pain Location: left and right side of neck/upper back Radiation of Pain: b/l arms Weakness: denies Dexterity Issues: left hand. Powerhouse Mechanic issues Imbalance: denies Falls: denies Bowel/Bladder Dysfunction: denies Prior Conservative Treatment Physical Therapy: denies Medications: medrol dose pack Pain Management: Injections: Surgery: Other: The following portions of the patient's history were reviewed and updated as appropriate: allergies, current medications, past family history, past medical history, past social history, past surgical history and problem list. ACTIVE PROBLEM LIST Displacement of Cervical Intervertebral Disc Without Myelopathy Tobacco Dependence Syndrome Shortness of Breath Pulmonary Nodule Pulmonary Emphysema (Hcc) Hyperlipidemia Gastroesophageal Reflux Disease Gynecomastia, Male Epistaxis Cough Allergic Rhinitis Lymphocytosis Paresthesia Unspecified Lump in Left Breast, Subareolar PAST MEDICAL HISTORY Diagnosis Date DDD (degenerative disc disease), cervical PAST SURGICAL HISTORY Procedure Laterality Date APPENDECTOMY FAMILY HISTORY Problem Relation Age of Onset Cancer Mother ovarian Diabetes Father Ischemic Heart Disease Father Coronary Artery Disease Father Heart Attack Father Breast Cancer Sister Breast Cancer Paternal Aunt Social History Tobacco Use Smoking status: Every Day Current packs/day: 0.50 Average packs/day: 0.5 packs/day for 45.0 years (22.5 ttl pk-yrs) Types: Cigarettes Smokeless tobacco: Never Vaping Use Vaping status: Never Used Substance Use Topics Alcohol use: No Drug use: No ALLERGIES No Known Allergies Medications: methylPREDNISolone (MEDROL, GRIS,) 4 mg Dose-Pack As instructed per package amoxicillin-clavulanate potassium (AUGMENTIN) 875-125 mg per tablet Take 1 tablet by mouth two times a day. furosemide (LASIX) 20 mg tablet Take 1 tablet by mouth once daily as needed. meloxicam (MOBIC) 15 mg tablet Take 1 tablet by mouth once daily. Tadalafil (CIALIS) 5 mg tablet Take 1 tablet by mouth once daily. On days when you plan to be sexually active, skip your daily dose and take up to 4 tabs 1-2 hours prior to sex. budesonide-formoterol (SYMBICORT) 160-4.5 mcg/actuation inhaler Inhale 2 Puffs as instructed two times a day. albuterol HFA (PROVENTIL HFA, VENTOLIN HFA) 90 mcg/actuation inhaler inhale 2 puffs by mouth and INTO THE LUNGS every 4 hours if needed for cough shortness of breath or wheezing tiZANidine (ZANAFLEX) 4 mg tablet take 1 tablet by mouth once daily atorvastatin (LIPITOR) 20 mg tablet take 1 tablet by mouth once daily fluticasone (FLONASE) 50 mcg/actuation nasal spray instill 2 sprays into each nostril once daily omeprazole (PRILOSEC) 40 mg capsule Take 1 capsule by mouth once daily. Physical Examination: Vital Signs: There were no vitals taken for this visit. General Appearance: Well nourished, well developed, and no apparent distress. Neuro/Psych: Patient oriented to person, place, and time. Mood pleasant. Benign affect. Cardiovascular: Palpable pulses. No edema noted. No varicosities. Skin: Head, neck, trunk, and extremities dry, intact and without lesions. Lymphatics: No palpable nodes in cervical or axillae areas. Groin exam deferred. Musculoskeletal: No tenderness to palpation in the midline over the spinous processes or in the paraspinal musculature. Muscle Tone and Bulk: Symmetrical in the upper AND lower extremities. Sensory: Sensation intact to light touch in C5-T1 and L1-S1 dermatomes. Mild ly diminished along C5-6 left arm. Motor: Upper Extremities Right Left Deltoid (C5) 4 4 Biceps (C6) 5 5 Triceps (C7) 5 5 Powerhouse Mechanic (C8) 5 5 Interossei (T1) 5 5 Lower Extremities Right Left Psoas (L2) 5 5 Quadriceps (L3) 5 5 Dorsiflexion (L4) 5 5 EHL (L5) 5 5 Plantarflexion (S1) 5 5 Gait: Able to perform tandem gait. Long Tract Signs: No clonus. No Hoffmanns. Reflexes: Symmetric, non-brisk. Hips: No pain with internal or external rotation. No pain with flexion or extension. Negative straight leg raise. No pain with MARCELLA maneuver. Imaging Assessment 58 year old male who presents with cervical myelopathy with radiculopathy No diagnosis found. Plan The clinical and radiographi (more content not included)... [facility] 09-23-2024 Instructions Jaclyn Warren MD - 09/23/2024 11:06 AM EDT Schedule and do the ultrasound Urine test when able documented in this encounter [facility] 09-23-2024 Note HNO ID: [id number] Author: JACLYN WARREN MD Service: ? Author Type: Physician Type: Progress Notes Filed: 09/28/2024 15:12 Note Text: Internal Medicine [facility] Visit Date: September 23, 2024 Follow Up Visit Chief Complaint: Continued swelling of both lower extremities Review of History: Mary Anne Ramos is a 58 year old who is here for a follow-up visit. Patient was given this appointment to follow-up on his lower extremity edema. This occurred gradually and has not improved in spite of giving him some Lasix. Patient also had some pain in the right ankle for which x-ray was done. It did not show any abnormalities. He was treated with Augmentin because of right ankle warmth and erythema and that seems to have resolved but the swelling remains. Patient also reports that his left arm pain and paresthesias have gotten worse. He does have a history of cervical radiculopathy and had a recent MRI which we went over in this visit. Patient does follow-up with orthopedics. 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 Patient has follow-up with Dr. Jaime on September 29. past Medical History: PAST MEDICAL HISTORY Diagnosis Date DDD (degenerative disc disease), cervical Health Maintenance: Colonoscopy: Vaccination: Allergies: ALLERGIES No Known Allergies Medications: Current Outpatient Medications Medication Sig Dispense Refill amoxicillin-clavulanate potassium (AUGMENTIN) 875-125 mg per tablet Take 1 tablet by mouth two times a day. 14 tablet 0 furosemide (LASIX) 20 mg tablet Take 1 tablet by mouth once daily as needed. 10 tablet 0 meloxicam (MOBIC) 15 mg tablet Take 1 tablet by mouth once daily. 30 tablet 0 Tadalafil (CIALIS) 5 mg tablet Take 1 tablet by mouth once daily. On days when you plan to be sexually active, skip your daily dose and take up to 4 tabs 1-2 hours prior to sex. 50 tablet 5 budesonide-formoterol (SYMBICORT) 160-4.5 mcg/actuation inhaler Inhale 2 Puffs as instructed two times a day. 1 Each 3 albuterol HFA (PROVENTIL HFA, VENTOLIN HFA) 90 mcg/actuation inhaler inhale 2 puffs by mouth and INTO THE LUNGS every 4 hours if needed for cough shortness of breath or wheezing 18 g 4 tiZANidine (ZANAFLEX) 4 mg tablet take 1 tablet by mouth once daily 15 tablet 1 atorvastatin (LIPITOR) 20 mg tablet take 1 tablet by mouth once daily 90 tablet 3 fluticasone (FLONASE) 50 mcg/actuation nasal spray instill 2 sprays into each nostril once daily 16 g 1 omeprazole (PRILOSEC) 40 mg capsule Take 1 capsule by mouth once daily. 90 capsule 1 No current facility-administered medications for this visit. Social History: Social History Tobacco Use Smoking status: Every Day Current packs/day: 0.50 Average packs/day: 0.5 packs/day for 45.0 years (22.5 ttl pk-yrs) Types: Cigarettes Smokeless tobacco: Never Vaping Use Vaping status: Never Used Substance Use Topics Alcohol use: No Drug use: No Family History: Family History Problem Relation Age of Onset Cancer Mother ovarian Diabetes Father Ischemic Heart Disease Father Coronary Artery Disease Father Heart Attack Father Breast Cancer Sister Breast Cancer Paternal Aunt Past Surgical History: PAST SURGICAL HISTORY Procedure Laterality Date APPENDECTOMY Review of Systems: Review of Systems Physical Exam: BP 118/82 Pulse 85 Temp 36.2 ?C (97.2 ?F) Resp 18 Ht 193 cm (6' 4) Wt 75.3 kg (166 lb) SpO2 95% BMI 20.21 kg/m? Physical Exam Constitutional: Appearance: Normal appearance. Cardiovascular: Rate and Rhythm: Normal rate and regular rhythm. Pulmonary: Breath sounds: Normal breath sounds. Abdominal: Palpations: Abdomen is soft. There is no mass. Tenderness: There is no abdominal tenderness. Musculoskeletal: Right lower leg: Edema present. Left lower leg: Edema present. Neurological: General: No focal deficit present. Mental Status: He is alert and oriented to person, place, and time. Assessment and Plan:: ASSESSMENT/PLAN: 1. Edema of both lower extremities - ICD9: 782.3, ICD10: R60.0 (primary diagnosis) Minimal pitting on exam. Unsure of what exactly is causing this. Patient not on any medication that would cause edema. No signs of congestion. BNP was normal in the ER when he went for edema. Patient was given Lasix which did not really make much of a difference. Advised patient that this may be due to venous insufficiency and I will order a venous duplex. Information was given for compression stockings. Will also check albumin creatinine ratio to see if there is any changes and protein in the urine. Other blood work was within normal limits. BERTHA is pending we will review that. - ALBUMIN/CREATININE RATIO, URINE - US VENOUS INCOMPETENCY (more content not included)... [facility] 09-23-2024 History of Presen t illness Narrative Images from the original note were not included. Internal Medicine [facility] Visit Date: September 23, 2024 Follow Up Visit Chief Complaint: Continued swelling of both lower extremities Review of History: Mary Anne Ramos is a 58 year old who is here for a follow-up visit. Patient was given this appointment to follow-up on his lower extremity edema. This occurred gradually and has not improved in spite of giving him some Lasix. Patient also had some pain in the right ankle for which x-ray was done. It did not show any abnormalities. He was treated with Augmentin because of right ankle warmth and erythema and that seems to have resolved but the swelling remains. Patient also reports that his left arm pain and paresthesias have gotten worse. He does have a history of cervical radiculopathy and had a recent MRI which we went over in this visit. Patient does follow-up with orthopedics. 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 Patient has follow-up with Dr. Jaime on September 29. past Medical History: PAST MEDICAL HISTORY Diagnosis Date DDD (degenerative disc disease), cervical Health Maintenance: Colonoscopy: Vaccination: Allergies: ALLERGIES No Known Allergies Medications: Current Outpatient Medications Medication Sig Dispense Refill amoxicillin-clavulanate potassium (AUGMENTIN) 875-125 mg per tablet Take 1 tablet by mouth two times a day. 14 tablet 0 furosemide (LASIX) 20 mg tablet Take 1 tablet by mouth once daily as needed. 10 tablet 0 meloxicam (MOBIC) 15 mg tablet Take 1 tablet by mouth once daily. 30 tablet 0 Tadalafil (CIALIS) 5 mg tablet Take 1 tablet by mouth once daily. On days when you plan to be sexually active, skip your daily dose and take up to 4 tabs 1-2 hours prior to sex. 50 tablet 5 budesonide-formoterol (SYMBICORT) 160-4.5 mcg/actuation inhaler Inhale 2 Puffs as instructed two times a day. 1 Each 3 albuterol HFA (PROVENTIL HFA, VENTOLIN HFA) 90 mcg/actuation inhaler inhale 2 puffs by mouth and INTO THE LUNGS every 4 hours if needed for cough shortness of breath or wheezing 18 g 4 tiZANidine (ZANAFLEX) 4 mg tablet take 1 tablet by mouth once daily 15 tablet 1 atorvastatin (LIPITOR) 20 mg tablet take 1 tablet by mouth once daily 90 tablet 3 fluticasone (FLONASE) 50 mcg/actuation nasal spray instill 2 sprays into each nostril once daily 16 g 1 omeprazole (PRILOSEC) 40 mg capsule Take 1 capsule by mouth once daily. 90 capsule 1 No current facility-administered medications for this visit. Social History: Social History Tobacco Use Smoking status: Every Day Current packs/day: 0.50 Average packs/day: 0.5 packs/day for 45.0 years (22.5 ttl pk-yrs) Types: Cigarettes Smokeless tobacco: Never Vaping Use Vaping status: Never Used Substance Use Topics Alcohol use: No Drug use: No Family History: Family History Problem Relation Age of Onset Cancer Mother ovarian Diabetes Father Ischemic Heart Disease Father Coronary Artery Disease Father Heart Attack Father Breast Cancer Sister Breast Cancer Paternal Aunt Past Surgical History: PAST SURGICAL HISTORY Procedure Laterality Date APPENDECTOMY Review of Systems: Review of Systems Physical Exam: BP 118/82 Pulse 85 Temp 36.2 C (97.2 F) Resp 18 Ht 193 cm (6' 4) Wt 75.3 kg (166 lb) SpO2 95% BMI 20.21 kg/m Physical Exam Constitutional: Appearance: Normal appearance. Cardiovascular: Rate and Rhythm: Normal rate and regular rhythm. Pulmonary: Breath sounds: Normal breath sounds. Abdominal: Palpations: Abdomen is soft. There is no mass. Tenderness: There is no abdominal tenderness. Musculoskeletal: Right lower leg: Edema present. Left lower leg: Edema present. Neurological: General: No focal deficit present. Mental Status: He is alert and oriented to person, place, and time. Assessment and Plan:: ASSESSMENT/PLAN: 1. Edema of both lower extremities - ICD9: 782.3, ICD10: R60.0 (primary diagnosis) Minimal pitting on exam. Unsure of what exactly is causing this. Patient not on any medication that would cause edema. No signs of congestion. BNP was normal in the ER when he went for edema. Patient was given Lasix which did not really make much of a difference. Advised patient that this may be due to venous insufficiency and I will order a venous duplex. Information was given for compression stockings. Will also check albumin creatinine ratio to see if there is any changes and protein in the urine. Other blood work was within normal limits. BERTHA is pending we will review that. - ALBUMIN/CREATININE RATIO, URINE - US VENOUS INCOMPETENCY [facility] 2. Cervical radiculopathy - ICD9: 723.4, ICD10: M54.12 Patient has quite significant pain along with paresthesia and numbness in the left arm. He has also been dropping things. Patient's MRI did show significant changes with myelopathic edema for which I will give him a Medrol Dosepak to see if that helps relieve some of the pressure symptoms. He has an appointment with Dr. Jaime next week Which she was advised to keep. They will discuss further management of this problem. MD Jaclyn Gardner MD [facility] 09/23/2024 Pt here today for acute follow up care. Issues or concerns to address today: Pt and state the swelling in his legs is not going down any with the lasix. documented in this encounter [facility] 09-23-2024 Note HNO ID: [id number] Author: ADITYA NATARAJAN LPN Service: ? Author Type: LICENSED NURSE Type: Progress Notes Filed: 09/28/2024 15:12 Note Text: Pt here today for acute follow up care. Issues or concerns to address today: Pt and state the swelling in his legs is not going down any with the lasix. 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 Additional areas of moderate canal narrowing with cord abutment/flattening, as described. Scattered high-grade neural foraminal stenoses, most pronounced at C4-5 on the left, C5-6 bilaterally, and C6-7 bilaterally. Mild cerebellar tonsillar ectopia. Anatomic Variant: None. Assume 7 cervical vertebrae with counting from the craniocervical junction. Freight Broker Agent: [email or web address] Transcribe Date/Time: Sep 21 2024 12:32P Dictated by : CHERISE LOPEZ MD This examination was interpreted and the report reviewed and electronically signed by: CHERISE LOPEZ MD on Sep 21 2024 12:54PM [facility] RADIOLOG[facility] 09-21-2024 History of Presen t illness Narrative Radiology Service Progress Note PATIENT NAME: Mary Anne Ramos DATE OF SERVICE: September 21, 2024 TIME: 11:48 AM PATIENT IDENTITY VERIFICATION COMPLETED USING TWO (2) IDENTIFIERS: Name and Date of confirmed by patient verbally. FALL SCREENING: Has the patient had 2 falls in the last year or 1 fall with injury or currently using an Ambulatory Assistive Device (Walker, Cane, Wheelchair, Crutches, etc.)? No PATIENT GENDER DATA: Assigned male at PATIENT RELEVANT IMPLANT DATA REVIEWED: Not Applicable PATIENT PRESENTS WITH AN IMPLANTABLE OR ATTACHED SHOER: No RADIOLOGY DEPARTMENT: General X-ray: Exam(s) Completed: Lower Extremity X-Ray(s): Ankle, Right PERIPHERAL IV DATA: Not applicable SIGNED BY: RT Viet(Annie) September 21, 2024 11:48 AM documented in this encounter [facility] 09-21-2024 Note HNO ID: [id number] Author: FRANCES ALVAREZ RT(R) Service: ? Author Type: Technologist Type: Progress Notes Filed: 09/21/2024 11:49 Note Text: Radiology Service Progress Note PATIENT NAME: Mary Anne Ramos DATE OF SERVICE: September 21, 2024 TIME: 11:48 AM PATIENT IDENTITY VERIFICATION COMPLETED USING TWO (2) IDENTIFIERS: Name and Date of confirmed by patient verbally. FALL SCREENING: Has the patient had 2 falls in the last year or 1 fall with injury or currently using an Ambulatory Assistive Device (Walker, Cane, Wheelchair, Crutches, etc.)? No PATIENT GENDER DATA: Assigned male at PATIENT RELEVANT IMPLANT DATA REVIEWED: Not Applicable PATIENT PRESENTS WITH AN IMPLANTABLE OR ATTACHED SHOER: No RADIOLOGY DEPARTMENT: General X-ray: Exam(s) Completed: Lower Extremity X-Ray(s): Ankle, Right PERIPHERAL IV DATA: Not applicable SIGNED BY: RT Viet(R) September 21, 2024 11:48 AM [facility] 09-21-2024 History of Presen t illness Narrative Radiology Service Progress Note PATIENT NAME: Mary Anne aRmos DATE OF SERVICE: September 21, 2024 TIME: 11:20 AM PATIENT IDENTITY VERIFICATION COMPLETED USING TWO (2) IDENTIFIERS: Name and Date of confirmed by patient verbally. FALL SCREENING: Has the patient had 2 falls in the last year or 1 fall with injury or currently using an Ambulatory Assistive Device (Walker, Cane, Wheelchair, Crutches, etc.)? No PATIENT GENDER DATA: Assigned male at PATIENT RELEVANT IMPLANT DATA REVIEWED: Yes PATIENT PRESENTS WITH AN IMPLANTABLE OR ATTACHED SHOER: No RADIOLOGY DEPARTMENT: MR; Exam(s) Completed: Spine: Cervical spine. Lavender Administered: No PERIPHERAL IV DATA: Not applicable SIGNED BY: RT Mau(R), (R) September 21, 2024 11:20 AM documented in this encounter [facility] 09-21-2024 Note HNO ID: [id number] Author: MARI GRANDA RT(R) Service: ? Author Type: Product Safety And Standards Engineer Type: Progress Notes Filed: 09/21/2024 11:34 Note Text: Radiology Service Progress Note PATIENT NAME: Mary Anne Ramos DATE OF SERVICE: September 21, 2024 TIME: 11:20 AM PATIENT IDENTITY VERIFICATION COMPLETED USING TWO (2) IDENTIFIERS: Name and Date of confirmed by patient verbally. FALL SCREENING: Has the patient had 2 falls in the last year or 1 fall with injury or currently using an Ambulatory Assistive Device (Walker, Cane, Wheelchair, Crutches, etc.)? No PATIENT GENDER DATA: Assigned male at PATIENT RELEVANT IMPLANT DATA REVIEWED: Yes PATIENT PRESENTS WITH AN IMPLANTABLE OR ATTACHED SHOER: No RADIOLOGY DEPARTMENT: MR; Exam(s) Completed: Spine: Cervical spine. Lavender Administered: No PERIPHERAL IV DATA: Not applicable SIGNED BY: RT Mau(R), (R) September 21, 2024 11:20 AM [facility] 09-10-2024 Instructions Jaclyn Warren MD - 09/10/2024 11:21 AM EDT Blood work and X ray today Take antibiotics for 7 days Take lasix once a day for 3 days and then as needed documented in this encounter [facility] 09-10-2024 Note HNO ID: [id number] Author: JACLYN WARREN MD Service: ? Author Type: Physician Type: Progress Notes Filed: 09/22/2024 13:56 Note Text: Internal Medicine [facility] Visit Date: September 10, 2024 Follow Up Visit Chief Complaint: Swelling of both legs Review of History: Mary Anne Ramos is a 58 year old who is here for an acute visit. Patient was given this appointment because of concerns of bilateral leg swelling. Patient is accompanied by his . Patient says that gradually his legs have started swelling. He went to the emergency room and did not wait because it was taking a very long time so he left. Blood work did not show any signs of heart failure. BNP was within normal limits. CMP was also normal. Does not have any recent episodes of immobilization. He has some pain in the right ankle but denies pain in the calf. He has been on his feet quite a bit at work. Past Medical History: PAST MEDICAL HISTORY Diagnosis Date DDD (degenerative disc disease), cervical Health Maintenance: Colonoscopy: Vaccination: Allergies: ALLERGIES No Known Allergies Medications: Current Outpatient Medications Medication Sig Dispense Refill meloxicam (MOBIC) 15 mg tablet Take 1 tablet by mouth once daily. 30 tablet 0 Tadalafil (CIALIS) 5 mg tablet Take 1 tablet by mouth once daily. On days when you plan to be sexually active, skip your daily dose and take up to 4 tabs 1-2 hours prior to sex. 50 tablet 5 budesonide-formoterol (SYMBICORT) 160-4.5 mcg/actuation inhaler Inhale 2 Puffs as instructed two times a day. 1 Each 3 albuterol HFA (PROVENTIL HFA, VENTOLIN HFA) 90 mcg/actuation inhaler inhale 2 puffs by mouth and INTO THE LUNGS every 4 hours if needed for cough shortness of breath or wheezing 18 g 4 tiZANidine (ZANAFLEX) 4 mg tablet take 1 tablet by mouth once daily 15 tablet 1 atorvastatin (LIPITOR) 20 mg tablet take 1 tablet by mouth once daily 90 tablet 3 fluticasone (FLONASE) 50 mcg/actuation nasal spray instill 2 sprays into each nostril once daily 16 g 1 omeprazole (PRILOSEC) 40 mg capsule Take 1 capsule by mouth once daily. 90 capsule 1 No current facility-administered medications for this visit. Social History: Social History Tobacco Use Smoking status: Every Day Current packs/day: 0.50 Average packs/day: 0.5 packs/day for 45.0 years (22.5 ttl pk-yrs) Types: Cigarettes Smokeless tobacco: Never Vaping Use Vaping status: Never Used Substance Use Topics Alcohol use: No Drug use: No Family History: Family History Problem Relation Age of Onset Cancer Mother ovarian Diabetes Father Ischemic Heart Disease Father Coronary Artery Disease Father Heart Attack Father Breast Cancer Sister Breast Cancer Paternal Aunt Past Surgical History: PAST SURGICAL HISTORY Procedure Laterality Date APPENDECTOMY Review of Systems: Review of Systems Physical Exam: BP 102/72 (BP Site: Left Arm, BP Position: Sitting, BP Cuff Size: Large Adult) Pulse 101 Temp 36.4 ?C (97.5 ?F) Resp 14 Ht 193 cm (6' 4) Wt 73.9 kg (163 lb) SpO2 96% BMI 19.84 kg/m? Physical Exam Constitutional: Appearance: Normal appearance. Cardiovascular: Rate and Rhythm: Normal rate and regular rhythm. Pulmonary: Breath sounds: Normal breath sounds. Musculoskeletal: General: Swelling and tenderness present. Right lower leg: Edema present. Left lower leg: Edema present. Comments: Swelling of both ankles with tenderness of right ankles and decreased range of motion. There is warmth and mild erythema. Neurological: General: No focal deficit present. Mental Status: He is alert and oriented to person, place, and time. Assessment and Plan:: ASSESSMENT/PLAN: 1. Edema of both lower extremities - ICD9: 782.3, ICD10: R60.0 (primary diagnosis) Patient has been gradually developing edema of both lower extremities. There is no precipitating factor. Patient admits to standing a lot at work. He denies any recent immobilization to suggest DVT. Will order some blood work. Will repeat some labs that were done in the ER to see if there is any change and will also add some inflammatory markers etc. to that. - COMPLETE BLOOD COUNT AND DIFFERENTIAL - COMPREHENSIVE METABOLIC PANEL - THYROID STIMULATING HORMONE - T4 FREE/FREE THYROXINE - URINALYSIS, REFLEX MICROSCOPIC - C-REACTIVE PROTEIN - BERTHA BLOOD 2. Cellulitis of right lower extremity - ICD9: 682.6, ICD10: L03.115 On exam there is erythema and warmth of the right lower extremity. I am suspecting a mild cellulitis. Will give him some Augmentin for that. 3. Acute right ankle pain - ICD9: 719.47, 338.19, ICD10: M25.571 Will be ordering an x-ray to evaluate for any joint pathology. It does not appear to be gout because of the lack of severe pain. Will review x-ray results. - XR ANKLE GENERAL 3V AP/LAT/OBL RIGHT 4. Hyperglycem (more content not included)... [facility] 09-10-2024 History of Presen t illness Narrative Images from the original note were not included. Internal Medicine [facility] Visit Date: September 10, 2024 Follow Up Visit Chief Complaint: Swelling of both legs Review of History: Mary Anne Ramos is a 58 year old who is here for an acute visit. Patient was given this appointment because of concerns of bilateral leg swelling. Patient is accompanied by his . Patient says that gradually his legs have started swelling. He went to the emergency room and did not wait because it was taking a very long time so he left. Blood work did not show any signs of heart failure. BNP was within normal limits. CMP was also normal. Does not have any recent episodes of immobilization. He has some pain in the right ankle but denies pain in the calf. He has been on his feet quite a bit at work. Past Medical History: PAST MEDICAL HISTORY Diagnosis Date DDD (degenerative disc disease), cervical Health Maintenance: Colonoscopy: Vaccination: Allergies: ALLERGIES No Known Allergies Medications: Current Outpatient Medications Medication Sig Dispense Refill meloxicam (MOBIC) 15 mg tablet Take 1 tablet by mouth once daily. 30 tablet 0 Tadalafil (CIALIS) 5 mg tablet Take 1 tablet by mouth once daily. On days when you plan to be sexually active, skip your daily dose and take up to 4 tabs 1-2 hours prior to sex. 50 tablet 5 budesonide-formoterol (SYMBICORT) 160-4.5 mcg/actuation inhaler Inhale 2 Puffs as instructed two times a day. 1 Each 3 albuterol HFA (PROVENTIL HFA, VENTOLIN HFA) 90 mcg/actuation inhaler inhale 2 puffs by mouth and INTO THE LUNGS every 4 hours if needed for cough shortness of breath or wheezing 18 g 4 tiZANidine (ZANAFLEX) 4 mg tablet take 1 tablet by mouth once daily 15 tablet 1 atorvastatin (LIPITOR) 20 mg tablet take 1 tablet by mouth once daily 90 tablet 3 fluticasone (FLONASE) 50 mcg/actuation nasal spray instill 2 sprays into each nostril once daily 16 g 1 omeprazole (PRILOSEC) 40 mg capsule Take 1 capsule by mouth once daily. 90 capsule 1 No current facility-administered medications for this visit. Social History: Social History Tobacco Use Smoking status: Every Day Current packs/day: 0.50 Average packs/day: 0.5 packs/day for 45.0 years (22.5 ttl pk-yrs) Types: Cigarettes Smokeless tobacco: Never Vaping Use Vaping status: Never Used Substance Use Topics Alcohol use: No Drug use: No Family History: Family History Problem Relation Age of Onset Cancer Mother ovarian Diabetes Father Ischemic Heart Disease Father Coronary Artery Disease Father Heart Attack Father Breast Cancer Sister Breast Cancer Paternal Aunt Past Surgical History: PAST SURGICAL HISTORY Procedure Laterality Date APPENDECTOMY Review of Systems: Review of Systems Physical Exam: BP 102/72 (BP Site: Left Arm, BP Position: Sitting, BP Cuff Size: Large Adult) Pulse 101 Temp 36.4 C (97.5 F) Resp 14 Ht 193 cm (6' 4) Wt 73.9 kg (163 lb) SpO2 96% BMI 19.84 kg/m Physical Exam Constitutional: Appearance: Normal appearance. Cardiovascular: Rate and Rhythm: Normal rate and regular rhythm. Pulmonary: Breath sounds: Normal breath sounds. Musculoskeletal: General: Swelling and tenderness present. Right lower leg: Edema present. Left lower leg: Edema present. Comments: Swelling of both ankles with tenderness of right ankles and decreased range of motion. There is warmth and mild erythema. Neurological: General: No focal deficit present. Mental Status: He is alert and oriented to person, place, and time. Assessment and Plan:: ASSESSMENT/PLAN: 1. Edema of both lower extremities - ICD9: 782.3, ICD10: R60.0 (primary diagnosis) Patient has been gradually developing edema of both lower extremities. There is no precipitating factor. Patient admits to standing a lot at work. He denies any recent immobilization to suggest DVT. Will order some blood work. Will repeat some labs that were done in the ER to see if there is any change and will also add some inflammatory markers etc. to that. - COMPLETE BLOOD COUNT AND DIFFERENTIAL - COMPREHENSIVE METABOLIC PANEL - THYROID STIMULATING HORMONE - T4 FREE/FREE THYROXINE - URINALYSIS, REFLEX MICROSCOPIC - C-REACTIVE PROTEIN - BERTHA BLOOD 2. Cellulitis of right lower extremity - ICD9: 682.6, ICD10: L03.115 On exam there is erythema and warmth of the right lower extremity. I am suspecting a mild cellulitis. Will give him some Augmentin for that. 3. Acute right ankle pain - ICD9: 719.47, 338.19, ICD10: M25.571 Will be ordering an x-ray to evaluate for any joint pathology. It does not appear to be gout because of the lack of severe pain. Will review x-ray results. - XR ANKLE GENERAL 3V AP/LAT/OBL RIGHT 4. Hyperglycemia - ICD9: 790.29, ICD10: R73.9 History of the same. Has been counseled. Last A1c was 6.1 in June. MD Jaclyn Gardner MD [facility] 09/10/2024 Pt here routine follow up. Pt complains of swelling in both feet for about two weeks. Pt needs refill on inhaler. documented in this encounter [facility] 09-10-2024 Note HNO ID: [id number] Author: FAUSTO PAUL MA Service: ? Author Type: Anesthesiologist Attending Type: Progress Notes Filed: 09/22/2024 13:56 Note Text: Pt here routine follow up. Pt complains of swelling in both feet for about two weeks. Pt needs refill on inhaler. [facility] 09-08-2024 Telephone encounter Note Patient has been notified [facility] 09-08-2024 Miscellaneous Notes Patient has been notified Changed to mobic. Thanks Patient called stating he's having trouble taking the medication due to the size, he can not swallow it and would like to know if he could be prescribed a smaller dosage or something else that will be easier to swallow Please advise. documented in this encounter [facility] 09-08-2024 Telephone encounter Note Changed to mobic. Thanks [facility] 09-08-2024 Telephone encounter Note Patient called stating he's having trouble taking the medication due to the size, he can not swallow it and would like to know if he could be prescribed a smaller dosage or something else that will be easier to swallow Please advise. [facility] 09-08-2024 Note HNO ID: [id number] Author: YASEMIN JAIME APRN.FLOOR TECH Service: ? Author Type: Nurse Practitioner Type: Progress Notes Filed: 09/08/2024 10:18 Note Text: Yasemin Jaime APRN [address] ([place], [place]), [address], [place] [address] Orthopedics Service Date: 09/08/2024 Referring Provider: Jaclyn Warren [address] [facility] [address] [place] [address] Chief Complaint: neck and left arm pain History of Present Illness Mary Anne Ramos is a 58 year old male with medical history significant for tobacco use and emphysema presenting with spouse as a new patient today. Mary Anne Ramos presents with primary complaint of left sided neck and arm pain with associated numbness. No known injury. Symptoms are chronic and have been present for >1 year. Progressively worsening. Summary of Symptoms Pain Location: left side of neck/upper back Radiation of Pain: down back and left arm Weakness: denies Dexterity Issues: left hand. Powerhouse Mechanic issues Imbalance: denies Falls: denies Bowel/Bladder Dysfunction: denies Prior Conservative Treatment Physical Therapy: denies Medications: medrol dose pack Pain Management: Injections: Surgery: Other: The following portions of the patient's history were reviewed and updated as appropriate: allergies, current medications, past family history, past medical history, past social history, past surgical history and problem list. ACTIVE PROBLEM LIST Displacement of Cervical Intervertebral Disc Without Myelopathy Tobacco Dependence Syndrome Shortness of Breath Pulmonary Nodule Pulmonary Emphysema (Hcc) Hyperlipidemia Gastroesophageal Reflux Disease Gynecomastia, Male Epistaxis Cough Allergic Rhinitis Lymphocytosis Paresthesia Unspecified Lump in Left Breast, Subareolar PAST MEDICAL HISTORY Diagnosis Date DDD (degenerative disc disease), cervical PAST SURGICAL HISTORY Procedure Laterality Date APPENDECTOMY FAMILY HISTORY Problem Relation Age of Onset Cancer Mother ovarian Diabetes Father Ischemic Heart Disease Father Coronary Artery Disease Father Heart Attack Father Breast Cancer Sister Breast Cancer Paternal Aunt Social History Tobacco Use Smoking status: Every Day Current packs/day: 0.50 Average packs/day: 0.5 packs/day for 45.0 years (22.5 ttl pk-yrs) Types: Cigarettes Smokeless tobacco: Never Vaping Use Vaping status: Never Used Substance Use Topics Alcohol use: No Drug use: No ALLERGIES No Known Allergies Medications: Tadalafil (CIALIS) 5 mg tablet Take 1 tablet by mouth once daily. On days when you plan to be sexually active, skip your daily dose and take up to 4 tabs 1-2 hours prior to sex. budesonide-formoterol (SYMBICORT) 160-4.5 mcg/actuation inhaler Inhale 2 Puffs as instructed two times a day. albuterol HFA (PROVENTIL HFA, VENTOLIN HFA) 90 mcg/actuation inhaler inhale 2 puffs by mouth and INTO THE LUNGS every 4 hours if needed for cough shortness of breath or wheezing tiZANidine (ZANAFLEX) 4 mg tablet take 1 tablet by mouth once daily atorvastatin (LIPITOR) 20 mg tablet take 1 tablet by mouth once daily fluticasone (FLONASE) 50 mcg/actuation nasal spray instill 2 sprays into each nostril once daily meloxicam (MOBIC) 7.5 mg tablet Take 1 tablet by mouth once daily. omeprazole (PRILOSEC) 40 mg capsule Take 1 capsule by mouth once daily. Physical Examination: Vital Signs: Pulse 87 Ht 193 cm (6' 3.98) Wt 74.8 kg (165 lb) SpO2 92% BMI 20.09 kg/m? General Appearance: Well nourished, well developed, and no apparent distress. Neuro/Psych: Patient oriented to person, place, and time. Mood pleasant. Benign affect. Cardiovascular: Palpable pulses. No edema noted. No varicosities. Skin: Head, neck, trunk, and extremities dry, intact and without lesions. Lymphatics: No palpable nodes in cervical or axillae areas. Groin exam deferred. Musculoskeletal: No tenderness to palpation in the midline over the spinous processes or in the paraspinal musculature. Muscle Tone and Bulk: Symmetrical in the upper AND lower extremities. Sensory: Sensation intact to light touch in C5-T1 and L1-S1 dermatomes. Mild ly diminished along C5-6 left arm. Motor: Upper Extremities Right Left Deltoid (C5) 4 4 Biceps (C6) 5 5 Triceps (C7) 5 5 Powerhouse Mechanic (C8) 5 5 Interossei (T1) 5 5 Lower Extremities Right Left Psoas (L2) 5 5 Quadriceps (L3) 5 5 Dorsiflexion (L4) 5 5 EHL (L5) 5 5 Plantarflexion (S1) 5 5 Gait: Able to perform tandem gait. Long Tract Signs: No clonus. No Hoffmanns. Reflexes: Symmetric, non-brisk. Hips: No pain with internal or external rotation. No pain with flexion or extension. Negative straight leg raise. No pain with MARCELLA maneuver. Imaging * * *Final Report* * * DATE OF EXAM: Aug 31 2024 10:00AM [id number] - XR CERVICAL 4V AP/LAT/OBL / PROCEDURE REASON: Radiculopathy of cervicothoracic region * * * * Physician Interpretation * * * * XR CERVICAL 4V A (more content not included)... [facility] 09-08-2024 History of Presen t illness Narrative Images from the original note were not included. Yasemin Jaime [employer] [address] [facility], [address], [place] [address] Orthopedics Service Date: 09/08/2024 Referring Provider: Jaclyn Warren [address] [place] [address] [address] [place] [address] Chief Complaint: neck and left arm pain History of Present Illness Mary Anne Ramos is a 58 year old male with medical history significant for tobacco use and emphysema presenting with spouse as a new patient today. Mary Anne Ramos presents with primary complaint of left sided neck and arm pain with associated numbness. No known injury. Symptoms are chronic and have been present for >1 year. Progressively worsening. Summary of Symptoms Pain Location: left side of neck/upper back Radiation of Pain: down back and left arm Weakness: denies Dexterity Issues: left hand. Powerhouse Mechanic issues Imbalance: denies Falls: denies Bowel/Bladder Dysfunction: denies Prior Conservative Treatment Physical Therapy: denies Medications: medrol dose pack Pain Management: Injections: Surgery: Other: The following portions of the patient's history were reviewed and updated as appropriate: allergies, current medications, past family history, past medical history, past social history, past surgical history and problem list. ACTIVE PROBLEM LIST Displacement of Cervical Intervertebral Disc Without Myelopathy Tobacco Dependence Syndrome Shortness of Breath Pulmonary Nodule Pulmonary Emphysema (Hcc) Hyperlipidemia Gastroesophageal Reflux Disease Gynecomastia, Male Epistaxis Cough Allergic Rhinitis Lymphocytosis Paresthesia Unspecified Lump in Left Breast, Subareolar PAST MEDICAL HISTORY Diagnosis Date DDD (degenerative disc disease), cervical PAST SURGICAL HISTORY Procedure Laterality Date APPENDECTOMY FAMILY HISTORY Problem Relation Age of Onset Cancer Mother ovarian Diabetes Father Ischemic Heart Disease Father Coronary Artery Disease Father Heart Attack Father Breast Cancer Sister Breast Cancer Paternal Aunt Social History Tobacco Use Smoking status: Every Day Current packs/day: 0.50 Average packs/day: 0.5 packs/day for 45.0 years (22.5 ttl pk-yrs) Types: Cigarettes Smokeless tobacco: Never Vaping Use Vaping status: Never Used Substance Use Topics Alcohol use: No Drug use: No ALLERGIES No Known Allergies Medications: Tadalafil (CIALIS) 5 mg tablet Take 1 tablet by mouth once daily. On days when you plan to be sexually active, skip your daily dose and take up to 4 tabs 1-2 hours prior to sex. budesonide-formoterol (SYMBICORT) 160-4.5 mcg/actuation inhaler Inhale 2 Puffs as instructed two times a day. albuterol HFA (PROVENTIL HFA, VENTOLIN HFA) 90 mcg/actuation inhaler inhale 2 puffs by mouth and INTO THE LUNGS every 4 hours if needed for cough shortness of breath or wheezing tiZANidine (ZANAFLEX) 4 mg tablet take 1 tablet by mouth once daily atorvastatin (LIPITOR) 20 mg tablet take 1 tablet by mouth once daily fluticasone (FLONASE) 50 mcg/actuation nasal spray instill 2 sprays into each nostril once daily meloxicam (MOBIC) 7.5 mg tablet Take 1 tablet by mouth once daily. omeprazole (PRILOSEC) 40 mg capsule Take 1 capsule by mouth once daily. Physical Examination: Vital Signs: Pulse 87 Ht 193 cm (6' 3.98) Wt 74.8 kg (165 lb) SpO2 92% BMI 20.09 kg/m General Appearance: Well nourished, well developed, and no apparent distress. Neuro/Psych: Patient oriented to person, place, and time. Mood pleasant. Benign affect. Cardiovascular: Palpable pulses. No edema noted. No varicosities. Skin: Head, neck, trunk, and extremities dry, intact and without lesions. Lymphatics: No palpable nodes in cervical or axillae areas. Groin exam deferred. Musculoskeletal: No tenderness to palpation in the midline over the spinous processes or in the paraspinal musculature. Muscle Tone and Bulk: Symmetrical in the upper & lower extremities. Sensory: Sensation intact to light touch in C5-T1 and L1-S1 dermatomes. Mild ly diminished along C5-6 left arm. Motor: Upper Extremities Right Left Deltoid (C5) 4 4 Biceps (C6) 5 5 Triceps (C7) 5 5 Powerhouse Mechanic (C8) 5 5 Interossei (T1) 5 5 Lower Extremities Right Left Psoas (L2) 5 5 Quadriceps (L3) 5 5 Dorsiflexion (L4) 5 5 EHL (L5) 5 5 Plantarflexion (S1) 5 5 Gait: Able to perform tandem gait. Long Tract Signs: No clonus. No Hoffmanns. Reflexes: Symmetric, non-brisk. Hips: No pain with internal or external rotation. No pain with flexion or extension. Negative straight leg raise. No pain with MARCELLA maneuver. Imaging * * *Final Report* * * DATE OF EXAM: Aug 31 2024 10:00AM [id number] - XR CERVICAL 4V AP/LAT/OBL / PROCEDURE REASON: Radiculopathy of cervicothoracic region * * * * Physician Interpretation * * * * XR CERVICAL 4V AP/LAT/OBL Ordering Physician: YASEMIN JAIME 08/31/2024 10:00 AM FIVE-VIEW CERVICAL SPINE: Clinical Statement: Radiculopathy pain Comparison: 5 view cervical spine 09/17/2023. FINDINGS: Vertebral body C1-T1 are visualized. No compression fractures or malalignment. No prevertebral soft tissue swelling. The distance between the odontoid process and C1 is normal. The posterior elements are intact. There is degenerative disc disease at C3-C4, C4-C5, C5-C6 and C6-C7. There is neural foraminal narrowing secondary to uncovertebral arthropathy on the right at C5-C6 and C6-C7 and on the left at C4-C5 C5-C6 and C6-7. Multilevel facet arthropathy is noted Assessment 58 year old male who presents with cervical radiculopathy . No diagnosis found. Plan The clinical and radiographic findings as well as the risks, benefits, and alternatives of treatment have been reviewed in detail with the patient. We had a discussion of symptoms, examination, and imaging findings. A summary of my recommendations is as follows: PM start celebrex Recommend a formal course of PT MRI of cervical spine due to progressive nature of symptoms and surgical planning F/u once MRI is completed Advised to call the office if symptoms worsen or new symptoms develop. Patient expressed understanding and is in agreement with plan. 58 yr old male here for Cervical Radiculopathy, xrays 08/31/24 documented in this encounter [facility] 09-08-2024 Note HNO ID: [id number] Author: SHRUTHI CANTU LPN Service: ? Author Type: LICENSED NURSE Type: Progress Notes Filed: 09/08/2024 10:18 Note Text: 58 yr old male here for Cervical Radiculopathy, xrays 08/31/24 [facility] 09-02-2024 Telephone encounter Note Spoke with patient's , Jamee, rescheduled and confirmed appt on 09/10/2024 at 10:15 am. [facility] 09-02-2024 Miscellaneous Notes Spoke with patient's , Jamee, rescheduled and confirmed appt on 09/10/2024 at 10:15 am. Called patient . With patient and his extensively. He had blood work EKG and x-ray in the emergency room. There is no signs of heart failure. BNP was normal. Chest x-ray did not show congestion. Other blood work was within normal limits. EKG did not show any acute findings troponin was negative. Advised the patient that this may be due to prolonged sitting at work with dependent edema. He has not increased salt intake as far as he can remember. Denies any pain or redness in the legs. No new chest pain. Patient has a stress test scheduled for October that was ordered because of intermittent chest pain. Please reschedule patient's appointment from the to September 10 at 10:15 AM. Pt went to stat care and sent to ED yesterday, but left due to long wait times. Pt c/o edema from feet up to knees bilaterally x4 days. No pain. Hasn't weighed himself. Does get chest pain which comes and goes. Pt said he also has neck and back pain and attributes the chest pain to that. Not short of breath. On no diuretics. Does follow with pulmonary. Donis Randhawa LPN documented in this encounter [facility] 09-01-2024 Telephone encounter Note Called patient . With patient and his extensively. He had blood work EKG and x-ray in the emergency room. There is no signs of heart failure. BNP was normal. Chest x-ray did not show congestion. Other blood work was within normal limits. EKG did not show any acute findings troponin was negative. Advised the patient that this may be due to prolonged sitting at work with dependent edema. He has not increased salt intake as far as he can remember. Denies any pain or redness in the legs. No new chest pain. Patient has a stress test scheduled for October that was ordered because of intermittent chest pain. Please reschedule patient's appointment from the to September 10 at 10:15 AM. [facility] 09-01-2024 Telephone encounter Note Pt went to stat care and sent to ED yesterday, but left due to long wait times. Pt c/o edema from feet up to knees bilaterally x4 days. No pain. Hasn't weighed himself. Does get chest pain which comes and goes. Pt said he also has neck and back pain and attributes the chest pain to that. Not short of breath. On no diuretics. Does follow with pulmonary. Donis Randhawa LPN [facility] 08-31-2024 Instructions Tejas Alba Jr., APRN.PERRI - 08/31/2024 10:10 AM EDT You are to go to [facility] emergency room for further evaluation. documented in this encounter [facility] 08-31-2024 Note HNO ID: [id number] Author: TEJAS ALBA JR, APRN.PERRI Service: ? Author Type: Nurse Practitioner Type: Progress Notes Filed: 08/31/2024 10:18 Note Text: [facility] NATALIE Ramos is a 58 year old male. Patient presents with: Edema: Both ankles swelling/pain x 2 days 58-year-old male accompanied by presents today with a complaint of bilateral ankle edema and left upper chest discomfort with occasional sharp pain. Patient denies shortness of breath, coughing. He states symptoms began approximately 3 days ago of unknown etiology. The history is provided by the patient and the spouse. Edema Pertinent negatives include no abdominal pain, coughing, fatigue, headaches, rash or sore throat. Review of Systems Constitutional: Negative for fatigue. HENT: Negative for sore throat. Respiratory: Negative for cough and shortness of breath. Cardiovascular: Positive for leg swelling. Gastrointestinal: Negative for abdominal pain. Skin: Negative for rash. Neurological: Negative for headaches. Objective BP 142/83 Pulse 90 Temp 36.4 ?C (97.6 ?F) Resp 20 SpO2 97% Physical Exam Vitals and nursing note reviewed. Constitutional: Appearance: Normal appearance. HENT: Head: Normocephalic and atraumatic. Eyes: Conjunctiva/sclera: Conjunctivae normal. Cardiovascular: Rate and Rhythm: Normal rate and regular rhythm. Heart sounds: Normal heart sounds. Pulmonary: Effort: Pulmonary effort is normal. Breath sounds: Normal breath sounds. No stridor. No wheezing or rales. Abdominal: General: Bowel sounds are normal. Palpations: Abdomen is soft. Tenderness: There is no abdominal tenderness. Musculoskeletal: General: Swelling and tenderness present. Right lower leg: Edema present. Left lower leg: Edema present. Comments: Nonpitting edema of the bilateral ankles and feet. Pedal pulse present and strong bilaterally. No tenderness to palpation of the bilateral calves, Homans test is negative. Ankles are tender to palpation in the lateral and medial aspects. There is clubbing of the nails of the bilateral feet. Skin: General: Skin is warm and dry. Neurological: Mental Status: He is alert and oriented to person, place, and time. Psychiatric: Behavior: Behavior normal. EKG performed: EKG notes normal sinus rhythm, left anterior fascicular block and septal infarct age undetermined. Ventricular rate was 80 bpm, VT interval 146 ms, QRS is 84 ms, QT/QTc was 340/392 ms, PRT axis 83 -53 35 Assessment AND Plan Chest discomfort Based on today's examination I feel further evaluation is needed in this case. I am considering congestive heart failure at this time. Patient informed to go immediately to [facility] emergency room. Report was called. Patient considered stable at this time and can be transported by private vehicle. Orders: ECG COMPLETE; Future Edema of both ankles Orders: ECG COMPLETE; Future Differential Diagnoses - Congestive heart failure is more likely for the following reason(s): Consistent with examination - DVT is less likely for the following reason(s): Not consistent with examination Contributing Factors Social Determinants of Health significantly affecting care: smoking Disposition The patient was discharged. Procedures [facility] 08-31-2024 History of Presen t illness Narrative [facility] NATALIE Ramos is a 58 year old male. Patient presents with: Edema: Both ankles swelling/pain x 2 days 58-year-old male accompanied by presents today with a complaint of bilateral ankle edema and left upper chest discomfort with occasional sharp pain. Patient denies shortness of breath, coughing. He states symptoms began approximately 3 days ago of unknown etiology. The history is provided by the patient and the spouse. Edema Pertinent negatives include no abdominal pain, coughing, fatigue, headaches, rash or sore throat. Review of Systems Constitutional: Negative for fatigue. HENT: Negative for sore throat. Respiratory: Negative for cough and shortness of breath. Cardiovascular: Positive for leg swelling. Gastrointestinal: Negative for abdominal pain. Skin: Negative for rash. Neurological: Negative for headaches. Objective BP 142/83 Pulse 90 Temp 36.4 C (97.6 F) Resp 20 SpO2 97% Physical Exam Vitals and nursing note reviewed. Constitutional: Appearance: Normal appearance. HENT: Head: Normocephalic and atraumatic. Eyes: Conjunctiva/sclera: Conjunctivae normal. Cardiovascular: Rate and Rhythm: Normal rate and regular rhythm. Heart sounds: Normal heart sounds. Pulmonary: Effort: Pulmonary effort is normal. Breath sounds: Normal breath sounds. No stridor. No wheezing or rales. Abdominal: General: Bowel sounds are normal. Palpations: Abdomen is soft. Tenderness: There is no abdominal tenderness. Musculoskeletal: General: Swelling and tenderness present. Right lower leg: Edema present. Left lower leg: Edema present. Comments: Nonpitting edema of the bilateral ankles and feet. Pedal pulse present and strong bilaterally. No tenderness to palpation of the bilateral calves, Homans test is negative. Ankles are tender to palpation in the lateral and medial aspects. There is clubbing of the nails of the bilateral feet. Skin: General: Skin is warm and dry. Neurological: Mental Status: He is alert and oriented to person, place, and time. Psychiatric: Behavior: Behavior normal. EKG performed: EKG notes normal sinus rhythm, left anterior fascicular block and septal infarct age undetermined. Ventricular rate was 80 bpm, VT interval 146 ms, QRS is 84 ms, QT/QTc was 340/392 ms, PRT axis 83 -53 35 Assessment & Plan Chest discomfort Based on today's examination I feel further evaluation is needed in this case. I am considering congestive heart failure at this time. Patient informed to go immediately to [facility] emergency room. Report was called. Patient considered stable at this time and can be transported by private vehicle. Orders: ECG COMPLETE; Future Edema of both ankles Orders: ECG COMPLETE; Future Differential Diagnoses - Congestive heart failure is more likely for the following reason(s): Consistent with examination - DVT is less likely for the following reason(s): Not consistent with examination Contributing Factors Social Determinants of Health significantly affecting care: smoking Disposition The patient was discharged. Procedures documented in this encounter [facility] 08-31-2024 History of Presen t illness Narrative Radiology Service Progress Note PATIENT NAME: Mary Anne Ramos DATE OF SERVICE: August 31, 2024 TIME: 2:09 PM PATIENT IDENTITY VERIFICATION COMPLETED USING TWO (2) IDENTIFIERS: Name and Date of confirmed by patient verbally. FALL SCREENING: Has the patient had 2 falls in the last year or 1 fall with injury or currently using an Ambulatory Assistive Device (Walker, Cane, Wheelchair, Crutches, etc.)? No PATIENT GENDER DATA: Assigned male at PATIENT RELEVANT IMPLANT DATA REVIEWED: Not Applicable PATIENT PRESENTS WITH AN IMPLANTABLE OR ATTACHED SHOER: No RADIOLOGY DEPARTMENT: General X-ray: Exam(s) Completed: Spine X-Ray(s): Cervical AP / LAT / OBL PERIPHERAL IV DATA: Not applicable SIGNED BY: DOROTHY Llanos) August 31, 2024 2:09 PM documented in this encounter [facility] 08-31-2024 Note HNO ID: [id number] Author: FRANCES ALVAREZ RT(R) Service: ? Author Type: Technologist Type: Progress Notes Filed: 08/31/2024 14:09 Note Text: Radiology Service Progress Note PATIENT NAME: Mary Anne Ramos DATE OF SERVICE: August 31, 2024 TIME: 2:09 PM PATIENT IDENTITY VERIFICATION COMPLETED USING TWO (2) IDENTIFIERS: Name and Date of confirmed by patient verbally. FALL SCREENING: Has the patient had 2 falls in the last year or 1 fall with injury or currently using an Ambulatory Assistive Device (Walker, Cane, Wheelchair, Crutches, etc.)? No PATIENT GENDER DATA: Assigned male at PATIENT RELEVANT IMPLANT DATA REVIEWED: Not Applicable PATIENT PRESENTS WITH AN IMPLANTABLE OR ATTACHED SHOER: No RADIOLOGY DEPARTMENT: General X-ray: Exam(s) Completed: Spine X-Ray(s): Cervical AP / LAT / OBL PERIPHERAL IV DATA: Not applicable SIGNED BY: RT Viet(R) August 31, 2024 2:09 PM [facility] 08-25-2024 Telephone encounter Note Called patient to reschedule appointment from 08/25/24 to 09/08/24 @ 9:45am patient was given time and date of new appointment [facility] 08-25-2024 Miscellaneous Notes Called patient to reschedule appointment from 08/25/24 to 09/08/24 @ 9:45am patient was given time and date of new appointment documented in this encounter [facility] 08-18-2024 Telephone encounter Note Pt reminded of appointment on 08/19/24 and to have xrays completed prior to the day of his appointment. Pt was given hours and locations to have this completed. Pt verbalized understanding of instructions. Jayda Lehman MA August 18, 2024 1:44 PM [facility] 08-18-2024 Miscellaneous Notes Pt reminded of appointment on 08/19/24 and to have xrays completed prior to the day of his appointment. Pt was given hours and locations to have this completed. Pt verbalized understanding of instructions. Jayda Lehman MA August 18, 2024 1:44 PM documented in this encounter [facility] 07-27-2024 Telephone encounter Note Received a call from THERESA olivas, with [employer] doing prior auth for nuclear stress test. They were needing more information faxed to them. Ov note from 07/16 faxed to [phone]. No previous echo or cardiac workup to fax. Auth #[id number] , ext. [id number]. Donis Randhawa LPN [facility] 07-27-2024 Miscellaneous Notes Received a call from THERESA olivas, with [employer] doing prior auth for nuclear stress test. They were needing more information faxed to them. Ov note from 07/16 faxed to [phone]. No previous echo or cardiac workup to fax. Auth #[id number] , ext. [id number]. Donis Randhawa LPN documented in this encounter [facility] 07-21-2024 Instructions Joel Ewing MD - 07/21/2024 9:44 AM EST Penile constriction device - Rubber Ring Buy from: [employer] documented in this encounter [facility] 07-21-2024 Note HNO ID: [id number] Author: JOEL EWING MD Service: ? Author Type: Physician Type: Progress Notes Filed: 07/21/2024 09:58 Note Text: [facility] UROLOGY ESTABLISHED PATIENT CLINIC NOTE [facility] PATIENT INFO: Mary Anne Ramos AGE: [age] year old PCP: Jaclyn Warren MD REASON FOR VISIT: ED management HPI: Mary Anne Ramos returns for continuing evaluation and management. Since being placed on sildenafil 100 mg he now feels it to be ineffective. The IIEF-5 Questionnaire (HOWARD) Over the past 6 months: How do you rate your confidence that you can get and keep an erection? Very low - 1 When you had erections with sexual stimulation, how often where your erections hard enough for penetration? Almost never or never - 1 During sexual intercourse, how often were you able to maintain your erection after you penetrated your partner? Almost never or never - 1 During sexual intercourse, how difficult was it to maintain your erection to completion of intercourse? Extremely difficult - 1 When you attempted sexual intercourse, how often was it satisfactory for you? Extremely difficult - 1 Total Score: 1-7: Severe ED UROLOGICAL DATA: Urinalysis: No results found for this basename: uglucpoc,ubilipoc,uketonpoc,usgp oc,uhbpoc,uphpoc,upropoc,uuropoc ,unitpoc,uwbcpoc ,ucolpoc,uclarpoc Post Void Residual, Ultrasound: N/A cc OTHER DATA: PSA Screening (ng/mL) Date Value 06/30/2022 2.26 No results found for: ISOPSA Creatinine Date Value Ref Range Status 10/31/2023 1.06 0.50 - 1.40 mg/dL Final Comment: Patients receiving either N-Acetylcysteine (NAC) or Metamizole prior to venipuncture, may have falsely depressed results. 06/30/2022 1.11 0.50 - 1.40 mg/dL Final Comment: Patients receiving either N-Acetylcysteine (NAC) or Metamizole prior to venipuncture, may have falsely depressed results. 12/16/2019 1.26 0.5 - 1.4 MG/DL Final Comment: NOTE NEW NORMAL RANGE DUE TO REAGENT CHANGE Patients receiving either N-Acetylcysteine (NAC) or Metamizole prior to venipuncture, may have falsely depressed results. 07/01/2019 1.380 (H) 0.670 - 1.170 MG/DL Final Comment: Patients receiving either N-Acetylcysteine (NAC) or Metamizole prior to venipuncture, may have falsely depressed results. Testosterone (ng/dL) Date Value 06/24/2023 417 PMHx/PSHx: see above, otherwise unchanged Rx: reviewed and unchanged ROS: see above, otherwise unchanged Labs: None Imaging: None MEDICATIONS: Current Outpatient Medications Medication Sig budesonide-formoterol (SYMBICORT) 160-4.5 mcg/actuation inhaler Inhale 2 Puffs as instructed two times a day. methylPREDNISolone (MEDROL, GRIS,) 4 mg Dose-Pack As instructed per package sildenafil (VIAGRA) 50 mg tablet take 1 tablet by mouth once daily if needed 30-60 MINUTES BEFORE SEXUAL ACTIVITY. TAKE ON EMPTY STOMACH. albuterol HFA (PROVENTIL HFA, VENTOLIN HFA) 90 mcg/actuation inhaler inhale 2 puffs by mouth and INTO THE LUNGS every 4 hours if needed for cough shortness of breath or wheezing tiZANidine (ZANAFLEX) 4 mg tablet take 1 tablet by mouth once daily atorvastatin (LIPITOR) 20 mg tablet take 1 tablet by mouth once daily omeprazole (PRILOSEC) 40 mg capsule Take 1 capsule by mouth once daily. fluticasone (FLONASE) 50 mcg/actuation nasal spray instill 2 sprays into each nostril once daily (Patient not taking: Reported on 05/07/2023) meloxicam (MOBIC) 7.5 mg tablet Take 1 tablet by mouth once daily. (Patient not taking: Reported on 05/07/2023) No current facility-administered medications for this visit. PHYSICAL EXAM: There were no vitals taken for this visit. There is no height or weight on file to calculate BMI. General: Well masculinized, well nourished male Psych: euthymic, NAD Neuro: AANDOx3 Inguinal: No lesions, adenopathy, or hernias exam deferred IMPRESSION/PLAN: 1. ED (erectile dysfunction) of organic origin - ICD9: 607.84, ICD10: N52.9 The following ED Treatment options were discussed in detail: ED has many causes which may include Diabetes, Heart Disease, Prostate Cancer treatment, and emotional conditions such as Depression/Anxiety. Oral Medications: Most men with ED start with pills, such as Sildenafil (Viagra), tadalafil (Cialis), Levitra, Stendra. These are in the drug class called PDE-5 inhibitors These may improve blood flow to the penis, and with sexual stimulation, can help you achieve an erection. 2.. Vacuum Erection Devices: Mechanical pumps that help to bring blood flow into the penis, used with a ring placed at the base of the penis, can help to maintain an erection. 3. Intraurethral Suppositories: These medications (alprostadil, etc.) are placed into the urethra of the penis and dissolve inside to generate blood flow and cause an erection.may be combined and injected directly into the base or side of the penis. The recommended frequenc (more content not included)... [facility] 07-21-2024 History of Presen t illness Narrative Images from the original note were not included. [facility] UROLOGY ESTABLISHED PATIENT CLINIC NOTE [facility] PATIENT INFO: Mary Anne Ramos AGE: [age] year old PCP: Jaclyn Warren MD REASON FOR VISIT: ED management HPI: Mary Anne Ramos returns for continuing evaluation and management. Since being placed on sildenafil 100 mg he now feels it to be ineffective. The IIEF-5 Questionnaire (HOWARD) Over the past 6 months: How do you rate your confidence that you can get and keep an erection? Very low - 1 When you had erections with sexual stimulation, how often where your erections hard enough for penetration? Almost never or never - 1 During sexual intercourse, how often were you able to maintain your erection after you penetrated your partner? Almost never or never - 1 During sexual intercourse, how difficult was it to maintain your erection to completion of intercourse? Extremely difficult - 1 When you attempted sexual intercourse, how often was it satisfactory for you? Extremely difficult - 1 Total Score: 1-7: Severe ED UROLOGICAL DATA: Urinalysis: No results found for this basename: uglucpoc,ubilipoc,uketonpoc,usgp oc,uhbpoc,uphpoc,upropoc,uuropoc ,unitpoc,uwbcpoc,ucolpoc,uclarpo c Post Void Residual, Ultrasound: N/A cc OTHER DATA: PSA Screening (ng/mL) Date Value 06/30/2022 2.26 No results found for: ISOPSA Creatinine Date Value Ref Range Status 10/31/2023 1.06 0.50 - 1.40 mg/dL Final Comment: Patients receiving either N-Acetylcysteine (NAC) or Metamizole prior to venipuncture, may have falsely depressed results. 06/30/2022 1.11 0.50 - 1.40 mg/dL Final Comment: Patients receiving either N-Acetylcysteine (NAC) or Metamizole prior to venipuncture, may have falsely depressed results. 12/16/2019 1.26 0.5 - 1.4 MG/DL Final Comment: NOTE NEW NORMAL RANGE DUE TO REAGENT CHANGE Patients receiving either N-Acetylcysteine (NAC) or Metamizole prior to venipuncture, may have falsely depressed results. 07/01/2019 1.380 (H) 0.670 - 1.170 MG/DL Final Comment: Patients receiving either N-Acetylcysteine (NAC) or Metamizole prior to venipuncture, may have falsely depressed results. Testosterone (ng/dL) Date Value 06/24/2023 417 PMHx/PSHx: see above, otherwise unchanged Rx: reviewed and unchanged ROS: see above, otherwise unchanged Labs: None Imaging: None MEDICATIONS: Current Outpatient Medications Medication Sig budesonide-formoterol (SYMBICORT) 160-4.5 mcg/actuation inhaler Inhale 2 Puffs as instructed two times a day. methylPREDNISolone (MEDROL, GRIS,) 4 mg Dose-Pack As instructed per package sildenafil (VIAGRA) 50 mg tablet take 1 tablet by mouth once daily if needed 30-60 MINUTES BEFORE SEXUAL ACTIVITY. TAKE ON EMPTY STOMACH. albuterol HFA (PROVENTIL HFA, VENTOLIN HFA) 90 mcg/actuation inhaler inhale 2 puffs by mouth and INTO THE LUNGS every 4 hours if needed for cough shortness of breath or wheezing tiZANidine (ZANAFLEX) 4 mg tablet take 1 tablet by mouth once daily atorvastatin (LIPITOR) 20 mg tablet take 1 tablet by mouth once daily omeprazole (PRILOSEC) 40 mg capsule Take 1 capsule by mouth once daily. fluticasone (FLONASE) 50 mcg/actuation nasal spray instill 2 sprays into each nostril once daily (Patient not taking: Reported on 05/07/2023) meloxicam (MOBIC) 7.5 mg tablet Take 1 tablet by mouth once daily. (Patient not taking: Reported on 05/07/2023) No current facility-administered medications for this visit. PHYSICAL EXAM: There were no vitals taken for this visit. There is no height or weight on file to calculate BMI. General: Well masculinized, well nourished male Psych: euthymic, NAD Neuro: A&Ox3 Inguinal: No lesions, adenopathy, or hernias exam deferred IMPRESSION/PLAN: 1. ED (erectile dysfunction) of organic origin - ICD9: 607.84, ICD10: N52.9 The following ED Treatment options were discussed in detail: ED has many causes which may include Diabetes, Heart Disease, Prostate Cancer treatment, and emotional conditions such as Depression/Anxiety. Oral Medications: Most men with ED start with pills, such as Sildenafil (Viagra), tadalafil (Cialis), Levitra, Stendra. These are in the drug class called PDE-5 inhibitors These may improve blood flow to the penis, and with sexual stimulation, can help you achieve an erection. 2.. Vacuum Erection Devices: Mechanical pumps that help to bring blood flow into the penis, used with a ring placed at the base of the penis, can help to maintain an erection. 3. Intraurethral Suppositories: These medications (alprostadil, etc.) are placed into the urethra of the penis and dissolve inside to generate blood flow and cause an erection.may be combined and injected directly into the base or side of the penis. The recommended frequency of injection is no more than three times weekly, and should produce an erection in 5-20 minutes. 4. Penile Injections: These medications (alprostadil, papaverine, etc.) may be injected into the base of the penis to create an erection that usually last 5-20 minutes. 5. Low intensity Shockwave Therapy (LiST): involved painless shockwaves that are applied to sides of the penis once weekly for 6 weeks. This is non-FDA approved at this time and there is an out of pocket cost of $1800. Similar procedures have been used in other medical conditions to treat heart disease and joint disease. 6. Penile Implant: IPP: Intrapenile Prosthesis allows for direct control of both the timing and duration of an erection.The 3-piece system includes a reservoir placed in the abdomen and two fluid filled cylinders completely concealed within the penis. Squeezing the pump in the scrotum is used to achieve an erection. Will switch Sildenafil to Tadalafil 5mg daily with 15 mg Booster Also recommend Penile Constriction Ring to help him maintain his erection longer. FOLLOW UP: 6 months Joel Ewing M.D, MS Associate Staff [facility] documented in this encounter [facility] 07-16-2024 Instructions Jaclyn Warren MD - 07/16/2024 11:26 AM EST Stress test has been ordered Call and schedule your stress test Call and schedule Your Low dose CT scan You have been referred to an Orthopedic surgeon Call and schedule your sleep study. Blood work today documented in this encounter [facility] 07-16-2024 Note HNO ID: [id number] Author: JACLYN WARREN MD Service: ? Author Type: Physician Type: Progress Notes Filed: 07/16/2024 22:59 Note Text: [facility] Visit Date: July 16, 2024 Follow Up Visit Chief Complaint: Sharp pain in left side of the back of neck, wheezing, chest tightness Review of History: Mary Anne Ramos is a 58 year old who is here for follow-up visit. Patient is accompanied by his Jamee Ramos. Patient has a few complaints today. He is mainly complaining of pain in his left neck. It is towards the back. The pain is sharp and radiates down his arm. He does get numbness and tingling in the left arm. Patient has a known history of cervical radiculopathy which has been going on for many years. Patient is also complaining of chest tightness which is different from this left neck and arm pain. He feels it in the left side of the chest and sometimes it goes up his jaw. He says it can occur mostly at rest. Occasionally with exertion he has noticed it and has noticed some shortness of breath with exertion as well. Patient does continue to smoke. Past Medical History: PAST MEDICAL HISTORY Diagnosis Date DDD (degenerative disc disease), cervical Health Maintenance: Colonoscopy: Vaccination: Allergies: ALLERGIES No Known Allergies Medications: Current Outpatient Medications Medication Sig Dispense Refill sildenafil (VIAGRA) 50 mg tablet take 1 tablet by mouth once daily if needed 30-60 MINUTES BEFORE SEXUAL ACTIVITY. TAKE ON EMPTY STOMACH. 30 tablet 3 albuterol HFA (PROVENTIL HFA, VENTOLIN HFA) 90 mcg/actuation inhaler inhale 2 puffs by mouth and INTO THE LUNGS every 4 hours if needed for cough shortness of breath or wheezing 18 g 4 tiZANidine (ZANAFLEX) 4 mg tablet take 1 tablet by mouth once daily 15 tablet 1 atorvastatin (LIPITOR) 20 mg tablet take 1 tablet by mouth once daily 90 tablet 3 fluticasone (FLONASE) 50 mcg/actuation nasal spray instill 2 sprays into each nostril once daily (Patient not taking: Reported on 05/07/2023) 16 g 1 meloxicam (MOBIC) 7.5 mg tablet Take 1 tablet by mouth once daily. (Patient not taking: Reported on 05/07/2023) 10 tablet 0 omeprazole (PRILOSEC) 40 mg capsule Take 1 capsule by mouth once daily. 90 capsule 1 No current facility-administered medications for this visit. Social History: Social History Tobacco Use Smoking status: Every Day Current packs/day: 0.50 Average packs/day: 0.5 packs/day for 45.0 years (22.5 ttl pk-yrs) Types: Cigarettes Smokeless tobacco: Never Vaping Use Vaping status: Never Used Substance Use Topics Alcohol use: No Drug use: No Family History: Family History Problem Relation Age of Onset Cancer Mother ovarian Diabetes Father Ischemic Heart Disease Father Coronary Artery Disease Father Heart Attack Father Breast Cancer Sister Breast Cancer Paternal Aunt Past Surgical History: PAST SURGICAL HISTORY Procedure Laterality Date APPENDECTOMY Review of Systems: Review of Systems Physical Exam: BP 112/79 (BP Site: Right Arm, BP Position: Sitting, BP Cuff Size: Large Adult) Pulse 89 Temp 36.4 ?C (97.5 ?F) Resp 14 Ht 193 cm (6' 4) Wt 75.2 kg (165 lb 12.8 oz) SpO2 96% BMI 20.18 kg/m? Physical Exam Constitutional: General: He is not in acute distress. Appearance: Normal appearance. Cardiovascular: Heart sounds: Normal heart sounds. No murmur heard. No gallop. Pulmonary: Effort: No respiratory distress. Breath sounds: Normal breath sounds. Neurological: General: No focal deficit present. Mental Status: He is alert and oriented to person, place, and time. Sensory: No sensory deficit. Motor: No weakness. Assessment and Plan:: ASSESSMENT/PLAN: 1. Cervical radiculopathy - ICD9: 723.4, ICD10: M54.12 (primary diagnosis) Patient has pain in his neck which radiates down his left arm. He has some numbness and tingling from time to time. No weakness of the arm. Patient has a known history of cervical radiculopathy that is quite significant. He will most likely need an MRI. I will refer him to orthopedic surgery for investigation and treatment as deemed necessary. - CONSULT TO ORTHOPAEDIC SURGERY 2. Chest pain on exertion - ICD9: 786.50, ICD10: R07.9 Chest pain likely coronary ischemia related symptom due to risk factors such as smoking. Patient has recently cut down smoking but has a long-term history of the same.He also has known history of prediabetes. - Stress testing- see orders - NM CARDIAC PERF STRESS/EXERCISE 3. Prediabetes - ICD9: 790.29, ICD10: R73.03 Will follow-up with a hemoglobin A1c. He also is due for a lipid panel. - HEMOGLOBIN A1C - LIPID PANEL, NONFASTING MD Jaclyn Gardner MD [facility] 07/16/2024 [facility] 07-16-2024 History of Presen t illness Narrative Images from the original note were not included. Internal Medicine [facility] Visit Date: July 16, 2024 Follow Up Visit Chief Complaint: Sharp pain in left side of the back of neck, wheezing, chest tightness Review of History: Mary Anne Ramos is a 58 year old who is here for follow-up visit. Patient is accompanied by his Jamee Ramos. Patient has a few complaints today. He is mainly complaining of pain in his left neck. It is towards the back. The pain is sharp and radiates down his arm. He does get numbness and tingling in the left arm. Patient has a known history of cervical radiculopathy which has been going on for many years. Patient is also complaining of chest tightness which is different from this left neck and arm pain. He feels it in the left side of the chest and sometimes it goes up his jaw. He says it can occur mostly at rest. Occasionally with exertion he has noticed it and has noticed some shortness of breath with exertion as well. Patient does continue to smoke. Past Medical History: PAST MEDICAL HISTORY Diagnosis Date DDD (degenerative disc disease), cervical Health Maintenance: Colonoscopy: Vaccination: Allergies: ALLERGIES No Known Allergies Medications: Current Outpatient Medications Medication Sig Dispense Refill sildenafil (VIAGRA) 50 mg tablet take 1 tablet by mouth once daily if needed 30-60 MINUTES BEFORE SEXUAL ACTIVITY. TAKE ON EMPTY STOMACH. 30 tablet 3 albuterol HFA (PROVENTIL HFA, VENTOLIN HFA) 90 mcg/actuation inhaler inhale 2 puffs by mouth and INTO THE LUNGS every 4 hours if needed for cough shortness of breath or wheezing 18 g 4 tiZANidine (ZANAFLEX) 4 mg tablet take 1 tablet by mouth once daily 15 tablet 1 atorvastatin (LIPITOR) 20 mg tablet take 1 tablet by mouth once daily 90 tablet 3 fluticasone (FLONASE) 50 mcg/actuation nasal spray instill 2 sprays into each nostril once daily (Patient not taking: Reported on 05/07/2023) 16 g 1 meloxicam (MOBIC) 7.5 mg tablet Take 1 tablet by mouth once daily. (Patient not taking: Reported on 05/07/2023) 10 tablet 0 omeprazole (PRILOSEC) 40 mg capsule Take 1 capsule by mouth once daily. 90 capsule 1 No current facility-administered medications for this visit. Social History: Social History Tobacco Use Smoking status: Every Day Current packs/day: 0.50 Average packs/day: 0.5 packs/day for 45.0 years (22.5 ttl pk-yrs) Types: Cigarettes Smokeless tobacco: Never Vaping Use Vaping status: Never Used Substance Use Topics Alcohol use: No Drug use: No Family History: Family History Problem Relation Age of Onset Cancer Mother ovarian Diabetes Father Ischemic Heart Disease Father Coronary Artery Disease Father Heart Attack Father Breast Cancer Sister Breast Cancer Paternal Aunt Past Surgical History: PAST SURGICAL HISTORY Procedure Laterality Date APPENDECTOMY Review of Systems: Review of Systems Physical Exam: BP 112/79 (BP Site: Right Arm, BP Position: Sitting, BP Cuff Size: Large Adult) Pulse 89 Temp 36.4 C (97.5 F) Resp 14 Ht 193 cm (6' 4) Wt 75.2 kg (165 lb 12.8 oz) SpO2 96% BMI 20.18 kg/m Physical Exam Constitutional: General: He is not in acute distress. Appearance: Normal appearance. Cardiovascular: Heart sounds: Normal heart sounds. No murmur heard. No gallop. Pulmonary: Effort: No respiratory distress. Breath sounds: Normal breath sounds. Neurological: General: No focal deficit present. Mental Status: He is alert and oriented to person, place, and time. Sensory: No sensory deficit. Motor: No weakness. Assessment and Plan:: ASSESSMENT/PLAN: 1. Cervical radiculopathy - ICD9: 723.4, ICD10: M54.12 (primary diagnosis) Patient has pain in his neck which radiates down his left arm. He has some numbness and tingling from time to time. No weakness of the arm. Patient has a known history of cervical radiculopathy that is quite significant. He will most likely need an MRI. I will refer him to orthopedic surgery for investigation and treatment as deemed necessary. - CONSULT TO ORTHOPAEDIC SURGERY 2. Chest pain on exertion - ICD9: 786.50, ICD10: R07.9 Chest pain likely coronary ischemia related symptom due to risk factors such as smoking. Patient has recently cut down smoking but has a long-term history of the same.He also has known history of prediabetes. - Stress testing- see orders - NM CARDIAC PERF STRESS/EXERCISE 3. Prediabetes - ICD9: 790.29, ICD10: R73.03 Will follow-up with a hemoglobin A1c. He also is due for a lipid panel. - HEMOGLOBIN A1C - LIPID PANEL, NONFASTING MD Jaclyn Gardner MD [facility] 07/16/2024 Pt here for follow up. Pt complains of on and off sharp pain in left side of neck that radiates down left arm. Pt needs refill on albuterol inhaler. documented in this encounter [facility] 07-16-2024 Note HNO ID: [id number] Author: FAUSTO PAUL MA Service: ? Author Type: Anesthesiologist Attending Type: Progress Notes Filed: 07/16/2024 22:59 Note Text: Pt here for follow up. Pt complains of on and off sharp pain in left side of neck that radiates down left arm. Pt needs refill on albuterol inhaler. [facility] 06-23-2024 Telephone encounter Note Patient is scheduled 07/21/24 for his annual follow up. I spoke with the patient's this morning and they are asking if they can have a refill on the sildenafil now, or if it has to be prescribed once he is seen. Please advise, thank you. [facility] 06-23-2024 Miscellaneous Notes Patient is scheduled 07/21/24 for his annual follow up. I spoke with the patient's this morning and they are asking if they can have a refill on the sildenafil now, or if it has to be prescribed once he is seen. Please advise, thank you. documented in this encounter [facility] 11-15-2023 Telephone encounter Note Patient called requesting the following refill. Requested Prescriptions Pending Prescriptions Disp Refills sildenafil (VIAGRA) 50 mg tablet 30 tablet 3 Sig: take 1 tablet by mouth once daily if needed 30-60 MINUTES BEFORE SEXUAL ACTIVITY. TAKE ON EMPTY STOMACH. Signed Prescriptions Disp Refills sildenafil (VIAGRA) 50 mg tablet 30 tablet 3 Sig: take 1 tablet by mouth once daily if needed 30-60 MINUTES BEFORE SEXUAL ACTIVITY. TAKE ON EMPTY STOMACH. Authorizing Provider: JOEL EWING Patient last appointment: 07/22/2023 Patient Phone numbers: [phone] (home) Request is for script(s) to be escript to pharmacy. Shruthi Orellana MA [facility] 11-15-2023 Miscellaneous Notes Patient called requesting the following refill. Requested Prescriptions Pending Prescriptions Disp Refills sildenafil (VIAGRA) 50 mg tablet 30 tablet 3 Sig: take 1 tablet by mouth once daily if needed 30-60 MINUTES BEFORE SEXUAL ACTIVITY. TAKE ON EMPTY STOMACH. Signed Prescriptions Disp Refills sildenafil (VIAGRA) 50 mg tablet 30 tablet 3 Sig: take 1 tablet by mouth once daily if needed 30-60 MINUTES BEFORE SEXUAL ACTIVITY. TAKE ON EMPTY STOMACH. Authorizing Provider: JOEL EWING Patient last appointment: 07/22/2023 Patient Phone numbers: [phone] (home) Request is for script(s) to be escript to pharmacy. Shruthi Orellana MA documented in this encounter [facility] 11-15-2023 Telephone encounter Note Left message for pt to call back. His pharmacy needs updated and his refill prescription is at the patient coordinator front desk [place] He will need to picker / packer the script [facility] 11-15-2023 Miscellaneous Notes Left message for pt to call back. His pharmacy needs updated and his refill prescription is at the patient coordinator front desk in [place] He will need to picker / packer the script documented in this encounter [facility] 11-11-2023 Telephone encounter Note Called number on chart. Spoke with patient's about his cholesterol being elevated and needing to take the statin regularly and also about his A1c going up from 6.0-6.2. Patient's said she would make sure he takes a statin every night and would advise him to cut down his sugar intake especially in the form of sweetened iced tea that he drinks every day. Patient will convey this message to him and we will reevaluate at the next visit. [facility] 11-11-2023 Miscellaneous Notes Called number on chart. Spoke with patient's about his cholesterol being elevated and needing to take the statin regularly and also about his A1c going up from 6.0-6.2. Patient's said she would make sure he takes a statin every night and would advise him to cut down his sugar intake especially in the form of sweetened iced tea that he drinks every day. Patient will convey this message to him and we will reevaluate at the next visit. documented in this encounter [facility] 10-31-2023 Instructions Jaclyn Warren MD - 10/31/2023 10:20 AM EDT Blood work today documented in this encounter [facility] 10-31-2023 History of Presen t illness Narrative Images from the original note were not included. Internal Medicine [facility] Visit Date: October 31, 2023 Follow Up Visit Chief Complaint: Left arm pain , paraesthesia Review of History: Mary Anne Ramos is a 58 year old who is here for a routine follow up visit. His Jamee is also at the visit with him. Patient at this time continues to complain of pain and paresthesia in his neck and left arm. He did see orthopedics and was told that his symptoms of pain and paresthesia in his arm are due to cervical radiculopathy. Patient was referred to physical therapy as well as orthopedic surgery. Patient continues to follow-up with pulmonology however has not been taking Trelegy like he supposed to. Past Medical History: PAST MEDICAL HISTORY Diagnosis Date DDD (degenerative disc disease), cervical Health Maintenance: Colonoscopy: Vaccination: Allergies: ALLERGIES No Known Allergies Medications: Current Outpatient Medications Medication Sig Dispense Refill albuterol HFA (PROVENTIL HFA, VENTOLIN HFA) 90 mcg/actuation inhaler inhale 2 puffs by mouth and INTO THE LUNGS every 4 hours if needed for cough shortness of breath or wheezing 18 g 4 tiZANidine (ZANAFLEX) 4 mg tablet take 1 tablet by mouth once daily 15 tablet 1 atorvastatin (LIPITOR) 20 mg tablet take 1 tablet by mouth once daily 90 tablet 3 omeprazole (PRILOSEC) 40 mg capsule Take 1 capsule by mouth once daily. 90 capsule 1 fluticasone (FLONASE) 50 mcg/actuation nasal spray instill 2 sprays into each nostril once daily (Patient not taking: Reported on 05/07/2023) 16 g 1 lidocaine (LIDODERM) 5 % Apply 1 Patch as directed once daily. to affected area. Remove patch after 12 hours. (Patient not taking: Reported on 05/07/2023) 10 Patch 0 meloxicam (MOBIC) 7.5 mg tablet Take 1 tablet by mouth once daily. (Patient not taking: Reported on 05/07/2023) 10 tablet 0 gnlmvfrjjql-dobslhdru-xnblxkri (TRELEGY ELLIPTA) 200-62.5-25 mcg inhalation powder Inhale 1 Puff as instructed once daily. (Patient not taking: Reported on 05/07/2023) 1 Each 5 No current facility-administered medications for this visit. Social History: Social History Tobacco Use Smoking status: Every Day Packs/day: 0.50 Years: 45.00 Additional pack years: 0.00 Total pack years: 22.50 Types: Cigarettes Smokeless tobacco: Never Vaping Use Vaping Use: Never used Substance Use Topics Alcohol use: No Drug use: No Family History: Family History Problem Relation Age of Onset Cancer Mother ovarian Diabetes Father Ischemic Heart Disease Father Coronary Artery Disease Father Heart Attack Father Breast Cancer Sister Breast Cancer Paternal Aunt Past Surgical History: PAST SURGICAL HISTORY Procedure Laterality Date APPENDECTOMY Review of Systems: Review of Systems Physical Exam: BP 115/79 (BP Site: Left Arm, BP Position: Sitting, BP Cuff Size: Large Adult) Pulse 78 Temp 36.3 C (97.3 F) Resp 14 Ht 193 cm (6' 4) Wt 73.8 kg (162 lb 12.8 oz) SpO2 96% BMI 19.82 kg/m Physical Exam Constitutional: General: He is not in acute distress. Appearance: He is not ill-appearing. Cardiovascular: Rate and Rhythm: Normal rate and regular rhythm. Heart sounds: Normal heart sounds. Pulmonary: Comments: Decreased breath sounds. No crackles or wheezes Neurological: Mental Status: He is alert. Assessment and Plan:: ASSESSMENT/PLAN: 1. Mixed hyperlipidemia - ICD9: 272.2, ICD10: E78.2 (primary diagnosis) Patient has not done blood work that was ordered at the last visit . I will reorder his blood work and he will get it done as soon as possible.. - LIPID PANEL, NONFASTING - COMPLETE BLOOD COUNT AND DIFFERENTIAL - COMPREHENSIVE METABOLIC PANEL - THYROID STIMULATING HORMONE 2. Hyperglycemia - ICD9: 790.29, ICD10: R73.9 Patient's A1c has been borderline and I would like to recheck it. - HEMOGLOBIN A1C 3. Pulmonary emphysema, unspecified emphysema type (HCC) - ICD9: 492.8, ICD10: J43.9 Patient was given a refill on his albuterol inhaler as well as Trelegy which was prescribed by pulmonology which patient does not have at this time. - ALBUTEROL SULFATE HFA 90 MCG/ACTUATION AEROSOL INHALER Patient has not yet called and scheduled physical therapy and he was advised to do so. Patient's says she will take care of it. Jaclyn Warren MD [facility] 10/31/2023 documented in this encounter [facility] 10-31-2023 Nurse Note Pt here for routine follow up. Pt needs refill on meds. [facility] 10-31-2023 Nurse Note Pt here for routine follow up. Pt needs refill on meds. documented in this encounter [facility] 10-30-2023 Telephone encounter Note Albuterol refilled [facility] 10-30-2023 Miscellaneous Notes Albuterol refilled Pharmacy calls in requesting the following refill(s): Requested Prescriptions Pending Prescriptions Disp Refills albuterol HFA (PROVENTIL HFA, VENTOLIN HFA) 90 mcg/actuation inhaler [Pharmacy Med Name: ALBUTEROL HFA 90 MCG INHALER] 18 g 4 Sig: inhale 2 puffs by mouth and INTO THE LUNGS every 4 hours if needed for cough shortness of breath or wheezing documented in this encounter [facility] 10-30-2023 Telephone encounter Note Pharmacy calls in requesting the following refill(s): Requested Prescriptions Pending Prescriptions Disp Refills albuterol HFA (PROVENTIL HFA, VENTOLIN HFA) 90 mcg/actuation inhaler [Pharmacy Med Name: ALBUTEROL HFA 90 MCG INHALER] 18 g 4 Sig: inhale 2 puffs by mouth and INTO THE LUNGS every 4 hours if needed for cough shortness of breath or wheezing [facility] 10-15-2023 History of Presen t illness Narrative Mary Anne Ramos 1965 58 year old Mary Anne Ramos is a 58 year old male with the presenting complaint of New of the Left Hand (Carpal tunnel), New of the Right Hand (Carpal tunnel ), and New of the Neck. Mary Anne reports a current pain level of 3 (Neck (B/L hands (3))). He describes the pain as Numbness, Aching, Tingling. The pain is Continuous . He is currently taking meloxicam. Most recent hand imaging was completed on 09/15/2018 (XR HAND GENERAL 3V PA/LAT/OBL RIGHT) . In the past (based on all medication history on file), Mary Anne has tried the following anti-inflammatory medications (not necessarily for this reason for visit): meloxicam, methylprednisolone. Last XR Hand/Finger - Impression Only XR HAND GENERAL 3V PA/LAT/OBL RT Collected: 09/15/2018 3:10 PM (Final result) Impression: No acute osseous abnormalities. ---- Electronic Signature on File ---- Signed By: Khurram East MD FACR ... Subjective: This is a 58-year-old male seen today to evaluate mostly left arm pain but he is having some right arm pain as well starts off in the nape of his neck radiates down the posterior aspect of his upper arm to the extensor surface of his forearm onto his hand. His pattern is pretty darn good for a C6 possibly a C7 pattern. He does not really have carpal tunnel symptoms that are classic for carpal tunnel. Objective: On examination this man has reasonable forward flexion of his cervical spine he has almost no extension he is got maybe one third of his lateral bending to the right side he is got none to his left he is got rotation of about half to his right and only about one third to the left. He is got a very positive Spurling's reaction deep tendon reflexes are absent at his elbows triceps and biceps bilaterally I cannot elicit any real strength deficit possibly a little bit of weakness with his triceps on the left side. Plain x-rays show tremendously degenerative levels at C5-6 and 6 7. He also has significant foraminal encroachment with his oblique films as well. ACTIVE PROBLEM LIST Displacement of Cervical Intervertebral Disc Without Myelopathy Tobacco Dependence Syndrome Shortness of Breath Pulmonary Nodule Pulmonary Emphysema (Hcc) Hyperlipidemia Gastroesophageal Reflux Disease Gynecomastia, Male Epistaxis Cough Allergic Rhinitis Lymphocytosis Paresthesia Unspecified Lump in Left Breast, Subareolar Assessment: This man has significant osteoarthritis of the cervical spine with radiculopathy bilaterally but more way more on the left-hand side than the right. He is got a negative Tinel's over his median nerves with both hands and the EMG nerve conduction test that he had 2 years ago identifies mild carpal tunnel syndrome. I think he is we more symptomatic from his cervical radiculopathy than anything else Plan: We are to start this man on a steroid taper started little physical therapy to see if can influence his radicular symptoms that way we will see him back in a month. Wolfgang Ray MD documented in this encounter [facility] 10-15-2023 Nurse Note 58 year old male is here today as a new patient for B/L carpal tunnel in hands and neck pain. Pt stated he's been experiencing numbness and tingling in B/L hands. Pt stated he's been having trouble sleeping due to the pain in his neck. [facility] 10-15-2023 Nurse Note 58 year old male is here today as a new patient for B/L carpal tunnel in hands and neck pain. Pt stated he's been experiencing numbness and tingling in B/L hands. Pt stated he's been having trouble sleeping due to the pain in his neck. documented in this encounter [facility] 09-25-2023 Telephone encounter Note Noted. Thanks [facility] 09-25-2023 Miscellaneous Notes Noted. Thanks Yamile called from ortho sx [facility] and said pt is scheduled 10/07. MODESAT Randhawa LPN No voicemail set up on either home or cell phones. I did call ortho surgery and had to leave a msg regarding appt/referral. Asked them to call us back. Donis Randhawa LPN Patient's x-rays shows quite severe degenerative disease in the cervical spine. Patient was referred to orthopedics. I do not see a future appointment with them. Can we please check on the status of the orthopedic referral as I need patient to see them as soon as possible. documented in this encounter [facility] 09-25-2023 Telephone [facility] MODESTA Randhawa LPN [facility] 09-24-2023 Telephone encounter Note No voicemail set up on either home or cell phones. I did call ortho surgery and had to leave a msg regarding appt/referral. Asked them to call us back. Donis Randhawa LPN [facility] 09-24-2023 Telephone encounter Note Patient's x-rays shows quite severe degenerative disease in the cervical spine. Patient was referred to orthopedics. I do not see a future appointment with them. Can we please check on the status of the orthopedic referral as I need patient to see them as soon as possible. [facility] 09-17-2023 History of Presen t illness Narrative Radiology Service Progress Note PATIENT NAME: Mary Anne Ramos DATE OF SERVICE: September 17, 2023 TIME: 12:43 PM PATIENT IDENTITY VERIFICATION COMPLETED USING TWO (2) IDENTIFIERS: Name and Date of confirmed by patient verbally. FALL SCREENING: Has the patient had 2 falls in the last year or 1 fall with injury or currently using an Ambulatory Assistive Device (Walker, Cane, Wheelchair, Crutches, etc.)? No PATIENT GENDER DATA: Male PATIENT RELEVANT IMPLANT DATA REVIEWED: Not Applicable PATIENT PRESENTS WITH AN IMPLANTABLE OR ATTACHED SHOER: No RADIOLOGY DEPARTMENT: General X-ray: Exam(s) Completed: Spine X-Ray(s): Cervical AP / LAT / OBL and Thoracic PERIPHERAL IV DATA: Not applicable SIGNED BY: RT Donaldo(R) September 17, 2023 12:43 PM documented in this encounter [facility] 09-06-2023 Instructions Stefanie Corona MD - 09/06/2023 10:56 AM EDT My Plan and Interventions: 1. Return to office in 4 months. 2. Tests to be ordered today: Sleep study 3. New medications today:None 4. Special Instructions:call if has concerns 5. Summary of today's visit: COPD 6. Referrals today: None Copy to Referring physician: yes Thank you for allowing me to participate in this patient's care. documented in this encounter [facility] 09-06-2023 History of Presen t illness Narrative [facility] established patient follow-up note SERVICE DATE: 09/06/2023 PRIMARY CARE PHYSICIAN: Jaclyn Warren MD COMMUNICATION WILL BE SENT VIA SHARED MEDICAL RECORDS OR US MAIL. SUBJECTIVE HPI:Mary Anne Ramos is a 57 year old male here for follow appointment for COPD. Routine visit and past visit reviewed. Patient is active smoker and also has history of GERD. Patient comes in for a follow-up. States that he continues to have shortness of breath on exertion. Also has a cough on and off. Does not bring up any phlegm. Denies any shortness of breath at rest. No fever chills or night sweats. Continues to smoke cigarettes up to half pack per day but cut down smoking. Used to smoke up to 1-1/2 pack in the past. Also gives a history of smoking marijuana on and off. Patient's brought already regarding cough him snoring at nighttime. States that he breathes very hard while sleeping. He does not go to bed at the same time every day. Sometimes he goes to bed at 6 AM or 8 AM in the morning. He works with [employer] people. He does not feel fresh in the morning. Does take naps during daytime. Patient also complains of nasal congestion. Gives a history of GERD. Has heartburn frequently and he is currently on omeprazole. Also complains of left shoulder blade pain. Follow up in future anticipated. Discussed with patient. SOCIAL HISTORY: Social History Tobacco Use Smoking status: Every Day Packs/day: 0.50 Years: 45.00 Additional pack years: 0.00 Total pack years: 22.50 Types: Cigarettes Smokeless tobacco: Never Vaping Use Vaping Use: Never used Substance Use Topics Alcohol use: No Drug use: No MEDICATIONS: Prior to Admission Medications (Not in a hospital admission) tiZANidine (ZANAFLEX) 4 mg tablet take 1 tablet by mouth once daily atorvastatin (LIPITOR) 20 mg tablet take 1 tablet by mouth once daily omeprazole (PRILOSEC) 40 mg capsule Take 1 capsule by mouth once daily. albuterol HFA (PROVENTIL HFA, VENTOLIN HFA) 90 mcg/actuation inhaler Inhale 2 Puffs as instructed every 4 hours as needed for wheezing/shortness of breath. fluticasone (FLONASE) 50 mcg/actuation nasal spray instill 2 sprays into each nostril once daily (Patient not taking: Reported on 05/07/2023) lidocaine (LIDODERM) 5 % Apply 1 Patch as directed once daily. to affected area. Remove patch after 12 hours. (Patient not taking: Reported on 05/07/2023) meloxicam (MOBIC) 7.5 mg tablet Take 1 tablet by mouth once daily. (Patient not taking: Reported on 05/07/2023) njiigqkmevv-xvsakqhwt-hucmxssh (TRELEGY ELLIPTA) 200-62.5-25 mcg inhalation powder Inhale 1 Puff as instructed once daily. (Patient not taking: Reported on 05/07/2023) CURRENT ALLERGIES: ALLERGIES No Known Allergies REVIEW OF SYSTEMS Constitutional:NO EVIDENCE OF ACUTE DISTRESS HEENT:Negative for frequent or significant headaches. Nasal congestion RESPIRATORY: Cough; moist, Dyspnea CARDIOVASCULAR: Negative for chest pain, leg swelling or palpitations. GASTROINTESTINAL: Negative for abdominal discomfort, blood in stools or black stools or change in bowel habits GENITOURINARY: No history of dysuria, frequency or incontinence DAMAGE ADJUSTER: NA MUSCULOSKELETAL: Negative for joint pain or swelling, back pain or muscle pain. NEUROLOGIC:Negative for focal numbness or weakness, headaches and dizziness or syncope. SKIN:Negative for lesions, rash, and itching. PSYCHIATRIC: See HPI HEMATOLOGIC/LYMPHATIC/IMMUNOLOGI C:{HEMATOLOGY/LYMPHATIC/IMMUNOLO ENDOCRINE: Negative for cold or heat intolerance, polyuria, polydipsia and goiter. The remainder of the ROS was negative. PHYSICAL EXAMINATION: VITAL SIGNS: Ht 6' 4 (1.93m) Wt 168 lb (76.2kg) BMI 20.46 kg/(m^2). General appearance: well appearing, alert, and in no acute distress Skin: skin color, texture, turgor normal, no rashes or lesions Eyes: Anicteric sclera. Pupils are equally round and reactive to light. Extraocular movements are intact. ENT: No oral or nasal erythema, bleeding, lesions, striae Heme/Lymph:Negative Lungs: Very diminished breath sounds bilaterally, no wheezing or rhonchi Heart: RRR without murmur, gallop, or rubs. No ectopy GI: Normal abdominal exam Musculoskeletal: Extremities normal. No deformities, edema, or skin discoloration. Good capillary refill. Psych: no history of psychiatric problems Neuro: Gait normal. Reflexes normal and symmetric. Sensation grossly intact. DATA: Vaccines as noted EMR Diagnostic tests reviewed for today's visit: Labs: CBC with diff: WBC 7.65 06/30/2022 RBC 5.66 06/30/2022 Hemoglobin 15.3 06/30/2022 Hematocrit 48.9 06/30/2022 MCV 86.4 06/30/2022 MCH 27.0 06/30/2022 MCHC 31.3 06/30/2022 RDW-CV 13.6 06/30/2022 Platelet Count 241 06/30/2022 MPV 11.2 06/30/2022 Neutrophils % 48.5 06/30/2022 Lymphocytes % 42.2 06/30/2022 Cheatham% 7.6 06/30/2022 Eosinophils % 0.7 06/30/2022 Basophils % 0.5 06/30/2022 Abs Neut 3.71 06/30/2022 Abs [place] 0.58 06/30/2022 Abs Eosin 0.05 06/30/2022 Abs Baso 0.04 06/30/2022 CT CHEST:10/2022: There is chronic consolidation with underlying calcification in the right lower lobe posterior medially which is unchanged. There are scattered peripheral areas of fibrosis. There is bilateral apical scarring. There is thickening along the minor fissure on images 173-177 similar to previous studies. This is best shown on sagittal reconstructed images. Emphysema: There are moderate upper lobe predominant centrilobular emphysematous changes. There are areas of paraseptal emphysema., , Coronary Artery Calcifications: Circumflex none; Left Anterior Descending none Right Coronary none PFT:11/2022: IMPRESSION: Spirometry indicates severe obstruction. There was a borderline significant (FEV1 + cc's, + %) response to bronchodilator. The TLC is reduced indicating restriction. The RV/TLC is elevated indicating air trapping. The diffusing capacity is moderately reduced. ASSESSMENT ASSESSMENT/PLAN: 1. Pulmonary emphysema, unspecified emphysema type (HCC) - ICD9: 492.8, ICD10: J43.9 (primary diagnosis) He is currently on Trelegy Ellipta and as needed albuterol. Using albuterol 1-2 times a day. Continues to have a significant dyspnea on exertion. Encouraged to use albuterol every 4 hours as needed. Patient continues to smoke cigarettes. Encouraged on a smoking cessation. 2. CAMRYN (obstructive sleep apnea) - ICD9: 327.23, ICD10: G47.33 Patient's brought a recording of him snoring at nighttime. States that he breathes very heavy. Does not feel rested in the morning. Will order sleep study to evaluate for sleep apnea - POLYSOMNOGRAM (PSG) 3. Tobacco use current - ICD9: 305.1, ICD10: Z72.0 - Cessation encouraged. - Physiologic and physical aspects of tobacco addiction as well as strategies for quitting were discussed. - Counseling was given focusing on the harmful effects of this addiction especially given the patient's medical condition(s) which will be worsened because of the chemicals in tobacco. - Counseling was given 3-4 minutes. - Recommended to called 1-800-QUIT NOW 4. Marijuana abuse - ICD9: 305.20, ICD10: F12.10 Praised on cessation of smoking 5. Gastroesophageal reflux disease without esophagitis - ICD9: 530.81, ICD10: K21.9 Is currently on omeprazole Stefanie Corona MD Patient instructions given: See AVS Thank you for allowing me to participate in this patient's care. Patient's questions and concerns were addressed prior to discharge today. Followup discussed. Communication to associated physician sent. SIGNATURE: Stefanie Corona MD PATIENT NAME: Mary Anne Ramos DATE: September 06, 2023 TIME: 10:42 AM PAGER/CONTACT #: [phone] documented in this encounter [facility] 07-24-2023 Instructions Jaclyn Warren MD - 07/24/2023 11:02 AM EST Xrays and blood work documented in this encounter [facility] 07-24-2023 History of Presen t illness Narrative Images from the original note were not included. Internal Medicine [facility] Visit Date: July 24, 2023 Follow Up Visit Chief Complaint: Left upper back pain, left arm pain, numbness and tingling of first 3 fingers. Review of History: Mary Anne Ramos is a 57 year old who is here for a follow-up visit. Patient at this time is reporting pain in his upper left back. He says from time to time he gets a pain there that radiates down his arm. He has not noticed any aggravating or relieving factors. He also has numbness and tingling of his fingertips. There is no numbness or tingling or weakness of the arm. Patient has a history of cervical degenerative disc disease and cervical radiculopathy in the past. Patient has also had an EMG in the past a few years ago which showed bilateral carpal tunnel syndrome. He says that the symptoms have worsened since then. Past Medical History: PAST MEDICAL HISTORY Diagnosis Date DDD (degenerative disc disease), cervical Health Maintenance: Colonoscopy: Vaccination: Allergies: ALLERGIES No Known Allergies Medications: Current Outpatient Medications Medication Sig Dispense Refill tiZANidine (ZANAFLEX) 4 mg tablet take 1 tablet by mouth once daily 15 tablet 1 atorvastatin (LIPITOR) 20 mg tablet take 1 tablet by mouth once daily 90 tablet 3 albuterol HFA (PROVENTIL HFA, VENTOLIN HFA) 90 mcg/actuation inhaler Inhale 2 Puffs as instructed every 4 hours as needed for wheezing/shortness of breath. 1 Each 2 fluticasone (FLONASE) 50 mcg/actuation nasal spray instill 2 sprays into each nostril once daily (Patient not taking: Reported on 05/07/2023) 16 g 1 lidocaine (LIDODERM) 5 % Apply 1 Patch as directed once daily. to affected area. Remove patch after 12 hours. (Patient not taking: Reported on 05/07/2023) 10 Patch 0 meloxicam (MOBIC) 7.5 mg tablet Take 1 tablet by mouth once daily. (Patient not taking: Reported on 05/07/2023) 10 tablet 0 xjvpabmsmrj-yoidgtaju-hfwkxjjr (TRELEGY ELLIPTA) 200-62.5-25 mcg inhalation powder Inhale 1 Puff as instructed once daily. (Patient not taking: Reported on 05/07/2023) 1 Each 5 omeprazole (PRILOSEC) 40 mg capsule Take 1 capsule by mouth once daily. (Patient not taking: Reported on 05/07/2023) 90 capsule 1 No current facility-administered medications for this visit. Social History: Social History Tobacco Use Smoking status: Every Day Packs/day: 1.00 Years: 45.00 Additional pack years: 0.00 Total pack years: 45.00 Types: Cigarettes Smokeless tobacco: Never Vaping Use Vaping Use: Never used Substance Use Topics Alcohol use: No Drug use: No Family History: Family History Problem Relation Age of Onset Cancer Mother ovarian Diabetes Father Ischemic Heart Disease Father Coronary Artery Disease Father Heart Attack Father Breast Cancer Sister Breast Cancer Paternal Aunt Past Surgical History: PAST SURGICAL HISTORY Procedure Laterality Date APPENDECTOMY Review of Systems: Review of Systems Physical Exam: BP 111/72 (BP Site: Left Arm, BP Position: Sitting, BP Cuff Size: Regular Adult) Pulse 89 Temp 36.1 C (97 F) Resp 16 Ht 185.4 cm (6' 1) Wt 76.7 kg (169 lb) SpO2 94% BMI 22.30 kg/m Physical Exam Constitutional: Appearance: Normal appearance. Cardiovascular: Rate and Rhythm: Normal rate and regular rhythm. Musculoskeletal: Comments: Tenderness on palpation of left paraspinal muscles with significant muscular spasm present. No weakness or decrease sensation in upper extremities. Phalen sign appears to be positive more so on the left. Tinel sign is negative. Neurological: Mental Status: He is alert. Assessment and Plan:: ASSESSMENT/PLAN: 1. Bilateral carpal tunnel syndrome - ICD9: 354.0, ICD10: G56.03 (primary diagnosis) Patient has a known history of bilateral carpal tunnel syndrome and lately has been having worsening numbness and tingling especially on the left side. I will refer to orthopedics for consultation. - CONSULT TO ORTHOPAEDIC SURGERY - TSH BLD 2. Radiculopathy of cervicothoracic region - ICD9: 723.4, ICD10: M54.13 Patient has a known history of cervical degenerative disc disease. He has been having some pain in the upper left back. I will redo x-rays of the cervical spine and will order new x-rays of the thoracic spine. I will also refer him to orthopedics for cervical radiculopathy. - XR CERV OTHER 4V AP/LAT/OBL - XR THORACIC LIMITED 2V AP/LAT - CONSULT TO ORTHOPAEDIC SURGERY 3. Hyperglycemia - ICD9: 790.29, ICD10: R73.9 Patient's hemoglobin A1c has been borderline however he has not had blood work in a while and I will order an A1c. - HGB A1C - CBC + DIFF - COMP METABOLIC PANEL 4. Mixed hyperlipidemia - ICD9: 272.2, ICD10: E78.2 Will also recheck patient's lipid profile which has not been done in a while. Patient is unable to fast for extended time. He will do a nonfasting lipid panel. - LIPID PANEL, NONFASTING MD Jaclyn Gardner MD [facility] 07/24/2023 documented in this encounter [facility] 07-24-2023 Nurse Note Pt here for follow up. Pt needs refills. documented in this encounter [facility] 07-22-2023 History of Presen t illness Narrative Images from the original note were not included. [facility] UROLOGY ESTABLISHED PATIENT CLINIC NOTE UROL [facility] PATIENT INFO: Mary Anne Ramos 57 year old PCP: Jaclyn Warren MD IMPRESSION/PLAN: 1. ED (erectile dysfunction) of organic origin - ICD9: 607.84, ICD10: N52.9 - remain on Viagra 100mg prn REASON FOR VISIT: Follow up HPI: Mary Anne Ramos returns for continuing evaluation and management. Since starting on Sildenafil 100mg he's seen a noticeable improvement. His seems to be pleased as well. The IIEF-5 Questionnaire ([facility]) Over the past 6 months: How do you rate your confidence that you can get and keep an erection? Moderate - 3 When you had erections with sexual stimulation, how often where your erections hard enough for penetration? Sometimes (about half the time) - 3 During sexual intercourse, how often were you able to maintain your erection after you penetrated your partner? Sometimes (about half the time) - 3 During sexual intercourse, how difficult was it to maintain your erection to completion of intercourse? Slightly difficult - 4 When you attempted sexual intercourse, how often was it satisfactory for you? Not difficult - 5 Total Score: 17-21: Mild ED OTHER DATA: PSA Screening (ng/mL) Date Value 06/30/2022 2.26 No results found for: ISOPSA Creatinine Date Value Ref Range Status 06/30/2022 1.11 0.50 - 1.40 mg/dL Final Comment: Patients receiving either N-Acetylcysteine (NAC) or Metamizole prior to venipuncture, may have falsely depressed results. 12/16/2019 1.26 0.5 - 1.4 MG/DL Final Comment: NOTE NEW NORMAL RANGE DUE TO REAGENT CHANGE Patients receiving either N-Acetylcysteine (NAC) or Metamizole prior to venipuncture, may have falsely depressed results. 07/01/2019 1.380 (H) 0.670 - 1.170 MG/DL Final Comment: Patients receiving either N-Acetylcysteine (NAC) or Metamizole prior to venipuncture, may have falsely depressed results. 03/03/2019 1.220 (H) 0.670 - 1.170 MG/DL Final Comment: Patients receiving either N-Acetylcysteine (NAC) or Metamizole prior to venipuncture, may have falsely depressed results. Testosterone (ng/dL) Date Value 06/24/2023 417 PMHx/PSHx: see above, otherwise unchanged Rx: reviewed and unchanged ROS: see above, otherwise unchanged Labs: None Imaging: None MEDICATIONS: Current Outpatient Medications Medication Sig tiZANidine (ZANAFLEX) 4 mg tablet take 1 tablet by mouth once daily atorvastatin (LIPITOR) 20 mg tablet take 1 tablet by mouth once daily albuterol HFA (PROVENTIL HFA, VENTOLIN HFA) 90 mcg/actuation inhaler Inhale 2 Puffs as instructed every 4 hours as needed for wheezing/shortness of breath. fluticasone (FLONASE) 50 mcg/actuation nasal spray instill 2 sprays into each nostril once daily (Patient not taking: Reported on 05/07/2023) lidocaine (LIDODERM) 5 % Apply 1 Patch as directed once daily. to affected area. Remove patch after 12 hours. (Patient not taking: Reported on 05/07/2023) meloxicam (MOBIC) 7.5 mg tablet Take 1 tablet by mouth once daily. (Patient not taking: Reported on 05/07/2023) vsmliukapdw-ftjcchlbq-afpnnpdu (TRELEGY ELLIPTA) 200-62.5-25 mcg inhalation powder Inhale 1 Puff as instructed once daily. (Patient not taking: Reported on 05/07/2023) omeprazole (PRILOSEC) 40 mg capsule Take 1 capsule by mouth once daily. (Patient not taking: Reported on 05/07/2023) No current facility-administered medications for this visit. PHYSICAL EXAM: BP 113/77 Ht 185.4 cm (6' 1) Wt 74.4 kg (164 lb) BMI 21.64 kg/m Body mass index is 21.64 kg/m . General: Well masculinized, well nourished male Psych: euthymic, NAD Neuro: A&Ox3 Inguinal: No lesions, adenopathy, or hernias exam deferred FOLLOW UP: 1 year or sooner if needed Joel Ewing M.D, MS Associate Staff [facility] documented in this encounter [facility] 06-24-2023 Miscellaneous Notes Atorvastatin refilled documented in this encounter [facility] 05-07-2023 Instructions Stefanie Corona MD - 05/07/2023 10:54 AM EST My Plan and Interventions: 1. Return to office in 4 months. 2. Tests to be ordered today:None 3. New medications today:None 4. Special Instructions:call if has concerns 5. Summary of today's visit: COPD 6. Referrals today: None Copy to Referring physician: yes Thank you for allowing me to participate in this patient's care. documented in this encounter [facility] 05-07-2023 History of Presen t illness Narrative Images from the original note were not included. [facility] established patient follow-up note SERVICE DATE: 05/07/2023 PRIMARY CARE PHYSICIAN: Jaclyn Warren MD COMMUNICATION WILL BE SENT VIA SHARED MEDICAL RECORDS OR US MAIL. SUBJECTIVE HPI:Mary Anne Ramos is a 57 year old male here for follow appointment for COPD. Routine visit and past visit reviewed. Patient is active smoker and also has history of GERD. Comes in for a follow-up. Last seen in office in January. He is on a trilogy Ellipta and as needed albuterol. States that he never takes inhalers as he does not like to have any side effects from the medication. States that his friend after taking the inhaler and he is afraid to take the inhalers. He denies any shortness of breath. No fever chills or night sweats. Continues to smoke cigarettes. He is coughing up black-colored phlegm. Also complains of pain in the back on the left side of the chest and radiating to the front. Also complains of tingling sensation in the left thumb and index finger Patient states that he received steroid pack from his primary care physician for the pain in the back. Had a lot of side effects from the medication and he could not tolerate the steroids. He was crying and that he did not know where he was and what he was doing well taking the medication and he had to stop taking the medication after 3 days. Follow up in future anticipated. Discussed with patient. SOCIAL HISTORY: Social History Tobacco Use Smoking status: Every Day Packs/day: 1.00 Years: 45.00 Additional pack years: 0.00 Total pack years: 45.00 Types: Cigarettes Smokeless tobacco: Never Vaping Use Vaping Use: Never used Substance Use Topics Alcohol use: No Drug use: No MEDICATIONS: Prior to Admission Medications (Not in a hospital admission) albuterol HFA (PROVENTIL HFA, VENTOLIN HFA) 90 mcg/actuation inhaler Inhale 2 Puffs as instructed every 4 hours as needed for wheezing/shortness of breath. tiZANidine (ZANAFLEX) 4 mg tablet take 1 tablet by mouth once daily (Patient not taking: Reported on 05/07/2023) fluticasone (FLONASE) 50 mcg/actuation nasal spray instill 2 sprays into each nostril once daily (Patient not taking: Reported on 05/07/2023) lidocaine (LIDODERM) 5 % Apply 1 Patch as directed once daily. to affected area. Remove patch after 12 hours. (Patient not taking: Reported on 05/07/2023) meloxicam (MOBIC) 7.5 mg tablet Take 1 tablet by mouth once daily. (Patient not taking: Reported on 05/07/2023) jrgeuqfunom-izrrlaqxz-uohetcyg (TRELEGY ELLIPTA) 200-62.5-25 mcg inhalation powder Inhale 1 Puff as instructed once daily. (Patient not taking: Reported on 05/07/2023) atorvastatin (LIPITOR) 20 mg tablet Take 1 tablet by mouth once daily. (Patient not taking: Reported on 05/07/2023) omeprazole (PRILOSEC) 40 mg capsule Take 1 capsule by mouth once daily. (Patient not taking: Reported on 05/07/2023) CURRENT ALLERGIES: ALLERGIES No Known Allergies REVIEW OF SYSTEMS Constitutional:NO EVIDENCE OF ACUTE DISTRESS HEENT:Negative for frequent or significant headaches RESPIRATORY: Cough; moist, productive with black sputum CARDIOVASCULAR: Negative for chest pain, leg swelling or palpitations. GASTROINTESTINAL: Negative for abdominal discomfort, blood in stools or black stools or change in bowel habits GENITOURINARY: No history of dysuria, frequency or incontinence DAMAGE ADJUSTER: NA MUSCULOSKELETAL: Negative for joint pain or swelling, back pain or muscle pain. NEUROLOGIC:Negative for focal numbness or weakness, headaches and dizziness or syncope. SKIN:Negative for lesions, rash, and itching. PSYCHIATRIC: Negative for sleep disturbance, mood disorder and recent psychosocial stressors. HEMATOLOGIC/LYMPHATIC/IMMUNOLOGI C:{HEMATOLOGY/LYMPHATIC/IMMUNOLO ENDOCRINE: Negative for cold or heat intolerance, polyuria, polydipsia and goiter. The remainder of the ROS was negative. PHYSICAL EXAMINATION: VITAL SIGNS: BP 108/71 Pulse 100 Resp 16 Ht 6' 1 (1.85m) Wt 164 lb (74.4kg) SpO2 93% BMI 21.64 kg/(m^2). General appearance: well appearing, alert, and in no acute distress Skin: skin color, texture, turgor normal, no rashes or lesions Eyes: Anicteric sclera. Pupils are equally round and reactive to light. Extraocular movements are intact. ENT: No oral or nasal erythema, bleeding, lesions, striae Heme/Lymph:Negative Lungs: Diminished breath sounds bilaterally Heart: RRR without murmur, gallop, or rubs. No ectopy GI: Normal abdominal exam Musculoskeletal: Extremities normal. No deformities, edema, or skin discoloration. Good capillary refill. Psych: no history of psychiatric problems Neuro: Gait normal. Reflexes normal and symmetric. Sensation grossly intact. DATA: Vaccines as noted EMR Diagnostic tests reviewed for today's visit: Labs: CBC with diff: WBC 7.65 06/30/2022 RBC 5.66 06/30/2022 Hemoglobin 15.3 06/30/2022 Hematocrit 48.9 06/30/2022 MCV 86.4 06/30/2022 MCH 27.0 06/30/2022 MCHC 31.3 06/30/2022 RDW-CV 13.6 06/30/2022 Platelet Count 241 06/30/2022 MPV 11.2 06/30/2022 Neutrophils % 48.5 06/30/2022 Lymphocytes % 42.2 06/30/2022 [place]% 7.6 06/30/2022 Basophils % 0.5 06/30/2022 Abs Neut 3.71 06/30/2022 Abs [place] 0.58 06/30/2022 Abs Eosin 0.05 06/30/2022 Abs Baso 0.04 06/30/2022 CT CHEST:10/2022: There is chronic consolidation with underlying calcification in the right lower lobe posterior medially which is unchanged. There are scattered peripheral areas of fibrosis. There is bilateral apical scarring. There is thickening along the minor fissure on images 173-177 similar to previous studies. This is best shown on sagittal reconstructed images. Emphysema: There are moderate upper lobe predominant centrilobular emphysematous changes. There are areas of paraseptal emphysema., , Coronary Artery Calcifications: Circumflex none; Left Anterior Descending none Right Coronary none PFT:11/2022: IMPRESSION: Spirometry indicates severe obstruction. There was a borderline significant (FEV1 + cc's, + %) response to bronchodilator. The TLC is reduced indicating restriction. The RV/TLC is elevated indicating air trapping. The diffusing capacity is moderately reduced. ASSESSMENT ASSESSMENT/PLAN: 1. Pulmonary emphysema, unspecified emphysema type (HCC) - ICD9: 492.8, ICD10: J43.9 (primary diagnosis) He is currently on a trilogy Ellipta and as needed albuterol but does not use the inhalers. States that he is afraid to use the inhalers. Encouraged on medication compliance - XR CHEST 2V FRONTAL/LAT 2. Tobacco use current - ICD9: 305.1, ICD10: Z72.0 - Cessation encouraged. - Physiologic and physical aspects of tobacco addiction as well as strategies for quitting were discussed. - Counseling was given focusing on the harmful effects of this addiction especially given the patient's medical condition(s) which will be worsened because of the chemicals in tobacco. - Counseling was given 3-4 minutes. - Recommended to called 1-800-QUIT NOW 3. Shoulder blade pain - ICD9: 733.90, ICD10: M89.8X1 Planes of pain in the back on the left side which is radiating to the front and also has tingling and numbness sensation in the left index and thumb. Will order chest x-ray. If chest x-ray is normal advised patient to follow-up with his primary care doctor. Stefanie Corona MD Patient instructions given: See AVS Thank you for allowing me to participate in this patient's care. Patient's questions and concerns were addressed prior to discharge today. Followup discussed. Communication to associated physician sent. SIGNATURE: Stefanie Corona MD PATIENT NAME: Mary Anne Ramos DATE: May 07, 2023 TIME: 10:41 AM PAGER/CONTACT #: [phone] documented in this encounter [facility] 05-07-2023 Nurse Note PULM COPD ASSESSMENT TEST (CAT) SCORE 05/07/2023 COUGH 5 PHLEGM 5 CHEST TIGHTNESS 2 WALKING UP HILL OR FLIGHT OF STEPS 2 ACTIVITIES AT HOME 4 LEAVING HOME DESPITE LUNG CONDITION 0 SLEEPING 0 ENERGY 2 TOTAL SCORE 20 documented in this encounter [facility] 04-03-2023 Miscellaneous Notes Flonase refilled Pharmacy calls in requesting the following refill(s): Requested Prescriptions Pending Prescriptions Disp Refills fluticasone (FLONASE) 50 mcg/actuation nasal spray [Pharmacy Med Name: FLUTICASONE PROP 50 MCG SPRAY] 16 g 1 Sig: instill 2 sprays into each nostril once daily Donis Randhawa LPN documented in this encounter [facility] 04-02-2023 Miscellaneous Notes Called Patient informed of information below, patient voiced understanding. Reta Salgado RN Noted. Patient to continue to watch his symptoms and seek advice if symptoms of sore throat worsen. As for neck pain. Will send in some lidocaine patches. Patient to call if neck pain doesn't resolve in 2 weeks 03/27 OV - pt started on medrol dosepak for neck pain. Pt started this on . Starting yesterday pt had confusion, in and out of consciousness, fatigue, crying episode, sore throat, and headache. Stopped the med and feels okay today other than headache and sore throat continues. Afebrile. No nasal congestion. Still c/o neck pain and using warm compresses for that. Donis Randhawa LPN documented in this encounter [facility] 03-27-2023 Instructions Jaclyn Warren MD - 03/27/2023 11:16 AM EST Do blood work as soon as possible documented in this encounter [facility] 03-27-2023 History of Presen t illness Narrative Images from the original note were not included. Internal Medicine [facility] Visit Date: March 27, 2023 Follow Up Visit Chief Complaint: Neck and back pain Review of History: Mary Anne Ramos is a 57 year old who is here for a routine follow up visit. Patient is complaining of pain in his neck mostly on the left side going into his left upper back. 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 Patient denies any numbness or tingling or weakness of the left upper extremity. He denies any chest pain. Health Maintenance: Colonoscopy: Vaccination: Allergies: ALLERGIES No Known Allergies Medications: Current Outpatient Medications Medication Sig Dispense Refill tiZANidine (ZANAFLEX) 4 mg tablet take 1 tablet by mouth once daily 15 tablet 1 fluticasone (FLONASE) 50 mcg/actuation nasal spray Use 2 Sprays in each nostril once daily. 1 Each 1 meloxicam (MOBIC) 7.5 mg tablet Take 1 tablet by mouth once daily. 10 tablet 0 oazlbxctnky-nxvchsgdw-yzbqegys (TRELEGY ELLIPTA) 200-62.5-25 mcg inhalation powder Inhale 1 Puff as instructed once daily. 1 Each 5 atorvastatin (LIPITOR) 20 mg tablet Take 1 tablet by mouth once daily. 90 tablet 3 omeprazole (PRILOSEC) 40 mg capsule Take 1 capsule by mouth once daily. 90 capsule 1 albuterol HFA (PROVENTIL HFA, VENTOLIN HFA) 90 mcg/actuation inhaler Inhale 2 Puffs as instructed every 4 hours as needed for wheezing/shortness of breath. 1 Each 2 No current facility-administered medications for this visit. Social History: Social History Tobacco Use Smoking status: Every Day Packs/day: 1.00 Years: 45.00 Additional pack years: 0.00 Total pack years: 45.00 Types: Cigarettes Smokeless tobacco: Never Vaping Use Vaping Use: Never used Substance Use Topics Alcohol use: No Drug use: No Family History: Family History Problem Relation Age of Onset Cancer Mother ovarian Diabetes Father Ischemic Heart Disease Father Coronary Artery Disease Father Heart Attack Father Breast Cancer Sister Breast Cancer Paternal Aunt Past Surgical History: PAST SURGICAL HISTORY Procedure Laterality Date APPENDECTOMY Review of Systems: Review of Systems Physical Exam: BP 119/79 (BP Site: Left Arm, BP Position: Sitting, BP Cuff Size: Regular Adult) Pulse 93 Temp 36.4 C (97.6 F) Resp 16 Ht 193 cm (6' 4) Wt 74 kg (163 lb 3.2 oz) SpO2 94% BMI 19.87 kg/m Physical Exam Musculoskeletal: Comments: Tenderness on palpation of the paraspinal muscles mostly on the left side. Range of motion of the neck is slightly limited because of pain Assessment and Plan:: ASSESSMENT/PLAN: 1. Neck pain on left side - ICD9: 723.1, ICD10: M54.2 (primary diagnosis) Patient appears to have strained the muscles of his neck on the left side. Patient really took a muscle relaxant that did not help. I will give him Medrol dose pack. Patient will inform me if his symptoms do not improve. 2. Hyperglycemia - ICD9: 790.29, ICD10: R73.9 9 months ago patient's hemoglobin A1c was 6.0. He was advised to cut down on his diet which I do not think the patient has been able to do. He is not overweight or obese. We will check an A1c again. Orders are in the system but the patient has not had them done as of yet 3. Pulmonary emphysema, unspecified emphysema type (HCC) - ICD9: 492.8, ICD10: J43.9 Patient has a history of emphysema and does not use his inhalers regularly. He was advised to use the Trelegy as as directed and albuterol as needed. He voices understanding. MD Jaclyn Gardner MD [facility] 03/27/2023 documented in this encounter [facility] 03-27-2023 Nurse Note Pt here today for routine follow up. Pt does not need medications refilled at this time. Pt is having pain in his neck and it goes down his arm and left side. states this has been going on for about 1 week documented in this encounter [facility] 03-26-2023 Miscellaneous Notes Tizanidine refilled documented in this encounter [facility] 02-26-2023 Miscellaneous Notes Tizanidine refilled documented in this encounter [facility] 01-30-2023 Instructions Jaclyn Warren MD - 01/30/2023 10:03 AM EDT Fasting blood work X ray of lower back documented in this encounter [facility] 01-30-2023 History of Presen t illness Narrative Images from the original note were not included. Internal Medicine [facility] Visit Date: January 30, 2023 Follow Up Visit Chief Complaint: Lower abdominal pain. Review of History: Mary Anne Ramos is a 57 year old who is here for a routine follow up . He says that a few weeks ago he developed pain in his lower back that wrapped around to the front and caused lower abdominal pain. He says he had to walk hunched over for a few days till the pain got better. He denies pain radiating down his legs, numbness or tingling. He denies any bladder or bowel complaints associated with the pain. Pain has improved however it is still present and his lower back hurts when he stands up from a sitting position. Past Medical History: PAST MEDICAL HISTORY Diagnosis Date DDD (degenerative disc disease), cervical Health Maintenance: Colonoscopy: Vaccination: Allergies: ALLERGIES No Known Allergies Medications: Current Outpatient Medications Medication Sig Dispense Refill tfrtygiaqkq-jzrjnvjqw-uzetnoaq (TRELEGY ELLIPTA) 200-62.5-25 mcg inhalation powder Inhale 1 Puff as instructed once daily. 1 Each 5 atorvastatin (LIPITOR) 20 mg tablet Take 1 tablet by mouth once daily. 90 tablet 3 omeprazole (PRILOSEC) 40 mg capsule Take 1 capsule by mouth once daily. 90 capsule 1 albuterol HFA (PROVENTIL HFA, VENTOLIN HFA) 90 mcg/actuation inhaler Inhale 2 Puffs as instructed every 4 hours as needed for wheezing/shortness of breath. 1 Each 2 No current facility-administered medications for this visit. Social History: Social History Tobacco Use Smoking status: Every Day Packs/day: 1.00 Years: 45.00 Additional pack years: 0.00 Total pack years: 45.00 Types: Cigarettes Smokeless tobacco: Never Vaping Use Vaping Use: Never used Substance Use Topics Alcohol use: No Drug use: No Family History: Family History Problem Relation Age of Onset Cancer Mother ovarian Diabetes Father Ischemic Heart Disease Father Coronary Artery Disease Father Heart Attack Father Breast Cancer Sister Breast Cancer Paternal Aunt Past Surgical History: PAST SURGICAL HISTORY Procedure Laterality Date APPENDECTOMY Review of Systems: Review of Systems Constitutional: Negative for chills and fever. Gastrointestinal: Positive for abdominal pain. Musculoskeletal: Positive for back pain. Physical Exam: BP 98/63 (BP Site: Left Arm, BP Position: Sitting, BP Cuff Size: Regular Adult) Pulse 78 Temp 36.2 C (97.2 F) Resp 16 Ht 193 cm (6' 4) Wt 73.2 kg (161 lb 6.4 oz) SpO2 97% BMI 19.65 kg/m Physical Exam Constitutional: Appearance: Normal appearance. Cardiovascular: Rate and Rhythm: Normal rate and regular rhythm. Pulmonary: Breath sounds: Normal breath sounds. Abdominal: General: Bowel sounds are normal. Palpations: Abdomen is soft. There is no mass. Tenderness: There is abdominal tenderness. Hernia: No hernia is present. Comments: Right lower quadrant, Neurological: Mental Status: He is alert. Assessment and Plan:: ASSESSMENT/PLAN: 1. Lumbar pain - ICD9: 724.2, ICD10: M54.50 (primary diagnosis) Patient complains of lower back pain that wraps around to the front. This occurred a few weeks ago when he stood up suddenly from a sitting position. He had to walk around hunched over for a few days but it this has gotten better. He still has some problem when he stands up from a sitting position with lower back pain. There is no radiculopathy. On exam there is paraspinal tenderness on the right side and some tenderness in the right lower abdominal quadrant. At this time I will start with an x-ray of the lumbosacral spine which is when I believe the problem is. He has a history of degenerative disc disease of the cervical spine. - XR LUMBAR GENERAL 3V AP/LAT/L5-S1 2. Hyperglycemia - ICD9: 790.29, ICD10: R73.9 Patient's hemoglobin A1c was borderline at 6.0. I will follow-up on that with a hemoglobin A1c. - COMP METABOLIC PANEL - CBC + DIFF - LIPID PANEL BASIC - HGB A1C 3. Pulmonary emphysema, unspecified emphysema type (HCC) - ICD9: 492.8, ICD10: J43.9 Patient is now following up with pulmonology Dr. White he also loli. His low-dose CT and there were no new findings. 4. Pelvic pain - ICD9: [id number], ICD10: R10.2 . Pain is in the lower back and wrapping around to the front. Slightly more on the right side than on the left. I would like to check a urinalysis as well. - URINALYSIS, WITH MICROSCOPIC MD Jaclyn Gardner MD [facility] 01/30/2023 documented in this encounter [facility] 01-30-2023 Nurse Note Pt here today for routine follow up. Pt does need medications refilled at this time. Pt states that the last few days he has been having lower abd pain that is relieved with a bowel movement documented in this encounter [facility] 01-28-2023 Instructions Stefanie Corona MD - 01/28/2023 10:58 AM EDT My Plan and Interventions: 1. Return to office in 3 months. 2. Tests to be ordered today:None 3. New medications today:Trelegy ellipta 4. Special Instructions:call if has concerns 5. Summary of today's visit: COPD 6. Referrals today: None Copy to Referring physician: yes Thank you for allowing me to participate in this patient's care. documented in this encounter [facility] 01-28-2023 History of Presen t illness Narrative Images from the original note were not included. [facility] New Patient Consult Note Patient Name: Mary Anne Ramos PRIMARY CARE PHYSICIAN: Jaclyn Warren MD REFERRING PHYSICIAN: Patricia Wooten APRN* REASON FOR CONSULT: COPD My final recommendations will be communicated to the requesting health care provider by way of the shared medical record for internal providers or letter via the [employer] for external providers. CHIEF COMPLAINT: COPD HISTORY OF PRESENT ILLNESS: Mary Anne Ramos is a 57 year old male with a history of COPD, Active smoker, GERD. This patient is here for first Pulmonary office visit and consultation. I reviewed available objective data including imaging as available. Patient comes in for evaluation of COPD. Denies any shortness of breath but has dyspnea on exertion. Also has a cough with phlegm production but difficulty in getting up the phlegm. Denies any wheezing. No fever chills or night sweats. No weight loss. He is an active smoker. Smokes up to half pack per day. Used to smoke 1 pack/day for the last 40 years. Also used to smoke marijuana in the past. MRDD, not working PAST MEDICAL HISTORY Diagnosis Date DDD (degenerative disc disease), cervical PAST SURGICAL HISTORY Procedure Laterality Date APPENDECTOMY FAMILY HISTORY Problem Relation Age of Onset Cancer Mother ovarian Diabetes Father Ischemic Heart Disease Father Coronary Artery Disease Father Heart Attack Father Breast Cancer Sister Breast Cancer Paternal Aunt No reported family hx of ILD fibrosis, PAH, Tb, lung cancer, A1AT deficiency Social History Tobacco Use Smoking status: Every Day Packs/day: 1.00 Years: 45.00 Additional pack years: 0.00 Total pack years: 45.00 Types: Cigarettes Smokeless tobacco: Never Vaping Use Vaping Use: Never used Substance Use Topics Alcohol use: No Drug use: No Ambulatory, see vaccine HX, Occupation : Not working, MR[employer] ALLERGIES: ALLERGIES No Known Allergies CURRENT OUTPATIENT MEDICATIONS: mometasone-formoterol (DULERA) 50-5 mcg/actuation HFA aerosol inhaler Inhale 2 Puffs as instructed twice daily. atorvastatin (LIPITOR) 20 mg tablet Take 1 tablet by mouth once daily. omeprazole (PRILOSEC) 40 mg capsule Take 1 capsule by mouth once daily. albuterol HFA (PROVENTIL HFA, VENTOLIN HFA) 90 mcg/actuation inhaler Inhale 2 Puffs as instructed every 4 hours as needed for wheezing/shortness of breath. REVIEW OF SYSTEMS Constitutional:No fevers, sweats, chills, nightsweats, change in appetite, change in weight, change in energy. HEENT:Negative for frequent or significant headaches RESPIRATORY: Cough; moist, productive with clear sputum, Dyspnea, Wheezing, Shortness of breath CARDIOVASCULAR: Decreasing exercise tolerence, Negative for chest pain, leg swelling or palpitations. GASTROINTESTINAL: Negative for abdominal discomfort, blood in stools or black stools or change in bowel habits GENITOURINARY: No history of dysuria, frequency or incontinence DAMAGE ADJUSTER: NA MUSCULOSKELETAL: Negative for joint pain or swelling, back pain or muscle pain. NEUROLOGIC:Negative for focal numbness or weakness, headaches and dizziness or syncope. SKIN:Negative for lesions, rash, and itching. PSYCHIATRIC: Negative for sleep disturbance, mood disorder and recent psychosocial stressors. HEMATOLOGIC/LYMPHATIC/IMMUNOLOGI C: No lymphadenopathy ENDOCRINE: Negative for cold or heat intolerance, polyuria, polydipsia and goiter. The remainder of the ROS was negative. PHYSICAL EXAMINATION: VITAL SIGNS: There were no vitals taken for this visit. General appearance: well appearing, alert, and in no acute distress Skin: skin color, texture, turgor normal, no rashes or lesions Eyes: Anicteric sclera. Pupils are equally round and reactive to light. Extraocular movements are intact. ENT: No oral or nasal erythema, bleeding, lesions, striae Heme/Lymph:Negative Lungs: Diminished breath sounds bilaterally Heart: RRR without murmur, gallop, or rubs. No ectopy GI: Normal abdominal exam Extremities: No deformities, edema, skin discoloration, clubbing or cyanosis. Good capillary refill. Neuro: Gait normal. Reflexes normal and symmetric. Sensation grossly intact. LAST LAB RESULTS: Labs: CBC with diff: WBC 7.65 06/30/2022 RBC 5.66 06/30/2022 Hemoglobin 15.3 06/30/2022 Hematocrit 48.9 06/30/2022 MCV 86.4 06/30/2022 MCH 27.0 06/30/2022 MCHC 31.3 06/30/2022 RDW-CV 13.6 06/30/2022 Platelet Count 241 06/30/2022 MPV 11.2 06/30/2022 Neutrophils % 48.5 06/30/2022 Lymphocytes % 42.2 06/30/2022 [place]% 7.6 06/30/2022 Basophils % 0.5 06/30/2022 Abs Neut 3.71 06/30/2022 Abs [place] 0.58 06/30/2022 Abs Eosin 0.05 06/30/2022 Abs Baso 0.04 06/30/2022 DATA: Diagnostic tests reviewed for today's visit, films/specimens were personally reviewed by me: OTHER TESTING: Echo: Chest xray: CT CHEST:10/2022: There is chronic consolidation with underlying calcification in the right lower lobe posterior medially which is unchanged. There are scattered peripheral areas of fibrosis. There is bilateral apical scarring. There is thickening along the minor fissure on images 173-177 similar to previous studies. This is best shown on sagittal reconstructed images. Emphysema: There are moderate upper lobe predominant centrilobular emphysematous changes. There are areas of paraseptal emphysema., , Coronary Artery Calcifications: Circumflex none; Left Anterior Descending none Right Coronary none PFT:11/2022: IMPRESSION: Spirometry indicates severe obstruction. There was a borderline significant (FEV1 + cc's, + %) response to bronchodilator. The TLC is reduced indicating restriction. The RV/TLC is elevated indicating air trapping. The diffusing capacity is moderately reduced. IMPRESSIONS: ASSESSMENT/PLAN: 1. Pulmonary emphysema, unspecified emphysema type (HCC) - ICD9: 492.8, ICD10: J43.9 (primary diagnosis) PFTs are suggestive of a severe COPD. Currently on very low-dose Dulera. Will switch to Trelegy Ellipta 1 inhalation daily and advised to rinse mouth after use. Continue albuterol as needed 2. Tobacco use current - ICD9: 305.1, ICD10: Z72.0 - Cessation encouraged. - Physiologic and physical aspects of tobacco addiction as well as strategies for quitting were discussed. - Counseling was given focusing on the harmful effects of this addiction especially given the patient's medical condition(s) which will be worsened because of the chemicals in tobacco. - Counseling was given 3-4 minutes. - Recommended to called 1-800-QUIT NOW 3. Consolidation of right lower lobe of lung (HCC) - ICD9: 481, ICD10: J18.1 CT chest shows a right lower lobe stable consolidation with a central calcification suggestive of old and healed infection. Is present since [address] scan. No intervention needed at this time. Will monitor closely Stefanie Corona MD Medications reviewed Education provided today regarding the stated disease states Patient Instructions: See AVS Written and verbal health teaching given to patient, patient verbalizes understanding and agrees with treatment plan. Followup discussed. Electronically Signed: Stefanie Corona MD January 28, 2023 documented in this encounter [facility] 01-17-2023 Miscellaneous Notes Phone call to Dr. العلي's office and left message to call me back. Malgorzata Ordaz calling from Dr. العيل's office in regard to this referral Please call [phone] documented in this encounter [facility] 12-12-2022 Miscellaneous Notes Andrea culp documented in this encounter [facility] 11-23-2022 Miscellaneous Notes Phone call to patient's discussed results of PFT-moderate/severe COPD & emphysema. sees Dr. العلي and will get pt scheduled with him. documented in this encounter [facility] 11-22-2022 History of Presen t illness Narrative PULM FUNCTION SMARTBLOCK: Provider: Patricia Wooten APRN.FLOOR TECH Assisting Tech: Justa Quinn RRT Spirometry w/BD: 1 DLCO: 1 LV - Box: 1 documented in this encounter [facility] 10-31-2022 History of Presen t illness Narrative Summary: CT Radiology Service Progress Note PATIENT NAME: Mary Anne Ramos DATE OF SERVICE: October 31, 2022 TIME: 11:00 AM PATIENT IDENTITY VERIFICATION COMPLETED USING TWO (2) IDENTIFIERS: Name and Date of confirmed by patient verbally. FALL SCREENING: Has the patient had 2 falls in the last year or 1 fall with injury or currently using an Ambulatory Assistive Device (Walker, Cane, Wheelchair, Crutches, etc.)? No PATIENT GENDER DATA: Male PATIENT RELEVANT IMPLANT DATA REVIEWED: Not Applicable RADIOLOGY DEPARTMENT: CT; Exam(s) Completed: LUNG SCREENING PERIPHERAL IV DATA: Not applicable SIGNED BY: RT Danyelle(R) October 31, 2022 11:00 AM documented in this encounter [facility] 09-26-2022 Instructions Jaclyn Warren MD - 09/26/2022 10:02 AM EDT Lab work before follow up documented in this encounter [facility] 09-26-2022 History of Presen t illness Narrative Images from the original note were not included. Internal Medicine [facility] Visit Date: September 26, 2022 Follow Up Visit Chief Complaint: None Review of History: Mary Anne Ramos is a 56 year old who is here for follow-up visit. Patient is here to follow-up on his COPD, GERD and hyperglycemia. Patient was started on Dulera which she is taking 2 puffs once a day. He has noticed slight improvement but not a whole lot. Patient still gets bothered by GERD. On questioning him further about his eating habits patient says he eats every hour. He eats right before bedtime and sometimes even eats while lying down. He has been taking the omeprazole but with food. Regarding his hyperglycemia patient's A1c was 6.0 and he was advised to make better choices with his food including cutting down on the ice tea that he was drinking. Patient has made those changes and his is here and she also corroborates that. Past Medical History: PAST MEDICAL HISTORY Diagnosis Date DDD (degenerative disc disease), cervical Health Maintenance: Colonoscopy: Vaccination: Allergies: ALLERGIES No Known Allergies Medications: Current Outpatient Medications Medication Sig Dispense Refill mometasone-formoterol (DULERA) 50-5 mcg/actuation HFA aerosol inhaler Inhale 2 Puffs as instructed twice daily. 1 Each 3 atorvastatin (LIPITOR) 20 mg tablet Take 1 tablet by mouth once daily. 90 tablet 3 omeprazole (PRILOSEC) 40 mg capsule Take 1 capsule by mouth once daily. 90 capsule 1 albuterol HFA (PROVENTIL HFA, VENTOLIN HFA) 90 mcg/actuation inhaler Inhale 2 Puffs as instructed every 4 hours as needed for wheezing/shortness of breath. 1 Each 2 No current facility-administered medications for this visit. Social History: Social History Tobacco Use Smoking status: Every Day Packs/day: 1.00 Years: 45.00 Pack years: 45.00 Types: Cigarettes Smokeless tobacco: Never Vaping Use Vaping Use: Never used Substance Use Topics Alcohol use: No Drug use: No Family History: Family History Problem Relation Age of Onset Cancer Mother ovarian Diabetes Father Ischemic Heart Disease Father Coronary Artery Disease Father Heart Attack Father Breast Cancer Sister Breast Cancer Paternal Aunt Past Surgical History: PAST SURGICAL HISTORY Procedure Laterality Date APPENDECTOMY Review of Systems: Review of Systems Physical Exam: BP 130/80 (BP Site: Left Arm, BP Position: Sitting, BP Cuff Size: Regular Adult) Pulse 77 Temp 36 C (96.8 F) Resp 16 Ht 193 cm (6' 4) Wt 75.3 kg (166 lb) SpO2 96% BMI 20.21 kg/m Physical Exam Constitutional: Appearance: Normal appearance. Cardiovascular: Rate and Rhythm: Normal rate and regular rhythm. Pulmonary: Comments: Slightly decreased breath sounds bilaterally but clear to auscultation. Neurological: Mental Status: He is alert. Assessment and Plan:: ASSESSMENT/PLAN: 1. Hyperglycemia - ICD9: 790.29, ICD10: R73.9 (primary diagnosis) Patient's A1c was borderline at 6.0 and patient has been advised to watch his diet and cut out on sugary drinks. He did make those changes according to him and his . He was advised to continue with the same and we will do an A1c before the next visit. - HGB A1C 2. Mixed hyperlipidemia - ICD9: 272.2, ICD10: E78.2 Patient cholesterol was elevated as well as his ASCVD score was elevated. Due to that patient was placed on atorvastatin which she says he has been taking. We will do a lipid panel before the next visit. - LIPID PANEL BASIC 3. Gastroesophageal reflux disease without esophagitis - ICD9: 530.81, ICD10: K21.9 Patient has a known history of GERD. His eating habits are quite poor and he eats close to bedtime and also sometimes eats when he is lying down. Patient was advised against this. He was advised to have his last snack or meal at least 2 hours before he lies down at night. He was advised to take the omeprazole on an empty stomach. Patient voices understanding and will make an effort to do so. 4. Pulmonary emphysema, unspecified emphysema type (HCC) - ICD9: 492.8, ICD10: J43.9 Patient has been placed on Dulera and was advised to take 2 puffs twice a day instead of 2 puffs once a day which she is doing presently. This should help him feel better and prevent excessive shortness of breath. MD Jaclyn Gardner MD [facility] 09/26/2022 documented in this encounter [facility] 09-26-2022 Nurse Note Pt here for follow up and has no complaints at this time. documented in this encounter [facility] 08-15-2022 Miscellaneous Notes Spoke to pt. Informed him of substitution Dr. Warren sent. Pt understood. Called pt LVM to RC. Aditya Natarajan LPN Sent in Dulera which appears to be preferred by his insurance Sun , 6:19 pm, Pt left message stating his pres wasn't covered by ins, @ 10:29 spoke with pt to see which pres Ellipta was not covered by ins, needs either a prior auth or a different pres. Pt needs for problem breathing. documented in this encounter [facility] 06-27-2022 Instructions Jaclyn Warren MD - 06/27/2022 9:36 AM EST Increase water intake Increase fiber intake - Benefiber/ Metamucil Blood work today documented in this encounter [facility] 06-27-2022 History of Presen t illness Narrative Images from the original note were not included. Internal Medicine [facility] Visit Date: June 27, 2022 Follow Up Visit Chief Complaint: Constipation Review of History: Mary Anne Ramos is a 56 year old who is here for a routine follow up visit. He is complaining about some constipation for the last month. Patient's last colonoscopy was in 2018 when he was found to have a hyperplastic polyp. On further questioning patient about his water intake admits to not drinking any water at all. He mainly drinks iced tea almost all day. He appears to consume quite a bit of iced tea. Patient also denies frequent fiber intake. He rarely eats vegetables. When questioning patient about his activity level he says he is presently laid off and has been quite inactive. Patient has an extensive history of smoking and was found to have emphysema on the last low-dose CT scan. He was given an inhaler which she says does not seem to help. Patient says that the day after he uses the inhaler he feels more short of breath. Past Medical History: PAST MEDICAL HISTORY Diagnosis Date DDD (degenerative disc disease), cervical Health Maintenance: Colonoscopy: Vaccination: Allergies: ALLERGIES No Known Allergies Medications: Current Outpatient Medications Medication Sig Dispense Refill albuterol HFA (PROVENTIL HFA, VENTOLIN HFA) 90 mcg/actuation inhaler Inhale 2 Puffs as instructed every 4 hours as needed for wheezing/shortness of breath. (Patient not taking: Reported on 06/27/2022) 1 Each 2 No current facility-administered medications for this visit. Social History: Social History Tobacco Use Smoking status: Every Day Packs/day: 0.50 Years: 25.00 Pack years: 12.50 Types: Cigarettes Smokeless tobacco: Never Substance Use Topics Alcohol use: No Drug use: No Family History: Family History Problem Relation Age of Onset Cancer Mother ovarian Diabetes Father Ischemic Heart Disease Father Coronary Artery Disease Father Heart Attack Father Breast Cancer Sister Past Surgical History: PAST SURGICAL HISTORY Procedure Laterality Date APPENDECTOMY Review of Systems: Review of Systems Physical Exam: BP 120/74 (BP Site: Left Arm, BP Position: Sitting, BP Cuff Size: Regular Adult) Pulse 91 Temp 36.1 C (97 F) Resp 16 Ht 193 cm (6' 4) Wt 76.5 kg (168 lb 9.6 oz) SpO2 95% BMI 20.52 kg/m Physical Exam Constitutional: Appearance: Normal appearance. Cardiovascular: Rate and Rhythm: Normal rate and regular rhythm. Heart sounds: Normal heart sounds. Pulmonary: Comments: Slightly decreased breath sounds bilaterally with occasional expiratory wheezes. Abdominal: Palpations: Abdomen is soft. Tenderness: There is no abdominal tenderness. Neurological: General: No focal deficit present. Mental Status: He is alert and oriented to person, place, and time. Assessment and Plan:: ASSESSMENT/PLAN: 1. Other constipation - ICD9: 564.09, ICD10: K59.09 (primary diagnosis) On examination abdomen is soft and nontender. There are no masses palpable. He was advised to increase water intake and increase fiber intake. He was advised that the ice tea is probably more dehydrating than hydrating. He voices understanding and will try to increase water and fiber intake. We will also check a TSH to evaluate for hypothyroidism. - LIPID PANEL, NONFASTING - TSH BLD 2. Tobacco abuse - ICD9: 305.1, ICD10: Z72.0 Patient is trying to cut down on smoking. He was encouraged to do so. He had signs of emphysema on the last low-dose CT scan. He is due for another CT and will be referred again. At this time for his shortness of breath I will place him on a combination inhaler in addition to the albuterol. Patient was advised how to use it and was advised to keep up with using it regardless of whether he is short of breath or not. 3. Hyperglycemia - ICD9: 790.29, ICD10: R73.9 We will Re- evaluate with a hemoglobin A1c. - HGB A1C MD Jaclyn Gardner MD [facility] 06/27/2022 documented in this encounter [facility] 06-27-2022 Nurse Note Pt here for follow up. Pt c/o constipation. documented in this encounter [facility] 02-21-2022 Instructions Jaclyn Warren MD - 02/21/2022 10:10 AM EDT Lab work as soon as possible documented in this encounter [facility] 02-21-2022 History of Presen t illness Narrative Internal Medicine [facility] Visit Date: February 21, 2022 Follow Up Visit Chief Complaint: Shortness of breath occasionally. Review of History: Mary Anne Ramos is a 56 year old who is here for a follow up visit. He denies any new complaints at this time. He does have a history of emphysema because of extensive history of smoking. At the last visit we talked to him about cutting down on his smoking and he has made an effort to do so. He had a low-dose CT earlier this year which did not show any concerning abnormalities. It did show the emphysema. Patient reports some urinary frequency a few weeks ago. It seems to have resolved however at times he has some nocturia on and off. We have checked a PSA in the past and that has been normal. Past Medical History: PAST MEDICAL HISTORY Diagnosis Date DDD (degenerative disc disease), cervical Health Maintenance: Colonoscopy: Vaccination Allergies: ALLERGIES No Known Allergies Medications: Current Outpatient Medications Medication Sig Dispense Refill albuterol HFA (PROVENTIL HFA, VENTOLIN HFA) 90 mcg/actuation inhaler Apply to affected area. (Patient not taking: Reported on 02/21/2022) diclofenac (VOLTAREN) 1 % topical gel Apply to affected area. No current facility-administered medications for this visit. Social History: Social History Tobacco Use Smoking status: Every Day Packs/day: 0.50 Years: 25.00 Pack years: 12.50 Types: Cigarettes Substance Use Topics Alcohol use: No Drug use: No Family History: Family History Problem Relation Age of Onset Cancer Mother ovarian Diabetes Father Ischemic Heart Disease Father Coronary Artery Disease Father Heart Attack Father Breast Cancer Sister Past Surgical History: PAST SURGICAL HISTORY Procedure Laterality Date APPENDECTOMY Review of Systems: Review of Systems Physical Exam: BP 112/70 (BP Site: Left Arm) Pulse 77 Temp (!) 35.8 C (96.5 F) Resp 20 Wt 75.3 kg (166 lb) SpO2 94% Physical Exam Assessment and Plan:: ASSESSMENT/PLAN: 1. Tobacco abuse - ICD9: 305.1, ICD10: Z72.0 (primary diagnosis) Patient has cut down on his smoking to about 5 cigarettes a day which is an improvement for him. He we will do routine blood work including a lipid profile. He was encouraged to continue to cut down on his smoking. - CBC + DIFF - COMP METABOLIC PANEL - LIPID PANEL, NONFASTING 2. Pulmonary emphysema, unspecified emphysema type (HCC) - ICD9: 492.8, ICD10: J43.9 Patient has known history of emphysema due to his prolonged history of smoking. He is on an albuterol inhaler which he does not use often. Patient was advised to keep his inhaler with him and use it because he does have episodes of shortness of breath. At some point we will need to place him on an additional inhaler. - ALBUTEROL SULFATE HFA 90 MCG/ACTUATION AEROSOL INHALER 3. Urinary frequency - ICD9: 788.41, ICD10: R35.0 Patient has had episodes of urinary frequency With nocturia as well. We will check a PSA with blood work. - PSA/PROSTSPECAG SCRN 4. Colon cancer screening - ICD9: V76.51, ICD10: Z12.11 Patient has had colonoscopies done at [facility]. His last one was in 2019 and a follow-up in 5 years was recommended. Jaclyn Warren MD] Jaclyn Warren MD [facility] 02/21/2022 documented in this encounter [facility] 02-21-2022 Nurse Note Pt here today for routine follow up. Pt has no issues or concerns to address today. documented in this encounter [facility] 11-23-2021 Miscellaneous Notes Patient called c/o swelling of lower leg, painful and spots. Patient denies warm to touch but has occassional SOB. Instructed to go to ER to be evaluated, no appts available today and Dr. Warren is out of the office, patient voiced understanding. documented in this encounter [facility] Evaluation note Diagnosis Tobacco abuse- Primary Tobacco use disorder Pulmonary emphysema, unspecified emphysema type (HCC) Urinary frequency Colon cancer screening Special screening for malignant neoplasms, colon [facility] Diagnosis Other constipation- Primary Tobacco abuse Tobacco use disorder Hyperglycemia Other abnormal glucose [facility] Diagnosis Tobacco use disorder- Primary [facility] Diagnosis Hyperglycemia- Primary Other abnormal glucose Mixed hyperlipidemia Gastroesophageal reflux disease without esophagitis Esophageal reflux Pulmonary emphysema, unspecified emphysema type (HCC) [facility] Diagnosis Encounter for screening for lung cancer [facility] Diagnosis Centrilobular emphysema (HCC) Other emphysema [facility]ezing [facility] Centrilobular emphysema (HCC) Other emphysema Wheezing [facility] Diagnosis Pulmonary emphysema, unspecified emphysema type (HCC)- Primary Tobacco use current Consolidation of right lower lobe of lung (HCC) [facility] Diagnosis Lumbar pain- Primary Lumbago Hyperglycemia Other abnormal glucose Pulmonary emphysema, unspecified emphysema type (HCC) Pelvic pain [facility] Neck pain on left side- Primary Cervicalgia Hyperglycemia Other abnormal glucose Pulmonary emphysema, unspecified emphysema type (HCC) [facility] Diagnosis Pulmonary emphysema, unspecified emphysema type (HCC)- Primary Tobacco use current Shoulder blade pain Disorder of bone and cartilage, unspecified [facility] Diagnosis 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 of organic origin [facility] Diagnosis Bilateral carpal tunnel syndrome- Primary Carpal tunnel syndrome Radiculopathy of cervicothoracic region Brachial neuritis or radiculitis nos Hyperglycemia Other abnormal glucose Mixed hyperlipidemia [facility] Diagnosis Pulmonary emphysema, unspecified emphysema type (HCC)- Primary CAMRYN (obstructive sleep apnea) Obstructive sleep apnea (adult) (pediatric) Tobacco use current Marijuana abuse Cannabis abuse, unspecified Gastroesophageal reflux disease without esophagitis Esophageal reflux [facility] Diagnosis Bilateral carpal tunnel syndrome Carpal tunnel syndrome Radiculopathy of cervicothoracic region Brachial neuritis or radiculitis nos [facility] Diagnosis Pulmonary emphysema, unspecified emphysema type (HCC) [facility] Diagnosis Mixed hyperlipidemia- Primary Hyperglycemia Other abnormal glucose Pulmonary emphysema, unspecified emphysema type (HCC) [facility] Diagnosis Radiculopathy of cervicothoracic region Brachial neuritis or radiculitis nos [facility] Diagnosis Cervical radiculopathy- Primary Brachial neuritis or radiculitis nos Chest pain on exertion Chest pain, unspecified Prediabetes Other abnormal glucose [facility] Diagnosis 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 of organic origin [facility] Diagnosis Chest discomfort- Primary Other chest pain Edema of both ankles [facility] Diagnosis Radiculopathy of cervicothoracic region Brachial neuritis or radiculitis nos [facility] Diagnosis Cervical radiculopathy- Primary Brachial neuritis or radiculitis nos [facility] Diagnosis Acute right ankle pain [facility] Diagnosis Cervical radiculopathy Brachial neuritis or radiculitis nos [facility] Diagnosis Edema of both lower extremities- Primary Cellulitis of right lower extremity Cellulitis and abscess of leg, except foot Acute right ankle pain Hyperglycemia Other abnormal glucose Acute right ankle pain [facility] Diagnosis Edema of both lower extremities- Primary Cervical radiculopathy Brachial neuritis or radiculitis nos documented in this encounter [facility] note* Diagnosis Cervical radiculopathy- Primary Brachial neuritis or radiculitis nos Cervical myelopathy with cervical radiculopathy (HCC) Cervical spinal stenosis Spinal stenosis in cervical region documented in this encounter [facility] note* Diagnosis Edema of both lower extremities documented in this encounter [facility] note* Diagnosis Positive BERTHA (antinuclear antibody)- Primary Other and unspecified nonspecific immunological findings documented in this encounter [facility] noteNo assessment information availableMer[facility] Work Phone: Evaluation note* Diagnosis Pre-op exam- Primary Preoperative examination, unspecified Cervical radiculopathy Brachial neuritis or radiculitis nos Chest pain on exertion Chest pain, unspecified documented in this encounter [facility] note* Diagnosis Pulmonary emphysema, unspecified emphysema type (HCC)- Primary CAMRYN (obstructive sleep apnea) Obstructive sleep apnea (adult) (pediatric) Tobacco use current Centrilobular emphysema (HCC) Other emphysema Wheezing Shortness of breath Gastroesophageal reflux disease without esophagitis Esophageal reflux documented in this encounter [facility] note* Diagnosis Lung nodule- Primary Solitary pulmonary nodule Encounter for screening for lung cancer Cigarette smoker Tobacco use disorder documented in this encounter [facility] for referral (narrative)* Diagnostic Procedure Only (Routine) - Pending Review Specialty Diagnoses / Procedures Referred By Contac t Referred To Contact XR IMAGING Diagnoses Lumbar pain Procedures XR LUMBAR GENERAL 3V AP/LAT/L5-S1 RADEX SPINE LUMBOSACRAL 2/3 VIEWS Jaclyn Warren MD [facility] [place] [address] [place] [address] Referral ID Status Reason Start Date Expiration Date Visits Requested Visits Authorized [id number] Pending Review Auto-Generat ed Referral 01/30/2023 02/29/2024 1 1 [facility] for referral (narrative)* Diagnostic Procedure Only (Routine) - Closed Specialty Diagnoses / Procedures Referred By Contac t Referred To Contact XR IMAGING Diagnoses Radiculopathy of cervicothoracic region Procedures XR THORACIC LIMITED 2V AP/LAT RADEX SPINE THORACIC 2 VIEWS Jaclyn Warren MD [address] [place] [address] [place] [address] Referral ID Status Reason Start Date Expiration Date V isits Requested Visits Authorized [id number] Closed Auto-Generate d Referral 07/24/2023 08/22/2024 1 1 * Diagnostic Procedure Only (Routine) - Closed Specialty Diagnoses / Procedures Referred By Contac t Referred To Contact XR IMAGING Diagnoses Radiculopathy of cervicothoracic region Procedures XR CERV OTHER 4V AP/LAT/OBL RADEX SPINE CERVICAL 4 OR 5 VIEWS Jaclyn Warren MD [address] [place] [address] [place] [address] Referral ID Status Reason Start Date Expiration Date V isits Requested Visits Authorized [id number] Closed Auto-Generate d Referral 07/24/2023 08/22/2024 1 1 [facility] for referral (narrative)No reason for referral information availablePark[facility] Work Phone: Reason for visit Narrative* Diagnostic Procedure Only (Routine) - Closed Specialty Diagnoses / Procedures Referred By Contac t Referred To Contact XR IMAGING Diagnoses Radiculopathy of cervicothoracic region Procedures XR THORACIC LIMITED 2V AP/LAT RADEX SPINE THORACIC 2 VIEWS Jaclyn Warren MD [address] [place] [address] [place] [address] Referral ID Status Reason Start Date Expiration Date V isits Requested Visits Authorized [id number] Closed Auto-Generate d Referral 07/24/2023 08/22/2024 1 1 [facility] for visit Narrative* Diagnostic Procedure Only (Routine) - Closed Specialty Diagnoses / Procedures Referred By Contac t Referred To Contact RADIO GEN Diagnoses Radiculopathy of cervicothoracic region Procedures XR CERV OTHER 4V AP/LAT/OBL RADEX SPINE CERVICAL 4 OR 5 VIEWS Yasemin Jaime, [employer] [address] [place] [address] Phone: tel: fax: RADIO GEN [facility] [address] [place] [address] Phone: tel: fax: Referral ID Status Reason Start Date Expiration Date Visits Requested Visits Authorized [id number] Closed Auto-Generated Referral OON Notification Letter Financial Clearance Required - OON Payor Patient Cleared - INN Insurance Found 08/15/2024 09/14/2025 1 1 [facility] for visit Narrative* Diagnostic Procedure Only (Routine) - Denied Specialty Diagnoses / Procedures Referred By Contac t Referred To Contact XR IMAGING Diagnoses Acute right ankle pain Procedures XR ANKLE GENERAL 3V AP/LAT/OBL RIGHT RADEX ANKLE COMPLETE MINIMUM 3 VIEWS Jaclyn Warren MD [address] [place] [address] Phone: tel: fax: [place] [address] Referral ID Status Reason Start Date Expiration Date Visits Requested Visits Authorized [id number] Denied Auto-Generated Referral OON Notification Letter Clearance not met - patient not scheduled & unable to contact patient 09/10/2024 2025 1 0 [facility] for visit Narrative* Outpatient Procedure (Routine) - Closed Specialty Diagnoses / Procedures Referred By Contac t Referred To Contact VASCULAR SURGERY Diagnoses Edema of both lower extremities Procedures US VENOUS INCOMPETENCY GRABIEL VAS LAB DUP-SCAN XTR VEINS COMPLETE BILATERAL STUDY Jaclyn Warren MD [address] [place] [address] Phone: tel: fax: [facility] [address] [place] [address] Phone: tel: fax: Referral ID Status Reason Start Date Expiration Date Visits Requested Visits Authorized [id number] Closed OON/Self Pay Override OON Notification Letter 10/02/2024 12/31/2024 1 1 [facility] Summary Purpose Family History Relationship Condition Age at Onset Recorded Date/T david mother Hypertension Unknown Malignant neoplasm of ovary Unknown father Diabetes mellitus Unknown Myocardial infarction Unknown Hypertension Unknown Advance Directives No Advanced Directives Records FoundNo Advanced Directives Records FoundNo Advanced Directives Records FoundNo Advanced Directives Records FoundNo Advanced Directives Records Found Reason for Referral Specialty Diagnoses / Procedures Referred By Contac t Referred To Contact Jaclyn Warren MD [address] [place] [address] Referral ID Status Reason Start Date Expiration Date Visits Re quested Visits Authorized [id number] Closed 1 1 Specialty Diagnoses / Procedures Referred By Contac t Referred To Contact CT IMAGING Diagnoses Tobacco use disorder Encounter for screening for lung cancer Procedures CT LUNG SCREEN WO IVCON COMPUTED TOMOGRAPHY THORAX LW DOSE LNG CA SCR Robe- Patricia Wooten, [employer] [address] [place] [address] Ct Imaging Referral ID Status Reason Start Date Expiration Date V isits Requested Visits Authorized [id number] Closed Auto-Generate d Referral 09/10/2022 2023 1 1 Specialty Diagnoses / Procedures Referred By Contac t Referred To Contact Stefanie Corona MD [address] [facility] [address] [place] [address] Referral ID Status Reason Start Date Expiration Date Visits Re quested Visits Authorized [id number] Closed 1 1 Specialty Diagnoses / Procedures Referred By Contac t Referred To Contact Orthopedics Diagnoses Bilateral carpal tunnel syndrome Radiculopathy of cervicothoracic region Procedures CONSULT TO ORTHOPAEDIC SURGERY OFFICE/OUTPATIENT [facility] 60 MINUTES Jaclyn Warren MD [address] [place] [address] Referral ID Status Reason Start Date Expiration Date Visits Requested Visits Authorized [id number] Authorized PCP Requested Referral 07/24/2023 07/23/2024 1 1 Specialty Diagnoses / Procedures Referred By Contac t Referred To Contact XR IMAGING Diagnoses Radiculopathy of cervicothoracic region Procedures XR THORACIC LIMITED 2V AP/LAT RADEX SPINE THORACIC 2 VIEWS Jaclyn Warren MD [address] [place] [address] [place] [address] Referral ID Status Reason Start Date Expiration Date Visits Requested Visits Authorized [id number] Pending Review Auto-Generat ed Referral 07/24/2023 08/22/2024 1 1 Specialty Diagnoses / Procedures Referred By Contac t Referred To Contact XR IMAGING Diagnoses Radiculopathy of cervicothoracic region Procedures XR CERV OTHER 4V AP/LAT/OBL RADEX SPINE CERVICAL 4 OR 5 VIEWS Jaclyn Warren MD [address] [place] [id number] [place] [address] Referral ID Status Reason Start Date Expiration Date Visits Requested Visits Authorized [id number] Pending Review Auto-Generat ed Referral 07/24/2023 08/22/2024 1 1 Specialty Diagnoses / Procedures Referred By Contac t Referred To Contact Physical Therapy / PHYSICAL THERAPY Diagnoses Radiculopathy of cervicothoracic region Procedures CONSULT TO PHYSICAL THERAPY PHYSICAL THERAPY EVALUATION HIGH COMPLEX 45 MINS Wolfgang Ray MD [address] [place] [address] Aditya Singh, PT, DPT [address] [place] [address] Referral ID Status Reason Start Date Expiration Date Visits Requested Visits Authorized [id number] Authorized Auto-Generat ed Referral 05/20/2023 05/19/2024 30 30 Chief Complaint and Reason for Visit Chief Complaint Admit Date CERVICAL SPINE October 30, 2024 2:30 pm RM 2 October 30, 2024 3:27 pm Additional Source Comments (unrecognized sect ion and content) No Status Records FoundNo Status Records FoundNo Status Records FoundNo Status Records FoundNo Status Records Found INFORMATION SOURCE (unrecogn ized section and content) DATE CREATED AUTHOR 11/12/2020 [facility] ([place]) DATE CREATED AUTHOR AUTHOR'S ORGANIZ ATION 11/04/[address] [facility] DATE CREATED AUTHOR AUTHOR'S ORGANIZ ATION 11/21/2024 [facility] DATE CREATED AUTHOR AUTHOR'S ORGANIZ ATION 12/13/2024 [facility] DATE CREATED AUTHOR AUTHOR'S ORGANIZ ATION 12/15/2024 [facility] Source Comments (unrecognize d section and content) In the event this informatio n is protected by the Federal Confidentiality of Alcohol and Drug Abuse Patient Records regulations: The Federal rules restrict any use of the information to criminally investigate or prosecute any alcohol or drug abuse patient.[facility] CenterIn the event this information is protected by the Federal Confidentiality of Alcohol and Drug Abuse Patient Records regulations: The Federal rules restrict any use of the information to criminally investigate or prosecute any alcohol or drug abuse patient.[facility] CenterIn the event this information is protected by the Federal Confidentiality of Alcohol and Drug Abuse Patient Records regulations: The Federal rules restrict any use of the information to criminally investigate or prosecute any alcohol or drug abuse patient.[facility] CenterIn the event this information is protected by the Federal Confidentiality of Alcohol and Drug Abuse Patient Records regulations: The Federal rules restrict any use of the information to criminally investigate or prosecute any alcohol or drug abuse patient.[facility] CenterIn the event this information is protected by the Federal Confidentiality of Alcohol and Drug Abuse Patient Records regulations: The Federal rules restrict any use of the information to criminally investigate or prosecute any alcohol or drug abuse patient.[facility] CenterIn the event this information is protected by the Federal Confidentiality of Alcohol and Drug Abuse Patient Records regulations: The Federal rules restrict any use of the information to criminally investigate or prosecute any alcohol or drug abuse patient.[facility] CenterIn the event this information is protected by the Federal Confidentiality of Alcohol and Drug Abuse Patient Records regulations: The Federal rules restrict any use of the information to criminally investigate or prosecute any alcohol or drug abuse patient.[facility] CenterIn the event this information is protected by the Federal Confidentiality of Alcohol and Drug Abuse Patient Records regulations: The Federal rules restrict any use of the information to criminally investigate or prosecute any alcohol or drug abuse patient.[facility] CenterIn the event this information is protected by the Federal Confidentiality of Alcohol and Drug Abuse Patient Records regulations: The Federal rules restrict any use of the information to criminally investigate or prosecute any alcohol or drug abuse patient.[facility] CenterIn the event this information is protected by the Federal Confidentiality of Alcohol and Drug Abuse Patient Records regulations: The Federal rules restrict any use of the information to criminally investigate or prosecute any alcohol or drug abuse patient.[facility] CenterIn the event this information is protected by the Federal Confidentiality of Alcohol and Drug Abuse Patient Records regulations: The Federal rules restrict any use of the information to criminally investigate or prosecute any alcohol or drug abuse patient.[facility] CenterIn the event this information is protected by the Federal Confidentiality of Alcohol and Drug Abuse Patient Records regulations: The Federal rules restrict any use of the information to criminally investigate or prosecute any alcohol or drug abuse patient.[facility] CenterIn the event this information is protected by the Federal Confidentiality of Alcohol and Drug Abuse Patient Records regulations: The Federal rules restrict any use of the information to criminally investigate or prosecute any alcohol or drug abuse patient.[facility] CenterIn the event this information is protected by the Federal Confidentiality of Alcohol and Drug Abuse Patient Records regulations: The Federal rules restrict any use of the information to criminally investigate or prosecute any alcohol or drug abuse patient.[facility] CenterIn the event this information is protected by the Federal Confidentiality of Alcohol and Drug Abuse Patient Records regulations: The Federal rules restrict any use of the information to criminally investigate or prosecute any alcohol or drug abuse patient.[facility] CenterIn the event this information is protected by the Federal Confidentiality of Alcohol and Drug Abuse Patient Records regulations: The Federal rules restrict any use of the information to criminally investigate or prosecute any alcohol or drug abuse patient.[facility] CenterIn the event this information is protected by the Federal Confidentiality of Alcohol and Drug Abuse Patient Records regulations: The Federal rules restrict any use of the information to criminally investigate or prosecute any alcohol or drug abuse patient.[facility] CenterIn the event this information is protected by the Federal Confidentiality of Alcohol and Drug Abuse Patient Records regulations: The Federal rules restrict any use of the information to criminally investigate or prosecute any alcohol or drug abuse patient.[facility] CenterIn the event this information is protected by the Federal Confidentiality of Alcohol and Drug Abuse Patient Records regulations: The Federal rules restrict any use of the information to criminally investigate or prosecute any alcohol or drug abuse patient.[facility] CenterIn the event this information is protected by the Federal Confidentiality of Alcohol and Drug Abuse Patient Records regulations: The Federal rules restrict any use of the information to criminally investigate or prosecute any alcohol or drug abuse patient.[facility] CenterIn the event this information is protected by the Federal Confidentiality of Alcohol and Drug Abuse Patient Records regulations: The Federal rules restrict any use of the information to criminally investigate or prosecute any alcohol or drug abuse patient.[facility] CenterIn the event this information is protected by the Federal Confidentiality of Alcohol and Drug Abuse Patient Records regulations: The Federal rules restrict any use of the information to criminally investigate or prosecute any alcohol or drug abuse patient.[facility] CenterIn the event this information is protected by the Federal Confidentiality of Alcohol and Drug Abuse Patient Records regulations: The Federal rules restrict any use of the information to criminally investigate or prosecute any alcohol or drug abuse patient.[facility] CenterIn the event this information is protected by the Federal Confidentiality of Alcohol and Drug Abuse Patient Records regulations: The Federal rules restrict any use of the information to criminally investigate or prosecute any alcohol or drug abuse patient.[facility] CenterIn the event this information is protected by the Federal Confidentiality of Alcohol and Drug Abuse Patient Records regulations: The Federal rules restrict any use of the information to criminally investigate or prosecute any alcohol or drug abuse patient.[facility] CenterIn the event this information is protected by the Federal Confidentiality of Alcohol and Drug Abuse Patient Records regulations: The Federal rules restrict any use of the information to criminally investigate or prosecute any alcohol or drug abuse patient.[facility] CenterIn the event this information is protected by the Federal Confidentiality of Alcohol and Drug Abuse Patient Records regulations: The Federal rules restrict any use of the information to criminally investigate or prosecute any alcohol or drug abuse patient.[facility] CenterIn the event this information is protected by the Federal Confidentiality of Alcohol and Drug Abuse Patient Records regulations: The Federal rules restrict any use of the information to criminally investigate or prosecute any alcohol or drug abuse patient.[facility] CenterIn the event this information is protected by the Federal Confidentiality of Alcohol and Drug Abuse Patient Records regulations: The Federal rules restrict any use of the information to criminally investigate or prosecute any alcohol or drug abuse patient.[facility] CenterIn the event this information is protected by the Federal Confidentiality of Alcohol and Drug Abuse Patient Records regulations: The Federal rules restrict any use of the information to criminally investigate or prosecute any alcohol or drug abuse patient.[facility] CenterIn the event this information is protected by the Federal Confidentiality of Alcohol and Drug Abuse Patient Records regulations: The Federal rules restrict any use of the information to criminally investigate or prosecute any alcohol or drug abuse patient.[facility] CenterIn the event this information is protected by the Federal Confidentiality of Alcohol and Drug Abuse Patient Records regulations: The Federal rules restrict any use of the information to criminally investigate or prosecute any alcohol or drug abuse patient.[facility] CenterIn the event this information is protected by the Federal Confidentiality of Alcohol and Drug Abuse Patient Records regulations: The Federal rules restrict any use of the information to criminally investigate or prosecute any alcohol or drug abuse patient.[facility] CenterIn the event this information is protected by the Federal Confidentiality of Alcohol and Drug Abuse Patient Records regulations: The Federal rules restrict any use of the information to criminally investigate or prosecute any alcohol or drug abuse patient.[facility] CenterIn the event this information is protected by the Federal Confidentiality of Alcohol and Drug Abuse Patient Records regulations: The Federal rules restrict any use of the information to criminally investigate or prosecute any alcohol or drug abuse patient.[facility] CenterIn the event this information is protected by the Federal Confidentiality of Alcohol and Drug Abuse Patient Records regulations: The Federal rules restrict any use of the information to criminally investigate or prosecute any alcohol or drug abuse patient.[facility] CenterIn the event this information is protected by the Federal Confidentiality of Alcohol and Drug Abuse Patient Records regulations: The Federal rules restrict any use of the information to criminally investigate or prosecute any alcohol or drug abuse patient.[facility] CenterIn the event this information is protected by the Federal Confidentiality of Alcohol and Drug Abuse Patient Records regulations: The Federal rules restrict any use of the information to criminally investigate or prosecute any alcohol or drug abuse patient.[facility] CenterIn the event this information is protected by the Federal Confidentiality of Alcohol and Drug Abuse Patient Records regulations: The Federal rules restrict any use of the information to criminally investigate or prosecute any alcohol or drug abuse patient.[facility] CenterIn the event this information is protected by the Federal Confidentiality of Alcohol and Drug Abuse Patient Records regulations: The Federal rules restrict any use of the information to criminally investigate or prosecute any alcohol or drug abuse patient.[facility] CenterIn the event this information is protected by the Federal Confidentiality of Alcohol and Drug Abuse Patient Records regulations: The Federal rules restrict any use of the information to criminally investigate or prosecute any alcohol or drug abuse patient.[facility] CenterIn the event this information is protected by the Federal Confidentiality of Alcohol and Drug Abuse Patient Records regulations: The Federal rules restrict any use of the information to criminally investigate or prosecute any alcohol or drug abuse patient.[facility] CenterIn the event this information is protected by the Federal Confidentiality of Alcohol and Drug Abuse Patient Records regulations: The Federal rules restrict any use of the information to criminally investigate or prosecute any alcohol or drug abuse patient.[facility] CenterIn the event this information is protected by the Federal Confidentiality of Alcohol and Drug Abuse Patient Records regulations: The Federal rules restrict any use of the information to criminally investigate or prosecute any alcohol or drug abuse patient.[facility] CenterIn the event this information is protected by the Federal Confidentiality of Alcohol and Drug Abuse Patient Records regulations: The Federal rules restrict any use of the information to criminally investigate or prosecute any alcohol or drug abuse patient.[facility] CenterIn the event this information is protected by the Federal Confidentiality of Alcohol and Drug Abuse Patient Records regulations: The Federal rules restrict any use of the information to criminally investigate or prosecute any alcohol or drug abuse patient.[facility] CenterIn the event this information is protected by the Federal Confidentiality of Alcohol and Drug Abuse Patient Records regulations: The Federal rules restrict any use of the information to criminally investigate or prosecute any alcohol or drug abuse patient.[facility] CenterIn the event this information is protected by the Federal Confidentiality of Alcohol and Drug Abuse Patient Records regulations: The Federal rules restrict any use of the information to criminally investigate or prosecute any alcohol or drug abuse patient.[facility] CenterIn the event this information is protected by the Federal Confidentiality of Alcohol and Drug Abuse Patient Records regulations: The Federal rules restrict any use of the information to criminally investigate or prosecute any alcohol or drug abuse patient.[facility] CenterIn the event this information is protected by the Federal Confidentiality of Alcohol and Drug Abuse Patient Records regulations: The Federal rules restrict any use of the information to criminally investigate or prosecute any alcohol or drug abuse patient.[facility] CenterIn the event this information is protected by the Federal Confidentiality of Alcohol and Drug Abuse Patient Records regulations: The Federal rules restrict any use of the information to criminally investigate or prosecute any alcohol or drug abuse patient.[facility] CenterIn the event this information is protected by the Federal Confidentiality of Alcohol and Drug Abuse Patient Records regulations: The Federal rules restrict any use of the information to criminally investigate or prosecute any alcohol or drug abuse patient.[facility] CenterIn the event this information is protected by the Federal Confidentiality of Alcohol and Drug Abuse Patient Records regulations: The Federal rules restrict any use of the information to criminally investigate or prosecute any alcohol or drug abuse patient.[facility] CenterIn the event this information is protected by the Federal Confidentiality of Alcohol and Drug Abuse Patient Records regulations: The Federal rules restrict any use of the information to criminally investigate or prosecute any alcohol or drug abuse patient.[facility] CenterIn the event this information is protected by the Federal Confidentiality of Alcohol and Drug Abuse Patient Records regulations: The Federal rules restrict any use of the information to criminally investigate or prosecute any alcohol or drug abuse patient.[facility] CenterIn the event this information is protected by the Federal Confidentiality of Alcohol and Drug Abuse Patient Records regulations: The Federal rules restrict any use of the information to criminally investigate or prosecute any alcohol or drug abuse patient.[facility] CenterIn the event this information is protected by the Federal Confidentiality of Alcohol and Drug Abuse Patient Records regulations: The Federal rules restrict any use of the information to criminally investigate or prosecute any alcohol or drug abuse patient.[facility] CenterIn the event this information is protected by the Federal Confidentiality of Alcohol and Drug Abuse Patient Records regulations: The Federal rules restrict any use of the information to criminally investigate or prosecute any alcohol or drug abuse patient.[facility] CenterIn the event this information is protected by the Federal Confidentiality of Alcohol and Drug Abuse Patient Records regulations: The Federal rules restrict any use of the information to criminally investigate or prosecute any alcohol or drug abuse patient.[facility] CenterIn the event this information is protected by the Federal Confidentiality of Alcohol and Drug Abuse Patient Records regulations: The Federal rules restrict any use of the information to criminally investigate or prosecute any alcohol or drug abuse patient.[facility] CenterIn the event this information is protected by the Federal Confidentiality of Alcohol and Drug Abuse Patient Records regulations: The Federal rules restrict any use of the information to criminally investigate or prosecute any alcohol or drug abuse patient.[facility] CenterIn the event this information is protected by the Federal Confidentiality of Alcohol and Drug Abuse Patient Records regulations: The Federal rules restrict any use of the information to criminally investigate or prosecute any alcohol or drug abuse patient.[facility] CenterIn the event this information is protected by the Federal Confidentiality of Alcohol and Drug Abuse Patient Records regulations: The Federal rules restrict any use of the information to criminally investigate or prosecute any alcohol or drug abuse patient.[facility] CenterIn the event this information is protected by the Federal Confidentiality of Alcohol and Drug Abuse Patient Records regulations: The Federal rules restrict any use of the information to criminally investigate or prosecute any alcohol or drug abuse patient.[facility] CenterIn the event this information is protected by the Federal Confidentiality of Alcohol and Drug Abuse Patient Records regulations: The Federal rules restrict any use of the information to criminally investigate or prosecute any alcohol or drug abuse patient.[facility] CenterIn the event this information is protected by the Federal Confidentiality of Alcohol and Drug Abuse Patient Records regulations: The Federal rules restrict any use of the information to criminally investigate or prosecute any alcohol or drug abuse patient.[facility] CenterIn the event this information is protected by the Federal Confidentiality of Alcohol and Drug Abuse Patient Records regulations: The Federal rules restrict any use of the information to criminally investigate or prosecute any alcohol or drug abuse patient.[facility] CenterIn the event this information is protected by the Federal Confidentiality of Alcohol and Drug Abuse Patient Records regulations: The Federal rules restrict any use of the information to criminally investigate or prosecute any alcohol or drug abuse patient.[facility] CenterIn the event this information is protected by the Federal Confidentiality of Alcohol and Drug Abuse Patient Records regulations: The Federal rules restrict any use of the information to criminally investigate or prosecute any alcohol or drug abuse patient.[facility] CenterIn the event this information is protected by the Federal Confidentiality of Alcohol and Drug Abuse Patient Records regulations: The Federal rules restrict any use of the information to criminally investigate or prosecute any alcohol or drug abuse patient.[facility] CenterIn the event this information is protected by the Federal Confidentiality of Alcohol and Drug Abuse Patient Records regulations: The Federal rules restrict any use of the information to criminally investigate or prosecute any alcohol or drug abuse patient.[facility] CenterIn the event this information is protected by the Federal Confidentiality of Alcohol and Drug Abuse Patient Records regulations: The Federal rules restrict any use of the information to criminally investigate or prosecute any alcohol or drug abuse patient.[facility] CenterIn the event this information is protected by the Federal Confidentiality of Alcohol and Drug Abuse Patient Records regulations: The Federal rules restrict any use of the information to criminally investigate or prosecute any alcohol or drug abuse patient.[facility] CenterIn the event this information is protected by the Federal Confidentiality of Alcohol and Drug Abuse Patient Records regulations: The Federal rules restrict any use of the information to criminally investigate or prosecute any alcohol or drug abuse patient.[facility] CenterIn the event this information is protected by the Federal Confidentiality of Alcohol and Drug Abuse Patient Records regulations: The Federal rules restrict any use of the information to criminally investigate or prosecute any alcohol or drug abuse patient.[facility] CenterIn the event this information is protected by the Federal Confidentiality of Alcohol and Drug Abuse Patient Records regulations: The Federal rules restrict any use of the information to criminally investigate or prosecute any alcohol or drug abuse patient.[facility] CenterIn the event this information is protected by the Federal Confidentiality of Alcohol and Drug Abuse Patient Records regulations: The Federal rules restrict any use of the information to criminally investigate or prosecute any alcohol or drug abuse patient.[facility] CenterIn the event this information is protected by the Federal Confidentiality of Alcohol and Drug Abuse Patient Records regulations: The Federal rules restrict any use of the information to criminally investigate or prosecute any alcohol or drug abuse patient.[facility] Center[facility] the event this information is protected by the Federal Confidentiality of Alcohol and Drug Abuse Patient Records regulations: The Federal rules restrict any use of the information to criminally investigate or prosecute any alcohol or drug abuse patient.[facility] Care Teams (unrecognized sec tion and content) Psychiatric Security Nurse Relationship Specialty Start Date End Date Igor Michelle PCP - General 09/14/08 Psychiatric Security Nurse Relationship Specialty Start Date End Date Igor Michelle PCP - General 09/14/08 Psychiatric Security Nurse Relationship Specialty Start Date End Date Jaclyn Warren MD [address] [facility] [address] [place] [address] PCP - General Internal Medicine 02/07/22 Psychiatric Security Nurse Relationship Specialty Start Date End Date Jaclyn Warren MD [address] [place] [address] PCP - General Internal Medicine 02/07/22 Psychiatric Security Nurse Relationship Specialty Start Date End Date Jaclyn Warren MD [address] [place] [address] PCP - General Internal Medicine 02/07/22 Psychiatric Security Nurse Relationship Specialty Start Date End Date Jaclyn Warrne MD [address] [place] [address] PCP - General Internal Medicine 02/07/22 Psychiatric Security Nurse Relationship Specialty Start Date End Date Jaclyn Warren MD [address] [place] [address] PCP - General Internal Medicine 02/07/22 Psychiatric Security Nurse Relationship Specialty Start Date End Date Jaclyn Warren MD [address] [place] [address] PCP - General Internal Medicine 02/07/22 Psychiatric Security Nurse Relationship Specialty Start Date End Date Jaclyn Warren MD [address] [place] [address] PCP - General Internal Medicine 02/07/22 Psychiatric Security Nurse Relationship Specialty Start Date End Date Jaclyn Warren MD [address] [place] [address] PCP - General Internal Medicine 02/07/22 Psychiatric Security Nurse Relationship Specialty Start Date End Date Jaclyn Warren MD [address] [place] [address] PCP - General Internal Medicine 02/07/22 Psychiatric Security Nurse Relationship Specialty Start Date End Date Jaclyn Warren MD [address] [place] [address] PCP - General Internal Medicine 02/07/22 Psychiatric Security Nurse Relationship Specialty Start Date End Date Jaclyn Warren MD [address] [place] [address] PCP - General Internal Medicine 02/07/22 Psychiatric Security Nurse Relationship Specialty Start Date End Date Jaclyn Warren MD [address] [place] [address] PCP - General Internal Medicine 02/07/22 Psychiatric Security Nurse Relationship Specialty Start Date End Date Jaclyn Warren MD [address] [place] [address] PCP - General Internal Medicine 02/07/22 Psychiatric Security Nurse Relationship Specialty Start Date End Date Jaclyn Warren MD [address] [place] [address] PCP - General Internal Medicine 02/07/22 Psychiatric Security Nurse Relationship Specialty Start Date End Date Jaclyn Warren MD [address] [place] [address] PCP - General Internal Medicine 02/07/22 Psychiatric Security Nurse Relationship Specialty Start Date End Date Jaclyn Warren MD [address] [place] [address] PCP - General Internal Medicine 02/07/22 Psychiatric Security Nurse Relationship Specialty Start Date End Date Jaclyn Warren MD [address] [place] [address] PCP - General Internal Medicine 02/07/22 Psychiatric Security Nurse Relationship Specialty Start Date End Date Jaclyn Warren MD [address] [place] [address] PCP - General Internal Medicine 02/07/22 Psychiatric Security Nurse Relationship Specialty Start Date End Date Jaclyn Warren MD [address] [place] [address] PCP - General Internal Medicine 02/07/22 Psychiatric Security Nurse Relationship Specialty Start Date End Date Jaclyn Warren MD [address] [place] [address] PCP - General Internal Medicine 02/07/22 Psychiatric Security Nurse Relationship Specialty Start Date End Date Jaclyn Warren MD [address] [place] [address] PCP - General Internal Medicine 02/07/22 Psychiatric Security Nurse Relationship Specialty Start Date End Date Jaclyn Warren MD [address] [place] [address] PCP - General Internal Medicine 02/07/22 Psychiatric Security Nurse Relationship Specialty Start Date End Date Jaclyn Warren MD [address] [place] [address] PCP - General Internal Medicine 02/07/22 Psychiatric Security Nurse Relationship Specialty Start Date End Date Jaclyn Warren MD [address] [place] [address] PCP - General Internal Medicine 02/07/22 Psychiatric Security Nurse Relationship Specialty Start Date End Date Jaclyn Warren MD [address] [place] [address] PCP - General Internal Medicine 02/07/22 Psychiatric Security Nurse Relationship Specialty Start Date End Date Jaclyn Warren MD [address] [place] [address] PCP - General Internal Medicine 02/07/22 Psychiatric Security Nurse Relationship Specialty Start Date End Date Jaclyn Warren MD [address] [place] [address] PCP - General Internal Medicine 02/07/22 Psychiatric Security Nurse Relationship Specialty Start Date End Date Jaclyn Warren MD [address] [place] [address] PCP - General Internal Medicine 02/07/22 Psychiatric Security Nurse Relationship Specialty Start Date End Date Jaclyn Warren MD [address] [place] [address] PCP - General Internal Medicine 02/07/22 Psychiatric Security Nurse Relationship Specialty Start Date End Date Jaclyn Warren MD [address] [place] [address] PCP - General Internal Medicine 02/07/22 Psychiatric Security Nurse Relationship Specialty Start Date End Date Jaclyn Warren MD [address] [place] [address] PCP - General Internal Medicine 02/07/22 Psychiatric Security Nurse Relationship Specialty Start Date End Date Jaclyn Warren MD [address] [place] [address] PCP - General Internal Medicine 02/07/22 Psychiatric Security Nurse Relationship Specialty Start Date End Date Jaclyn Warren MD [address] [place] [address] PCP - General Internal Medicine 02/07/22 Psychiatric Security Nurse Relationship Specialty Start Date End Date Jaclyn Warren MD [address] [place] [address] PCP - General Internal Medicine 02/07/22 Psychiatric Security Nurse Relationship Specialty Start Date End Date Jaclyn Warren MD [address] [place] [address] PCP - General Internal Medicine 02/07/22 Psychiatric Security Nurse Relationship Specialty Start Date End Date Jaclyn Warren MD [address] [place] [address] PCP - General Internal Medicine 02/07/22 Team Status: Active Member Role Status Dates Dr. Jose Quinones MD Attending Provider Active Start: October 30, 2024 Team Status: Inactive Member Role Status Dates Dr. River Weiner MD Attending Provider Active S tart: October 30, 2024 End: October 30, 2024 Team Status: Inactive Member Role Status Dates Dr. Jose Quinones MD Attending Provider Active Start: October 30, 2024 End: October 30, 2024 Psychiatric Security Nurse Relationship Specialty Start Date End Date Jaclyn Warren MD [address] [place] [address] PCP - General Internal Medicine 02/07/22 Psychiatric Security Nurse Relationship Specialty Start Date End Date Jaclyn Warren MD [address] [place] [address] PCP - General Internal Medicine 02/07/22 Reason for Visit (unrecogniz ed section and content) Reason Comments Medical issue Reason Comments Follow Up Reason Comments Recheck Reason Comments Medication Problem Reason Comments Recheck Specialty Diagnoses / Procedures Referred By Contac t Referred To Contact CT IMAGING Diagnoses Tobacco use disorder Encounter for screening for lung cancer Procedures CT LUNG SCREEN WO IVCON COMPUTED TOMOGRAPHY THORAX LW DOSE LNG CA SCR C- Patricia Wooten APRN.FLOOR TECH [address] [place] [address] Ct Imaging Referral ID Status Reason Start Date Expiration Date V isits Requested Visits Authorized [id number] Closed Auto-Generate d Referral 09/10/2022 2023 1 1 Reason Comments Spirometry Specialty Diagnoses / Procedures [facility] [place] Diagnoses Centrilobular emphysema (HCC) Wheezing Procedures SPIROMETRY - BASELINE AND POST DILATOR BRNCDILAT RSPSE SPMTRY PRE&POST-BRNCDILAT ADMN Patricia Wooten, BODY AND FRAME MAN.FLOOR TECH [address] [place] [address] [address] Referral ID Status Reason Start Date Expiration Date V isits Requested Visits Authorized [id number] Closed Auto-Generate d Referral 11/05/2022 05/19/2023 1 1 Specialty Diagnoses / Procedures [facility] Referred To Contact [facility] [place] Diagnoses Centrilobular emphysema (HCC) Wheezing Procedures LUNG VOLUMES Patricia Wooten, BODY AND FRAME MAN.FLOOR TECH [address] [place] [address] [address] Referral ID Status Reason Start Date Expiration Date V isits Requested Visits Authorized [id number] Closed Auto-Generate d Referral 11/05/2022 05/19/2023 1 1 Specialty Diagnoses / Procedures [facility] Referred To Contact [facility] [place] Diagnoses Centrilobular emphysema (HCC) Wheezing Procedures LUNG DIFFUSION CAPACITY (DLCO) DIFFUSING CAPACITY Patricia Wooten, LISA.FLOOR TECH [address] [place] [address] [facility] [place] [address] [place] [address] Referral ID Status Reason Start Date Expiration Date V isits Requested Visits Authorized [id number] Closed Auto-Generate d Referral 11/05/2022 05/19/2023 1 1 Reason Comments Results Reason Comments Refill Request Reason Comments COPD Ct and pft completed Reason Comments Follow Up Reason Comments COPD Reason Comments ED (erectile dysfunction) of organic viridiana gin Pt here for 6 week f/u. Reason Comments Recheck Reason Comments Pulmonary emphysema, unspeci fied emphysema type (HCC) Per patient pain in spine causing breathing issues, breathing heavy during sleep and awake Reason Comments New Carpal tunnel New Carpal tunnel New Specialty Diagnoses / Procedures Referred By Yash okeefe Referred To Contact Orthopedics Diagnoses Bilateral carpal tunnel syndrome Radiculopathy of cervicothoracic region Procedures CONSULT TO ORTHOPAEDIC SURGERY OFFICE/OUTPATIENT NEW HIGH MDM 60 MINUTES Jaclyn Warren MD [address] [place] [address] Referral ID Status Reason Start Date Expiration Date V isits Requested Visits Authorized [id number] Closed PCP Requested Referral 07/24/2023 07/23/2024 1 1 Reason Comments refill request Reason Comments Rx Refills Reason Comments Follow Up Specialty Diagnoses / Procedures Referred By Yash t Referred To Contact INTERNAL MEDICINE Diagnoses Encounter for other specified aftercare Procedures OFFICE/OUTPATIENT ESTABLISHED LOW MDM [address] [facility] [address] [place] [address] [facility] [address] [place] [address] Phone: tel: fax: Referral ID Status Reason Start Date Expiration Date V isits Requested Visits Authorized [id number] Closed OON/Self Pay Override 07/13/2024 07/24/2024 1 1 Reason Comments Erectile Dysfunction One year follow-up. Pt takes Viagra. Reason Comments auth info for stress test Reason Comments Appointment Xray remind Reason Comments Appointment Reason Comments Edema Both ankles swelling /pain x 2 days Specialty Diagnoses / Procedures Referred By Contac t [facility] Diagnoses Chest discomfort Edema of both ankles Procedures ECG COMPLETE ECG ROUTINE ECG W/LEAST 12 LDS W/I&R Tejas Alba Jr., BODY AND FRAME MAN.FLOOR TECH [address] [place] [address] Phone: tel: fax: [facility] [place] [address] [place] [address] Referral ID Status Reason Start Date Expiration Date V isits Requested Visits Authorized [id number] Closed Auto-Generate d Referral 08/31/2024 08/31/2025 1 1 Reason Comments Edema Reason Comments New Xray 08/31/24 Pain Xray 08/31/24 Specialty Diagnoses / Procedures Referred By Contac t Referred To Contact ORTHOPAEDIC SURGERY Diagnoses Cervical radiculopathy Procedures NEW PATIENT 4 Jaclyn Warren MD [address] [facility] [address] [address] [place] [address] Phone: tel: fax: [facility] [address] [place] [address] Phone: tel: fax: Referral ID Status Reason Start Date Expiration Date Visits Requested Visits Authorized [id number] New Request OON/Self Pay Override 07/29/2024 11/06/2025 10 10 Reason Comments Patient Question Medication Problem Reason Comments Radiology MRI Specialty Diagnoses / Procedures Referred By Contac t Referred To Contact [facility] Diagnoses Cervical radiculopathy Procedures MRI CERVICAL SPINE WO IVCON MRI SPINAL CANAL CERVICAL W/O CONTRAST MATRL Yasemin Jaime, BODY AND FRAME MAN.FLOOR TECH [address] [place] [address] Phone: tel: fax: [facility] [address] [place] [address] Phone: tel: fax: Referral ID Status Reason Start Date Expiration Date V isits Requested Visits Authorized [id number] Closed Auto-Generat ed Referral Clearance Not Met - Admin/Chairm an/Director Advise to Postpone/Res chedule or Not Proceed 09/16/2024 12/15/2024 1 1 Specialty Diagnoses / Procedures Referred By Contac t Referred To Contact INTERNAL MEDICINE Diagnoses Encounter for other specified aftercare Procedures OFFICE/OUTPATIENT ESTABLISHED LOW MDM 20 MIN Jaclyn Warren MD [address] [facility] [address] [place] [address] Phone: tel: fax: [facility] [address] [place] [address] [address] [place] [address] Phone: tel: fax: Referral ID Status Reason Start Date Expiration Date V isits Requested Visits Authorized [id number] Closed OON/Self Pay Override 07/17/2024 10/16/2024 1 1 Reason Comments Acute Visit Specialty Diagnoses / Procedures Referred By Contac t Referred To Contact INTERNAL MEDICINE Diagnoses Treatment Procedures OFFICE/OUTPATIENT ESTABLISHED LOW MDM 20 MIN [facility] [address] [place] [address] [facility] [address] [place] [address] [address] [place] [address] Phone: tel: fax: Referral ID Status Reason Start Date Expiration Date V isits Requested Visits Authorized [id number] Closed OON/Self Pay Override 09/10/2024 12/09/2024 1 1 Reason Comments Established Patient Specialty Diagnoses / Procedures Referred By Contac t Referred To Contact ORTHOPAEDIC SURGERY Diagnoses neck pain Procedures OFFICE/OUTPATIENT ESTABLISHED HIGH MDM 40 MIN Yasemin Jaime, BODY AND FRAME MAN.FLOOR TECH [address] [facility] [place] [address] Phone: tel: fax: [facility] [address] [place], [place] [address] [place] [address] Phone: tel: fax: Referral ID Status Reason Start Date Expiration Date Visits Requested Visits Authorized [id number] New Request OON/Self Pay Override 09/08/2024 12/17/2025 1 1 Reason Comments prior auth duplex scan Reason Comments Patient Question Reason Comments Patient Update Reason Onset Date Comments Refill Request 11/05/2024 Reason Comments surg clearance/stress test Reason Comments Medical Clearance Specialty Diagnoses / Procedures Referred By Contac t Referred To Contact INTERNAL MEDICINE Diagnoses Encounter for follow-up Procedures OFFICE/OUTPATIENT ESTABLISHED MOD MDM 30 MIN Jaclyn Warren MD [address] [facility] [address] [place] [address] Phone: tel: fax: [facility] [address] [place] [address] Phone: tel: fax: Referral ID Status Reason Start Date Expiration Date V isits Requested Visits Authorized [id number] Closed OON/Self Pay Override 11/12/2024 01/12/2025 1 1 Reason Comments preop clearance/stress test Reason Comments Pulmonary emphysema Patient needs a surg ical clearance Specialty Diagnoses / Procedures Referred By Contac t Referred To Contact PULMONARY MEDICINE Diagnoses Surgery clearance Procedures Established patient Carolyn Price, LISA.FLOOR TECH [address] [place] [address] Phone: tel: fax: [facility] [address] [place] [address] Phone: tel: fax: Referral ID Status Reason Start Date Expiration Date Visits Requested Visits Authorized [id number] New Request OON/Self Pay Override 11/05/2024 02/13/2026 10 10 Reason Comments Radiology NM Reason Comments surgery clearance/ stress test results Goals (unrecognized section and content) Goals may be documented in a n alternate sectionGoals may be documented in an alternate section FOR RECORDS PERTAINING TO PATIENTS WHO ARE OR HAVE BEEN ENROLLED IN A CHEMICAL DEPENDENCY/SUBSTANCEABUSE PROGRAM, SOME INFORMATION MAY BE OMITTED. This clinical summary was aggregated from multiple sources. Caution should be exercised in using it in the provision of clinical care. This summary normalizes information from multiple sources, and as a consequence, information in this document may materially change the coding, format and clinical context of patient data. In addition, data may be omitted in some cases. CLINICAL DECISIONS SHOULD BE BASED ON THE PRIMARY CLINICAL RECORDS. [employer] [facility]. provides no warranty or guarantee of the accuracy or completeness of information in this document.
[2024-12-16] MEDS: Lactated Ringers 1,000 ML 15 ML IV ×2 (06:28→12:49)
[2024-12-16] MEDS: Magnesium 1 GM over 15 mins IV (06:29)
--- NOTE | 2024-12-16 06:30 | RAD_ITS ---
PROCEDURE: CERV SPINE 2 OR 3 VIEWS 12/16/2024 REASON FOR EXAM: ANTERIOR CERVICAL FUSION TECHNIQUE: CERV SPINE 2 OR 3 VIEWS COMPARISON: 10/30/2024 FINDINGS: The patient is undergoing ACDF, C4 through C7. Intact hardware. Anatomic alignment. Cervicothoracic scoliosis. No acute bone or soft tissue pathology. RAD/Cerv Spine 2 or 3 Views IMPRESSION: Unremarkable intraoperative appearance Disclaimer: [facility]
--- NOTE | 2024-12-16 06:46 | PRE.ANES_ITS ---
ASA Classification* ASA Classification ASA Classification: 2 Assessment & Plan Anesthesia* Anesthesia Assessment Anesthesia Assessment: Discussed sedation and/or anesthesia options, risks, benefits, and alternatives with patient/parents/legal guardian/POA. Questions invited. The patient/parents/legal guardian/POA seems to understand and agrees to proceed with anesthesia plan. Reviewed the physical assessment, medical history, allergy history and patient home medications list prior to surgery/procedure/anesthetic and documented any changes. Performed airway and anesthesia risk assessments. Anesthesia Type Anesthesia Type: General History Source History Obtained from:: Patient, Chart and Significant Other Anesthesia Focused Assessment* Temperature: 98 F Pulse Rate: 86 Blood Pressure: 112/89 Respiratory Rate: 16 Pulse Ox: 93 Oxygen Delivery Method: Room Air Airway Assessment Mouth opens: >3 cm Mallampati Score: II Teeth Condition: Intact Neck Range of motion (ROM): Limited ROM Labs Anesthesia Preop lab: CBC WBC 9.9 K/mm3 (4.4-11.0) 11/10/24 08:14 11/10/24 RBC 5.47 M/mm3 (4.6-6.2) 11/10/24 08:14 11/10/24 Hgb 14.8 g/dL (13.0-16.5) 11/10/24 08:14 11/10/24 Hct 46.8 % (40-54) 11/10/24 08:14 11/10/24 Plt Count 225 K/mm3 (150-450) 11/10/24 08:14 11/10/24 CHEMISTRY Potassium 3.8 mmol/L (3.3-5.1) 11/10/24 08:14 11/10/24 Sodium 137 mmol/L (133-145) 11/10/24 08:14 11/10/24 Magnesium 2.2 mg/dL (1.5-2.2) 11/10/24 08:14 11/10/24 BUN 14 mg/dL (4-19) 11/10/24 08:14 11/10/24 Creatinine 1.06 mg/dL (0.70-1.20) 11/10/24 08:14 11/10/24 Glucose 118 mg/dL (70-99) H 11/10/24 08:14 11/10/24 COAG Pre-Assessment Diagnosis/Proposed Procedure Planned Operative Procedure(s): (N/A) Anterior Cervical Fusion C4-5, C5-6 and C6-7 Anesthesia History Anesthesia History - dye penetrant testing technician: Anesthesia History - dye penetrant testing technician Hx Hospitalization No 12/07/24 12:59 Any Problems With Anesthesia No 12/07/24 12:59 Cholinesterase deficiency No 12/07/24 12:59 You/Your Family Experience No 12/07/24 12:59 fever (hyperthermia) with Relationship Recent Exposure to Contagious No 12/16/24 06:08 Disease Does patient have nerve No 12/07/24 12:59 stimulator Patient instructed to have device shut off --Does patient have Pacemaker No 12/16/24 06:08 or ICD? When Was Last Pacemaker Check QUESTION #4 FULL TEXT: You/Your Family Experience fever (hyperthermia) with Anesthesia Last Oral Intake Last Oral intake: Last Oral Intake NPO since 17:00 12/16/24 06:08 Meds taken in AM with sips of water? Meds patient instructed to take am of surgery PONV PONV - dye penetrant testing technician: PONV - dye penetrant testing technician Female No 12/07/24 12:59 HX of Motion Sickness No 12/07/24 12:59 HX of N/V After Surgery No 12/07/24 12:59 Non-Smoker No 12/07/24 12:59 Duration of Surgery greater Yes 12/07/24 12:59 than 60 minutes Number of Risk Factors 1 12/07/24 12:59 PONV Score Low Risk 12/07/24 12:59 Height & Weight Height & Weight: Anesthesia: Height & Weight Height 6 ft 4 in 12/16/24 06:08 Weight: 73 kg 12/16/24 06:08 Body Mass Index (BMI) 19.5 12/16/24 06:08 Respiratory Assessment Respiratory Assessment - dye penetrant testing technician: Respiratory Tract Infection Hx - dye penetrant testing technician Hx Respiratory Tract Infection No 12/07/24 12:59 STOP Sleep Apnea STOP Sleep Apnea - dye penetrant testing technician: STOP Sleep Apnea - dye penetrant testing technician Hx Hypertension No 12/07/24 12:59 Hx Sleep Apnea No 12/07/24 12:59 CPAP BIPAP Do you snore loudly (louder No 12/07/24 12:59 than talking or can be heard Do you often feel tired/ No 12/07/24 12:59 fatigued/ sleepy during daytime? Has anyone observed you stop No 12/07/24 12:59 breathing during sleep? STOP Results Negative 12/07/24 12:59 QUESTION #5 FULL TEXT : Do you snore loudly (louder than talking or can be heard through closed doors)? Tobacco Use History Tobacco Use History - dye penetrant testing technician: Tobacco Use History - dye penetrant testing technician Tobacco Use Smoking Status Current every day smoker 12/07/24 12:59 Hx Tobacco Use Yes 12/07/24 12:59 Years Smoking Packs Smoked per Day Smoking Cessation Date was within the last 15 years Hx Smoking Cessation Date Hx Smoking Cessation Counseling Hematologic Medial History Hematologic Hx - dye penetrant testing technician: Hematologic Medical Hx - marketing instructor Hx of Blood Transfusion No 12/07/24 12:59 Hx of Transfusion in last 3 No 12/07/24 12:59 Months Date of Last Transfusion (if within last 3 months) Ever experience any problems No 12/07/24 12:59 with transfusion(s)? Specify any problems Hx of Preganancy in last 3 N/A 12/07/24 12:59 Months Nurse Filling Out Transfusion NBUCHER 12/07/24 12:59 & Questions: Date: 12/07/24 12/07/24 12:59 Time: 13:00 12/07/24 12:59 Patient unable to answer at this time (ie. confused, unrespo /Reproduction History /Reproductive History - dye penetrant testing technician: /Reproductive Hx- dye penetrant testing technician Hx Now No 12/07/24 12:59 Gestational Age (in weeks): EDC: Hx Hx Para Hx Section SAB No 12/07/24 12:59 Active Medications Active Medications: Current Medications Generic Name Dose Route Start Last Admin Trade Name Freq PRN Reason Stop Dose Admin Acetaminophen 1,000 mg 12/16/24 07:30 Acetaminophen 500 Mg Tablet PO 12/16/24 07:31 PREOP ONE Dexamethasone Sodium Phosphate 8 mg 12/16/24 07:30 Dexamethasone 10 Mg/Ml Vial IV 12/16/24 07:31 INTRAOP ONE Dexamethasone Sodium Phosphate 4 mg 12/16/24 07:30 Dexamethasone 4 Mg/Ml Vial IV 12/16/24 07:31 POSTOP ONE Cefazolin Sodium 2 gm/ Sodium 110 mls @ 150 mls/hr 12/16/24 07:30 Chloride IV 12/16/24 08:13 INTRAOP ONE Tranexamic Acid 1,000 mg/ 110 mls @ 440 mls/hr 12/16/24 07:30 Sodium Chloride IV 12/16/24 07:44 INTRAOP ONE Tranexamic Acid 1,000 mg/ 110 mls @ 440 mls/hr 12/16/24 07:30 Sodium Chloride IV 12/16/24 07:44 INTRAOP ONE Magnesium Sulfate 1 gm/ 102 mls @ 408 mls/hr 12/16/24 07:30 12/16/24 06:29 Dextrose IV 12/16/24 07:44 408 mls/hr PREOP ONE Administration Lactated Ringer's 1,000 mls @ 15 mls/hr 12/16/24 05:45 12/16/24 06:28 IV 15 mls/hr .Q48H ELOISE Administration Insulin Human Lispro 1 - 6 unit 12/16/24 07:30 Insulin Lispro 100 Unit/Ml Insuln.Pen SC 12/17/24 07:29 Q4H PRN PRN BG>/= 180, SEE PROTOCOL Protocol PFSH Medical History (Updated 11/05/24 @ 09:45 by Nichole Borges) Wears glasses Leg cramps Smoker History of edema Hyperlipemia Pulmonary nodule Gastric reflux Pulmonary emphysema Home Medications ?Medication ?Instructions ?Recorded ?Last Taken ?Type NK 10/30/24 Unknown History Allergy/AdvReac Type Severity Reaction Status Date / Time pollen extracts (pollens) AdvReac Other Verified 12/07/24 12:59 Family History (Updated 10/30/24 @ 15:07 by Francine Perez) Mother Hypertension Ovarian cancer Father Diabetes Myocardial infarction Hypertension Surgical History (Updated 11/05/24 @ 09:45 by Nichole Borges) History of appendectomy (~2004) Social History (Updated 10/30/24 @ 15:07 by Francine Perez) household members: spouse Smoking Status: Current every day smoker tobacco type: cigarettes Review of Systems (Anesthesia) ROS Narrative System reviewed and no additional complaints, except as documented.
--- NOTE | 2024-12-16 07:26 | PCM.HP.BLA ---
History and Physical Date of Admission: 12/16/24 MR#: [id number] Acct: [id number] Name: MARY ANNE RAMOS Rep #: [id number] : 1965 Provider: Dr. Jose Quinones MD Age/Sex: 59/M Location[place] [facility] [place] Status: Signed Intake Vital Signs 10/30/2513:47 Height 6 ft 4 in Weight: 165 lb 2 oz BMI 20.0 Intake Visit Reasons: CERVICAL SPINE Accompanied by: Is patient in pain?: Yes Pain scale (1-10): 10 Allergies pollen extracts (pollens) Adverse Reaction (Verified 10/30/24 15:08) Other Medications ?Medication ?Instructions ?Recorded ?Confirmed ?Type NK 10/30/24 10/30/24 History PFSH Surgical History (Updated 10/30/24 @ 14:48 by Francine Perez) History of appendectomy Family History (Updated 10/30/24 @ 15:07 by Francine Perez) Mother Hypertension Ovarian cancerFather Diabetes Myocardial infarction Hypertension Social History (Updated 10/30/24 @ 15:07 by Francine Perez) household members: spouse Smoking Status: Current every day smoker tobacco type: cigarettes HPI CERVICAL SPINE Details: This documentation accurately reflects the service provided and the decisions made by me, Dr. Jose Quinones MD 10/30/24 0675. Part of today?s visit was documented by Radha TAMAOY, acting as scribe. MARY ANNE RAMOS is a 59 year old M here today for neck pain that he has been having for 3-4 years. He states that his pain in the neck is equal on both sides and radiates into his bilateral shoulders and down the arms into his finger tip. He feels that within the last 2 months his pain has gotten worse. He does have numbness/tingling in his arms and hands bilaterally. He denies having dexterity issues but has been dropping things which has become more frequent. He does have balance issues that he is unsure is getting worse that he has had for the past month now. He did have an MRI of his cervical spine at [facility] on 09/21/24. He denies PT for the neck but has done some exercises at home that his showed him how to do from her previous neck surgery. He has tried ice and heat as well. He did recently finish a prednisone dose vannesa which did take the edge off of his pain. He does also have prescription for Meloxicam to take for pain as need that is prescribed to him by his PCP. He denies seeing pain management for any injections. Patient is LHD. He does have dexterity issues for the last couple of weeks. He has tried applying ice and heat to the neck. He feels like he stumbles a lot and has been bothering him the last couple of weeks. He has not had any falls from stumbling. Non-diabetic, no history of strokes, heart or lung problems. Never been diagnosed with scoliosis. He does have breathing issues and he does see a lung doctor at [facility]. They did find a spot on the lungs about a couple years ago but they didn't seem too worried about it. He does smoke about 1/2 or less pack of cigarettes a day. History of appendectomy about 10-15 years ago. Ortho Exam General General: Yes no acute distress and Yes well groomed Neurologic: Yes alert and Yes oriented x3 Psychologic: Yes reasonable and appropriate Exam Narrative Examination neck shows bilateral paraspinal tenderness. Neurologic evaluation of upper extremity shows 4 x 5 strength in all muscles in both upper extremities. Adam's is positive bilaterally. Romberg's is positive. Tandem gait shows imbalance. There is no hyperreflexia lower extremities. Coding Level of Care Code Off vis,new,level 5 Diagnoses Cervical myelopathy with cervical radiculopathy G95.9; M54.12 Other kyphosis, cervical region M40.292 Time Spent (min) 55 Assessment and Plan Assessment and Plan (1) Cervical myelopathy with cervical radiculopathy: Status: Acute (2) Other kyphosis, cervical region: Status: Acute Orders: Orders Cerv Spine 2 or 3 Views 10/30/24 M54.2 - Cervicalgia Plan Obtained and reviewed cervical spine x-rays today in the clinic. Reviewed imaging findings in detail with the patient as well as prior x-rays and MRI that was done at an outside facility. These show reversal of cervical lordosis causing kyphosis without dynamic instability. Disc height loss at C5-6 and C6-7 noticed. MRI shows severe cord compression with cord signal changes especially C4-5 and multilevel cervical stenosis most severe between C4-7. Mild central stenosis C3-4 and C7-T1 also noticed. Explained that he does have severe spinal cord compression with cord edema or cord signal changes. He has developed weakness and progressive difficulty with dexterity and balance and mentions of multiple falls. His dexterity and balance have worsened rapidly over the last 2 weeks. Explained to him natural history of cervical myelopathy which is typically that of progression. Discussed that treatment involves surgical decompression to halt the progression of myelopathy. I recommend urgent C4-7 ACDF surgery. Explained the pros, cons, risks and benefits of the surgical procedure with the patient today. Explained that surgical procedure will not make everything completely normal but it will stop the spinal cord function from worsening. The risks include but are not limited to infection, bleeding, injury to nerves and vessels, hematoma formation, need for further surgery, dysphagia, dysphonia, recurrent laryngeal nerve injury, May syndrome, DVT, pulmonary embolism, pneumonia, atelectasis, cardiopulmonary event, nerve root injury, spinal cord injury, persistent weakness, persistent numbness and pain. Patient understands and agrees to proceed with surgery. Consent was signed.
--- NOTE | 2024-12-16 11:19 | OP.PCM_ITS ---
Procedures Musculoskeletal [id number]-[id number]: Other Procedure See Report Operative Report (Standard) Operative Information Date of Procedure: 12/16/24 Pre-Operative Diagnosis: C4-7 disc degeneration, stenosis, cord compression, cord signal changes, myelopathy with radiculopathy Post-Operative Diagnosis: Same Surgery/Procedure Performed: C4-7 ACDF clinic nurse: Yes Search Marketing Analyst: Harvey Saleh Tasks completed by assistant housekeeping manager: Closing, Removing tissue, Hemostasis: Electrocautery and Retracting Type of Anesthesia: General RN Documented Start/Stop Times: Operation Date: 12/16/24 07:30 Case Time Into Pre-Op 12/16/24 05:43 Out of Pre-Op 12/16/24 07:30 Anesthesia Start 12/16/24 07:42 Into Room 12/16/24 07:42 Procedure Start 12/16/24 08:24 Procedure End 12/16/24 11:00 Anesthesia End 12/16/24 11:11 Out of Room 12/16/24 11:11 Into Recovery 12/16/24 11:13 Procedure Start Time: 08:24 Procedure Stop Time: 11:00 Select all DRAINS/GRAFTS/IMPLANTS that apply: Drains Drain details: [place] , Graft Graft details: Structural allograft cortical cancellous strut and Implanted device Implanted device details: Medtronic Sanctuary Elite plate instrumentation Estimated Blood Loss: 30 cc Specimen collected: No Description of surgery: Preoperative diagnosis: C4-7 disc degeneration with stenosis, cord compression, cord signal changes, myelopathy with radiculopathy Postoperative diagnosis: Same Name of procedure: C4-7 anterior cervical discectomy and fusion with plate instrumentation - Anterior cervical fusion C4-5, CPT code 71552 - Anterior plate instrumentation C4-7, CPT code 49294/59 - Anterior cervical fusion C5-6, CPT code 55857/51 - Anterior cervical fusion C6-7, CPT code 54199/51 - C4-5 structural allograft bone with DBX, CPT code 11878 - C5-6 structural allograft bone with DBX, CPT code 80327 - C6-7 structural allograft bone with DBX, CPT code 25049 - Demineralized bone matrix, CPT code 13721 Attending surgeon: Jose Quinones M.D. Anesthesia: Gen. endotracheal Estimated blood loss: 30 mL Complications: None Instrumentation used: Medtronic Sanctuary Elite plate, LASR corticocancellous block Indications: The patient is a pleasant 59-year-old gentleman who presented with neck pain, left worse than right upper extremity weakness, progressive difficul ty with dexterity and balance. MRI showed C4-7 disc degeneration with severe stenosis, cord compression with cord signal changes. In order to halt the progression of myelopathy, the patient requested surgical treatment. All risks and benefits of the procedure were explained to the patient. The risks include but are not limited to infection, bleeding, injury to nerves and vessels, vertebral artery injury, spinal cord injury, paralysis, vocal cord paralysis, injury to esophagus, pseudoarthrosis, need for further procedures, adjacent segment degeneration. Procedure: The patient was identified in the preoperative suite using unique patient identifiers. Skin was marked consent was taken and all questions were answered. The patient was then brought back to the operative room and a timeout was performed. General endotracheal anesthesia was given. Intraoperative neuro monitoring leads were applied. The patient was carefully positioned supine on a regular OR table. A lateral view with a C-arm was done to identify the level and to define the incision. The anterior neck was then prepped and draped in the usual fashion. A final timeout was then performed. A transverse skin incision was taken to the left of midline. Subcutaneous tissue was then divided with Bovie. Platysma was identified and cut along the incision with scissors. The fascial interval between the sternocleidomastoid and the larynx was developed. Omohyoid was identified and retracted. The esophagus with the larynx was retracted medially to reach the prevertebral fascia. Marker x-ray was performed with bent spinal needle and disc space and levels were confirmed. Longus coli muscle was elevated on both sides at and above and below C4-7 discs. Self-retaining retractors were then placed. A long handle knife was then used to perform annulotomy at C4-5. Disc fragments were removed with the pituitary. Carpenter pins were placed in C4 and C5 for disc distraction. Curettes and bur was utilized to remove cartilage from the endplates. Discectomy was performed laterally up to the uncovertebral joints. Posterior osteophytes were thinned down with the bur and adequate decompression in the central and foraminal areas were performed and PLL was thinned out. Once the disc space was prepared, trials of various sizes were utilized. Thorough irrigation was given. 6 mm LASR cortical cancellous allograft bone large footprint was then fashioned in such a way that concavities were burred out inferiorly and superiorly and half cc of DBX (demineralized bone matrix) was squeezed into the cancellous portion. The graft was then inserted into the C4-5 disc space. The retractors were then repositioned and the procedure was repeated for C5-6 and C6-7 discs with complete discectomy. Graft sizes were 5 and 6 mm with large footprint at C5-6 and C6-7 respectively. The grafts were found to be in good apposition with good pullout strength. A 57 mm Medtronic Sanctuary Elite plate was then fixed to C4-7 with 17 mm screws. A lateral x-ray was then taken to check the length of the screws. Both AP and lateral x-rays showed good positioning of plate and screws. The locking mechanism over the screw heads was then turned. Thorough irrigation was again given. Hemostasis was achieved. A Turner drain was then inserted. Closure was done with 3-0 Vicryl for the platysma and subcutaneous tissue layers and 4-0 Monocryl for the skin. Closure was done around the drain. Steri-Strips were applied and dressing was done with 4 x 4 gauze and Tegaderm. A cervical collar was then applied. The patient was then woken up from anesthesia extubated and taken to PACU in stable condition. From here, the patient will be transitioned to the floor. Intraoperative neuro monitoring was performed throughout this procedure. Motor evoked potentials were run periodically. All potentials remained at baseline throughout the procedure. I was present for the entire surgery and performed the surgery myself. Surgical Findings: See operative note Complications Complications: No
--- NOTE | 2024-12-16 11:20 | PCM.POST.ANE ---
Anesthesia: Postop Eval I Current Vital Signs Temperature: 97.0 F Pulse Rate: 86 Blood Pressure: 128/81 Respiratory Rate: 20 Pulse Ox: 94 Oxygen Delivery Method: Room Air Assessment Airway patent: Yes Spontaneous unlabored respirations: Yes Mental status: Awake and Confused nausea: No Vomiting: No Anesthesia Complication: No Fluid Hydration Crystalloid volume administer (ml): 1,400 Total IV fluid infused: 1,400 Progress Note Anesthesia document: Postop Eval 1 completed: Yes
--- NOTE | 2024-12-16 13:20 | POSTOPAN2_ITS ---
Anesthesia Postop Eval I Sum Postop Eval Completion status Anesthesia document: Postop Eval 1 completed: Yes Anesthesia Postop Eval I Summary Anesthesia Postop Eval I Summary: Anesthesia Postop Eval I: Assessment Summary Airway patent Yes 12/16/24 11:21 [email or web address] [email or web address] Spontaneous unlabored Yes 12/16/24 11:21 GLUE JOINTER [email or web address] respirations Mental status Awake,Confused 12/16/24 11:21 GLUE [email or web address] nausea No 12/16/24 11:21 GLUE JOINTER [email or web address] Vomiting No 12/16/24 11:21 GLUE JOINTER [email or web address] Anesthesia Postop Eval I: Fluid Summary Crystalloid volume administer 1,400 12/16/24 11:21 GLUE JOINTER [email or web address] (ml) Colloids volume administered ( ml) Blood Product volume administered (ml) Total IV fluid infused 1,400 12/16/24 11:21 GLUE JOINTER [email or web address] Anesthesia Postop Eval I: Summary Notes Anesthesia Complication No 12/16/24 11:21 GLUE JOINTER [email or web address] Anesthesia Complication Comment: Post-operative progress note Anesthesia: Postop Eval II Evaluation Mental status: Awake and Confused Pain Level: 3 nausea: No Vomiting: No Progress Note Post-operative progress note: Initially, patient confused and slightly agitated. VSS stable and Neuro intact. IV Ativan administered with improvement in agitation, stable to frye. Complications Anesthesia Complication: No
--- NOTE | 2024-12-16 13:20 | PCM.POSTANE2 ---
Anesthesia Postop Eval I Sum Postop Eval Completion status Anesthesia document: Postop Eval 1 completed: Yes Anesthesia Postop Eval I Summary Anesthesia Postop Eval I Summary: Anesthesia Postop Eval I: Assessment Summary Airway patent Yes 12/16/24 11:21 INTERNATIONAL MARKETING EXECUTIVE.[email or web address] Spontaneous unlabored Yes 12/16/24 11:21 INTERNATIONAL MARKETING EXECUTIVE.PKEL respirations Mental status Awake,Confused 12/16/24 11:21 INTERNATIONAL MARKETING EXECUTIVE.[email or web address] nausea No 12/16/24 11:21 INTERNATIONAL MARKETING EXECUTIVE.[email or web address] Vomiting No 12/16/24 11:21 INTERNATIONAL MARKETING EXECUTIVE.[email or web address] Anesthesia Postop Eval I: Fluid Summary Crystalloid volume administer 1,400 12/16/24 11:21 INTERNATIONAL MARKETING EXECUTIVE.[email or web address] (ml) Colloids volume administered ( ml) Blood Product volume administered (ml) Total IV fluid infused 1,400 12/16/24 11:21 INTERNATIONAL MARKETING [email or web address] Anesthesia Postop Eval I: Summary Notes Anesthesia Complication No 12/16/24 11:21 INTERNATIONAL MARKETING EXECUTIVE.[email or web address] Anesthesia Complication Comment: Post-operative progress note Anesthesia: Postop Eval II Evaluation Mental status: Awake and Confused Pain Level: 3 nausea: No Vomiting: No Progress Note Post-operative progress note: Initially, patient confused and slightly agitated. VSS stable and Neuro intact. IV Ativan administered with improvement in agitation, stable to frye. Complications Anesthesia Complication: No
--- NOTE | 2024-12-16 13:37 | CON.PCM.HO_ITS ---
Assessment & Plan Assessment/Plan (1) Cervical myelopathy with cervical radiculopathy: PLAN: Plan Patient is a 59-year-old male who presented to [facility] on 12/16/2024 for planned cervical spine fusion procedure. Medicine consulted postoperatively for medical management. 1. 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 Orthopedic surgery primary. S/p C4-[address] Quinones on 12/16. Tolerated procedure well, no intraoperative complications noted. Postoperative pain control, DVT prophylaxis and further management per orthopedics. PT/OT/case management consulted. Follow-up a.m. CBC and BMP. 2. Prediabetes ? A1c 6.1% on preoperative lab evaluation in late October. Blood glucose 112 postoperatively. Received 2 doses of IV Decadron during procedure but not planning to receive any more steroids at this time. No need for blood glucose checks or sliding scale insulin at this time. 3. Tobacco dependence ? Smokes half pack per day or less. Denied need for nicotine replacement therapy while inpatient. Discussed cessation on discharge. DVT prophylaxis: Per orthopedics Total clinical time spent by myself addressing the patient's medical issues, reviewing all the data, and collaborating with patient's care team: 35 minutes. HPI Consult Data Date of Consult: 12/16/24 HPI Narrative Reason for Consultation: Postoperative medical management HPI Narrative: MARY ANNE RAMOS, is a 59 M who presented to [facility] on 12/16/2024 for planned cervical spine procedure. Medicine consulted postoperatively for medical management. Patient had C4-[address] Quinones today. Tolerated procedure well, no intraoperative complications noted. I saw the patient at bedside later this afternoon. Patient was sleeping when I arrived to the room. Upon awakening, patient was mildly lethargic but otherwise was interacting appropriately with me. Cervical collar is in place and dressing is in place over the incision site, appears clean and dry. He reported only mild neck pain currently. Denies any numbness or tingling in his arms. Denied any other concerns at this time. Notably patient has minimal past medical history is not on any home medications. [facility] Medical History (Updated 11/05/24 @ 09:45 by Nichole Boregs) Wears glasses Leg cramps Smoker History of edema Hyperlipemia Pulmonary nodule Gastric reflux Pulmonary emphysema Home Medications ?Medication ?Instructions ?Recorded ?Last Taken ?Type NK 10/30/24 Unknown History Allergy/AdvReac Type Severity Reaction Status Date / Time pollen extracts (pollens) AdvReac Other Verified 12/07/24 12:59 Family History (Updated 10/30/24 @ 15:07 by Francine Perez) Mother Hypertension Ovarian cancer Father Diabetes Myocardial infarction Hypertension Surgical History (Updated 11/05/24 @ 09:45 by Nichole Borges) History of appendectomy (~2004) Social History (Updated 10/30/24 @ 15:07 by Francine Perez) household members: spouse Smoking Status: Current every day smoker tobacco type: cigarettes ROS Constitutional Constitutional: Reports fatigue; Denies chills, fever(s) or weakness Eyes Eyes: Denies change in vision Cardiovascular Cardiovascular: Denies chest pain Respiratory/Chest Respiratory/Chest: Denies shortness of breath at rest Gastrointestinal Gastrointestinal: Denies abdominal pain Physical Exam Const alert, oriented x3, no apparent distress and average body habitus Constitutional Narrative: Upper middle-aged male, thin appearing, mildly lethargic appearing, cervical collar in place, otherwise sitting up fairly comfortably in bed, answering questions appropriately, in no acute distress. General Appearance: cooperative and comfortable Orientation / Consciousness: lethargic HEENT normocephalic, head/scalp atraumatic, hearing grossly normal bilaterally, nasal mucous membranes and turbinates normal and moist oral mucous membranes Eyes PERRL, EOMs intact bilaterally and conjunctivae normal Neck Neck Narrative: Cervical collar in place. Bandage noted over incision site on anterior neck, appears clean and dry. Chest inspection of chest normal Resp normal respiratory effort, normal air movement, no use of accessory muscles and clear to auscultation bilaterally Cardio regular rate, regular rhythm, no murmurs and peripheral pulses 2+ throughout GI normal to inspection, nondistended, normoactive bowel sounds, soft to palpation, non-tender and non-distended Back/Spine normal ROM Extremity normal to inspection, full ROM and no pedal edema Skin no rashes or lesions noted Neuro moves all extremities and no focal motor deficits Speech: speech normal Psych mental status grossly normal Lab / Micro Data 11/10/24 08:14 11/10/24 08:14 Labs: Laboratory Results - last 24 hr 12/16/24 06:00: Blood Type O POSITIVE, Antibody Screen NEGATIVE 12/16/24 06:17: POC Glucose 112 H Charges/Coding Visit Charges Inpatient E&M: 47568 Subs Hosp L2
[2024-12-16] MEDS: 0.9% Saline Lock 10 ML Syringe IV ×3 (13:42→21:34)
[2024-12-16] MEDS: HYDROcodone Bitartrate/Apap 5/325 Tablet PO ×2 (14:30→18:00)
[2024-12-16] MEDS: Cefazolin 2 GM in 0.9% Normal Saline (100mL Bag) 100 ML IV ×2 (15:29→23:48)
[2024-12-16] MEDS: Ensure Surgery 237 ML LIQUID PO (17:30)
[2024-12-16] MEDS: Senna/Docusate Sodium 1 Tablet 2 TABLET PO (21:10)
[2024-12-17] MEDS: HYDROcodone Bitartrate/Apap 5/325 Tablet PO (01:57)
[2024-12-17 02:00] VITALS: BP 133/90; PULSE 90; RESP 15; TEMP 37.2; O2SAT 93
--- NOTE | 2024-12-17 04:40 | RAD_ITS ---
PROCEDURE: CERV SPINE 2 OR 3 VIEWS 12/17/2024 REASON FOR EXAM: POSTOP DAY 1 SPINE SURGERY TECHNIQUE: CERV SPINE 2 OR 3 VIEWS COMPARISON: 12/16/2024 FINDINGS: Status post ACDF, C4 through C7. Intact hardware. Anatomic alignment. Diffuse mild cervical spine degeneration. Cervicothoracic scoliosis. No acute bone, soft tissue, or lung pathology. RAD/Cerv Spine 2 or 3 Views IMPRESSION: Unremarkable cervical spine appearance status post recent ACDF. Disclaimer: Reading [facility]
[2024-12-17 06:18] LABS: Hematocrit 42.3 % (40-54); Hemoglobin 13.6 g/dL (13.0-16.5); Immature Granulocytes Count 0.060 X10^3/uL (0.0-0.0); Mean Corp Hgb Conc 32.2 g/dL (32-36); Mean Corpuscular Volume 84.6 fL (80-94); Mean Platelet Vol. 10.6 fl (6.2-12.0); NRBC Flagged by Analyzer 0 % (0-5); POSITIVE DIFFERENTIAL YES; Platelet Count 202 K/mm3 (150-450); RBC Distribution Width CV 14.2 % (11.6-14.6); RBC Distribution Width SD 43.6 fl (35.1-43.9); Red Blood Count 5.00 M/mm3 (4.6-6.2); White Blood Count 15.8 K/mm3 (4.4-11.0)
[2024-12-17 06:27] VITALS: BP 132/79; PULSE 78; RESP 15; TEMP 37.2; O2SAT 93
[2024-12-17] MEDS: 0.9% Saline Lock 10 ML Syringe IV (06:35)
[2024-12-17 06:49] LABS: Anion Gap 11 (5-15); BUN 16 mg/dL (4-19); BUN/Creat Ratio 15.0 RATIO (10-20); Calcium,Total 9.0 mg/dL (7.6-11.0); Carbon Dioxide 25.0 mmol/L (21.0-32.0); Chloride 102 mmol/L (98-108); Estimated Creatinine Clearance 74.41 ml/min (50-250); Glucose 108 mg/dL (70-99); Potassium 4.4 mmol/L (3.3-5.1)
[2024-12-17 06:52] LABS: Differential Indicated SCAN CRITERIA MET
[2024-12-17 08:03] VITALS: BP 119/71; PULSE 79; RESP 16; TEMP 37.2; O2SAT 92
[2024-12-17] MEDS: Ensure Surgery 237 ML LIQUID PO (08:13)
--- NOTE | 2024-12-17 08:21 | PCM.HOSP.N ---
Hospitalist Note Mr. Martínez is a 59-year-old male who was admitted for planned cervical fusion which was performed on 12/16/2024. Patient takes no chronic medications however he is prediabetic with hemoglobin A1c in October of 6.1. Patient is expected to have elevated blood sugars from Decadron dosing during surgery. No new medication changes on discharge. Patient is seen with medically stable and no significant abnormalities with his laboratory data. From a medical standpoint patient is okay for discharge home. Would recommend smoking cessation both for overall health and for postoperative healing.
[2024-12-17] MEDS: Senna/Docusate Sodium 1 Tablet 2 TABLET PO (10:35)
--- NOTE | 2024-12-17 13:37 | CASEMGMT ---
Pt to dc this date. Pt is up in halls ambulating. Noted pt did not have PCP. RN CM into pt room, pt lying in bed with at bedside. Pt states pt PCP is Jaclyn Petersen at [facility]. Phone is [phone]. Pt denies any homegoing needs.
--- NOTE | 2024-12-17 13:40 | DCINST_ITS ---
Discharge Instructions DC O2, CPAP, BIPAP needs Home O2 Discharge instructions: No Follow Up Care Test Results: Test results from this visit will be discussed in further detail at your follow- up appointment, if applicable. Discharge Plan Admission Admit Date/Time: 12/16/24 11:15 Attending Provider: Jose Quinones Primary Care Provider: Care Physician,No Primary Consulting Providers: Enrico Miner; Alberto Teague; Shadia Mejía Instructions Patient Instructions: Cervical Fusion Dc Additional Instructions / Restrictions: Keep Tegaderm and gauze clean and dry. After 5 days remove the Tegaderm and gauze and cover incision with a Band-Aid. Replace Band-Aid daily thereafter. Wear cervical collar full-time for the first 2 weeks. Eat soft solid foods as needed for dysphagia. Sleep in a recliner to help with swelling. No bending, lifting, twisting. Follow-up in clinic in 2 weeks. Discharge Orders/Prescriptions Prescriptions: New hydrocodone-acetaminophen 5-325 mg Tablet 1 tab PO Q6H PRN (Reason: pain) 7 Days Qty: 28 0RF methocarbamol 500 mg Tablet 750 mg PO TID PRN (Reason: pain/spasms) Qty: 30 0RF meloxicam 15 mg tablet 15 mg PO DAILY Qty: 30 0RF Rx Instructions: take once a day sennosides-docusate sodium [Stimulant Laxative Plus] 8.6-50 mg Tablet 2 tab PO BID PRN (Reason: constipation) Qty: 14 0RF Other Ambulatory Orders: 12 Lead EKG (Routine) Timeframe: 1 Day Location: None Selected Ordered By: Dr. Jose Quinones Referrals / Follow Up: GLORIA WARREN [Other] Disposition Disposition (needs filled in before D/C Order can be placed): Home, Self Care
--- NOTE | 2024-12-17 16:40 | PN.ORTHO_ITS ---
Subjective Subjective Patient is postop day 1 C4-7 ACDF. Patient has been up and walking. Nursing reports that the patient had to have his surgical dressing removed 4 times due to saturation. Patient denies any significant issues with swallowing but does report an increase in phlegm. Patient was seen at the bedside. Patient has also seen physical therapy who is cleared him for home discharge. Seen with Dr. Quinones. Objective Data Objective Data Vital Signs: Vital Signs Temp Pulse Resp BP Pulse Ox O2 Del Method O2 Flow Rate 98.9 F 79 16 119/71 92 Room Air 2 12/17/24 08:03 12/17/24 08:03 12/17/24 08:03 12/17/24 08:03 12/17/24 08:03 12/17/24 08:03 12/17/24 03:00 Oxygen Flow Rate (L/min) 2 Oxygen Delivery Method Room Air Weight: 160 lb 14.999 oz Body Mass Index (BMI) 19.5 Intake & Output: Intake and Output for Last 24 Hours 12/15/24 12/16/24 12/17/24 23:59 23:59 23:59 Intake Total 1610 / 1610 110 / 110 Output Total 50 / 50 Balance 1560 / 1560 110 / 110 Lab / Micro Data 12/17/24 05:45 12/17/24 05:45 Labs: Laboratory Results - last 24 hr 12/17/24 05:45: WBC 15.8 H, RBC 5.00, Hgb 13.6, Hct 42.3, MCV 84.6, MCH 27.2, MCHC 32.2, RDW Std Deviation 43.6, RDW Coeff of Isael 14.2, Plt Count 202, MPV 10.6, Immature Gran % (Auto) 0.400, Neut % (Auto) 66.6, Lymph % (Auto) 22.1, M deb % (Auto) 10.5 H, Eos % (Auto) 0.3, Baso % (Auto) 0.1, Absolute Neuts (auto) 10.5 H, Absolute Lymphs (auto) 3.49, Nucleated RBC % 0, Platelet Estimate ADEQUATE, Plt Morphology Comment LARGE, Sodium 137, Potassium 4.4, Chloride 102, Carbon Dioxide 25.0, Anion Gap 11, BUN 16, Creatinine 1.09, Estim Creat Clear Calc 74.41, Est GFR (MDRD) Non-Af 78, BUN/Creatinine Ratio 15.0, Glucose 108 H, Calcium 9.0 Micro: Microbiology 11/10/24 08:14 Swab (Method) Nasal Screen MRSA/MSSA - Final Radiography Diagnostic Testing: Radiology Impression Cervical Spine X-Ray 12/16/24 06:30 IMPRESSION: Unremarkable intraoperative appearance Disclaimer: Reading Location: [place] [id number] Cervical Spine X-Ray 12/17/24 04:40 IMPRESSION: Unremarkable cervical spine appearance status post recent ACDF. Disclaimer: Reading Location: [place] [id number] Physical Exam Narrative Neurological examination of the upper extremity shows 4 power in bilateral triceps and biceps, all other muscle groups shows 5 power. Normal sensation across all dermatomes. Drain removed, Tegaderm and gauze applied over the incision. Cervical collar was then reapplied over the dressing. Const alert, oriented x3 and no apparent distress Assessment & Plan Assessment/Plan (1) Status post cervical spinal fusion: PLAN: Plan Postop day 1 C4-7 ACDF. Obtained and reviewed x-rays today which show hardware and bone graft in good position. Patient has been cleared for home discharge from PT/OT. No significant dysphagia. Educated and reviewed on the use of the incentive spirometer. Educated and reviewed on the proper use and wear of the cervical collar. Reviewed restrictions and no bending, lifting, twisting. Home-going meds include Huson, meloxicam, methocarbamol, senna. OARRS reviewed. He will follow-up in the clinic in 2 weeks. Patient is in agreement.
== END 2024-12-17 13:50 | disposition home or self-care (01) ==
LOC: SDC 14:59 → MS3 14:59
PROVIDERS: Student in an Organized Health Care Education/Training Program; Admitting Provider Orthopaedic Surgery Orthopaedic Surgery of the Spine; Referring Provider Orthopaedic Surgery Orthopaedic Surgery of the Spine; Visit Provider Orthopaedic Surgery Orthopaedic Surgery of the Spine
PROC: (CPT 22551; principal; 2024-12-16 07:00)
DX: M48.02 Spinal stenosis, cervical region (principal); J43.9 Emphysema, unspecified; M50.021 Cervical disc disorder at C4-C5 level with myelopathy; M40.202 Unspecified kyphosis, cervical region; E78.5 Hyperlipidemia, unspecified; R73.03 Prediabetes; F17.210 Nicotine dependence, cigarettes, uncomplicated; K21.9 Gastro-esophageal reflux disease without esophagitis; M50.121 Cervical disc disorder at C4-C5 level with radiculopathy
CPT/HCPCS: 22551; 22552 ×2; 22845; 20931; 20930; 00670; 36415; 72040; 76000; 80048; 82962; 83036; 83735; 85025; 86703; 86706; 86708; 86803; 86850; 86900; 86901; 87081; 93005; 94668; 96365; 96366; 96375; 96376; 97161; 97166; 99221; A4648; C1713; A4216; G0378; J2405; J3475